=== PATIENT | male | born 1970 | race Caucasian/White ===

== ENCOUNTER 2024-02-13 17:50 | Inpatient (IN) | payer OTHER, SELFPAY ==
--- NOTE | ~2024-02-13 | XR_ITS ---
EXAMINATION: XR HIP, LEFT CLINICAL INFORMATION: Fall with pain COMPARISON: None available. TECHNIQUE: Single view pelvis with 2 additional views of the left hip. FINDINGS: There is a nondisplaced intertrochanteric fracture of the left femur.. Alignment is anatomic. Hip joint space is maintained. Soft tissues are unremarkable. Degenerative changes are seen in the lower spine. No pelvic fractures are seen. Some minimal hip joint arthritic changes are seen. XR/XR hip LT min 2V IMPRESSION: Nondisplaced intertrochanteric fracture left femur.
--- OUTSIDE RECORDS SUMMARY | 2024-02-13 17:54 | XMS_ITS | Continuity of Care Document ---
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 Attending Physician: Di Romero NP Admitting Physician: Di Romero NP Referring Physician: Nidia Carlisle DO Allergies, Adverse Reactions, Alerts Substance Reaction Severity Status codeine Active Immunizations Given and Recorded Vaccine Date Status Refusal Reason tetanus/diphtheria/pertussis, acel(Tdap) 05/13/19 Given Medications amitriptyline 75 mg oral tablet 1 tablet = 75 mg, By Mouth, Daily at bedtime, # 90 tablet, 0 Refills, Maintenance, 05/14/19 10:48:35 EDT, Tablet Start Date: 05/14/19 Status: Ordered apixaban Starter Pack 5 mg oral tablet = 5 mg, By Mouth, 2 times a day, # 60 tablet, 1 Refills, Maintenance, 10/19/23 12:54:00 EDT, Tablet, [facility], Partial fill upon patient request if the prescription is for a schedule II opioid drug., 183, cm, 10/15/23 12:11:00 EDT, Hei... Start Date: 10/19/23 Status: Ordered aspirin 81 mg oral delayed release tablet 81 mg, By Mouth, Daily, # 30 tablet, Refills 1, Tot. Refills 1, Maintenance, 10/19/23 12:54:00 EDT,Route to Pharmacy Electronically, [facility], Partial fill upon patient request if the prescription is for a schedule II opioid drug., 18... Start Date: 10/19/23 Status: Ordered clonazePAM 1 mg oral tablet 1 tablet = 1 mg, By Mouth, 2 times a day, PRN Anxiety, 0 Refills, Maintenance, 05/14/19 10:47:58 EDT, Tablet Start Date: 05/14/19 Status: Ordered Lasix 40 mg oral tablet 40 mg, By Mouth, Daily, # 30 tablet, Refills 0, Tot. Refills 0, Maintenance, 12/01/23 13:30:00 EDT,Route to Pharmacy Electronically, [facility], Partial fill upon patient request if the prescription is for a schedule II opioid drug., 18... Start Date: 12/01/23 Status: Ordered lidocaine 5% topical film 1 patch, Topically, Daily, remove patches after 12 hours, # 30 patch, 0 Refills, Acute 01/20/24 11:26:00 EDT, 12/20/23 11:25:00 EDT, Film, [facility][id number], Partial fill upon patient request if theprescription is for a schedule II opioid drug., 1 p... Start Date: 12/20/23 Stop Date: 01/20/24 Status: Ordered methadone 10 mg/5 mL oral solution = 140 mg, By Mouth, Daily, 0 Refills, Maintenance, 08/10/23 10:58:00 EST, Solution, Partial fill upon patient request if the prescription is for a schedule II opioid drug. Start Date: 08/10/23 Status: Ordered Metoprolol Tartrate 50 mg oral tablet 180 each, 0 Refill(s), TAKE 1 TABLET BY MOUTH TWICE A DAY, 0 Refills, 12/02/23 13:45:00 EDT, Partial fill upon patient request if the prescription is for a schedule II opioid drug. Start Date: 12/02/23 Status: Ordered tamsulosin 0.4 mg oral capsule 0.4 mg, By Mouth, Daily at bedtime, # 30 capsule, Refills 0, Tot. Refills 0, Maintenance, 10/19/23 12:54:00 EDT, Route to Pharmacy Electronically, [facility], Partial fill upon patient request if the prescription is for a schedule II opi... Start Date: 10/19/23 Status: Ordered Problem List Condition Confirmation Course Effective Dates Status Health [facility] Informant Anxiety Confirmed Active Chronic back pain s/p resection of herniated disc Confirmed Active HTN Confirmed Active Social History Social History Type Response Smoking Status Use: 4 or less cigar ettes(less than 1/4 pack)/day in last 30 days;5-9 cigarettes (between 1/4 to 1/2 pack)/day in last 30 days; Type: Cigarettes entered on: 10/30/23 Sex Patient Care team information Care Team Personnel Name: Wen Kennedy RN Position: S RN Member Role: Primary Care Nurse Name: Deisy Baker RN Position: S RN Member Role: Primary Care Nurse Name: Sofia Richey RN Position: S RN Member Role: Primary Care Nurse Name: Cecy Rojas RN Position: [facility] RN Member Role: Primary Care Nurse Name: Gin Savage RN Position: S RN Member Role: Primary Care Nurse Name: Abhishek Martinez RN Position: [facility] RN Member Role: Primary Care Nurse Name: Balta Driscoll RN Position: [facility] RN Member Role: Primary Care Nurse Name: Yazmin Richards LPN Position: S RN Member Role: Primary Care Nurse Name: Nidia Carlisle DO Position: [facility] Physician (General Medicine) Member Role: PCP Address: Address: [address] [place] [id number] Name: Alba Carrillo (INSTR) Position: S RN Member Role: Primary Care Nurse Name: Cyndy Caballero RN Position: [facility] RN Member Role: Primary Care Nurse Name: Stephanie Krishnamurthy RN Position: [facility] RN Member Role: Primary Care Nurse Name: Valente Dyer RN Position: S RN Member Role: Primary Care Nurse Name: Odessa Spence RN Position: [facility] RN Member Role: Primary Care Nurse Care Team Related Persons Name: GRANT ROY Address: home [address] [place] [id number] Name: RHONDA MORENO Address: home [address] [place] [id number]
--- OUTSIDE RECORDS SUMMARY | 2024-02-13 17:54 | XMS_ITS | Continuity of Care Document ---
Author Organization 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 Role Phone Maylin Nidia GRANT Primary Care Physician [place] [facility] [place] 10[place]08[place]23 - 10/19/[address] [address]- Encounter Diagnosis Pain in abdominal muscle of flank(Final) - 10/08/23 Discharge Disposition: A-D/C Home Attending Physician: Alexis Leiva MD Admitting Physician: Alexis Leiva MD Referring Physician: Not on Staff, Referring MD Allergies, Adverse Reactions, Alerts Substance Reaction Severity Status Tylenol with Codeine Active Immunizations Given and Recorded Vaccine Date Status Refusal Reason tetanus/diphtheria/pertussis, acel(Tdap) 05/13/19 Given Medications acetaminophen 325 mg oral tablet 975 mg, By Mouth, Every 6 hours, # 60 tablet, Refills 0, Tot. Refills 0, Acute 11/02/23 0:00:00 EDT, 10/19/23 12:54:00 EDT, Route to Pharmacy Electronically, [facility], Partial fill upon patient request if the prescription is for a sche... Start Date: 10/19/23 Stop Date: 11/02/23 Status: Ordered acetaminophen 325 mg oral tablet 975 mg, Tablet, By Mouth, 10/19/23 7:00:00 EDT Start Date: 10/19/23 Stop Date: 10/19/23 Status: Completed amitriptyline 75 mg oral tablet 1 tablet = 75 mg, By Mouth, Daily at bedtime, # 90 tablet, 0 Refills, Maintenance, 05/14/19 10:48:35 EDT, Tablet Start Date: 05/14/19 Status: Ordered apixaban Starter Pack 5 mg oral tablet = 5 mg, By Mouth, 2 times a day, # 60 tablet, 1 Refills, Maintenance, 10/19/23 12:54:00 EDT, Tablet, [facility], Partial fill upon patient request if the prescription is for a schedule II opioid drug., 183, cm, 10/15/23 12:11:00 EDT, Hei... Start Date: 10/19/23 Status: Ordered aspirin 81 mg oral delayed release tablet 81 mg, By Mouth, Daily, # 30 tablet, Refills 1, Tot. Refills 1, Maintenance, 10/19/23 12:54:00 EDT,Route to Pharmacy Electronically, [facility], Partial fill upon patient request if the prescription is for a schedule II opioid drug., 18... Start Date: 10/19/23 Status: Ordered clonazePAM 1 mg oral tablet 1 tablet = 1 mg, By Mouth, 2 times a day, PRN Anxiety, 0 Refills, Maintenance, 05/14/19 10:47:58 EDT, Tablet Start Date: 05/14/19 Status: Ordered Dilaudid 4 mg oral tablet = 4 mg, By Mouth, Every 3 hours, PRN Pain , Severe, # 12 tablet, 0 Refills, Acute 10/26/23 0:00:00 EDT, 10/19/23 12:54:00 EDT, Tablet, [facility], Partial fill upon patient request if the prescription is for a schedule II opioid drug., 1... Start Date: 10/19/23 Stop Date: 10/26/23 Status: Ordered Dilaudid 4 mg oral tablet 4 mg, Tablet, By Mouth, Every 3 hours, PRN for Pain , Severe, Routine, 10/15/23 16:53:00 EDT Start Date: 10/15/23 Stop Date: 10/20/23 Status: Discontinued gabapentin 300 mg oral capsule 300 mg, By Mouth, 3 times a day, # 60 capsule, Refills 0, Tot. Refills 0, Maintenance, 10/19/23 12:54:00 EDT, Route to Pharmacy Electronically, [facility], Partial fill upon patient request if the prescription is for a schedule II opioid... Start Date: 10/19/23 Status: Ordered lisinopril 40 mg oral tablet 1 tablet = 40 mg, By Mouth, Daily, # 30 tablet, 0 Refills, Maintenance, 05/14/19 10:47:32 EDT, Tablet Start Date: 05/14/19 Status: Ordered lisinopril 40 mg oral tablet 0 Refills, Maintenance, 10/08/23 14:22:00 EST, Partial fill upon patient request if the prescription is for a schedule II opioid drug. Start Date: 10/08/23 Status: Ordered methadone 10 mg/5 mL oral solution 62.5 mL = 125 mg, By Mouth, Daily, 0 Refills, Maintenance, 08/10/23 10:58:00 EST, Solution, Partialfill upon patient request if the prescription is for a schedule II opioid drug. Start Date: 08/10/23 Status: Ordered metoprolol 50 mg oral tablet 50 mg, Tablet, By Mouth, Hold for: HR < 60, SBP < 90, 10/19/23 7:00:00 EDT Start Date: 10/19/23 Stop Date: 10/19/23 Status: Completed Metoprolol Tartrate 50 mg oral tablet 1 tablet = 50 mg, By Mouth, 2 times a day, # 60 tablet, 0 Refills, Maintenance, 05/14/19 10:47:19 EDT, Tablet Start Date: 05/14/19 Status: Ordered tamsulosin 0.4 mg oral capsule 0.4 mg, By Mouth, Daily at bedtime, # 30 capsule, Refills 0, Tot. Refills 0, Maintenance, 10/19/23 12:54:00 EDT, Route to Pharmacy Electronically, [facility], Partial fill upon patient request if the prescription is for a schedule II opi... Start Date: 10/19/23 Status: Ordered Valium 5 mg oral tablet 5 mg, By Mouth, 2 times a day, PRN, # 20 tablet, Refills 0, Tot. Refills 0, Acute 11/02/23 0:00:00 EDT, Spasm, 10/19/23 12:54:00 EDT, Route to Pharmacy Electronically, [facility], Partial fill upon patient request if the prescription is... Start Date: 10/19/23 Stop Date: 11/02/23 Status: Ordered Problem List Condition Confirmation Course Effective Dates Status Health St atus Informant Anxiety Confirmed Active Chronic back pain s/p resection of herniated disc Confirmed Active HTN Confirmed Active Results Radiology Reports * Exam Date Time Procedure Performing Provider Status 10/16/23 10:09 AM IR End of Case Report Au th (Verified) IR End of Case Report * Exam Date Time Procedure Performing Provider Status 10/16/23 10:09 AM US Guide Abdomen Par acentesis w/Imaging Celena Busby; Auth (Verified) Notes: (US Guide Abdomen Paracentesis w/Imaging) Reason For Exam: abdominal fluid US Guide Abdomen Paracentesis w/Imaging Patient: YOHAN CELESTE Study Date: 10/16/2023 Performing: Julisa Hawley PA-C Referring: : 1970 Age: 53 Gender: MALE PROCEDURE: US Guided Paracentesis INDICATION: RUQ fluid collection s/p abdominal surgery. Bilious fluid? Samples requested for testing. 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 Informed consent was obtained. A suitable access site in the right upper abdominal wall was identified, marked, prepped and draped in standard sterile fashion. 1% lidocaine was administered for local anesthesia. A 5 Azerbaijani catheter was advanced into the peritoneal cavity. A post paracentesis scan was obtained. The catheter was removed and hemostasis obtained using manual compression. COMPLICATIONS: The patient tolerated the procedure well and left the department in stable condition. There were no immediate complications. FINDINGS: There is a small amount of ascites/fluid. An ultrasound guided paracentesis was successfully performed as described above. The post paracentesis scan demonstrates no significant residual abdominal fluid. PLAN: Routine post procedure monitoring. IMPRESSION: Successful ultrasound guided paracentesis with evacuation of 500 ml of sanguineous ascites. Signed By Julisa Hawley PA-C On 10/16/2023 12:59:15 Signed By Julisa Hawley PA-C On 10/16/2023 12:59:15 Julisa Hawley PA-C Equipment : [employer] [place] 19 X 10 Dictated By: Julisa Ko Dictated Date/Time: 10/16/23 10:09 a Reviewed By: Julisa Ko Signed By: Julisa Ko Signed Date/Time: 10/16/23 10:09 am Transcribed By: MAGUE Transcribed Date/Time: 10/16/23 10:09 am * Exam Date Time Procedure Performing Provider Status 10/14/23 12:[address] Abd/Pelvis W/ IV + Oral Contrast Elsi Avila; Auth (Verified) Notes: (CT Abd/Pelvis W/ IV + Oral Contrast) Reason For Exam: Postop RESULT: CT Abd/Pelvis W/ IV + Oral Contrast CT Abd/Pelvis W/ IV + Oral Contrast REASON: Postop; Clinical Question(s): Abscess TECHNIQUE: Spiral CT through the abdomen and pelvis with IV contrast formatted in 3 planes. 100 cc of Omnipaque 300 was administered intravenously. This study was performed with oral contrast. Weight-based protocol using automatic tube modulation was used to optimize exposure parameters. CTDIvol Body: 17.02 mGy, DLP Body: 1110 mGy*cm. COMPARISON: 10/08/2023 FINDINGS: Stock Manager View Findings, Lines and Tubes: Partially visualized catheter ending at the superior cavoatrial junction. Harding catheter in the bladder. Visualized Chest: Moderate left pleural effusion. Bibasilar atelectasis. Normal heart size. No pericardial effusion. Diaphragm: Normal. Liver: Persistent large area of hypoattenuation in the inferior right hepatic lobe. Gallbladder: Contains high density material likely vicariously excreted contrast. Bile ducts: No biliary ductal dilation. Spleen: Persistent large wedge-shaped area of hypoattenuation in the upper pole of the spleen compatible with infarct. Pancreas: Normal. Adrenal glands: Normal. Kidneys and ureters: Punctate nonobstructing right upper pole calculus. No hydronephrosis or suspicious mass. Bladder: Normal. Reproductive organs: Unremarkable. Stomach, small bowel, and large bowel: Improved wall thickening of the sigmoid colon and rectum butpersistent wall thickening involving the transverse and descending colon. No dilated small bowel loops to suggest small bowel obstruction. Appendix: Not seen, but no evidence of appendicitis. Peritoneum and retroperitoneum: Small amount of postoperative pneumoperitoneum. Free fluid in the pelvis and paracolic gutters extending around the liver and spleen. Mesenteric fashion, likely postoperative. Mesenteric fluid collection in the upper mid abdomen measuring 8.7 x 3.8 x 6.2 cm (axial image 84) without rim enhancement. Heterogeneous density fluid collection in the left upper quadrant measuring 6.1 x 8.2 x 6.6 cm (image 72) without rim enhancement. Lymph nodes: No enlarged lymph nodes. Blood vessels: Unchanged small focus of adherent thrombus along the proximal abdominal aorta. The SMA is now patent status post embolectomy. Persistent thrombus in the right renal vein (axial image 75). Severe narrowing of the splenic vein as it passes posterior to the above-described left upper quadrant collection. 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 Abdominal and pelvic wall: Diffuse anasarca. Midline skin bethany. Bones: No acute abnormality. Degenerative changes of the spine, worst at L5-S1. IMPRESSION: 1. Status post exploratory laparotomy and SMA embolectomy. Fluid collections in the left upper quadrant and upper abdomen could represent hematomas or seromas. Abscesses are possible but thought lesslikely given the lack of rim enhancement. 2. Redemonstration of splenic infarct as well as large area of hypoattenuation in the right hepaticlobe which is also concerning for ischemia. 3. Persistent wall thickening of the transverse and descending colon concerning for mesenteric ischemia. Improved wall thickening of the sigmoid colon and rectum. 4. Moderate left pleural effusion. Moderate ascites. 5. 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 Persistent thrombus in the right renal vein. 6. Marked narrowing of the splenic vein as it passes posterior to the left upper quadrant fluid collection. 7. Persistent small amount of adherent thrombus along the right lateral wall of the occipital abdominal aorta. 8. Small amount of postoperative pneumoperitoneum. WSN: [id number] Ordering Physician: Imer Maradiaga Dictated By: Claudy Buckner MD Dictated Date/Time: 10/14/23 12:54 p Reviewed By: Claudy Buckner MD Signed By: Claudy Buckner MD Signed Date/Time: 10/14/23 12:54 pm Transcribed By: RYNE Transcribed Date/Time: 10/14/23 12:38 pm * Exam Date Time Procedure Performing Provider Status 10/09/23 10:03 PM US Doppler Ext Lower Venous Bilat Andie Lee; Auth (Verified) Notes: (US Doppler Ext Lower Venous Bilat) Reason For Exam: concern for LE DVT;Other: RESULT: US Doppler Ext Lower Venous Bilat US Doppler Ext Lower Venous Bilat Reason: Other:; concern for LE DVT; Clinical Question(s): Thrombosis COMPARISON: None IMAGING TECHNIQUE: Ultrasound of the veins from the groin through the calf was performed using grayscale, color, and spectral Doppler ultrasound assessing for complete compressibility and normal flowcharacteristics. FINDINGS: RIGHT LOWER EXTREMITY: Common femoral vein: Patent. No thrombosis. Femoral vein: Patent. No thrombosis. Popliteal vein: Patent. No thrombosis. Gastrocnemius veins: The visualized portions are patent without evidence of thrombosis. Peroneal veins: The visualized portions are patent without evidence of thrombosis. Posterior tibial veins: The visualized portions are patent without evidence of thrombosis. LEFT LOWER EXTREMITY: Common femoral vein: Patent. No thrombosis. Femoral vein: Patent. No thrombosis. Popliteal vein: Patent. No thrombosis. Gastrocnemius veins: The visualized portions are patent without evidence of thrombosis. Peroneal veins: The visualized portions are patent without evidence of thrombosis. Posterior tibial veins: The visualized portions are patent without evidence of thrombosis. OTHER FINDINGS: None. IMPRESSION: No evidence of deep venous thrombosis. WSN: [id number] Ordering Physician: Nick Singleton Dictated By: Mukund Pulido MD Dictated Date/Time: 10/09/23 10:12 p Reviewed By: Mukund Pulido MD Signed By: Mukund Pulido MD Signed Date/Time: 10/09/23 10:12 pm Transcribed By: RYNE Transcribed Date/Time: 10/09/23 10:11 pm * Exam Date Time Procedure Performing Provider Status 10/09/23 5:[address] Angio Chest Elizabeth Guzmán; Auth (Ve rified) Notes: (CT Angio Chest) Reason For Exam: Suspected thoracic clot;Other: RESULT: CT Angio Chest EXAMINATION: CT Angio Chest INDICATION: Reason: Other:; Suspected thoracic clot; Clinical Question(s): Other:; Order Comment: TECHNIQUE: Spiral CTA of the chest was performed after rapid IV contrast administration without cardiac gating triggered by an DIONNE on the aorta. Images are formatted in multiple planes using 2-D multiplanar and 3-D maximum intensity projection. 100 cc of Omnipaque 300 was administered intravenously. Weight-based protocol using automatic tube modulation was used to optimize exposure parameters. CTDIvol Body: 37.07 mGy, DLP Body: 574 mGy*cm. COMPARISONS: None. Correlation is made with CT abdomen/pelvis dated 10/08/2023. ANGIOGRAPHIC FINDINGS: No aortic dissection or aneurysm. Normal three vessel arch without branch vessel stenosis. There are mild atherosclerotic calcifications in the aortic wall. In addition, there is a crescentic thrombus adherent to the left aortic wall extending from the level of the left superior pulmonary vein to the level of the left atrium with craniocaudal extent measuring approximately 3.5 cm (best seen on image 49 of series 50 on coronal images). The thrombus becomes somewhat polypoid at the level of the left atrium and extends into the lumen inferiorly with additional craniocaudal extent measuring 4.6 cm (image 48 of series 50 on coronal images). Pulmonary arteries are normal in caliber. No evidence of central pulmonary embolism on this study performed without dedicated technique. NON-ANGIOGRAPHIC FINDINGS: Stock Manager View Findings, Lines and Tubes: Enteric tube terminates in stomach lumen. There are midline abdominal skin bethany. Trachea and Airways: Patent without evidence of tracheal or endobronchial lesion. Lungs and Pleura: Dependent atelectasis in lower lobes. Mild centrilobular emphysema with upper lobe predominance moderate left pleural effusion. No right effusion. No pneumothorax. Mediastinum and geovanny: No mass or hematoma. No mediastinal or hilar lymphadenopathy. No esophageal abnormality. There is a 2 cm heterogeneous nodule in right thyroid lobe. Heart: Heart is normal in size. Small pericardial effusion measuring 1.1 cm adjacent to the left ventricle. Chest Wall Soft Tissues: Normal. Diaphragm and upper abdomen: Heterogeneous attenuation of the liver and spleen, in keeping with known infarcts. There is small volume ascites and at least moderate volume pneumoperitoneum in the visualized abdomen. Bones: No acute abnormality. IMPRESSION: 1. Thrombus in the descending aorta with the crescentic adherent component measuring 3.5 cm craniocaudally and polypoid/free intraluminal component measuring 4.6 cm. 2. Moderate left pleural effusion, increased since 10/08/2023 and there is new small pericardial effusion. 3. Small volume ascites and moderate volume pneumoperitoneum in the visualized abdomen, in keeping with recent exploratory laparotomy. 4. Heterogeneous attenuation of the liver and spleen, in keeping with known infarcts. 5. 2 cm right thyroid lobe nodule. Follow-up with nonemergent dedicated ultrasound is recommended per ACR guidelines. An actionable message ([place]) has been communicated via the [employer] system on 10/09/2023 5:41 PM, Message ID [id number]. WSN: [id number] Ordering Physician: Imer Maradiaga Dictated By: Kurtis Collins MD Dictated Date/Time: 10/09/23 5:41 pm Reviewed By: Kurtis Collins MD Signed By: Kurtis Collins MD Signed Date/Time: 10/09/23 5:41 pm Transcribed By: RYNE Transcribed Date/Time: 10/09/23 5:25 pm * Exam Date Time Procedure Performing Provider Status 10/08/23 7:44 PM Chest Portable Marion Ledbetter; Kera (Verif ied) Notes: (Chest Portable) Reason For Exam: s/p NGT placement;Tube Placement RESULT: Chest Portable Chest Portable Reason: Tube Placement; s p NGT placement; Clinical Question(s): Tube Placement COMPARISON: 08/07/2023 FINDINGS: LINES AND TUBES: Enteric tube sidehole appears likely in the distal esophagus/gastroesophageal junction. Recommend advancement 3 to 4 cm. LUNGS AND PLEURA: Low lung volumes with mild basilar atelectasis. Lungs are otherwise clear with no consolidation. No pleural effusion. No pneumothorax. HEART, MEDIASTINUM AND GEOVANNY: Heart is normal in size. Normal mediastinal and hilar contour. BONES AND SOFT TISSUES: No acute abnormality. IMPRESSION: Recommend mild advancement of the enteric tube. WSN: [id number] Ordering Physician: Jony House Dictated By: Mukund Pulido MD Dictated Date/Time: 10/08/23 9:37 pm Reviewed By: Mukund Pulido MD Signed By: Mukund Pulido MD Signed Date/Time: 10/08/23 9:37 pm Transcribed By: RYNE Transcribed Date/Time: 10/08/23 9:36 pm * Exam Date Time Procedure Performing Provider Status 10/08/23 6:[address] Abd/Pelvis W/ IV Contrast Only Elsy Sun; Kera (Verified) Notes: (CT Abd/Pelvis W/ IV Contrast Only) Reason For Exam: LLQ abdominal pain;Other: RESULT: CT Abd/Pelvis W/ IV Contrast Only CT Abd/Pelvis W/ IV Contrast Only Hx of Present Illness: reports 12 hours of lower abd pain, and watery diarrhea w small amt blood, no fevers but feels chilled,; Reason: LLQ abdominal pain; Clinical Question(s): Abscess TECHNIQUE: Spiral CT through the abdomen and pelvis with IV contrast formatted in 3 planes. 100 cc of Omnipaque 300 was administered intravenously. This study was performed without oral contrast. Weight-based protocol using automatic tube modulation was used to optimize exposure parameters. CTDIvol Body: 14.40 mGy, DLP Body: 865 mGy*cm. COMPARISON: CTA abdomen pelvis 08/07/2023 FINDINGS: Stock Manager View Findings, Lines and Tubes: None. Visualized Chest: Small left pleural effusion. The heart is normal in size. Trace pericardial effusion. Diaphragm: Normal. Liver: Interval development of a large ill-defined area of hypoattenuation predominantly involving the anterior inferior right middle lobe which demonstrates a wedge-shaped configuration on the sagittal imaging, in setting near complete occlusion of the anterior branch of the right portal vein findings in keeping with an infarct. The posterior branch of the right portal vein and left portal vein distributions appear patent. Gallbladder: No CT evidence of gallbladder pathology. Bile ducts: No biliary ductal dilation. Spleen: Large infarct of the anterior posterior spleen although the splenic artery and veins appearpatent. Pancreas: Severely atrophic. Adrenal glands: Normal. Kidneys and ureters: No evidence of stones or hydronephrosis. No apparent infarct. Nonocclusive thrombus noted in the mid to right renal artery (image 55 series 201). Bladder: Normal. Reproductive organs: Unremarkable. Stomach, small bowel, and large bowel: There is dependent hyperdense contents within the gastric fundus otherwise the stomach appears normal. Redemonstrated is significant circumferential thickening involving the transverse, descending and rectosigmoid colon setting of extensive thrombosis involving the superior mesenteric artery jejunal and ileal branches of findings in keeping with ischemic colitis. Normal appearance of the ascending colon. Small bowel follow normal course and caliber. Several of the small bowel loops in the left abdomen demonstrate mildly thickened diego likely due to the above thrombus. No evidence of bowel obstruction. Appendix: Not seen, but no evidence of appendicitis. Peritoneum and retroperitoneum: No significant ascites. No pneumoperitoneum. No omental or mesenteric lesions. Lymph nodes: No enlarged lymph nodes. Blood vessels: Moderate atherosclerotic vascular calcification. No aortic aneurysm. Ill-defined and likely adherent thrombus noted in the abdominal aorta at the level of the GE junction (image 26 series 201). Near-complete occlusion of the jejunal and ileal branches off the SMA (image 61 series 201). Near complete occlusion of the IMV (image 64 series 2 0).. Complete occlusive thrombus of the anterior branch of the right portal vein. Nonocclusive thrombus in the mid right renal artery and vein. Abdominal and pelvic wall: No acute abnormality. Bones: No acute abnormality. IMPRESSION: 1. 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 2. Large splenic infarct. 3. Near complete occlusion of the jejunal and ileal branches off the SMA with redemonstrated circumferential thickening involving the transverse, descending and rectosigmoid colon suggesting ischemiccolitis. Left abdominal small bowel loops are thickened likely supplied by the above distribution and suggesting mesenteric ischemia. Additional note of near complete occlusion of the IMV. 4. Nonocclusive thrombus in both the mid right renal artery and vein without evidence of renal infarct. 5. Likely adherent thrombus noted in the mid abdominal aorta at the level of GE junction. Results were relayed via [employer] by Dr. Ayala to Junior Sarah GRANT on 10/08/2023 6:52 AM Wet read provided via [facility] by Dr. Ayala on 10/08/2023 6:54 AM. I have personally reviewed the images and I agree with this report. WSN: [id number] Ordering Physician: Junior Smith Dictated By: Abhishek Ayala DO Dictated Date/Time: 10/08/23 7:49 am Reviewed By: Juan Covarrubias MD Signed By: Juan Covarrubias MD Signed Date/Time: 10/08/23 7:54 am Transcribed By: RYNE Transcribed Date/Time: 10/08/23 7:20 am Vital Signs Most recent to oldest [Reference Range]: 1 2 3 Height 183 cm (10/15/23 12:11 PM) 183 cm (10/08/23 9:37 AM) 183 cm (10/08/23 7:52 AM) Weight 100.6 kg (10/18/23 6:00 AM) 96.8 kg (10/17/23 4:57 AM) 95.2 kg (10/16/23 5:11 AM) Oxygen Saturation [94-100 %] 87 % *L* (10/19/23 10:00 AM) 96 % (10/18/23 10:00 PM) 97 % (10/18/23 6:00 PM) Pulse Rate [55-90 bpm] 84 bpm (10/19/23 10:00 AM) 102 bpm *H* (10/19/23 7:27 AM) 94 bpm *H* (10/18/23 10:00 PM) Body Mass Index [18.5-24.99 kg/m2] 22.99 kg/m2 (10/08/23 9:37 AM) 22.99 kg/m2 (10/08/23 7:52 AM) 22.99 kg/m2 (10/08/23 4:44 AM) Blood Pressure [90-138/55-84 mm Hg] 88/60mm Hg *L* (10/19/23 10:00 AM) 100/57mm Hg (10/19/23 7:27 AM) 104/60mm Hg (10/18/23 10:00 PM) Respiratory Rate [16-30 br/min] 18 br/min (10/19/23 12:30 PM) 18 br/min (10/19/23 12:29 PM) 18 br/min (10/19/23 11:29 AM) Temperature [96.8-100.4 DegF] 98.7 DegF (10/19/23 10:00 AM) 99.6 DegF (10/18/23 10:00 PM) 98.2 DegF (10/18/23 6:00 PM) Liters per Minute 1 L/min (10/12/23 8:00 PM) 1 L/min (10/12/23 7:00 PM) 6 L/min (10/08/23 3:15 PM) Mode of Delivery (Oxygen) Room air (10/19/23 10:00 AM) Room air (10/18/23 10:00 PM) Room air (10/18/23 6:00 PM) Blood pressure sites Arm, right (10/19/23 10:00 AM) Arm, left (10/18/23 10:00 PM) Arm, left (10/18/23 6:00 PM) Temperature Route Oral (10/19/23 10:00 AM) Oral (10/18/23 10:00 PM) Oral (10/18/23 6:00 PM) Dry Weight 77 kg (10/08/23 7:52 AM) 77 kg (10/08/23 4:44 AM) 77 kg (10/08/23 4:23 AM) Weight Obtained Via Bed scale (10/18/23 6:00 AM) Bed scale (10/17/23 4:57 AM) Bed scale (10/16/23 5:11 AM) Dry Weight Obtained Via Patient/family s tated (10/08/23 2:52 AM) Social History Social History Type Response Smoking Status 10 or more cigarette s (1/2 pack or more)/day in last 30 days; Started at age: 12; entered on: 05/14/19 Sex Note * Cassidy Rizvi LPN: PERFORM Event Display: Discharge/Transfer Note Hospital Authored Date: [id number] Nursing Discharge Note Entered On: 10/19/2023 14:29 EDT Performed On: 10/19/2023 14:28 EDT by Cassidy Rizvi LPN Nursing Discharge Note 2 Discharge Time : 10/19/2023 14:29 EDT Discharge Level of Care at Discharge : Home/Custodial/Foster Care Patient Left Unit Via : Wheelchair Patient Accompanied Off Unit with : Significant other DC Instructions Provided & Signed by Pt : Yes Patient Understands D/C Instructions : Yes Patient Instructions Discharge Signed : Yes Did Pt have Specialty Bed or Wound Vac : Yes Cassidy Rizvi LPN - 10/19/2023 14:28 EDT * Ann-Marie Vásquez MD: PERFORM Event Display: Discharge/Transfer Note Hospital Authored Date: [id number] Patient: ??CELESTEYOHAN JARA ? Age:??53 Years?Sex:??Male?:??1970?? Admit Date Admission Date: 10/08/2023 Discharge Date Discharge Date: 10/19/2023 Discharge Diagnoses General medical, 10/08/2023 Hospital Course Yohan is a 53yoM with PMH of polysubstance abuse??and portal vein thrombosis not on anticoagulation who was admitted at [facility] on 10/08/23 for acute on chronic mesenteric ischemia. ??He underwent exploratory laparotomy??with open SMA embolectomy and patch repair on 10/08/2023??with Dr. Leiva & Artur. The surgery was uncomplicated, and the patient tolerated the procedure well with no acute post-operative complications. ??He was started on multimodal pain control. ??He underwent ahypercoagulable workup by the heme service without significant findings except for iron deficiency,and he was started on Eliquis.?? Due to persistent leukocytosis and lack of bowel function, he had a CT scan??on 10/13??that showed??upper abdominal fluid collections, s/p??paracentesis on 10/15 revealing 500 cc of bloody ascites.?? Postoperative course additionally complicated by intermittent bloodybowel movements??requiring blood transfusion,??these eventually resolved without the need for colonoscopic evaluation. ??His diet was advanced to regular, which he tolerated without difficulty.??On day of discharge, he was tolerating regular diet, passing gas, voiding spontaneously, and ambulating without difficulty. ??His pain was controlled with PO pain medications. ??He will be discharged to home per PT recommendations. The discharge instructions were reviewed with the patient, and he??was given ample time to ask questions, all of which were answered. He will be discharged with prescriptions for Tylenol, Eliquis, aspirin, Flomax, Valium, gabapentin,??Dilaudid. ??He will be given instructions to follow-up with Dr. Leiva in 2 weeks, and he will see vascular on 11/05. Objective/Physical Exam on Day of Discharge Vitals & Measurements T:??98.7?F?? HR:??84??(Peripheral)?? RR:??18?? BP:??88/60?? BP:??109/62(Line)?? SpO2:??87%?? HT:??183??cm?? WT:??100.6??kg?? BMI:??22.99?? General: no acute distress, awake, alert HEENT: NCAT, EOM grossly intact, trachea midline CV: RRR Pulm: nonlabored breathing on room air Abd: soft, mild jaylyn-incisional tenderness, nondistended, no rebound or guarding, midline laparotomy with bethany c//di Ext: moving all extremities spontaneously, no lower extremity edema Skin: no rash on limited exam, warm and well-perfused Neuro: answers questions appropriately Psych: appropriate Future Appointments Saturday 8:30 AM EDT ?? With: Jackie LESTER, Ada Soriano Where: [facility] [address] [place] [address]- Status: Pending Patient Discharge Condition Stable Discharge Disposition Home Procedures Performed This Visit Preoperative Diagnosis Acute Mesenteric Ischemia Postoperative Diagnosis Same as preoperative diagnosis Operation Exploratory Laparotomy Open SMA Thrombectomy with patch angioplasty ?? Preoperative Diagnosis Same Postoperative Diagnosis Same Operation Exploratory laparotomy with open??thrombectomy of superior mesenteric artery??and bovine patch angioplasty. ?? US Guide Abdomen Paracentesis w/Imaging Patient: YOHAN CELESTE?? Study Date: 10/16/2023 ? Performing: Julisa Hawley ??RICARDO-Curtis? Referring: ?? : 1970 ? Age: 53 ?Gender: ?? MALE? PROCEDURE: ?? US Guided Paracentesis ?? INDICATION: ?? RUQ fluid collection s/p abdominal surgery. Bilious fluid? Samples requested for testing.? AIRPLANE PILOT HELPER(S):?? Julisa Hawley ??PA-Curtis? ANESTHESIA:?? Lidocaine was administered for local anesthesia? TECHNIQUE:?? A limited ultrasound examination of the abdomen was performed. ?? Informed consent was obtained. A suitable access site in the right upper abdominal wall was ??identified, marked, prepped and draped in standard sterile fashion. 1% lidocaine was administered for local anesthesia. A 5 Azerbaijani catheter was ??advanced into the peritoneal cavity.? A post paracentesis scan was obtained. The catheter was removed and hemostasis obtained using manual compression. ?? COMPLICATIONS: The patient tolerated the procedure well and left the department in stable condition. ??There were no immediate complications. ?? FINDINGS:?? There is a small amount of ascites/fluid. An ultrasound guided paracentesis was successfully performed as described above. ?? The post paracentesis scan demonstrates no significant residual abdominal fluid. ?? PLAN: Routine post procedure monitoring.? IMPRESSION: Successful ultrasound guided paracentesis with evacuation of 500 ??ml of sanguineous ?ascites. ?? Inpatient Medications Medications (22) Active SCHEDULED: (14) Acetaminophen 325 mg Tablet (acetaminophen 325 mg oral tablet) ??975 mg, By Mouth, Every 6 hours Amitriptyline 25 mg Tablet (amitriptyline 25 mg oral tablet) ??75 mg, By Mouth, Daily at bedtime Apixaban 5 mg Tablet (Apixaban Tablet) ??5 mg, By Mouth, 2 times a day Aspirin 81 mg EC Tablet (aspirin 81 mg oral delayed release tablet) ??81 mg, By Mouth, Daily Gabapentin 300 mg Capsule (gabapentin 300 mg oral capsule) ??300 mg, By Mouth, 3 times a day Lidocaine 5% Topical Patch (Lidocaine 5% Patch) ??3 each, Topically, Daily Methadone 30mg/15mL UD Solution (Methadone Liquid) ??125 mg 62.5 mL, By Mouth, Daily Metoprolol 50 mg Tablet (metoprolol 50 mg oral tablet) ??50 mg, By Mouth, 2 times a day before breakfast and dinne NaCl 0.9% Flush 3ml (NaCL 0.9% Flush) ??5 mL, IV Push, Daily Nicotine 7 mg / 24 hour Patch (Nicotine Topical) ??7 mg, Topically, Daily Remove Patch (Remove Lidocaine Patch) ??3 each, Topically, Daily at bedtime Remove Patch (Remove ??Patch) ??1 each, Topically, Daily Tamsulosin 0.4 mg Capsule (tamsulosin 0.4 mg oral capsule) ??0.4 mg, By Mouth, Daily at bedtime Thiamine 100 mg Tablet (thiamine 100 mg oral tablet) ??100 mg, By Mouth, Daily CONTINUOUS: (0) PRN: (8) Calcium Carbonate 500 mg (Calcium 200 mg) Chewable Tablet (Tums 500 mg oral tablet, chewable) ??500mg 1 tablet, Chew, Every 4 hours Chloraseptic Throat Kaycee (Chloraseptic Kaycee) ??1 sprays, By Mouth, Every 4 hours Clonazepam 1 mg Tablet (clonazePAM 1 mg oral tablet) ??1 mg, By Mouth, 2 times a day Diazepam 5 mg Tablet (Valium 5 mg oral tablet) ??5 mg, By Mouth, 2 times a day HYDROmorphone 4 mg Tablet (Dilaudid 4 mg oral tablet) ??4 mg, By Mouth, Every 3 hours NaCl 0.9% Flush 3ml (NaCL 0.9% Flush) ??5 mL, IV Push, Every hour nalOXONE ??400mcg/mL Inj (nalOXONE Inj) ??0.2 mg 0.5 mL, IV Push, Every 5 minutes Ondansetron 2mg/mL Inj (2mL Vial) (Zofran Inj) ??4 mg, IV Push, Every 6 hours Discharge Medications Acetaminophen (acetaminophen 325 mg oral tablet)?975?Milligram?By Mouth?Every 6 hours amiTRIPTYLINE (amitriptyline 75 mg oral tablet)?1?tab(s)?75?Milligram?By Mouth?Daily at bedtime apixaban (apixaban Starter Pack 5 mg oral tablet)?5?Milligram?By Mouth?2 times a day Aspirin (aspirin 81 mg oral delayed release tablet)?81?Milligram?By Mouth?Daily Clonazepam (clonazePAM 1 mg oral tablet)?1?tab(s)?1?Milligram?By Mouth?2 times a day?as needed?Anxiety Diazepam (Valium 5 mg oral tablet)?5?Milligram?By Mouth?2 times a day?as needed?Spasm Gabapentin (gabapentin 300 mg oral capsule)?300?Milligram?By Mouth?3 times a day Hydromorphone (Dilaudid 4 mg oral tablet)?4?Milligram?By Mouth?Every 3 hours?as needed?Pain , Severe Lisinopril (lisinopril 40 mg oral tablet)?1?tab(s)?40?Milligram?By Mouth?Daily Methadone (methadone 10 mg/5 mL oral solution)?62.5?Milliliter?125?Milligram?By Mouth?Daily Metoprolol (Metoprolol Tartrate 50 mg oral tablet)?1?tab(s)?50?Milligram?By Mouth?2 times a day Tamsulosin (tamsulosin 0.4 mg oral capsule)?0.4?Milligram?By Mouth?Daily at bedtime Labs Last 24 Hours BLOOD COUNT & DIFF ? Event Name?? Event Result?? Date/Time?? WBC 13.6 k/mm3??High 10/19/23 03:41:00 RBC 2.9 m/mm3??Low 10/19/23 03:41:00 Hgb 8.3 Gm/dL??Low 10/19/23 03:41:00 Hct 25.9 %??Low 10/19/23 03:41:00 MCV 89.3 femtoliters 10/19/23 03:41:00 MCH 28.6 pg 10/19/23 03:41:00 MCHC 32 g/dL??Low 10/19/23 03:41:00 Platelet Count 557 k/mm3??High 10/19/23 03:41:00 MPV 9.8 femtoliters 10/19/23 03:41:00 Nucleated RBC (Automated) 0 #/100 WBC'S 10/19/23 03:41:00 ? COAG ? Event Name?? Event Result?? Date/Time?? APTT 30.9 seconds 10/19/23 03:41:00 ? CHEM GENERAL ? Event Name?? Event Result?? Date/Time?? Sodium 136 mmol/L 10/19/23 03:41:00 Chloride 103 mmol/L 10/19/23 03:41:00 Bicarbonate Level 25 mmol/L 10/19/23 03:41:00 Anion Gap 8 10/19/23 03:41:00 Glucose Level 74 mg/dL 10/19/23 03:41:00 BUN 6 mg/dL 10/19/23 03:41:00 Creatinine-Blood 0.7 mg/dL 10/19/23 03:41:00 Calcium, Ionized pH Corrected 1.15 mmol/L 10/19/23 03:41:00 Phosphorus 3.5 mg/dL 10/19/23 03:41:00 Magnesium 1.6 mg/dL 10/19/23 03:41:00 ? Follow-Up Appointments Added Follow Up ?Time Frame ?Comments Cali HELM, Alexis Su?2 Weeks?Please call to make a follow up appointment for 2 weeks after discharge. Patient Instructions Additional Provider Instructions: ?? Follow-Up: - Please call Dr. Leiva's office (surgery) to make a follow-up appointment for 2 weeks after hospitaldischarge.?? - Please call your Primary Care Provider within 1 week for post-hospital follow- up and review of your medications. ?? Diet: - Continue regular diet as tolerated? Activity: - No heavy lifting >10 lbs, nothing heavier than a gallon of milk - No sports or gym class for 2 weeks - Increase activity as tolerated - Encourage coughing and deep breathing, use incentive spirometer - No tub baths or submerging (swimming, etc.) until incision(s) has/have healed - OK to shower, do not scrub the incision, pat dry - No driving until off narcotics ?? Wound care: - The incision may be left open to air or covered with gauze as needed for drainage or for comfort - The bethany will be removed at your follow-up appointment? Special Instructions:?? If you develop fever, chills, increased pain, nausea, vomiting, bleeding, or increased redness or pus around the wound please call the surgery office. Please take medications as prescribed and do not drive while on narcotic medications.? When to call your healthcare provider:?? - Pain, redness, swelling, or bleeding that gets worse - Smelly fluid from the incision or change in color of the drainage from the incision - Fever of 100.4F (38C) or higher, or as advised - Shaking or chills - Vomiting or nausea that does not go away - Numbness, coldness, or tingling around the incision - Change of skin color around the incision - Opening of the wound, stitches that pull apart, or bethany that fall out - Any other concerns?? * Cassidy Rizvi LPN: PERFORM Event Display: Patient Education/Instruction Authored Date: [id number] Inpatient Adult Discharge Instructions. [address] [address] Name: YOHAN CELESTE : 1970?? Visit: 10/08/2023 08:23?? Current Date: 10/19/2023 13:30 ?? Account: [id number]?? Inpatient Adult Discharge Instructions We would like to thank you for allowing us to assist you with your healthcare needs. The following includes patient education materials and information regarding your injury/illness. Our entire staffstrives to provide an excellent experience for our patients and their families. PLEASE ENSURE YOU FOLLOW-UP PER THE INSTRUCTIONS BELOW! ?? YOUR OPINION IS IMPORTANT TO US! Please complete the survey you may receive by mail or email. Your feedback will be used to make improvements to the healthcare experiences of our patients and their families. Surveys are administered by [employer] ?? If further treatment with your primary care physician or another doctor is recommended, it is important for you to keep the appointment. Call your primary care physician or return to the Emergency Department immediately if your condition worsens, fails to improve, or new symptoms develop. If you need to find a doctor, you can call [facility] for a referral at [phone] or toll free at [phone]) or log in to [email or web address].. ?? [facility], in keeping with [facility] guidance, no longer requires face masks for staff, patientsor visitors in most situations. Similiar to time spent indoors at other locations, there is the chance that you were exposed to repiratory viruses during your time with us (such as flu or COVID-19). If you develop symptoms concerning for a viral respiratory infection, please seek testing (and treatment if indicated) from your medical provider or home test kit. ?? You can view and manage your care through the patient portal or by using a health care juliano of your choosing. [employer] is a website that allows you to securely view your medical information including your hospital discharge summary, office visit summaries, medications and follow-up visits. You can also request appointments, renew medications, and request access to your medical information using a health care juliano of your choosing, or just ask a question. You can enroll at [email or web address] or register during your next office visit. You have been discharged from [facility], Patient Care Unit: SW5??. If you have any questions regarding these instructions, including results of studies pending, afteryou leave, please call us and we will be happy to assist you 25/02. [facility] Your Care Team Attending Physician Alexis Leiva MD?? Consulting Providers Alexis Leiva MD?? Discharging Providers Ann-Marie Vásquez MD Reason for Your Visit abd pain and diarrhea x a few months. was admitted for 5 days and it went away and now it came backthere is a bit of blood in his stool. tachy. given nacl en route - aprox 500ml?? Your Diagnosis General medical Tests Performed Below is a partial list of the tests performed during your hospitalization. You may have had other tests and procedures not included in this list. Please discuss all test results with your provider. [id number] ABG POC CARTRIDGE Alk Phos ALT Anticardiolipin Ab IgG/IgM Antithrombin III Functional AST B12 Vitamin Level BASE EXCESS POC CARTRIDGE Basic Metabolic Panel Beta 2 Glycoprotein 1 Ab Bilirubin Total + Direct BUN Calcium Ionized CALCIUM IONIZED POC CART CBC CBC w/ Differential Comprehensive Metabolic Panel COVID-19 (2019 Novel Coronavirus) PCR Creatinine Culture Sterile Body Fluid w/ Gram Smear?-- Results Pending -- Electrolytes Factor V Leiden Mutation w/Interpret Ferritin Folic Acid Level Glucose Level GLUCOSE POC GLUCOSE POC CARTRIDGE Haptoglobin HEMATOCRIT POC CARTRIDGE HEMOGLOBIN POC CARTRIDGE Homocysteine Level INR Ionized Calcium Iron + Iron Binding Capacity JAK2 [id number] Mutation w/Interpretation Lactate Level Lactic Acid Level LFT's Lipase Lytes Magnesium Level Phosphorus Level POC Hemochron ACT-LR POTASSIUM POC CARTRIDGE Prothrombin [id number] Mutation PTT Reticulocyte Ct SODIUM POC CARTRIDGE Spinal Fluid Culture Results TRIGLYCERIDE Type and Screen CT Abd/Pelvis W/ IV + Oral Contrast CT Abd/Pelvis W/ IV Contrast Only CT Angio Chest CXR Portable Doppler Ext Lower Venous Bilat (US) US Guide Abdomen Paracentesis w/Imaging You will be contacted within 72 hours with your results. Anaerobic Culture?? Basic Metabolic Panel?? JAK2 Exon 12-15 Mutation Detection?? RBCs for Surgery?? Sterile Body Fluid Culture W/ Gram Smear (Culture Sterile Body Fluid w/ Gram Smear)?? Transfuse RBCs?? Primary Care Provider Nidia Carlisle DO? Advance Directive Health Care Proxy on File Yes - Health Care Proxy Discharge Vitals Temperature: 98.7 DegF Height: 183 cm Pulse Rate: 84 bpm Weight: 100.6 kg Respiratory Rate: 18 br/min Body Mass Index: 22.99 kg/m2 Systolic Blood Pressure:??88 mm Hg??Low Body surface area: 1.98 Diastolic Blood Pressure: 60 mm Hg ?? Oxygen Saturation:??87 %??Low ?? Studies Pending All studies ordered during this hospital stay have been completed unless listed below. Please discuss all pending results with your provider listed above in these instructions. ?? Anaerobic Culture?? Basic Metabolic Panel?? JAK2 Exon 12-15 Mutation Detection?? RBCs for Surgery?? Sterile Body Fluid Culture W/ Gram Smear (Culture Sterile Body Fluid w/ Gram Smear)?? Transfuse RBCs?? What to do next Instructions From Your Doctor Additional Provider Instructions: ?? Follow-Up: - Please call Dr. Leiva's office (surgery) to make a follow-up appointment for 2 weeks after hospitaldischarge.?? - Please call your Primary Care Provider within 1 week for post-hospital follow- up and review of your medications. ?? Diet: - Continue regular diet as tolerated? Activity: - No heavy lifting >10 lbs, nothing heavier than a gallon of milk - No sports or gym class for 2 weeks - Increase activity as tolerated - Encourage coughing and deep breathing, use incentive spirometer - No tub baths or submerging (swimming, etc.) until incision(s) has/have healed - OK to shower, do not scrub the incision, pat dry - No driving until off narcotics ?? Wound care: - The incision may be left open to air or covered with gauze as needed for drainage or for comfort - The bethany will be removed at your follow-up appointment? Special Instructions:?? If you develop fever, chills, increased pain, nausea, vomiting, bleeding, or increased redness or pus around the wound please call the surgery office. Please take medications as prescribed and do not drive while on narcotic medications.? When to call your healthcare provider:?? - Pain, redness, swelling, or bleeding that gets worse - Smelly fluid from the incision or change in color of the drainage from the incision - Fever of 100.4F (38C) or higher, or as advised - Shaking or chills - Vomiting or nausea that does not go away - Numbness, coldness, or tingling around the incision - Change of skin color around the incision - Opening of the wound, stitches that pull apart, or bethany that fall out - Any other concerns? Orders?? methadone letter, ??10/19/23 13:02:00 EDT?? Prescriptions??, ??10/19/23 13:02:00 EDT?? Scheduled Follow-Up Appointments Saturday 8:30 AM EDT ?? With: Jackie LESTER, Ada Soriano Where: [facility] [address] [place] [address]- Status: Pending You Need to Schedule the Following Appointments Follow Up with??Cali HELM, Alexis Su When:??In 2 weeks Why: Please call to make a follow up appointment for 2 weeks after discharge. Where: [address] [place] [address] Drive [address] [facility] [place] [address]- Discharge Medications YOHAN CELESTE :1970 Visit Date:10/08/2023 Medications: Please continue your medications until treatment is completed or stopped by your provider. Medications not listed below should be discontinued. Discuss any questions related to medications with your provider. What How Much When Instructions Next Dose New Acetaminophen (acetaminophen 325 mg oral tablet) 975 Milligram Oral Every 6 hours Pickup at [facility] 3 tonight @ 7pm New apixaban (apixaban Starter Pack 5 mg oral tablet) 5 Milligram Oral Twice a day Refills: 1 Pickup at [place] [address] tonight @ 7pm New Aspirin (aspirin 81 mg oral delayed release tablet) 81 Milligram Oral Daily Refills: 1 Pickup at [place] [address] 10/19-tomorrow @ 8am New Diazepam (Valium 5 mg oral tablet) 5 Milligram Oral Twice a day as needed for Spasm Pickup at [place] [address] tonight @ 8pm New Gabapentin (gabapentin 300 mg oral capsule) 300 Milligram Oral 3 times a day Pickup at [place] [address] today @ 3pm then @ 9pm New Hydromorphone (Dilaudid 4 mg oral tablet) 4 Milligram Oral Every 3 hours as needed for Pain , Severe Pickup at [facility] 3 as directed New Tamsulosin (tamsulosin 0.4 mg oral capsule) 0.4 Milligram Oral Daily at Bedtime Pickup at [facility] 3 tonight @ 8pm Changed Clonazepam (clonazePAM 1 mg oral tablet) 1 tab(s) Oral Twice a day as needed for Anxiety as directed Changed Metoprolol (Metoprolol Tartrate 50 mg oral tablet) 1 tab(s) Oral Twice a day tonight @ 7pm Changed amiTRIPTYLINE (amitriptyline 75 mg oral tablet) 1 tab(s) Oral Daily at Bedtime tonight @ 8pm Unchanged Lisinopril (lisinopril 40 mg oral tablet) 1 tab(s) Oral Daily as directed Unchanged Lisinopril (lisinopril 40 mg oral tablet) Unchanged Methadone (methadone 10 mg/ 5 mL oral solution) 62.5 Milliliter Oral Daily 10/19-tomorrow @ 8am Pharmacy Information [facility] 3: [address], [place] [id number] [phone] ?? What How Much When Comments Stop Taking PEG Electrolyte Solution (Golytely - oral powder for reconstitution) See instructions Drink 240mL every 15 minutes until gone ?? Prescription Given During Visit Acetaminophen (acetaminophen 325 mg oral tablet) - 975 mg, By Mouth, Every 6 hours, # 60 tablet, 0 Refills, [place] [address] [phone]?? Aspirin (aspirin 81 mg oral delayed release tablet) - 81 mg, By Mouth, Daily, # 30 tablet, 1 Refills, [place] [address] [phone]?? Diazepam (Valium 5 mg oral tablet) - 5 mg, By Mouth, 2 times a day, # 20 tablet, 0 Refills, [place] [address] [phone]?? Gabapentin (gabapentin 300 mg oral capsule) - 300 mg, By Mouth, 3 times a day, # 60 capsule, 0 Refills, [place] [address] [phone]?? Hydromorphone (Dilaudid 4 mg oral tablet) - 4 mg, By Mouth, Every 3 hours, # 12 tablet, 0 Refills, [place] [address] [phone]?? Tamsulosin (tamsulosin 0.4 mg oral capsule) - 0.4 mg, By Mouth, Daily at bedtime, # 30 capsule, 0 Refills, [place] [address] [phone]?? apixaban (apixaban Starter Pack 5 mg oral tablet) - 5 mg, By Mouth, 2 times a day, # 60 tablet, 1 Refills, [place] [address] [phone]?? Laboratory Results Below is a partial list of the most recent Laboratory test results done prior to this discharge. You may have had other tests and procedures not included in this list. Please discuss all test resultswith your provider. Est Creatinine Clearance - 132.92 mL/min (10/18/2023) RBC Available - PT (10/16/2023) RBC Unit ID - [id number] (10/16/2023) (10/08/2023) ? ?Surgical Pathology - Patient Name: YOHAN CELESTE
Lab
Patient : 1970 (Age: 53)
Collection Date: 10/08/2023
Accession Date: 10/08/2023
Sign Out Date: 10/11/2023

<br/&g t;Tissue Source:
1:SMA CLOT

Final Diagnosis:
Thrombus, superior mesenteric artery, thrombectomy:
- Unorganized thrombus. <br/ >

Primary Pathologist:Dexter Powell M.D.
electronically signed out by: Dexter Powell M.D. / JAKUB

Clinical History:<br/&gt ;Ischemic SMA

Gross Description:
Specimen labeled SMA clot. Received in formalin and consists of a 2.7 x 2.3 x 0.8 cm aggregate of brown, slightly friable and slightly hemorrhagic presumptive soft tissue. Thespecimen is submitted in toto.
1-multiple pieces. (LG)*

Phone #: [phone], On-Call Pathologist: [id number] ABG POC CARTRIDGE (10/08/2023) ???pH (POC) POC Cartridge - 7.39???pCO2 (POC) POC Cartridge - 35.8 mm Hg???pO2 (POC) POC Cartridge - 222 mm Hg???Estimated Bicarbonate (POC) POC Cart - 21.8 mmol/L???% O2 Sat Arterial (POC) POC Cartridge - 100 %???Specimen Type - Blood Gas - ARTERIAL Alk Phos (10/11/2023) ???Alkaline Phosphatase - 134 units/L ALT (10/11/2023) ???ALT (SGPT) - 18 units/L Anticardiolipin Ab IgG/IgM (10/09/2023) ? ?Cardiolipin Ab IgM - <9? ?Cardiolipin Ab IgG - <9 Antithrombin III Functional (10/09/2023) ???Antithrombin III Functional - 59 % AST (10/11/2023) ???AST (SGOT) - 24 units/L B12 Vitamin Level (10/09/2023) ???Vitamin B12 Level - 837 pg/mL BASE EXCESS POC CARTRIDGE (10/08/2023) ???Base Excess (POC) POC Cartridge - NEGATIVE 3 Basic Metabolic Panel (10/19/2023) ???Sodium - 136 mmol/L???Potassium - 4.8 mmol/L???Chloride - 103 mmol/L???Bicarbonate Level - 25 mmol/L???Anion Gap - 8???Glucose Level - 74 mg/dL???BUN - 6 mg/dL???Creatinine-Blood - 0.7 mg/dL???Estimated GFR Creatinine - 109 ML/MIN/1.73 M2???Calcium - 7.3 mg/dL Beta 2 Glycoprotein 1 Ab (10/09/2023) ? ?B2GP1, IgG - <9? ?B2GP1, IgM - <9 Bilirubin Total + Direct (10/11/2023) ? ?Bilirubin, Total - 0.3 mg/dL? ?Bilirubin, Direct - <0.2 mg/dL? ?Bilirubin, Indirect - Direct bilirubin is less than the measureable limit. Therefore, indirect BUN (10/16/2023) ???BUN - 15 mg/dL Calcium Ionized (10/11/2023) ???Calcium, Ionized pH Corrected - 1.14 mmol/L CALCIUM IONIZED POC CART (10/08/2023) ???Ionized Calcium (POC) POC Cartridge - 1.11 mmol/L CBC (10/08/2023) ???WBC - 31.5 k/mm3???RBC - 3.46 m/mm3???Hgb - 9.9 Gm/dL???Hct - 29.8 %???MCV - 86.1 femtoliters???MCH - 28.6 pg???MCHC - 33.2 g/dL???Platelet Count - 361 k/mm3???RDW-SD - 45.8 femtoliters???MPV - 9.3 femtoliters???Nucleated RBC (Automated) - 0.1 #/100 WBC'S???Abs. NRBC - 0.0 k/mm3 CBC w/ Differential (10/19/2023) ???WBC - 13.6 k/mm3???RBC - 2.90 m/mm3???Hgb - 8.3 Gm/dL???Hct - 25.9 %???MCV - 89.3 femtoliters???MCH - 28.6 pg???MCHC - 32.0 g/dL???Platelet Count - 557 k/mm3???RDW-SD - 51.9 femtoliters???MPV - 9.8 femtoliters???Nucleated RBC (Automated) - 0.0 #/100 WBC'S???Abs. NRBC - 0.0 k/mm3???Abs. Neut - 8.6 k/mm3???Abs. Lymph - 2.7 k/mm3???Abs. [place] - 1.7 k/mm3???Abs. Eo - 0.2 k/mm3???Abs. Baso - 0.1 k/mm3???Neut % - 63.4 %???Lymph % - 19.6 %???[place] % - 12.5 %???Eos % - 1.5 %???Baso % - 0.4 %???Imm Gran - 2.6 %???Abs. Imm Gran - 0.4 k/mm3 Comprehensive Metabolic Panel (10/08/2023) ???Sodium - 135 mmol/L???Potassium - 4.1 mmol/L???Chloride - 99 mmol/L???Bicarbonate Level - 21 mmol/L???Anion Gap - 15???Glucose Level - 142 mg/dL???BUN - 9 mg/dL???Creatinine-Blood - 0.9 mg/dL???Estimated GFR Creatinine - 101 ML/MIN/1.73 M2???Calcium - 8.6 mg/dL???Protein, Total - 6.1 Gm/dL???[place] min - 2.8 Gm/dL???AG Ratio - 0.8???Alkaline Phosphatase - 202 units/L???AST (SGOT) - 38 units/L???ALT (SGPT) - 22 units/L???Bilirubin, Total - 0.4 mg/dL COVID-19 (2019 Novel Coronavirus) PCR (10/08/2023) ???COVID-19 PCR Specimen Source - NASAL???COVID-19 PCR Result - NEGATIVE Creatinine (10/16/2023) ???Creatinine-Blood - 0.7 mg/dL???Estimated GFR Creatinine - 110 ML/MIN/1.73 M2 Electrolytes (10/08/2023) ???Sodium - 139 mmol/L???Potassium - 4.4 mmol/L???Chloride - 105 mmol/L???Bicarbonate Level - 19 mmol/L???Anion Gap - 15 Factor V Leiden Mutation w/Interpret (10/09/2023) ???Factor V Leiden Mutation - NEGATIVE???Factor V Interpreting Pathologist - INTERPRETED BY RALPH JENSEN M.D. Ferritin (10/09/2023) ???Ferritin Level - 609 ng/mL Folic Acid Level (10/09/2023) ? ?Folic Acid Level - <2.0 ng/mL Glucose Level (10/11/2023) ???Glucose Level - 83 mg/dL GLUCOSE POC (10/19/2023) ???Glucose, POC - 77 mg/dL GLUCOSE POC CARTRIDGE (10/08/2023) ???Glucose (POC) POC Cartridge - 169 Haptoglobin (10/09/2023) ???Haptoglobin - 253 mg/dL HEMATOCRIT POC CARTRIDGE (10/08/2023) ???Hematocrit (POC) POC Cartridge - 32 % HEMOGLOBIN POC CARTRIDGE (10/08/2023) ???Hemoglobin (POC) POC Cartridge - 10.9 Gm/dL Homocysteine Level (10/09/2023) ???Homocysteine, Plasma/Serum - 94.6 ??mole/L INR (10/08/2023) ???INR - 1.3???Protime (PT) - 13.3 seconds Ionized Calcium (10/19/2023) ???Calcium, Ionized pH Corrected - 1.15 mmol/L Iron + Iron Binding Capacity (10/09/2023) ???Iron Level - 13 mcg/dL???Iron Binding Capacity, Unsaturated - 84 mcg/dL???Iron Binding Capacity,Estimated Total - 97 mcg/dL???% Iron Saturation - 13 % JAK2 V617F Mutation w/Interpretation (10/11/2023) ???JAK2 V617F Mutational Analysis - NEGATIVE???Yomi II Interpreting Pathologist - INTERPRETED BY RALPH JENSEN M.D. Lactate Level (10/16/2023) ???Lactate - 1.2 mmol/L Lactic Acid Level (10/08/2023) ???Lactate - 2.6 mmol/L LFT's (10/15/2023) ???Protein, Total - 4.3 Gm/dL???Albumin - 2.1 Gm/dL???Alkaline Phosphatase - 222 units/L???AST (SGOT) - 20 units/L? ?ALT (SGPT) - 11 units/L? ?Bilirubin, Total - 0.2 mg/dL? ?Bilirubin, Direct - <0.2 mg/dL???Bilirubin, Indirect - Direct bilirubin is less than the measureable limit. Therefore, indirect Lipase (10/15/2023) ???Lipase - 25 units/L Lytes (10/16/2023) ???Sodium - 132 mmol/L???Potassium - 4.3 mmol/L???Chloride - 101 mmol/L???Bicarbonate Level - 24 mmol/L???Anion Gap - 7 Magnesium Level (10/19/2023) ???Magnesium - 1.6 mg/dL Phosphorus Level (10/19/2023) ???Phosphorus - 3.5 mg/dL POC Hemochron ACT-LR (10/08/2023) ???POC ACT-LR - 147.0 seconds POTASSIUM POC CARTRIDGE (10/08/2023) ???Potassium (POC) POC Cartridge - 4.7 mmol/L Prothrombin [id number] Mutation (10/09/2023) ???Factor II Mutation - NEGATIVE???Factor II Interpreting Pathologist - INTERPRETED BY RALPH JENSEN M.D. PTT (10/19/2023) ???APTT - 30.[address] (10/09/2023) ???Retic Count - 2.7 %???Retic Count Corrected - 1.8 %???Retic Production Index - 1.2 % SODIUM POC CARTRIDGE (10/08/2023) ???Sodium (POC) POC Cartridge - 135 mmol/L Spinal Fluid Culture Results (10/16/2023) ???Body Fluid Culture Isolate 1 - Comment TRIGLYCERIDE (10/11/2023) ???Triglycerides - 97 mg/dL Type and Screen (10/15/2023) ???Blood Type - A Positive???Antibody Screen - Negative Allergies (NKA means No Known Allergies) Tylenol with Codeine Problems Active Problems??(4) Anxiety?? Chronic back pain s/p resection of herniated disc?? HTN?? Long-term current use of methadone for opiate dependence?? Education Materials Below is the list of Educational Leaflet Providered with your Discharge Instructions. Valuables and Belongings I fully understand and agree that [facility] accepts no responsibility for all my personal property including clothing, toilet articles, radios, jewelry, dentures, hearing aids, rings, money, or any other property that is in my possession or is brought to me after admission. I understand certain valuables may be placed in a hospital safe for a short period of time. I understand that the hospital is not liable for loss or damage due to accident, fire, or other natural occurrence while said property is in the safe. I accept full responsibility for any personal property that I keep with me, and will not hold the hospital responsible in case of loss or disappearance. I acknowledge that i have been encouraged to send valuables and belongings home. ?? Review of Valuable and Belonging List: With patient Possessions released to: Patient came from ER, belongings placed in locker with patient sticker Date for Pt to Sign Valuables/Belongings: 10/08/23 17:09:00 ?? Other Discharge Information ? Pulmonary Rehab Status?? Pulmonary Rehab Discharge Status?? Respiratory Rate: 18 br/min ? Common Emergency Awareness Tips IS IT A STROKE? Act FAST and Check for these signs: FACE Does the face look uneven? ARM Does one arm drift down? SPEECH Does their speech sound strange? TIME Call at any sign of stroke ?? Heart Attack Signs Chest discomfort: Most heart attacks involve discomfort in the center of the chest and lasts more than a few minutes, or goes away and comes back. It can feel like uncomfortable pressure, squeezing, fullness or pain. Discomfort in upper body: Symptoms can include pain or discomfort in one or both arms, back, neck, jaw or stomach. Shortness of breath: With or without discomfort. Other signs: Breaking out in a cold sweat, nausea, or lightheaded. Remember, MINUTES DO MATTER. If you experience any of these heart attack warning signs, call to get immediate medical attention! ?? Smoking can increase your chances of developing chronic health problems and can cause harmful effects to other family members in your house. If you smoke, you are strongly encouraged to quit. Please call [facility] [employer] [facility] at [phone] or [phone] ([phone]) or log in to [email or web address] for referrals to smoking cessation programs. ?? 464 Suicide & Crisis Lifeline is available 25/02 if you or someone you know needs to find a reason to keep living. By calling 914 you'll be connected to a skilled, trained counselor at a crisis center in your area. INPATIENT DISCHARGE INSTRUCTIONS SIGNATURE PAGE CELESTEYOHAN Location:[facility] Registration Date and Time:10/08/2023 08:23 EST Primary Care Physician: Nidia Carlisle DO, Attending Physician: Alexis Leiva MD, I YOHAN CELESTE, have received the above patient education materials/instructions and have verbalized understanding. If ambulance or transport services are being used I further acknowledge beinggiven a choice of service. ?? If you need to contact me, please call me at this number: . Patient/Aeronautical Products Sales Engineer Name: Patient/Aeronautical Products Sales Engineer Signature: Relationship to Patient: Witness Name/Signature: Date: * Fredi Zhang RN: PERFORM Event Display: Procedures Invasive Line Authored Date: [id number] Vascular Access Insertion Entered On: 10/11/2023 10:08 EST Performed On: 10/11/2023 10:04 EST by Fredi Zhang RN Vascular Access Insertion Date of Vascular Access Insertion : 10/11/2023 EST Procedure Location Vascular Access : SW5 Person recording insertion : Teacher Physically Impaired Teacher Physically Impaired of Vascular Access : Fredi Zhang RN Occupation of Vascular Access Teacher Physically Impaired : Registered nurse Was paint mixer hand a member of PICC/IV Team : Yes Fredi Zhang RN - 10/11/2023 10:04 EST Procedural Comments Risk Factors and Labs Reviewed : Yes Anticoagulation Therapy : Yes Antiplatelet Therapy : No Fredi Zhang RN - 10/11/2023 10:04 EST Was vascular access order placed : Yes Vascular Access Type : Central line Time Out Performed : Yes Time Out Data : Patient identified, Site verified, Procedure verified, Consent signed, RN attendance Reason for Vascular Access Insertion : Medication requires use of vascular access Suspected Vascular Access Infection : No, the access was not exchanged over a guide wire Vascular Access Procedure Check : Consent obtained Hand Hygiene prior to insertion : Yes Maximal sterile barriers used : Mask, Sterile gown, Large sterile full body drape, Sterile gloves, Ultrasound sterile cover, Cap Sterile Field Maintained : Yes Skin Preparation : Chlorhexidine (CHG) Skin Prep dry at first skin puncture : Yes Antimicrobial coated catheter used : No Successful central line placement : Yes Vascular Access Catheter Type : PICC line Vascular Access Insertion Site : Other: Right upper arm brachial vein Vascular Access Insertion Side : Right Vascular Access Catheter Size : 5Fr Vascular Access Catheter Length : 40cm Vessel Identified By : Ultrasound Vascular Access Insertion Circumstance : Non-emergent Vascular Access Catheter Securement : Statlock Vascular Access Dressing : Occlusive Follow-up CXR : Not applicable CXR Comment : PICC tip in SVC confirmed via Hipscan 3CG technology Fredi Zhang RN - 10/11/2023 10:04 EST DCP GENERIC CODE Suture needles : 0 [place] : 3 Scalpels : 1 Clamps : 0 Guide Wires : 1 Fredi Zhang RN - 10/11/2023 10:04 EST Complications during Insertion : None Tolerated CLIP procedure well : Yes Insertion Attempts : 1 Vascular Access Device QA : CT PICC 5Fr Triple lumen Right arm @40cm Vascular Access Device Lot Number : [id number] Vascular Access Device Code : [id number] Vascular Access Device Expiration Date : 12/02/2024 EDT Vascular Access Insertion Comments : Mid bicep circumference 10cm above AC: 31cm PICC okay to use Fredi Zhang RN - 10/11/2023 10:04 EST Admission evaluation note * Bradley HELM, Fredi Velazquez: PERFORM, MODIFY Event Display: Admission Note Authored Date: [id number] Patient: ??ROULA YOHAN ? Age:??53 Years?Sex:??Male?:??1970?? Chief Complaint ?Consulting Provider: Junior Smith, DO ?Consulted Surgeon: Alexis Leiva MD, MPH ?Reason for Consultation:??mesenteric ischemia History of Present Illness Yohan is a 53-year-old male with past medical history of polysubstance abuse (snorting cocaine andheroin, denies injecting drugs) on methadone, portal vein thrombosis not on anticoagulation who presented to the ED with acute onset a severe abdominal pain of roughly 12 to 15 hours duration beginning the evening of 10/06.?? It was associated with nausea but no emesis.?? He denies any hematochezia, melena, hematemesis.?? He has never had pain like this before including a hospitalization back in August 2023 with evidence of colitis and??portal vein thrombosis, but had evidence of hematochezia that time was not started anticoagulation.?? Labs in the ED were significant for a lactic acidosis with a lactate of 2.4, a leukocytosis of 22,900 with a left shift 81.4%, and a low albumin of 2.8.?? A CT scan of the abdomen pelvis was obtained which revealed complete occlusion of the anterior branch of the right portal vein with resultant infarct to the anterior and inferior right hepatic lobes, a splenic infarct, significant SMA occlusion at the jejunal/ileal branches not quite at the SMA takeoff, near complete occlusion of the IMV, thrombi and both the right renal artery and vein, and thrombus in the mid abdominal aorta at the level of the GE junction.?? For concern for acute mesenteric ischemia, an acute care surgery consultation was requested. ?? On evaluation, Yohan endorses significant abdominal pain that has only minimally improved with medication administration.?? Denies hematochezia, melena, hematemesis. Review of Systems Negative except as noted above in HPI. Physical Exam Vitals & Measurements T:??97.9?F?? HR:??115??(Peripheral)?? RR:??15?? BP:??154/94?? SpO2:??98%?? HT:??183??cm?? WT:??77??kg?? BMI:??22.99?? General:??Appears to be in moderate pain/distress Mental Status:??Oriented to person, place and time. Normal affect. Head:??Normocephalic. Eyes:??Extraocular muscles intact. Ear, Nose and Throat:??Oropharynx clear, mucous membranes moist. Ears and nose without masses, lesions or deformities. Neck:??Supple, Full range of motion. Respiratory:??Nonlabored breathing in room air Cardiovascular:??Tachycardic, regular rhythm Gastrointestinal:??Abdomen soft, nondistended, significantly tender to palpation throughout the abdomen, especially on the right side of the abdomen with voluntary and involuntary guarding. Neurologic:??No focal neurological deficits. Moves all extremities spontaneously. Sensation intact bilaterally. Skin:??No rashes or lesions. No petechiae or purpura. No edema. Musculoskeletal:??No cyanosis or clubbing. No gross deformities. Normal range of motion.?? Assessment/Plan Yohan is a 53-year-old male with past medical history of polysubstance abuse (snorting cocaine andheroin, denies injecting drugs) on methadone, portal vein thrombosis not on anticoagulation who presented to the ED with signs and symptoms of acute on chronic??mesenteric ischemia. ??This is supported by a history of 12 to 15 hours of acute onset severe abdominal pain beginning the evening of 10/06,history of??portal vein thrombosis??with??colitis in August 2023,??labs with lactic acidosis, leukocytosis,??and a CT scan of the abdomen and pelvis??revealing??complete occlusion of the anterior branch of the right portal vein with resultant infarct of the anterior and inferior right hepatic lobes, splenic infarct, significant SMA occlusion at the jejunal/ileal branches??(though not quite at the SMA takeoff specifically), near complete occlusion of the IMV, thrombi??of both the right renal artery and vein,??and thrombus in the mid abdominal aorta at the level of the GE junction, and a physical exam??consistent with??peritonitis.?? For these findings, we will admit to the acute care surgery service with plans for operative exploration, with vascular consultation for intraoperative assistance. ?? Diagnosis: Acute mesenteric ischemia Diagnosis: Chronic mesenteric ischemia Diagnosis: Severe sepsis (tachycardia, leukocytosis, lactic acidosis,??source??identified) Diagnosis:??Hepatic infarct??secondary to??right portal vein thrombosis Diagnosis:??Splenic infarct Diagnosis:??Right renal artery and venous thrombosis Diagnosis: Aortic thrombus ?? Plan: Admit to ACS N.p.o. Heparin drip We will proceed to the operating room for exploratory laparotomy,??possible bowel resection, possible open abdomen Vascular consultation was requested,??they will be available in the operating room for potential SMA cutdown, thrombectomy??or penumbra Final plans pending OR exploration ?Discussed with ??Ryb ?Page ACS/EGS #[id number] with questions or concerns?? Problem List/Past Medical History Ongoing Anxiety Chronic back pain s/p resection of herniated disc HTN Long-term current use of methadone for opiate dependence Procedure/Surgical History Discectomy L5-S1: 1990 Home Medications amiTRIPTYLINE: 75 mg = 1 tablet, By Mouth, Daily at bedtime Clonazepam: 1 mg = 1 tablet, By Mouth, 2 times a day, PRN (Anxiety) Lisinopril: 40 mg = 1 tablet, By Mouth, Daily Methadone: 125 mg = 62.5 mL, By Mouth, Daily Metoprolol: 50 mg = 1 tablet, By Mouth, 2 times a day PEG Electrolyte Solution: See Instructions, Drink 240mL every 15 minutes until gone Allergies Tylenol with Codeine Social History Alcohol Use: Past. Employment/School Status: Disabled. Other: disability for back pain. Home/Environment Living situation: Home/Independent. Lives with: Significant other. Substance Abuse Use: Current. Type: Marijuana. Frequency: 1-2 times per month. Tobacco Use: 10 or more cigarettes (1/2 pack or more)/day in last 30 days. Started at age: 12 Years. Family History Mother (): Diabetes mellitus type II; Muscular dystrophy Father: Hypertension Radiology ? Result type:?CT Abd/Pelvis W/ IV Contrast Only Result date:?October 08, 2023 6:16 EST Result status:?Auth (Verified) Result title:?CT Abd/Pelvis W/ IV Contrast Only Performed by:?Abhishek Ayala DO on October 08, 2023 7:49 EST Verified by:?Juan Covarrubias MD on October 08, 2023 7:54 EST Encounter info:?[id number], [facility], Emergency, 10/08/2023 -? * Final Report * ?? Reason For Exam LLQ abdominal pain;Other: ?? RESULT: CT Abd/Pelvis W/ IV Contrast Only CT Abd/Pelvis W/ IV Contrast Only? Hx of Present Illness: reports 12 hours of lower abd pain, and watery diarrhea w ??small amt blood,no fevers but feels chilled,; Reason: LLQ abdominal pain; Clinical Question(s): Abscess ?? TECHNIQUE: Spiral CT through the abdomen and pelvis with IV contrast formatted in 3 planes. 100 cc of Omnipaque 300 was administered intravenously. This study was performed without oral contrast. Weight-based protocol using automatic tube modulation was used to optimize exposure parameters.? CTDIvol Body: 14.40 mGy, ??DLP Body: 865 mGy*cm. ? COMPARISON: CTA abdomen pelvis 08/07/2023 ?? FINDINGS:? Stock Manager View Findings, Lines and Tubes: None. ?? Visualized Chest: Small left pleural effusion. The heart is normal in size. Trace pericardial effusion. ?? Diaphragm: Normal. ?? Liver: Interval development of a large ill-defined area of hypoattenuation predominantly involving the anterior inferior right middle lobe which demonstrates a wedge-shaped configuration on the sagittal imaging, in setting near complete occlusion of the anterior branch of the right portal vein findings in keeping with an infarct. The posterior branch of the right portal vein and left portal vein distributions appear patent. ?? Gallbladder: No CT evidence of gallbladder pathology. ?? Bile ducts: No biliary ductal dilation. ?? Spleen: Large infarct of the anterior posterior spleen although the splenic artery and veins appearpatent. ?? Pancreas: Severely atrophic. ?? Adrenal glands: Normal. ?? Kidneys and ureters: No evidence of stones or hydronephrosis. No apparent infarct. Nonocclusive thrombus noted in the mid to right renal artery (image 55 series 201). ?? Bladder: Normal. ?? Reproductive organs: Unremarkable. ?? Stomach, small bowel, and large bowel: There is dependent hyperdense contents within the gastric fundus otherwise the stomach appears normal. ?Redemonstrated is significant circumferential thickening involving the transverse, descending andrectosigmoid colon setting of extensive thrombosis involving the superior mesenteric artery jejunaland ileal branches of findings in keeping with ischemic colitis. Normal appearance of the ascendingcolon.? Small bowel follow normal course and caliber. Several of the small bowel loops in the left abdomen demonstrate mildly thickened diego likely due to the above thrombus. No evidence of bowel obstruction. ?? Appendix: Not seen, but no evidence of appendicitis. ?? Peritoneum and retroperitoneum: No significant ascites. No pneumoperitoneum. No omental or mesenteric lesions. ?? Lymph nodes: No enlarged lymph nodes. ?? Blood vessels:?? Moderate atherosclerotic vascular calcification. No aortic aneurysm. Ill-defined and likely adherent thrombus noted in the abdominal aorta at the level of the GE junction (image 26 series 201). Near-complete occlusion of the jejunal and ileal branches off the SMA (image 61 series 201).?? Near complete occlusion of the IMV (image 64 series 2 0)..?? Complete occlusive thrombus of the anterior branch of the right portal vein.?? Nonocclusive thrombus in the mid right renal artery and vein. ?? Abdominal and pelvic wall: No acute abnormality. ?? Bones: No acute abnormality. ?? IMPRESSION:? 1. Complete occlusion of the anterior branch of the right portal vein with resultant infarct of theanterior and inferior right hepatic lobe.? 2. Large splenic infarct. ?? 3. Near complete occlusion of the jejunal and ileal branches off the SMA with redemonstrated circumferential thickening involving the transverse, descending and rectosigmoid colon suggesting ischemiccolitis. Left abdominal small bowel loops are thickened likely supplied by the above distribution and suggesting mesenteric ischemia. Additional note of near complete occlusion of the IMV. ?? 4. Nonocclusive thrombus in both the mid right renal artery and vein without evidence of renal infarct. ?? 5. Likely adherent thrombus noted in the mid abdominal aorta at the level of GE junction. Lab Results Labs Last 24 Hours BLOOD COUNT & DIFF ? Event Name?? Event Result?? Date/Time?? WBC 33.5 k/mm3??High 10/08/23 08:06:00 RBC 4.53 m/mm3??Low 10/08/23 08:06:00 Hgb 12.7 Gm/dL??Low 10/08/23 08:06:00 Hct 39.1 %??Low 10/08/23 08:06:00 MCV 86.3 femtoliters 10/08/23 08:06:00 MCH 28 pg 10/08/23 08:06:00 MCHC 32.5 g/dL??Low 10/08/23 08:06:00 Platelet Count 397 k/mm3 10/08/23 08:06:00 MPV 9.1 femtoliters??Low 10/08/23 08:06:00 Nucleated RBC (Automated) 0 #/100 WBC'S 10/08/23 08:06:00 ? CHEM GENERAL ? Event Name?? Event Result?? Date/Time?? Sodium 135 mmol/L 10/08/23 03:10:00 Chloride 99 mmol/L 10/08/23 03:10:00 Bicarbonate Level 21 mmol/L??Low 10/08/23 03:10:00 Anion Gap 15 10/08/23 03:10:00 Glucose Level 142 mg/dL??High 10/08/23 03:10:00 BUN 9 mg/dL 10/08/23 03:10:00 Creatinine-Blood 0.9 mg/dL 10/08/23 03:10:00 Alkaline Phosphatase 202 units/L??High 10/08/23 03:10:00 AST (SGOT) 38 units/L 10/08/23 03:10:00 ALT (SGPT) 22 units/L 10/08/23 03:10:00 Bilirubin, Total 0.4 mg/dL 10/08/23 03:10:00 ? * Alexis Leiva MD Event Display: Admission Note Authored Date: I have personally seen and evaluated the patient, lab work and imaging on the day of below/above resident note. ??I agree with the documented resident note and plan for care, as above. ?? Alexis Leiva, ??, MPH, FACS Trauma, General Surgery and Surgical Critical Care EKG study * Event Display: EKG Authored Date: * Event Display: ECG 12-Lead Authored Date: Please click on pdf link to open report * Event Display: ECG 12-Lead Authored Date: Ventricular Rate: 102 BPM Atrial Rate: 102 BPM P-R Interval: 150 ms QRS Duration: 84 ms Q-T Interval: 368 ms QTC Calculation(Bazett): 479 ms P [place]: 62 degrees R [place]: 13 degrees T [place]: 46 degrees Sinus tachycardia Nonspecific T wave abnormality QT interval prolongation Abnormal ECG When compared with ECG of 14-OCT-2023 11:13, No significant change was found Confirmed by OLIVER KIM MD ([id number]) on 10/16/2023 8:38:46 AM [place]: OLIVER KIM MD * Event Display: EKG Authored Date: * Event Display: ECG 12-Lead Authored Date: Please click on pdf link to open report * Event Display: ECG 12-Lead Authored Date: Ventricular Rate: 90 BPM Atrial Rate: 90 BPM P-R Interval: 150 ms QRS Duration: 86 ms Q-T Interval: 402 ms QTC Calculation(Bazett): 491 ms P Denver: 55 degrees R Denver: 6 degrees T Denver: 30 degrees Normal sinus rhythm Prolonged QT Abnormal ECG When compared with ECG of 11-OCT-2023 13:53, QT interval has lengthened Confirmed by OLIVER KIM MD ([id number]) on 10/16/2023 8:38:07 AM [place]: OLIVER KIM MD * Event Display: EKG Authored Date: * Event Display: EKG Authored Date: * Event Display: ECG 12-Lead Authored Date: Please click on pdf link to open report * Event Display: ECG 12-Lead Authored Date: Ventricular Rate: 95 BPM Atrial Rate: 95 BPM P-R Interval: 146 ms QRS Duration: 88 ms Q-T Interval: 318 ms QTC Calculation(Bazett): 399 ms P Denver: 64 degrees R Denver: 2 degrees T [place]: 140 degrees Normal sinus rhythm Nonspecific ST and T wave abnormality Poor R wave progression Abnormal ECG When compared with ECG of 10-OCT-2023 15:57, No significant change was found Confirmed by OLIVER KIM MD ([id number]) on 10/16/2023 8:37:03 AM [place]: OLIVER KIM MD Heart * Event Display: Echocardiogram - Complete Authored Date: [id number] Transthoracic Echocardiography Report (TTE) Patient Demographics Patient Name CELESTE, Date of Study 10/09/2023 YOHAN [employer] Gender Male Facility Race Ethnicity Date of 1970 Height: 72.05 inches Age 53 year(s) Weight: 169.76 pounds Accession Number [id number] BSA: 1.99 m2 Room Number SW50 BMI: 22.99 kg/m2 Referring Physician Hiren HELM Interpreting Marie Willams Physician Economics Analyst Rhonda Ribera RCS Indications Endocarditis. Clinical History Polysubstance abuse Hypertension. Opiate dependence Tobacco use. Study Data Type of Study TTE procedure:Echo Complete-Doppler, Colorflow, M-Mode. Procedure Information:TDS-echo windows very low Study Date10/09/2023 Start Time: 11:27 AM Study [place] [facility] [place] Status: Bedside Patient Status: Routine Technical Quality: Technically difficult due to poor acoustical window. Blood Pressure:133/84 mmHg EKG: Sinus tachycardia HR: 122 bpm 2D Measurements LV Diastolic Dimension: 4.3 cm LV Systolic Dimension: 2.5 cm LV Septum Diastolic: 1 cm LV PW Diastolic: 0.9 cm AO Root Dimension: 3 cm LA Dimension: 2.3 cm LVOT Stroke Volume: 57.75 ml LVOT: 2.2 cm Stroke Volume Index29.02 ml/m2 Ascending Aorta:2.9 cm Cardiac Index:3.54 l/min/m2 Doppler Measurements AV Peak Velocity: 120 cm/s AV Peak Gradient: 5.76 mmHg LVOT Peak Velocity: 110 cm/s LVOT VTI15.2 cm PV Peak Velocity: 94.1 cm/s PV Peak Gradient: 3.54 mmHg E' Septal Velocity: 12 cm/s Cardiac Anatomy Left Ventricle/Interventricular Septum The left ventricular size is normal. Left ventricular wall thickness is normal. Apical images are off axis limiting assessment. Function appears vigorous. The left ventricular ejection fraction is 65-75 %. Wall motion cannot be adequately assessed. Unable to assess diastolic function . Left Atrium/Interatrial Septum The left atrium is poorly visualized. The left atrium is grossly normal in size. Aortic Valve Trileaflet aortic valve. There is no aortic stenosis. There is no aortic regurgitation. Mitral Valve The mitral valve appears grossly normal. There is mild mitral regurgitation. Aorta The ascending aorta and aortic root are normal in size. Right Ventricle The right ventricular size and function appears grossly normal. Right Atrium The right atrium is poorly visualized. The right atrium is grossly normal in size. Pulmonic Valve The pulmonic valve appears grossly normal. There is trace pulmonic regurgitation. Tricuspid Valve The tricuspid valve is poorly visualized. Pumonary Artery An accurate pulmonary artery pressure could not be obtained. Venous Structures Not visualized. Pericardium/Extracardiac There is no significant pericardial effusion. Summary The left ventricular size is normal. Left ventricular wall thickness is normal. Apical images are off axis limiting assessment. Function appears vigorous. The left ventricular ejection fraction is 65-75 %. Wall motion cannot be adequately assessed. Unable to assess diastolic function . Trileaflet aortic valve. There is no aortic stenosis. There is no aortic regurgitation. The right ventricular size and function appears grossly normal. There is no significant pericardial effusion. Patient is tachycardic throughout study. Sensitivity of this study is inherently limited due to transthoracic technique and suboptimal valvular visualization. If clinical suspicion remains for endocarditis, consider JONATAN. Comparison No prior study available for comparison. Signature * Event Display: Echocardiogram - Complete Authored Date: [facility] Progress note * Cassidy Rizvi LPN: PERFORM, SIGN, VERIFY, MODIFY, SIGN Event Display: Progress Note Hospital Authored Date: [id number] Patient: YOHAN CELESTE Age: 53 years Sex: Male : 1970 Associated Diagnoses: None Author: Cassidy Rizvi LPN Findings Problem Related to Alteration in Gastrointestinal : Alteration in Gastrointestinal Func/new 10/19/2023 9:00 EDT Alteration in GI status Related to Abdominal Surgery Goals & Outcomes, Gastrointestinal Establish a regular pattern of elimination for pt, Nutritional intake is adequate for metabolic needs, Pt will achieve normal/improved fluid balance, Pt will maintain normal elimination patterns, Pt will resume/maintain adequate hemodynamic status Interventions, Gastrointestinal Assess/monitor abdomen for distention, tenderness, Assess/monitor abdominal girth & bowel function, Assess/monitor bowel pattern, bowel sounds, flatus, Assess/monitor number of bowel movements, Assess/monitor color, quantity, quality, consistency of stoo, Assess/monitor pt for nausea, vomiting, Assess/monitor effects of re-hydration, Assess/monitor intake &output, Assess if pt tolerating diet, Teach/encourage deep breath & cough exercises, Teach/encourage use of incentive spirometer Goals/Interventions, Gastrointestinal Yes Gastrointestinal, Problem Start 10/08/2023 17:35 Reviewed plan with, Gastrointestinal Patient Patient Progression, Gastrointestinal Pt progressing according to plan . Narrative/Incidental Pt.on acute care.A&Ox4.VSS.Lung sounds clear/diminished @ the bases.O2 saturation maintained above 95% via RA.No SOB or resp distress.IS use encouraged with 500 tidal vol.achieved.+CMS/ pedal pulses via doppler.Pt has generalized trace edema on BUE +2 edema on BLE.Abd.soft,minimally distended,tender @ midline incision-approximated with bethany-CDI & CARLY.Pt's pain 7/10-well controlled with PRN dilaudid P.O,liq methadone,gabapentin & tylenol.Valium & klonopin given PRN for anxiety& back spasm- with good effect.Pt.tolerating regular diet.No nausea or vomiting.OOB-ambulated to the bathroom-on standby assist.BMx2-watery brown stool.Pt.voiding good amt of CYU.Pt's girlfriend @ the bedside. Call camacho within reach.Bed locked in lowest position & bed alarm on.SCD boots on.Pls see biophysical & documentation for further information. 1425-Pt is discharged to home. Discharge Information Rehabilitation Discharge : Rehab Discharge Index 10/18/2023 9:24 EDT Full chart review completed Yes * Sandeep Rudolph RN: PERFORM, SIGN, VERIFY Event Display: Progress Note Hospital Authored Date: [id number] Patient: YOHAN CELESTE Age: 53 years Sex: Male : 1970 Associated Diagnoses: None Author: Sandeep Rudolph RN Findings Evaluation Abd pain under control with current med regimen. Denies n/v. Precious diet. Loose stools cont. Pt voiding in br. OOB ad klarissa. Db/c and IS encouraged. 2000 on IS. See biophys for full assess.. Discharge Information Rehabilitation Discharge : Rehab Discharge Index 10/18/2023 9:24 EDT Full chart review completed Yes * Cassidy Rizvi LPN: MODIFY, SIGN, SIGN, MODIFY, SIGN, MODIFY, SIGN, PERFORM, SIGN, VERIFY, MODIFY Event Display: Progress Note Hospital Authored Date: [id number] Patient: YOHAN CELESTE Age: 53 years Sex: Male : 1970 Associated Diagnoses: None Author: Cassidy Rizvi LPN Findings Problem Related to Alteration in Gastrointestinal : Alteration in Gastrointestinal Func/new 10/18/2023 9:00 EDT Alteration in GI status Related to Abdominal Surgery Goals & Outcomes, Gastrointestinal Establish a regular pattern of elimination for pt, Nutritional intake is adequate for metabolic needs, Pt will achieve normal/improved fluid balance, Pt will maintain normal elimination patterns, Pt will resume/maintain adequate hemodynamic status Interventions, Gastrointestinal Assess/monitor abdomen for distention, tenderness, Assess/monitor abdominal girth & bowel function, Assess/monitor bowel pattern, bowel sounds, flatus, Assess/monitor number of bowel movements, Assess/monitor color, quantity, quality, consistency of stoo, Assess/monitor pt for nausea, vomiting, Assess/monitor effects of re-hydration, Assess/monitor intake &output, Assess if pt tolerating diet, DVT prophylaxis as ordered, Teach/encourage deep breath &cough exercises, Teach/encourage use of incentive spirometer Goals/Interventions, Gastrointestinal Yes Gastrointestinal, Problem Start 10/08/2023 17:35 Reviewed plan with, Gastrointestinal Patient Patient Progression, Gastrointestinal Pt progressing according to plan . Narrative/Incidental Pt.downgraded to acute care.A&Ox4.VSS.HR's in the 80's-low 100's.Lung sounds clear/diminished @the bases.O2 saturation maintained above 95% via RA.No SOB or resp distress.IS use encouraged with 500 tidal vol.achieved.+CMS/ pedal pulses via doppler.Pt has generalized trace edema on BUE +2 edemaon BLE.Abd.soft,minimally distended,tender @ midline incision-approximated with bethany-CDI & [employer] DEVELOPER.Pt's pain 02/11-gets relief with PRN dilaudid P.O,liq methadone,gabapentin & tylenol.Valium & klonopin given PRN for anxiety & back spasm- with good effect.ABX's IVPB dc/d as per order.Pt.tolerating regular diet.No nausea or vomiting.OOB-ambulated to the bathroom-on standby assist.BMx4- watery + stool is blood tinged.MD aware & was @ the bedside.As per MD to keep a close watch fornow.1130-Harding dc/d s ordered.1600-Pt.voided x1 count.PVR =167. Call camacho within reach.Bed locked in lowest position & bed alarm on.SCD boots on.Pls see biophysical & documentation for further information. . Consult note * James HELM, [facility]: PERFORM Event Display: Consultation Note Authored Date: [id number] Patient: ??YOHAN CELESTE ? Age:??53 Years?Sex:??Male?:??1970?? Referrring Provider Not on Staff, Referring MD Hank Dooley MD Chief Complaint abd pain and diarrhea x a few months. was admitted for 5 days and it went away and now it came backthere is a bit of blood in his stool. tachy. given nacl en route - aprox 500ml Reason for Consultation hematochezia History of Present Illness ?? Patient is a 53-year-old man with history of polysubstance use disorder??with??cocaine and heroin, on methadone,??portal vein thrombus not on AC,??presented 10/07??with severe??abdominal pain??started 10/06,??CT abdomen pelvis??revealing??complete occlusion of anterior branch of the right portalvein and??resultant infarct to the anterior and inferior right??hepatic lobes.?? Also evidence of asplenic infarct,??significant SMA occlusion at the jejunal/ileal branches??to near complete occlusion of the IMV,?thrombi of both the right renal artery and vein, ,thrombus in the mid abdominal aorta at the level of the GE junction.?Managed for acute mesenteric ischemia.?Underwent??ex lap?? open SMA embolectomy with patch repair??on 10/07.?Lovenox for anticoagulation.?He has had improvements in his abdominal discomfort, no nausea or vomiting.?? No bowel movements for a few days, then started having hematochezia and drop in H&H. GI consulted for further evaluation. Remarkable for WBC 19.3, Hb 7.0 from 7.7 from 6.8 s/p transfusion, CR 0.7, BUN 14, No prior endoscopy on system. Patient reports no family history of bowel cancer or inflammatory bowel disease.?? He has never hada colonoscopy before. Reports prior to admission he has had??months of??intermittent bleeding-his shows us pictures of the stool.?There is no blood in the stool from prior to admission. In the context of his recent??mesenteric ischemia,??hematochezia??is??secondary to ischemic colitis??and shedding??of mucosa. Physical Exam Vitals & Measurements T:??97.9?F?? TMIN:??97.7?F?? TMAX:??99.5?F?? HR:??111??(Monitored)?? RR:??19?? BP:??114/59?? SpO2:??96%?? WT:??95.2??kg?? General:??Well appearing, looks comfortable at rest HEENT:??NELLY, Moist mucus membranes, oropharynx benign, no palpable?? Respiratory:??normal work of breathing, equal air entry bilaterally, breath sounds vesicular. No wheezes, rhonchi or crepitations Cardiovascular:??Normal rate, regular rhythm, no murmurs rubs of gallops on auscultation GI/Abdomen:??Normal active bowel sounds, soft,??bethany in situ midline from recent laparotomy. Extremities:??Moving extremities,. No peripheral edema, lower limbs are warm and well perfused, ??DP and PT pulses palpable bilaterally. Skin:??No jaundice, no ecchymoses Neurologic:??Alert & Oriented, no obvious focal neurological deficit Psychiatric:??Mood and affect appropriate Assessment/Plan Patient is a 53-year-old man with history of polysubstance use disorder and portal vein thrombus who presented with??mesenteric ischemia with significant occlusions of the SMA, IMV and thrombus in mid abdominal aorta, s/p??open??SMA embolectomy with patch repair 10/07 to??after not having bowel movements for several days started having hematochezia yesterday. ??Significant abdominal discomfort now,mainly at site of incision. ??Medical contacts the hematochezia secondary to ischemic colitis and shedding of the mucosa in reperfusion. ? - It is expected that this will be self-limiting, and as such does not require endoscopic evaluation at this time. - Optimize hemodynamic status, continue with anticoagulation - Supportive transfusion as required - GI will sign off. ??If he still bleeding after 4-5 days please reach out we will review for colonoscopy ?? This note was typed using CueThink dictation software. Occasionally, typing errors may occur. Please contact me on??[place] if anything requires further clarification. Patient discussed with attending physician, ?? Earle Ramirez MD Gastroenterology Fellow ??PGY 4?? Problem List/Past Medical History Ongoing Anxiety Chronic back pain s/p resection of herniated disc HTN Long-term current use of methadone for opiate dependence Procedure/Surgical History ???Discectomy L5-S1 (1990) Medications Inpatient acetaminophen 325 mg oral tablet, 325 mg, By Mouth, Every 4 hours, PRN amitriptyline 25 mg oral tablet, 75 mg, By Mouth, Daily at bedtime aspirin 81 mg oral delayed release tablet, 81 mg, By Mouth, Daily Ceftriaxone Inj, 1 Gm, IVPB, Every 24 hours Chloraseptic Kaycee, 1 sprays, By Mouth, Every 4 hours, PRN Clinimix E 12/17 1,920 mL + Multivitamin Adult Cont IV 10 mL + Multitrace with Selenium (TPN) 1 mL Clinimix E 12/17 2,000 mL + Multivitamin Adult Cont IV 10 mL + Tralement 1 mL clonazePAM 1 mg oral tablet, 1 mg, By Mouth, 2 times a day, PRN Dilaudid 2 mg oral tablet, 2 mg, By Mouth, Every 3 hours, PRN Flagyl IVPB, 500 mg= 100 mL, IVPB, Every 8 hours gabapentin 300 mg oral capsule, 300 mg, By Mouth, 3 times a day Heparin 25,000 units in 250 mL Premix 25,000 units [26 units/kg/hr] + D5%W Premixed IV 250 mL Heparin Inj, 4500 units= 0.9 mL, 60 units/kg, IV Push, Every 6 hours, PRN Heparin Inj, 2500 units= 0.5 mL, 30 units/kg, IV Push, Every 6 hours, PRN Lidocaine 5% Patch, 3 each, Topically, Daily Lipid Emulsion 20% 250mL 50 Gm, 50 Gm= 250 mL, IV Infusion Methadone Liquid, 125 mg= 62.5 mL, By Mouth, Daily metoprolol 50 mg oral tablet, 50 mg, By Mouth, 2 times a day before breakfast and dinne NaCL 0.9% Flush, 5 mL, IV Push, Daily NaCL 0.9% Flush, 5 mL, IV Push, Every hour, PRN nalOXONE Inj, 0.1 mg= 0.25 mL, IV Push Slowly, Every 5 minutes, PRN nalOXONE Inj, 0.2 mg= 0.5 mL, IV Push, Every 5 minutes, PRN nalOXONE Inj, 0.2 mg= 0.5 mL, IV Push, Every 5 minutes, PRN nalOXONE Inj, 0.2 mg= 0.5 mL, IV Push, Every 5 minutes, PRN Nicotine Topical, 7 mg, Topically, Daily Remove Patch, 1 each, Topically, Daily Remove Lidocaine Patch, 3 each, Topically, Daily at bedtime Remove Lidocaine Patch, 1 each, Topically, Daily at bedtime tamsulosin 0.4 mg oral capsule, 0.4 mg, By Mouth, Daily at bedtime Thiamine Inj, 100 mg= 1 mL, IV Push Slowly, Daily Tums 500 mg oral tablet, chewable, 500 mg= 1 tablet, Chew, Every 4 hours, PRN Valium 5 mg oral tablet, 5 mg, By Mouth, 2 times a day, PRN Zofran Inj, 4 mg, IV Push, Every 6 hours, PRN Home amitriptyline 75 mg oral tablet, 75 mg= 1 tablet, By Mouth, Daily at bedtime amitriptyline 75 mg oral tablet clonazePAM 1 mg oral tablet, 1 mg= 1 tablet, By Mouth, 2 times a day, PRN clonazePAM 1 mg oral tablet Golytely - oral powder for reconstitution, See Instructions lisinopril 40 mg oral tablet, 40 mg= 1 tablet, By Mouth, Daily lisinopril 40 mg oral tablet methadone 10 mg/5 mL oral solution, 125 mg= 62.5 mL, By Mouth, Daily Metoprolol Tartrate 50 mg oral tablet, 50 mg= 1 tablet, By Mouth, 2 times a day Metoprolol Tartrate 50 mg oral tablet Allergies Tylenol with Codeine Social History Alcohol Use: Past. Employment/School Status: Disabled. Other: disability for back pain. Home/Environment Living situation: Home/Independent. Lives with: Significant other. Substance Abuse Use: Current. Type: Marijuana. Frequency: 1-2 times per month. Tobacco Use: 10 or more cigarettes (1/2 pack or more)/day in last 30 days. Started at age: 12 Years. Family History Diabetes mellitus type II: Mother. Hypertension: Father. Muscular dystrophy: Mother. * Florentino Valdez MD: PERFORM Event Display: Consultation Note Authored Date: Attending Attestation:??I have seen and evaluated this patient. ??I have discussed the case and itsmanagement with the fellow and agree with the findings and plan as documented in the fellow???s note.?? Now that his SMV thrombus has been addressed,??we are hopeful that bleeding will not recur. ??Endoscopy is not planned at this time.?? We will sign off now, thanks. * Masha Escobar: VERIFY, PERFORM, SIGN Event Display: Consultation Note Authored Date: [id number] Patient: YOHAN CELESTE Age: 53 years Sex: Male : 1970 Associated Diagnoses: None Author: Masha Escobar Patient is interested in therapy and recovery coaching for recovery resources. Patient has been referred to [facility] [place] for the requested resources. No additional resources were needed at this time. Addiction Consultation Team [address] [place] [id number] Patient: Yohan Celeste (: 1970) Date: 10/11/2023 You have been referred to the following programs: [facility] [place] Therapy [address] [place] [address] [phone] Walk in therapy intake is Mon-Fri from 8:00am-8:00pm. For an intake, please bring discharge paperwork with you to the walk in. A referral has been made to [facility] [facility] on your behalf. A staff member will notify you after discharge to schedule a day/time for an intake. * Hemant HELM, Esther Rice: PERFORM, MODIFY, MODIFY, MODIFY, MODIFY, MODIFY, MODIFY Event Display: Consultation Note Authored Date: [id number] Patient: ??YOHAN CELESTE ? Age:??53 Years?Sex:??Male?:??1970?? Chief Complaint/Reason for Consultation Consult Question: opioid use disorder History of Present Illness This is a 53-year-old male with past medical history significant for anxiety, chronic back pain, colitis, hypertension, opioid use disorder on methadone, cocaine use disorder, and prior history of portal vein thrombosis (discharged August 2023) who presented to the emergency department on 10/07 withacute onset of abdominal pain associated with nausea. ?? Brief Hospital course: In the emergency department, initially afebrile, tachycardic (heart rate 112), hypertensive (blood pressure 154/99), satting 100% on room air.?? Initial labs were notable for leukocytosis (white blood cell count 22.9) with associated left shift.?? CMP notable for anion gap metabolic acidosis, AST 38, ALT 22, lactate 2.4. A CT scan of the abdomen pelvis was obtained which revealed complete occlusion of the anterior branch of the right portal vein with resultant infarct to the anterior and inferior right hepatic lobes, a splenic infarct, significant SMA occlusion at the jejunal/ileal branches not quite at the SMA takeoff, near complete occlusion of the IMV, thrombi and both the right renal artery and vein, and thrombus in the mid abdominal aorta at the level of the GE junction. Surgery and vascular were consulted for acute mesenteric ischemia. Patient s/p ex lap, open SMA embolectomy w/ patch repair on 10/07. CTA chest on 10/08 showing thrombus in the descending aorta with the crescentic adherent component measuring 3.5 cm craniocaudally and polypoid/free intraluminal component measuring 4.6 cm and LE Doppler US showed no evidence of DVTs. Patient remains NPO, on heparin gtt, and Flagyl/cefazolin for suspected intraabdominal infection. ?? Prior to presentation, patient taking 125 mg of methadone. He is on Methadone 20 mg q8hrs (total 60mg) IV right now as he is NPO. Most recent EKG on 10/08 Qtc 400.??For pain, he is on a PLANNING AIDE pump. Addiction medicine was consulted for further assistance with methadone while patient is in the hospital. ?? On initial evaluation on [facility], patient??sitting comfortably in bed. ??Denies any??withdrawal symptoms at this time. ??Continues to have significant abdominal pain that is now better controlled on the PLANNING AIDE pump.?? Patient reports that he has not passed any gas or??had a bowel movement. ?? Substance Use History: ?? Opioid use: Patient reports that he initially was started ion methadone in [id number]. He re- established with a methadone clinic in 2016 in [place] where he has been since. Prior to presentation was taking 125 mg methadone daily. He states prior to presenting was using about 1 bundle (10 bags) of heroin daily.He snorts it, denies injecting. He states that he has been on the 125 mg dose for several months and there was no plan at the clinic to increase his dose. ?? Cocaine use: Patient reports that he periodically uses , sniffs it. Reports that he uses if he has enough moneyleft over. ?? Tb use: smokes about 1/2 of cigarettes per day. ?? BZD use: Prescribed clonazepam 1 mg BID. He takes 1 mg in the am and 1 mg in the pm on a regular basis. Reviewed last fill 10/07/23 for 14 tablets. ?? Marijuana use: did not ask, will discuss with patient on 10/10 ?? Etoh use: denies Review of Systems Reviewed. ??See above for pertinent positives and negatives. Objective Measurements?? Height: 183 cm (10/08/23) Weight: 86.1 kg (10/10/23) Dry Weight: 77 kg (10/08/23) Body Mass Index: 22.99 kg/m2 (10/08/23) ? Vital Signs?? Temperature: 98.6 DegF (10/10/23 10:00:00) Temperature Route: Oral (10/10/23 10:00:00) Pulse Rate:??114 bpm??High (10/10/23 06:36:00) Heart Rate Monitored:??109 bpm??High (10/10/23 12:00:00) Respiratory Rate:??15 br/min??Low (10/10/23 13:26:00) Systolic Blood Pressure: 109 mm Hg (10/10/23 12:00:00) Diastolic Blood Pressure: 83 mm Hg (10/10/23 12:00:00) Blood pressure sites: Arm, right (10/10/23 12:00:00) Pulse Pressure: 26 mm Hg (10/10/23 12:00:00) Oxygen Saturation:??93 %??Low (10/10/23 12:00:00) Mode of Delivery (Oxygen): Room air (10/10/23 12:00:00) Early Warning Score:??10??Critical (10/10/23 13:26:44) SOFA Calculated: -1 (10/10/23 10:13:55) ? Physical Exam General:??No acute distress, resting in bed comfortably Respiratory:??Clear to auscultation bilaterally, no increased work of breathing, no wheezes/crackles Cardiovascular:??Normal rate, regular rhythm, no murmurs Abdomen:??mild distention, tender to palpation throughout abdomen, greatest in the LUQ Neurologic:??Alert & Oriented Assessment/Plan This is a 53-year-old male with past medical history significant for anxiety, chronic back pain, colitis, hypertension, opioid use disorder on methadone, cocaine use disorder, tb use disorder??and prior history of portal vein thrombosis (discharged August 2023) who presented to the emergency department on 10/07 with acute onset of abdominal pain associated with nausea, found to have acute on chronic??mesenteric ischemic now s/p ex lap, open SMA embolectomy w/ patch repair on 10/07. Patient NPO at this time, currently getting equivalent methadone dose via IV (60 mg) to outpatient PO dose (125 mg). At this time he is not experiencing any withdrawal symptoms on current IV dose, although patient is also has PLANNING AIDE pump for pain control. ?? Recommendations: - Please continue current IV dosing of methadone 20 mg q8 hours (about 1/2 home PO dose 125 mg). Once patient is able tolerate PO would switch patient back to Methadone 125 mg daily. Depending on pain control and ability to wean patient off of PO opioids could consider split dosing of Methadone. Addiction medicine team will continue to follow, as patient may benefit from increased dose as still using about 1 bundle of heroin per day prior to presentation to the hospital. - Please continue to check Qtc periodically throughout admission - Patient is interested in talking to upper caser about addictions recovery specialist and/or counselor outpatient - Please provide patient with nicotine patch while he is in the hospital - patient on standing BZD dose at home. Consider adding IV Ativan 1 mg PRN dose while patient is inpatient ?? The addiction medicine team will continue to follow along while the patient is in the hospital ?? Patient seen and discussed with attending physician Dr. Lujan ?? Esther Marcos MD #[id number] Med-Peds, PGY-4 ?? Histories Allergies Allergies ?(Active and Proposed Allergies Only) Tylenol with Codeine? (Severity: Unknown severity, Onset: Unknown) ? Past Medical History/Problem List Active Problems??(4) Anxiety Chronic back pain s/p resection of herniated disc HTN Long-term current use of methadone for opiate dependence ? Past Surgical History Discectomy L5-S1: 1990 ? Social History Currently lives??in an apartment Does not work ? Family History Mother (): Diabetes mellitus type II; Muscular dystrophy Father: Hypertension ? Medications Home Medications amiTRIPTYLINE (amitriptyline 75 mg oral tablet)?1?tab(s)?75?Milligram?By Mouth?Daily at bedtime Clonazepam (clonazePAM 1 mg oral tablet)?1?tab(s)?1?Milligram?By Mouth?2 times a day?as needed?Anxiety Lisinopril (lisinopril 40 mg oral tablet)?1?tab(s)?40?Milligram?By Mouth?Daily Methadone (methadone 10 mg/5 mL oral solution)?62.5?Milliliter?125?Milligram?By Mouth?Daily Metoprolol (Metoprolol Tartrate 50 mg oral tablet)?1?tab(s)?50?Milligram?By Mouth?2 times a day PEG Electrolyte Solution (Golytely - oral powder for reconstitution)?See Instructions?Drink 240mL every 15 minutes until gone ? Inpatient Medications Medications (20) Active SCHEDULED: (9) CeFAZolin 2 Gm Inj (Ancef Inj) ??2 Gm, IV Push, Every 8 hours Lidocaine 5% Topical Patch (Lidocaine 5% Patch) ??1 each, Topically, Daily Methadone 10 mg/mL Inj (Methadone IVPB) ??20 mg 2 mL, IVPB, Every 8 hours Metoprolol 50 mg Tablet (metoprolol 50 mg oral tablet) ??50 mg, By Mouth, 2 times a day before breakfast and dinne Metronidazole 500 mg / NaCL 0.9% 100 mL (Flagyl IVPB) ??500 mg 100 mL, IVPB, Every 8 hours Potassium Chloride 10 mEq / 100 mL (Potassium Chloride 10 mEq/100 mL IVPB) ??10 mEq 100 mL, IVPB, Every hour Remove Patch (Remove Lidocaine Patch) ??1 each, Topically, Daily at bedtime Sodium Phosphate 15mmol/250mL D5W (Sodium Phosphate IVPB) ??15 mmol 250 mL, IVPB, Once Tamsulosin 0.4 mg Capsule (tamsulosin 0.4 mg oral capsule) ??0.4 mg, By Mouth, Daily at bedtime CONTINUOUS: (3) Heparin 25,000 units / 250 mL D5W premix 25,000 units [22 units/kg/hr] + D5%W Premixed IV 250 mL (Heparin 25,000 units in 250 mL Premix 25,000 units [22 units/kg/hr] + D5%W Premixed IV 250 mL) ??250 mL, IV Infusion, 16.94 mL/hr HYDROmorphone 10 mg/100 mL NaCl 0.9% 10 mg (PLANNING AIDE HYDROmorphone 10 mg/100 mL NaCL 10 mg) ??10 mg 100 mL, IV Infusion Lactated Ringers (1000 mL) Cont IV 1,000 mL (LR 1,000 mL) ??1,000 mL, IV Infusion, 125 mL/hr PRN: (8) Chloraseptic Throat Kaycee (Chloraseptic Kaycee) ??1 sprays, By Mouth, Every 4 hours Heparin 5000 units/mL Inj (1 mL) (Heparin Inj) ??4,500 units 0.9 mL, IV Push, Every 6 hours Heparin 5000 units/mL Inj (1 mL) (Heparin Inj) ??2,500 units 0.5 mL, IV Push, Every 6 hours nalOXONE ??400mcg/mL Inj (nalOXONE Inj) ??0.2 mg 0.5 mL, IV Push, Every 5 minutes nalOXONE ??400mcg/mL Inj (nalOXONE Inj) ??0.1 mg 0.25 mL, IV Push Slowly, Every 5 minutes nalOXONE ??400mcg/mL Inj (nalOXONE Inj) ??0.2 mg 0.5 mL, IV Push, Every 5 minutes nalOXONE ??400mcg/mL Inj (nalOXONE Inj) ??0.2 mg 0.5 mL, IV Push, Every 5 minutes Ondansetron 2mg/mL Inj (2mL Vial) (Zofran Inj) ??4 mg, IV Push, Every 6 hours ? Results Recent Labs BLOOD COUNT & DIFF WBC 25.7 k/mm3 (High)?? 10/10/2023 00:24 RBC 3.49 m/mm3 (Low)?? 10/10/2023 00:24 Hgb 9.9 Gm/dL (Low)?? 10/10/2023 00:24 Hct 30.5 % (Low)?? 10/10/2023 00:24 MCV 87.4 femtoliters ()?? 10/10/2023 00:24 MCH 28.4 pg ()?? 10/10/2023 00:24 MCHC 32.5 g/dL (Low)?? 10/10/2023 00:24 Platelet Count 411 k/mm3 ()?? 10/10/2023 00:24 RDW-SD 47.1 femtoliters (High)?? 10/10/2023 00:24 MPV 9.7 femtoliters ()?? 10/10/2023 00:24 Nucleated RBC (Automated) 0.0 #/100 WBC'S ()?? 10/10/2023 00:24 Abs. NRBC 0.0 k/mm3 ()?? 10/10/2023 00:24 Abs. Neut 19.9 k/mm3 (High)?? 10/10/2023 00:24 Abs. Lymph 3.3 k/mm3 (High)?? 10/10/2023 00:24 Abs. [place] 2.1 k/mm3 (High)?? 10/10/2023 00:24 Abs. Eo 0.1 k/mm3 ()?? 10/10/2023 00:24 Abs. Baso 0.0 k/mm3 ()?? 10/10/2023 00:24 Neut % 77.4 % (High)?? 10/10/2023 00:24 Lymph % 12.9 % (Low)?? 10/10/2023 00:24 [place] % 8.3 % ()?? 10/10/2023 00:24 Eos % 0.3 % ()?? 10/10/2023 00:24 Baso % 0.2 % ()?? 10/10/2023 00:24 Metamyelocyte % 2.6 % (High)?? 10/09/2023 02:41 Band % 12.8 % (High)?? 10/09/2023 02:41 Atypical Lymph % 0.9 % ()?? 10/09/2023 02:41 RBC Morphology MODERATE ()?? 10/09/2023 02:41 Platelet Estimate ADEQUATE ()?? 10/09/2023 02:41 Retic Count 2.7 % (High)?? 10/09/2023 16:11 Retic Count Corrected 1.8 % ()?? 10/09/2023 16:11 Retic Production Index 1.2 % ()?? 10/09/2023 16:11 Imm Gran 0.9 % ()?? 10/10/2023 00:24 Abs. Imm Gran 0.2 k/mm3 ()?? 10/10/2023 00:24 ?? CARDIAC Homocysteine, Plasma/Serum 94.6 ??mole/L (High)?? 10/09/2023 02:41 ?? CHEM GENERAL Sodium 137 mmol/L ()?? 10/10/2023 00:24 Potassium 3.5 mmol/L (Low)?? 10/10/2023 00:24 Chloride 101 mmol/L ()?? 10/10/2023 00:24 Bicarbonate Level 27 mmol/L ()?? 10/10/2023 00:24 Anion Gap 9 ()?? 10/10/2023 00:24 Glucose Level 90 mg/dL ()?? 10/10/2023 00:24 BUN 15 mg/dL ()?? 10/10/2023 00:24 Creatinine-Blood 0.7 mg/dL ()?? 10/10/2023 00:24 Estimated GFR Creatinine 111 ML/MIN/1.73 M2 ()?? 10/10/2023 00:24 Calcium, Ionized pH Corrected 1.12 mmol/L (Low)?? 10/10/2023 00:24 Phosphorus 2.4 mg/dL (Low)?? 10/10/2023 00:24 Magnesium 1.8 mg/dL ()?? 10/10/2023 00:24 Alkaline Phosphatase 117 units/L ()?? 10/10/2023 00:24 AST (SGOT) 34 units/L ()?? 10/10/2023 00:24 ALT (SGPT) 22 units/L ()?? 10/10/2023 00:24 Bilirubin, Total 0.2 mg/dL ()?? 10/10/2023 00:24 Bilirubin, Direct <0.2 mg/dL ()?? 10/10/2023 00:24 Bilirubin, Indirect Direct bilirubin is less than the measureable limit. Therefore, indirect mg/dL ()?? 10/10/2023 00:24 Vitamin B12 Level 837 pg/mL ()?? 10/09/2023 16:11 Folic Acid Level <2.0 ng/mL (Low)?? 10/09/2023 16:11 Iron Level 13 mcg/dL (Low)?? 10/09/2023 16:11 Iron Binding Capacity, Unsaturated 84 mcg/dL (Low)?? 10/09/2023 16:11 Iron Binding Capacity, Estimated Total 97 mcg/dL (Low)?? 10/09/2023 16:11 % Iron Saturation 13 % (Low)?? 10/09/2023 16:11 Ferritin Level 609 ng/mL (High)?? 10/09/2023 16:11 ?? COAG APTT 66.3 seconds (High)?? 10/10/2023 09:48 ?? IMMUNOLOGY GENERAL Haptoglobin 253 mg/dL (High)?? 10/09/2023 16:11 ?? URINE OTHER Est Creatinine Clearance 132.92 mL/min ()?? 10/10/2023 01:45 ? * Tai HELM, Tiago Logan: PERFORM Event Display: Consultation Note Authored Date: Attending Attestation:??I have seen and evaluated this patient. ??I have discussed the case and itsmanagement with the resident and agree with the findings and plan as documented in the resident???snote. This patient was seen today with Dr. Marcos at??1500 today. ?? We are asked to see this patient by Dr. Alexis Peraza's service??for advice regarding polysubstance use disorder. ?? Patient's chart was reviewed in detail and he was seen and interviewed with Dr. Marcos??as noted above. ?? We also interviewed him in the presence of his significant other with whom he gave us permission tospeak. ?? Briefly this is a 53-year-old gentleman with known??and ongoing opioid use disorder, cocaine use disorder,??who presented to the hospital with abdominal pain.?? He needed fairly urgent surgery??was found to have a number of??embolic and thrombotic vascular complications. ??These are all well delineated in all of the surgical notes. ?? He is recovering from this now.?? He still n.p.o. with an NG tube in place on a PLANNING AIDE pump for pain management??and is recuperating. ?? The patient does have known??opioid use disorder and has been on 125 mg of methadone at home.?? Appropriate conversion to IV methadone was made on admission??and has been getting 20 mg IV every 8 hours. ??This is the appropriate conversion.?? The standard is to take the total daily dose at home that is given an oral fashion,??divided by 2, and then split dose that every 8 hours when it is given intravenously.?? The current dose is therefore appropriate. ?? Despite that though the patient was still using a bundle of bags of heroin or fentanyl daily at home. ??That is 10 bags at least.?? He notes that he has been going to the same methadone clinic for a while but this dose has not been changed in quite some time.?? He does feel that he probably would benefit from a higher dose ultimately. ?? In the meantime though he is getting a lot of postoperative pain management and opioids via the PCApump. ?? Cocaine is also still an issue for him as well. ??That is been discussed as noted above. ?? He uses only a little bit of marijuana which is probably not an addiction. ?? He has prescribed benzodiazepines but apparently no other aberrant behaviors around benzodiazepinesthus not so much to use disorder??but just more chronic use. ?? He also smokes cigarettes and knows he needs to stop that. ?? On exam: Patient was awake alert oriented cooperative in good spirits did not appear to be overtly intoxicated or in any overt withdrawal.?? He also said he did not feel he was in withdrawal. ??Pain management he felt was fairly good at the moment. ?? Vital signs today show temperature of 98 heart rate 109 respiratory 13 blood pressure 132/92 O2 sats good. ?? See above for the details. ?? Laboratory studies reviewed: White count improved but still quite high at 25,700. ??H&H a little lower at 9 and 30 platelet count good ?? Electrolytes??good??with a potassium 3.5 renal numbers good calcium??good phosphorus 2.4 mag of 1.8??LFTs were normal. ?? EKG??on 10/08??showed a QTc of 400.?? 2 EKGs on 10/07 showed??QTc is well over 600.?? In August of this year he also had QTc of over 600. ? Assessment and plan: This 53-year-old gentleman admitted for abdominal pain required urgent surgery as delineated above??has ongoing??opioid, cocaine use disorders.?? The addiction consultation service was asked to see him for advice regarding the above. ?? I agree with the assessments and recommendations as noted by Dr. Marcos above. ?? I agree with recommending that we continue to trend the QTc.?? When the time comes to??change him back to oral medications,??we should be able to just resume his usual oral??125 mg of methadone initially.?? Further titrations of that might be appropriate once he is off of the other opioids and is recuperated further from the surgery. ?? 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 ?? Patient also has cocaine use disorder although it does not seem like it is heavy use.?? Nonethelesseven a little use can be certainly very risky.?? Will be discussing with him about the hazards of the drug itself and also??the risk of releasing with other drugs etc. ?? The marijuana use does not sound significant. ?? The benzodiazepines do not sound like they are at??use disorder status??but??benzodiazepines are also somewhat problematic in the patient with his??substance use disorder history.?? For now if they can be avoided without consequence that would be great.?? However he may need some low-dose benzodiaze pines to prevent any sort of a prolonged withdrawal. ?? He will need to work on smoking cessation nicotine replacement for now. ??Follow-up with his primary care doctor about the rest. ?? Thankfully he does not have an??alcohol use disorder. ?? Thank you very much for this consultation. ??If you have any further questions please not hesitate to ask.?? The addiction consultation service will continue to follow this patient with you.?? Dr. Marcos is going to be reaching out to the primary team with our??summary of our thoughts and recommendations. ?? Please see above for the rest of the details of our assessments and plans. ? Patient Care team information Care Team Personnel Name: Wen Kennedy RN Position: [facility] RN Member Role: Primary Care Nurse Name: Sofia Richey RN Position: [facility] RN Member Role: Primary Care Nurse Name: Cecy Rojas RN Position: [facility] RN Member Role: Primary Care Nurse Name: Gin Savage RN Position: [facility] RN Member Role: Primary Care Nurse Name: Abhishek Martinez RN Position: [facility] RN Member Role: Primary Care Nurse Name: Balta Driscoll RN Position: [facility] RN Member Role: Primary Care Nurse Name: Nidia Carlisle DO Position: [facility] Physician (General Medicine) Member Role: PCP Address: Address: [address] [place] [id number] Name: Alba Carrillo (INSTR) Position: [facility] RN Member Role: Primary Care Nurse Name: Cyndy Caballero RN Position: [facility] RN Member Role: Primary Care Nurse Name: Stephanie Krishnamurthy RN Position: [facility] RN Member Role: Primary Care Nurse Name: Valente Dyer RN Position: [facility] RN Member Role: Primary Care Nurse Name: Odessa Spence RN Position: [facility] RN Member Role: Primary Care Nurse Care Team Related Persons Name: GRANT ROY Address: home [address] [place] [id number] Name: MARKLAZARA RHONDA Address: home [address] [place] [id number]
--- OUTSIDE RECORDS SUMMARY | 2024-02-13 17:54 | XMS_ITS | Continuity of Care Document ---
Author Organization [facility] Address [address] [place] [id number]- Care Team Providers Care Salesperson [employer] Name Role Phone MaylinNidia corona DO Primary Care Physician Encounter [facility] [place](s): 10/30/23 - 11/06/23 [facility] [address] [place] [id number] Encounter Diagnosis Tobacco use(Discharge Diagnosis) - 10/30/23 Status post exploratory laparotomy(Discharge Diagnosis) - 10/30/23 Attending Physician: Herlinda Zimmer NP Admitting Physician: Herlinda Zimmer NP Allergies, Adverse Reactions, Alerts Substance Reaction Severity [...] 1 Refills, Maintenance, 10/19/23 12:54:00 EDT, Tablet, [facility], Partial fill upon patient request if the prescription is for a schedule II opioid drug., 183, cm, 10/15/23 12:11:00 EDT, Hei... Start Date: 10/19/23 Status: Ordered aspirin 81 mg oral delayed release tablet 81 mg, By Mouth, Daily, # 30 tablet, Refills 1, Tot. Refills 1, Maintenance, 10/19/23 12:54:00 EDT,Route to Pharmacy Electronically, [facility], Partial fill upon patient request if the prescription is for a schedule II opioid drug., 18... Start Date: 10/19/23 Status: Ordered clonazePAM 1 mg oral tablet 1 tablet = 1 mg, By Mouth, 2 times a day, PRN Anxiety, 0 Refills, Maintenance, 05/14/19 10:47:58 EDT, Tablet Start Date: 05/14/19 Status: Ordered doxycycline monohydrate 100 mg oral capsule 1 capsule = 100 mg, By Mouth, 2 times a day, for 10 days, may take with food to minimize abdominal discomfort, # 20 capsule, 0 Refills, Acute 11/09/23 16:00:00 EDT, 10/30/23 16:00:00 EDT, [facility]/pharmacy #[id number], Partial fill upon patient request if the pr... Start Date: 10/30/23 Stop Date: 11/09/23 Status: Ordered gabapentin 300 mg oral capsule 300 mg, By Mouth, 3 times a day, # 60 capsule, Refills 0, Tot. Refills 0, Maintenance, 10/19/23 12:54:00 EDT, Route to Pharmacy Electronically, [facility], Partial fill upon patient request [...] Ordered Metoprolol Tartrate 50 mg oral tablet 1 tablet = 50 mg, By Mouth, 2 times a day, # 60 tablet, 0 Refills, Maintenance, 05/14/19 10:47:19 EDT, Tablet Start Date: 05/14/19 Status: Ordered tamsulosin 0.4 mg oral capsule 0.4 mg, By Mouth, Daily at bedtime, # 30 capsule, Refills 0, Tot. Refills 0, Maintenance, 10/19/23 12:54:00 EDT, Route to Pharmacy Electronically, [facility], Partial fill upon patient request if the prescription is for a schedule II opi... Start Date: 10/19/23 Status: Ordered Problem List Condition Confirmation Course Effective Dates Status Health St atus Informant Anxiety Confirmed Active Chronic back pain s/p resection of herniated disc Confirmed Active HTN Confirmed Active Diagnosis Diagnosis Type Effective Dates Health Status Clinical Service Informant Tobacco use Discharge Diagnosis 10/30/23 Status post exploratory laparotomy Discharge Diagnosis 10/30/23 Vital Signs Most recent to oldest [Reference Range]: 1 Height 183 cm (10/30/23 3:32 PM) Weight 94.8 kg (10/30/23 3:32 PM) Oxygen Saturation [94-100 %] 97 % (10/30/23 3:32 PM) Pulse Rate [55-90 bpm] 95 bpm *H* (10/30/23 3:32 PM) Body Mass Index [18.5-24.99 kg/m2] 28.31 kg/m2 *H* (10/30/23 3:32 PM) Blood Pressure [90-138/55-84 mm Hg] 104/ 72mm Hg (10/30/23 3:32 PM) Blood pressure sites Arm, left (10/30/23 3:32 PM) Weight Obtained Via Patient/family state d (10/30/23 3:32 PM) Social History Social History Type Response Smoking Status Use: 4 or less cigar ettes(less than 1/4 pack)/day in last 30 days;5-9 cigarettes (between 1/4 to 1/2 pack)/day in last 30 days; Type: Cigarettes entered on: 10/30/23 Sex Note * Shelia Louis: PERFORM, SIGN, VERIFY Event Display: Patient Education/Instruction Authored Date: [id number] [facility] [address] Clinical Summary Name DEVON CELESTE Age 53 Years 1970 PCP Nidia Carlisle DO PCP Visit Date 10/30/2023 15:00:00 Additional Instructions: Scheduled Appointments?? Future Appointments ?*[facility],??[place],??[address] ?Phone:??--?Fax:??-- ?Appt. Date:??11/06/2023?8:30 AM ?Scheduled Provider:??Jackie LESTER , Ada Soriano Follow-Up Instructions ?? With: Address: When: Ada Mejia NP Comments: keep appointment with Regina Diagnosis Medications: Please continue your medications until treatment is completed or stopped by your provider. Discuss any questions related to medications with your provider. Medications to Continue with No Changes These medications were not printed or sent to your pharmacy Acetaminophen (acetaminophen 325 mg oral tablet) 975 Milligram Oral every 6 hours. Refills: 0. Next Dose: amiTRIPTYLINE (amitriptyline 75 mg oral tablet) 1 tab(s) Oral Daily at Bedtime. Next Dose: apixaban (apixaban Starter Pack 5 mg oral tablet) 5 Milligram Oral twice a day. Refills: 1. Next Dose: Aspirin (aspirin 81 mg oral delayed release tablet) 81 Milligram Oral Daily. Refills: 1. Next Dose: Clonazepam (clonazePAM 1 mg oral tablet) 1 tab(s) Oral twice a day as needed Anxiety. Next Dose: Diazepam (Valium 5 mg oral tablet) 5 Milligram Oral twice a day as needed Spasm. Refills: 0. Next Dose: Gabapentin (gabapentin 300 mg oral capsule) 300 Milligram Oral 3 times a day. Refills: 0. Next Dose: Lisinopril (lisinopril 40 mg oral tablet) Next Dose: Lisinopril (lisinopril 40 mg oral tablet) 1 tab(s) Oral Daily. Next Dose: Methadone (methadone 10 mg/5 mL oral solution) 62.5 Milliliter Oral Daily. Next Dose: Metoprolol (Metoprolol Tartrate 50 mg oral tablet) 1 tab(s) Oral twice a day. Next Dose: Tamsulosin (tamsulosin 0.4 mg oral capsule) 0.4 Milligram Oral Daily at Bedtime. Refills: 0. Next Dose: Allergy Info:?? Tylenol with Codeine Medications Given This Visit Future Orders ?No future orders Future Orders ?No future orders Vital Signs Height 183 cm Weight 94.8 kg BMI 28.31 kg/m2 Blood Pressure 104 mm Hg/72 mm Hg Temperature Pulse Rate 95 bpm Respiratory Rate 02 Sat Mode of Delivery 97 %/ You can now view a summary of your hospital visit from the comfort of your home through a free online portal called [employer]. [employer] is a website that allows you to securely view your medical information including discharge summary, medications and follow-up visits. ??You can alsosend a secure electronic message to your doctor???s office to request appointments, renew medications or just ask a question. You can enroll at [email or web address] or register during your next office visit. Disclaimer:?? The information provided is of a general nature and is intended to be used in conjunction with the recommendations and advice of your health care practitioner. ??Every effort has been made to ensure that the information provided is accurate and complete at the time it is provided to you however, as your needs change, or, as new ??information becomes available, different or additional instructions may be required. If you have questions, please consult with your primary care provider or pharmacist, as appropriate. ??This information is not intended to serve as substitution for assessment and evaluation by a qualified health care provider. If you do not have a primary care provider, you may find a [facility] provider by calling [facility] at [phone]. [facility], in keeping with [facility] guidance, no longer requires face masks for staff, patientsor visitors in most situations. Similar to time spent indoors at other locations, there is the chance that you were exposed to respiratory viruses during your time with us (such as flu or COVID-19).? If you develop symptoms concerning for a viral respiratory infection, please seek testing (and treatment if indicated) from your medical provider or home test kit. For information about the plan of care including goals and instructions for your diagnosis, please see the patient education orders section of this document. Patient Education Materials?? The content of this educational material or handout may have been modified, supplemented, or adapted from its original content and format to support your individualized medical care. Patient Care team information Care Team Personnel Name: Wen Kennedy RN Position: S RN Member Role: Primary Care Nurse Name: Sofia Richey RN Position: S RN Member Role: Primary Care Nurse Name: Cecy Rojas RN Position: S RN Member Role: Primary Care Nurse Name: Gin Savage RN Position: S RN Member Role: Primary Care Nurse Name: Abhishek Martinez RN Position: [facility] RN Member Role: Primary Care Nurse Name: Balta Driscoll RN Position: [facility] RN Member Role: Primary Care Nurse Name: Nidia Carlisle DO Position: [facility] Physician (General Medicine) Member Role: PCP Address: Address: [address] [place] [id number] Name: Gerardo (DANIS) Alba Position: [facility] RN Member Role: Primary Care Nurse Name: Cyndy Caballero RN Position: [facility] RN Member Role: Primary Care Nurse Name: Stephanie Krishnamurthy RN Position: [facility] RN Member Role: Primary Care Nurse Name: Valente Dyer RN Position: [facility] RN Member Role: Primary Care Nurse Name: Odessa Spence RN Position: [facility] RN Member Role: Primary Care Nurse Care Team Related Persons Name: GRANT ROY Address: [address] [address] Name: RHONDA MORENO Address: home [address] [place] [address]
--- OUTSIDE RECORDS SUMMARY | 2024-02-13 17:54 | XMS_ITS | Continuity of Care Document ---
Author Organization [facility] Address [address] [place] [address] [address] [place] [address]- Care Team Providers Care Manager Recruitment Name Role Phone Maylin Nidia GRANT Primary Care Physician En[place] [facility] [place](s): 11/08/23 - 11/15/[address] [place], [place] [address] Attending Physician: Alexis Leiva MD Allergies, Adverse Reactions, Alerts Substance Reaction [...] 1 Refills, Maintenance, 10/19/23 12:54:00 EDT, Tablet, [facility], Partial fill upon patient request if the prescription is for a schedule II opioid drug., 183, cm, 10/15/23 12:11:00 EDT, Hei... Start Date: 10/19/23 Status: Ordered aspirin 81 mg oral delayed release tablet 81 mg, By Mouth, Daily, # 30 tablet, Refills 1, Tot. Refills 1, Maintenance, 10/19/23 12:54:00 EDT,Route to Pharmacy Electronically, [facility], Partial fill upon patient request if the prescription is for a schedule II opioid drug., 18... Start Date: 10/19/23 Status: Ordered clonazePAM 1 mg oral tablet 1 tablet = 1 mg, By Mouth, 2 times a day, PRN Anxiety, 0 Refills, Maintenance, 05/14/19 10:47:58 EDT, Tablet Start Date: 05/14/19 Status: Ordered gabapentin 300 mg oral capsule 300 mg, By Mouth, 3 times a day, # 60 capsule, Refills 0, Tot. Refills 0, Maintenance, 10/19/23 12:54:00 EDT, Route to Pharmacy Electronically, [facility], Partial fill upon patient request if [...] 10/19/23 12:54:00 EDT, Route to Pharmacy Electronically, [facility], Partial fill upon patient request if the prescription is for a schedule II opi... Start Date: 10/19/23 Status: Ordered Problem List Condition Confirmation Course Effective Dates Status Health St atus Informant Anxiety Confirmed Active Chronic back pain s/p resection of herniated disc Confirmed Active HTN Confirmed Active Vital Signs Most recent to oldest [Reference Range]: 1 Height 183 cm (11/08/23 11:20 AM) Pulse Rate [55-90 bpm] 112 bpm *H* (11/08/23 11:20 AM) Blood Pressure [90-138/55-84 mm Hg] 107/ 62mm Hg (11/08/23 11:20 AM) Temperature [96.8-100.4 DegF] 96.9 DegF (11/08/23 11:20 AM) Blood pressure sites Arm, left (11/08/23 11:20 AM) Temperature Route Temporal (11/08/23 11:20 AM) Social History Social History Type Response Smoking Status Use: 4 or less cigar ettes(less than 1/4 pack)/day in last 30 days;5-9 cigarettes (between 1/4 to 1/2 pack)/day in last 30 days; Type: Cigarettes entered on: 10/30/23 Sex Patient Care team information Care Team Personnel Name: Wen Kennedy RN Position: [facility] RN Member Role: Primary Care Nurse Name: Sofia Richey RN Position: [facility] RN Member Role: Primary Care Nurse Name: Cecy Rojas RN Position: [facility] RN Member Role: Primary Care Nurse Name: Gin Savage RN Position: [facility] RN Member Role: Primary Care Nurse Name: Abhishek Martinez RN Position: [facility] RN Member Role: Primary Care Nurse Name: Balta Driscoll RN Position: S RN Member Role: Primary Care Nurse Name: Nidia Carlisle DO Position: [facility] Physician (General Medicine) Member Role: PCP Address: Address: [address] [place] [address] [place], [place] [address] Name: Alba Carrillo (INSTR) Position: S RN Member Role: Primary Care Nurse Name: Cyndy Caballero RN Position: [facility] RN Member Role: Primary Care Nurse Name: Stephanie Krishnamurthy RN Position: S RN Member Role: Primary Care Nurse Name: Valente Dyer RN Position: S RN Member Role: Primary Care Nurse Name: Odessa Spence RN Position: S RN Member Role: Primary Care Nurse Care Team Related Persons Name: GRANT ROY Address: home [address] [address] Name: MARKRHONDA HAILE Address: [address] [place] [address]
--- OUTSIDE RECORDS SUMMARY | 2024-02-13 17:54 | XMS_ITS | Continuity of Care Document ---
Author Organization [facility] Address [address] [place] [id number]- Care Team Providers [employer] Name Role Phone Maylin HUNidia Primary Care Physician [place] [facility] [place]): [place]23 - 12/01/[address] [address]- Encounter Diagnosis Pleural effusion(Final) - 11/22/23 Sepsis(Final) - 11/22/23 Discharge Disposition: A-D/C Home Attending Physician: Fabiana HELM, Myriam Admitting Physician: Jovana Chinchilla MD Referring Physician: Not on Staff, Referring [...] 1 Refills, Maintenance, 10/19/23 12:54:00 EDT, Tablet, [facility], Partial fill upon patient request if the prescription is for a schedule II opioid drug., 183, cm, 10/15/23 12:11:00 EDT, Hei... Start Date: 10/19/23 Status: Ordered aspirin 81 mg oral delayed release tablet 81 mg, By Mouth, Daily, # 30 tablet, Refills 1, Tot. Refills 1, Maintenance, 10/19/23 12:54:00 EDT,Route to Pharmacy Electronically, [facility], Partial fill upon patient request [...] Maintenance, 12/01/23 13:30:00 EDT,Route to Pharmacy Electronically, [facility], Partial fill upon patient request if the prescription is for a schedule II opioid drug., 18... Start Date: 12/01/23 Status: Ordered methadone 10 mg/5 mL oral solution = 140 mg, By Mouth, Daily, 0 Refills, Maintenance, 08/10/23 10:58:00 EST, Solution, Partial fill upon patient request if the prescription is for a schedule II opioid drug. Start Date: 08/10/23 Status: Ordered oxyCODONE 5 mg oral tablet 5 mg, Tablet, By Mouth, Every 6 hours, PRN for Pain , Severe, Routine, 11/29/23 11:22:00 EDT Start Date: 11/29/23 Stop Date: 12/01/23 Status: Discontinued tamsulosin 0.4 mg oral capsule 0.4 mg, By Mouth, Daily at bedtime, # 30 capsule, Refills 0, Tot. Refills 0, Maintenance, 10/19/23 12:54:00 EDT, Route to Pharmacy Electronically, [facility], Partial fill upon patient request if the prescription is for a schedule II opi... Start Date: 10/19/23 Status: Ordered Tylenol 325 mg oral tablet 650 mg, Tablet, By Mouth, Every 6 hours, PRN for Pain , Moderate, Routine, 11/25/23 17:52:00 EDT Start Date: 11/25/23 Stop Date: 12/01/23 Status: Discontinued Problem List Condition Confirmation Course Effective Dates Status Health St atus Informant Anxiety Confirmed Active Chronic back pain s/p resection of herniated disc Confirmed Active HTN Confirmed Active Results Radiology Reports * Exam Date Time Procedure Performing Provider Status 11/30/23 5:25 PM Chest Portable Art Hankins (Verified) Notes: (Chest Portable) Reason For Exam: Follow-Up Pleural Effusion RESULT: Chest Portable Examination: Portable chest performed on 11/30/2023. History: Follow up pleural effusion Findings: A frontal view of the chest is compared to a prior study dated 11/29/2023. The cardiac silhouette is within normal limits for size. The left pleural effusion has increased since the prior study and is now moderate in degree. Underlying atelectasis is seen. There is no pulmonary edema. The osseous structures are unremarkable. IMPRESSION: Increasing left pleural effusion. WSN: [id number] Ordering Physician: Zhen Ceballos Dictated By: Deisy Rand MD Dictated Date/Time: 11/30/23 5:35 pm Reviewed By: Deisy Rand MD Signed By: Deisy Rand MD Signed Date/Time: 11/30/23 5:35 pm Transcribed By: RYNE Transcribed Date/Time: 11/30/23 5:33 pm * Exam Date Time Procedure Performing Provider Status 11/29/23 11:32 AM Chest Portable Hermila Escudero (Verified) Notes: (Chest Portable) Reason For Exam: Follow-Up Pleural Effusion RESULT: Chest Portable Chest Portable performed semiupright at 11:24 AM Reason: Follow-Up Pleural Effusion; Clinical Question(s): Pleural Effusion COMPARISON: Multiple priors, most recent 11/28/2023. FINDINGS: LINES AND TUBES: Interval removal of the left pleural drainage catheter. LUNGS AND PLEURA: Persistent streaky atelectasis in the lingula. Minimal linear scarring versus atelectasis in the right lung. No pleural effusion. Small left apical pneumothorax relatively unchanged measuring up to 1.4 cm. HEART, MEDIASTINUM AND GEOVANNY: Heart is normal in size. Normal mediastinal and hilar contour. BONES AND SOFT TISSUES: No acute abnormality. IMPRESSION: 1. Unchanged small left apical pneumothorax. 2. No evidence of pleural effusion. 3. Interval removal of the left pleural drainage catheter. I have personally reviewed the images and I agree with this report. WSN: [id number] Ordering Physician: Zhen Ceballos Dictated By: Saeed Carol Velazquez Dictated Date/Time: 11/29/23 1:27 pm Reviewed By: Odessa Urbina MD Signed By: Odessa Urbina MD Signed Date/Time: 11/29/23 1:32 pm Transcribed By: RYNE Transcribed Date/Time: 11/29/23 1:17 pm * Exam Date Time Procedure Performing Provider Status 11/28/23 9:06 AM Chest Portable Bob Silvestre (Verified) Notes: (Chest Portable) Reason For Exam: Follow-Up Pleural Effusion RESULT: Chest Portable Chest Portable Reason: Follow-Up Pleural Effusion; Clinical Question(s): Pleural Effusion COMPARISON: Multiple priors, most recently November 27, 2023. FINDINGS: LINES AND TUBES: Pigtail pleural catheter projecting over the left lung base. LUNGS AND PLEURA: Similar mild elevation of the left hemidiaphragm with associated left lower lobe and lingular atelectasis. Small left apical pneumothorax is slightly increased, measuring up to 1.2 cm at the apex, previously 0.3 cm. Left-sided pleural effusion is small, if present at all. No significant right-sidedeffusion or pneumothorax. HEART, MEDIASTINUM AND GEOVANNY: Heart is normal in size. Normal mediastinal and hilar contour. BONES AND SOFT TISSUES: No acute abnormality. IMPRESSION: 1. Slightly increased left apical pneumothorax, still small. 2. Left lung base pigtail catheter with associated left lower lobe and lingular atelectasis and probable trace left effusion. WSN: [id number] Ordering Physician: Zhen Ceballos Dictated By: Zhen Kennedy MD Dictated Date/Time: 11/28/23 9:20 am Reviewed By: Zhen Kennedy MD Signed By: Zhen Kennedy MD Signed Date/Time: 11/28/23 9:20 am Transcribed By: RYNE Transcribed Date/Time: 11/28/23 9:17 am * Exam Date Time Procedure Performing Provider Status 11/27/23 8:12 AM Chest Portable Hermila Escudero (Verified) Notes: (Chest Portable) Reason For Exam: pneumothorax follow up;Tube Placement RESULT: Chest Portable Chest Portable Reason: Tube Placement; pneumothorax follow up; Clinical Question(s): Follow-Up Abnormal Exam COMPARISON: CXR 11/26/2023 FINDINGS: LINES AND TUBES: Left basilar pleural drainage catheter in place. LUNGS AND PLEURA: Improved left apical pneumothorax, now with apical pleural separation of 3 mm. Persistent left basilar atelectasis and trace left pleural effusion. Streaky opacity in the right midlung, most likely atelectasis. HEART, MEDIASTINUM AND GEOVANNY: Heart is normal in size. Normal mediastinal and hilar contour. BONES AND SOFT TISSUES: No acute abnormality. IMPRESSION: Improved left pneumothorax. Persistent left basilar atelectasis and trace left pleural effusion. I have personally reviewed the images and I agree with this report. WSN: [id number] Ordering Physician: Anahy Qureshi Dictated By: Fredis Astudillo MD Dictated Date/Time: 11/27/23 10:54 a Reviewed By: Dillon Perez MD, V Signed By: Dillon Perez MD, V Signed Date/Time: 11/27/23 10:59 am Transcribed By: RYNE Transcribed Date/Time: 11/27/23 10:33 am * Exam Date Time Procedure Performing Provider Status 11/26/23 1:52 PM Chest 2 Views Frontal and Lat Timothy Daniels; Kera (Verified) Notes: (Chest 2 Views Frontal and Lat) Reason For Exam: Shortness of Breath RESULT: Chest 2 Views Frontal and Lat Chest 2 Views Frontal and Lat Reason: follow-up after CT guided left pleural drainage COMPARISON: 11/22/2023 FINDINGS: LINES AND TUBES: Left basilar pleural catheter. LUNGS AND PLEURA: Markedly improved left basilar aeration and effusion. Linear subsegmental atelectasis lower 3rd left chest. 13 mm left apical pneumothorax. HEART, MEDIASTINUM AND GEOVANNY: Heart is normal in size. Normal mediastinal and hilar contour. BONES AND SOFT TISSUES: No acute abnormality. IMPRESSION: Markedly improved left pleural effusion and small left apical pneumothorax after placement of pleural catheter. The impression above was relayed to Anahy Qureshi by Dr. Tiago Chavez via Science withacknowledgement received on 11/26/2023 at 2:21 PM. WSN: [id number] Ordering Physician: Anahy Qureshi Dictated By: Tiago Chavez MD Dictated Date/Time: 11/26/23 2:21 pm Reviewed By: Tiago Chavez MD Signed By: Tiago Chavez MD Signed Date/Time: 11/26/23 2:21 pm Transcribed By: RYNE Transcribed Date/Time: 11/26/23 2:20 pm * Exam Date Time Procedure Performing Provider Status 11/25/23 2:30 PM IR End of Case Report Aut h (Verified) IR End of Case Report * Exam Date Time Procedure Performing Provider Status 11/25/23 2:[address] Rad Guide Per Drain W/ Place Elsy Galaviz; Auth (Verified) Notes: (CT Rad Guide Per Drain W/ Place) Reason For Exam: pleural effusion CT Rad Guide Per Drain W/ Place Patient: DEVON CELESTE Study Date: 11/25/2023 Performing: Bijal Douglass MD Referring: : 1970 Age: 53 Gender: MALE PROCEDURE: CT-guided left chest drainage catheter placement INDICATION: 53 yo patient with h/o substance use, presently on Methadone, recent SMA embolectomy for mesenteric ischemia, now presently with syncope, found to have large left pleural fluid and dyspnea on exertion. CRYSTAL GROWING TECHNICIAN(S): Bijal Douglass MD ANESTHESIA: 1% Lidocaine SQ was administered for local anesthesia. RADIATION DOSE: Total Exam DLP: 976.91 mGy-cm TECHNIQUE: Informed consent for the procedure was obtained from the patient after discussion of the risks, benefits and alternatives to the procedure. A pre-procedure timeout was performed, confirming patient identity, planned procedure, laterality and additional relevant details. The patient was positioned supine with the left side slightly up on the procedure table. A limited noncontrast CT of the left thorax was performed, with automatic tube modulation use to optimize imaging and exposure parameters. A suitable access site was marked in the left flank, prepped, and draped in sterile fashion. Maximum sterile barrier technique was used throughout the procedure. 1% lidocaine was administered for local analgesia. After administering local analgesia, a 19-gauge introducer needle was advanced into the target collection under intermittent CT fluoroscopic guidance. Once needle position within the collection was confirmed with imaging, an 0.035 inch guidewire was placed. Guidewire position within the collection was confirmed with repeat imaging. The needle was removed over the wire, the tract was dilated and a 12 Martiniquais non-locking drainage catheter was advanced. The wire and obturator were removed and catheter position within the collection was confirmed with repeat imaging. Specimen of thin serous fluid was obtained from the catheter for requested studies. The catheter was secured to the skin with a 2-0 Prolene suture and connected to Pleurevac drainage. A dressing was applied. Repeat imaging demonstrated that the catheter was in appropriate position within the target collection. The patient tolerated the procedure well and there were no immediate complications of the procedure. Estimated blood loss: Minimal. Patient transported back to inpatient floor/unit. IMPRESSION: CT-guided placement of a 12 Fr non-locking left chest drainage catheter. Specimen of serous fluid submitted for requested studies. PLAN: Initial catheter care as ordered. Return to floor and resume care as per primary team. Future catheter management as per the Pulmonology team, IR is available for catheter management if desired. Signed By Bijal Douglass MD On 11/25/2023 16:38:58 Signed By Bijal Douglass MD On 11/25/2023 16:38:58 Bijal Douglass MD Equipment : [employer] CATHETER 12FR NONLOCK RESOLVE MAQUET ATRIUM PLEURA VAC CHEST TUBE Dictated By: Bijal Douglass MD Dictated Date/Time: 11/25/23 2:30 pm Reviewed By: Bijal Douglass MD Signed By: Bijal Douglass MD Signed Date/Time: 11/25/23 2:30 pm Transcribed By: EMY Transcribed Date/Time: 11/25/23 2:30 pm * Exam Date Time Procedure Performing Provider Status 11/23/23 12:[address] Abd/Pelvis W/ IV Contrast Only Anne Marie Winston (Verified) Notes: (CT Abd/Pelvis W/ IV Contrast Only) Reason For Exam: recent ex-lap, n/v/d, infection/inflammatory changes in colon noted on CT chest, need further eval;Other: RESULT: CT Abd/Pelvis W/ IV Contrast Only PROCEDURE: CT Abd/Pelvis W/ IV Contrast Only CLINICAL INDICATION: 53 years old Male with history significant for opioid use disorder on methadone, hypertension anxiety, portal vein thrombosis not on anticoagulation, recently admitted from 10/07 through 10/19/2023 for acute on chronic mesenteric ischemia, underwent exploratory laparotomy with open SMA embolectomy and patch repair on 10/08/[address] Hansen. Discharged on Eliquis. Seenby vascular surgery on 10/29, at which time he was treated for incision site cellulitis with 10-day course of doxycycline. Saw general surgery in follow-up on 11/08/2023 in follow-up, at which time he had complained about poor p.o. intake, nausea, vomiting, liquid diarrhea and weight loss about 20 pounds since surgery. Was advised to see PCP at the time. Admitted on November 22, 2023 following a syncopal episode after noted in the ED to be tachycardic and low blood pressure improved with IV fluids. Saturating well on room air. Labs showing leukocytosis with WBC count 15.1, hyponatremia with sodium 130, mildly elevated glucose at 123, elevated alk phos at 215, elevated lactate at 5.2, improved to 3.3 with IV fluids, negative troponin, TSH normal, UA normal. Chest x-ray showing worsening left pleural effusion. CT scan of the chest showing Moderately large left pleural effusion with associated atelectasis. Area of collapsed or scarred lung within the lingula. Moderate infectious or inflammatory involving the visualized portion of the ascending, transverse colon and descending colon. Pseudocyst formation in the body of the pancreas. Redemonstration of areas of infarct in the liver and spleen. TECHNIQUE: During the uneventful IV administration of 100 cc of Omnipaque contrast, helical 3 mm axial images are obtained of the abdomen and pelvis. Coronal and sagittal reformations performed. Enteric contrast not given. Weight- based protocol using automatic tube modulation utilized to optimize exposure parameters. CTDIvol Body: 17.10 mGy, DLP Body: 968 mGy*cm. COMPARISONS: CTA abdomen and pelvis September 03, 2023, enhanced CT abdomen and pelvis 10/08/2023 and 10/14/2023, report of enhanced chest CT November 22, 2023. FINDINGS: Vamp Liner View Findings, Lines and Tubes: None seen. Visualized Chest: Unchanged moderate to large layering LEFT pleural effusion. Compressive atelectasis partially visualized LEFT lower lobe and lingula. No evidence of RIGHT pleural effusion. Minor dependent atelectasis RIGHT lower lobe.. Normal heart size. No pericardial effusion. Diaphragm: Tiny defect in the LEFT hemidiaphragm medially containing only fat. Liver: General region as lobulated areas of decreased attenuation but higher than water in segmentsIVb, Taiwo, and VIII. And to lesser degree segments II and III Presumed to represent ischemia or infarction from prior RIGHT portal vein thrombosis superimposed on heterogeneous hepatic steatosis. Very attenuated anterior branch of the RIGHT portal vein consistent with chronic thrombosis and smallposterior branch of the RIGHT portal vein without thrombus are unchanged. No evidence of thrombus in the LEFT portal vein and the main portal vein. Gallbladder: Mildly distended. No wall thickening or adjacent fat stranding. No calcified calculi. Bile ducts: No biliary ductal dilation. Spleen: Persistent large wedge-shaped area of hypoattenuation in the upper pole of the spleen consistent with subacute infarct. Pancreas: Mild atrophy the pancreas again seen. Abutting the inferior margin of the neck and body of the pancreas is a well-circumscribed fluid collection which has become more homogeneous and now has a thin enhancing wall measuring approximately 6.8 x 5.4 x 4.9 cm. There is no internal gas. Several surgical clips related to recent intervention in the superior mesenteric artery are noted along its inferior margin. There is no dilatation of the main pancreatic duct. This could be a postoperativeinfected collection, a seroma without infection or a pseudocyst if there was postoperative pancreatitis. Percutaneous aspiration is possible and would be diagnostic and therapeutic. Several small bowel loops are noted adjacent to the collection Adrenal glands: Normal. Kidneys and ureters: 0.3 cm unchanged nonobstructing right upper pole calculus. No hydronephrosis or suspicious mass. Bladder: Well-distended by enhanced urine related to yesterday's enhanced chest CT contrast excretion. Reproductive organs: Prostate gland appears very small. Seminal vesicles symmetric bilaterally. Stomach, small bowel, and large bowel: Moderate to severe thickening of the wall of the descending and rectosigmoid colon already present but increased since October 14, 2023. While this could be related to ischemia the inferior mesenteric artery and superior mesenteric artery appears patent, although the examination was not tailored as a CT angiogram. The differential diagnosis includes infection/inflammation. No evidence of wall thickening in the small bowel or stomach. Ingested food noted within the stomach. No abnormal bowel dilatation. Appendix not definitely identified. Peritoneum and retroperitoneum: Increased volume of peritoneal fluid adjacent to the liver and spleen, in the paracolic gutters and in the pelvis anteriorly and posteriorly, now moderate compared to October 14, 2023. The only loculated fluid collection is the one described inferior to the pancreas. The rest of the fluid is free flowing. There is moderate fat stranding adjacent to the rectum which ex hibits moderate to severe wall thickening. There is mild to moderate fat stranding throughout the rest of the peritoneal fat. While this suggests generalized edema or inflammation there is no peritoneal lining enhancement to suggest peritonitis. Lymph nodes: No enlarged lymph nodes. Blood vessels: Moderate calcified and noncalcified plaque. The SMA is remains patent status post embolectomy and courses along the posteromedial margin of the above described collection.. Resolution of previously noted thrombus in the right renal vein. Severe narrowing of the splenic vein again noted as it passes posterior to the above-described left upper quadrant collection without occlusion. 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 Portal vein and superior mesenteric vein remain patent. Abdominal and pelvic wall: Mild to moderate subcutaneous edema in the body wall, decreased since October 14, 2023.. Midline anterior scar in the abdomen and pelvis without evidence of associated fluid collection.. Bones: No acute abnormality. Minor degenerative changes in the thoracic and lumbar spine, and Schmorl's node in superior endplate of L1 unchanged. Moderate to severe degenerative endplate changes andloss of these height at L5-S1 with mild likely degenerative retrolisthesis of L5 respect to S1 and with anterolisthesis of L4 with respect to L5, grade 1 all unchanged. IMPRESSION: 1. No significant change from normal homogeneous appearance and development of an enhancing wall inthe known collection posterior to the body and neck of the pancreas, without internal gas. Infection is still possible. Differential considerations include seroma, infected postoperative collection and peripancreatic pseudocyst, infected or not. Consider IR consult for aspiration. 2. Redemonstration of splenic infarct as well as large area of hypoattenuation in the right hepaticlobe which is also concerning for ischemia/infarction. 3. Worsening wall thickening of the transverse and descending colon which represent evidence of ischemia although the SMA and KRISTI appear patent versus inflammatory/infectious colitis. Postoperative changes noted including surgical clips adjacent to the SMA. 4. Moderate layering left pleural effusion. Increased now moderate ascites and mesenteric edema. 5. 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 Resolution of thrombus previously seen in the right renal vein. 6. Marked narrowing of the splenic vein as it passes posterior to the left upper quadrant fluid collection unchanged without occlusion. 7. Other chronic incidental findings as detailed. Thank you for allowing me to participate in the care of this patient. An actionable message ([place]) has been communicated via the [employer] system on 11/23/2023 2:34 PM, Message ID [id number]. WSN: [id number] Ordering Physician: Venice Hu Dictated By: Shorty Coon MD Dictated Date/Time: 11/23/23 2:34 pm Reviewed By: Shorty Coon MD Signed By: Shorty Coon MD Signed Date/Time: 11/23/23 2:34 pm Transcribed By: RYNE Transcribed Date/Time: 11/23/23 1:50 pm * Exam Date Time Procedure Performing Provider Status 11/22/23 9:[address] Chest W/ Contrast Ann-Marie Yung; Auth (Verified) Notes: (CT Chest W/ Contrast) Reason For Exam: L pleural effusion;Other: RESULT: CT Chest W/ Contrast CT Chest W/ Contrast INDICATION: Hx of Present Illness: syncopal episode @methadone clinic; Reason: Other:; L pleural effusion; Clinical Question(s): Interstitial Alveolar Infiltration; Order Comment: TECHNIQUE: Helical CT scan of the chest with IV contrast, formatted in 3 planes. 100 cc of Omnipaque 300 was administered intravenously. Weight-based protocol was performed using automatic exposure control. CTDIvol Body: 6.50 mGy, DLP Body: 318 mGy*cm. COMPARISON: None. FINDINGS: Vamp Liner view findings, lines and tubes: None. Trachea and airways: Patent without evidence of tracheal or endobronchial lesion. Lungs and pleura: Moderate to large left pleural effusion. Left lower lobe atelectasis. Area of atelectasis or consolidation within the lingula. Minimal right lower lobe atelectasis. Mediastinum and geovanny: No mass or hematoma. No mediastinal or hilar lymphadenopathy. There is fluid within the proximal esophagus with mucosal enhancement concerning for reflux esophagitis. There is a1.6 cm low-attenuation lesion within the right thyroid lobe. Heart: Heart is normal in size. No pericardial effusion. Aorta: No aortic aneurysm. Pulmonary arteries: Normal caliber. No evidence of pulmonary embolism on this study performed without angiographic technique. Chest wall soft tissues: No acute abnormality. Diaphragm: Intact. Upper abdomen: There are low-attenuation areas in the liver consistent with prior suspected infarct. There are low attenuation areas within the spleen consistent with prior infarct. There is circumferential wall thickening within the visualized portion of the ascending, transverse, and descending colon. There is a 7.3 x 5 cm loculated collection in the region of the body of pancreas concerning for pseudocyst formation. There is small amount of ascites. Bones: No acute abnormality. IMPRESSION: Moderately large left pleural effusion with associated atelectasis. Area of collapsed or scarred lung within the lingula. Recommend follow-up CT intravenous to exclude underlying lesion. Moderate infectious or inflammatory involving the visualized portion of the ascending, transverse colon and descending colon. Pseudocyst formation in the body of the pancreas. Redemonstration of areas of infarct. The liver and spleen. An actionable message ([place]) has been communicated via the [employer] system on 11/22/2023 10:00 AM, Message ID [id number]. WSN: [id number] Ordering Physician: Ambar Garcia Dictated By: Sofia Fernandez MD Dictated Date/Time: 11/22/23 10:00 a Reviewed By: Sofia Fernandez MD Signed By: Sofia Fernandez MD Signed Date/Time: 11/22/23 10:00 am Transcribed By: RYNE Transcribed Date/Time: 11/22/23 9:51 am * Exam Date Time Procedure Performing Provider Status 11/22/23 8:35 AM Chest Portable Kimmie Brizuela; Krea (Verified) Notes: (Chest Portable) Reason For Exam: Shortness of Breath RESULT: Chest Portable Examination: Portable chest performed on 11/22/2023. History: Syncopal episode. Shortness of breath. Findings: A frontal view of the chest is compared to a prior study dated 11/18/2023. The cardiac silhouette is within normal limits for size. There is increasing size of the left pleural effusion which is moderate in degree. Underlying collapse or consolidation is seen. The right lung is clear. The osseous structures are unremarkable. IMPRESSION: Worsening left pleural effusion. WSN: [id number] Ordering Physician: Ambar Garcia Dictated By: Deisy Rand MD Dictated Date/Time: 11/22/23 8:54 am Reviewed By: Deisy Rand MD Signed By: Deisy Rand MD Signed Date/Time: 11/22/23 8:54 am Transcribed By: RYNE Transcribed Date/Time: 11/22/23 8:53 am Vital Signs Most recent to oldest [Reference Range]: 1 2 3 Height 187 cm (12/01/23 10:35 AM) 187 cm (12/01/23 6:27 AM) 187 cm (11/30/23 11:35 PM) Weight 84 kg (11/22/23 2:33 PM) Oxygen Saturation [94-100 %] 100 % (12/01/23 10:35 AM) 97 % (12/01/23 6:27 AM) 95 % (11/30/23 11:35 PM) Pulse Rate [55-90 bpm] 97 bpm *H* (12/01/23 10:35 AM) 98 bpm *H* (12/01/23 6:27 AM) 94 bpm *H* (11/30/23 11:35 PM) Body Mass Index [18.5-24.99 kg/m2] 24.02 kg/m2 (11/22/23 2:33 PM) Blood Pressure [90-138/55-84 mm Hg] 117/71mm Hg (12/01/23 10:35 AM) 108/65mm Hg (12/01/23 6:27 AM) 109/69mm Hg (11/30/23 11:35 PM) Respiratory Rate [16-30 br/min] 15 br/min *L* (12/01/23 12:58 PM) 18 br/min (12/01/23 10:35 AM) 15 br/min *L* (12/01/23 10:28 AM) Temperature [96.8-100.4 DegF] 97.8 DegF (12/01/23 10:35 AM) 98.2 DegF (12/01/23 6:27 AM) 97.8 DegF (11/30/23 11:35 PM) Mode of Delivery (Oxygen) Room air (12/01/23 10:35 AM) Room air (12/01/23 6:27 AM) Room air (11/30/23 11:35 PM) Blood pressure sites Arm, left (12/01/23 10:35 AM) Arm, left (12/01/23 6:27 AM) Arm, left (11/30/23 11:35 PM) Temperature Route Oral (12/01/23 10:35 AM) Axillary (12/01/23 6:27 AM) Oral (11/30/23 11:35 PM) Dry Weight 84 kg (11/22/23 2:33 PM) 77 kg (11/22/23 8:12 AM) Dry Weight Obtained Via Patient/family stated (11/22/23 8:12 AM) Social History Social History Type Response Smoking Status Use: 4 or less cigar ettes(less than 1/4 pack)/day in last 30 days;5-9 cigarettes (between 1/4 to 1/2 pack)/day in last 30 days; Type: Cigarettes entered on: 10/30/23 Sex Laboratory * Lucas Brooks MD: REVIEW Event Display: Cytology Reports General Authored Date: [id number] Patient Name: DEVON CELESTE Patient : 1970 (Age: 53) Lab Collection Date: 11/25/2023 Accession Date: 11/27/2023 Sign Out Date: 11/27/2023 Tissue Source: 1: PLEURAL FLUID, LEFT: Final Diagnosis: PLEURAL FLUID, LEFT: NEGATIVE FOR MALIGNANT CELLS. Reactive mesothelial cells, histocytes, and lymphocytes are present. Material insufficient for cell block preparation. The specimen processing and screening performed at [facility], [address] [place] [address] (CLIA#[id number]). Its performance characteristics determined by [facility]. Clinical History: Date of Last Menstrual Period: not available Menstrual History: not available Contraceptive History: not available Ancillary Testing: not available Clinical History (other): Syncope/Near syncope, Pleural effusion, Sepsis, HTN, Long-term current use of methadone for opiate dependence, Anxiety, Syncope, Pleural effusion on left, Acute colitis, High anion gap metabolic acidosis, Sepsis, Hyponatremia, Pancreatic pseudocyst, Tobacco use, Sepsis, Portal vein thrombosis, Mesenteric ischemia Gross Description: Received 10cc of light yellow, hazy fluid in syringe 1 ThinPrep cellular enhancement technique Cell block is quantity not sufficient. Primary Pathologist: Maisha Castaneda M.D. Phone #: [phone], On-Call Pathologist: [id number] History and physical note * Андрей Thomas MD: PERFORM Event Display: History and Physical Hospital Authored Date: Patient: ??DEVON CELESTE ? Age:??53 Years?Sex:??Male?:??1970?? History of Present Illness Patient is a 53-year-old gentleman with past medical history significant for polysubstance abuse,??previous portal vein thrombosis not on anticoagulation??and??acute on chronic??mesenteric ischemia status post exploratory laparotomy with open SMA embolectomy on 3???5 with combination of general surgery and??vascular surgery. ??His postoperative course was complicated by??upper abdominal??fluid collections??for which she underwent a paracentesis that removed 500 cc of bloody ascites??and he was eventually discharged on ??on aspirin??and Eliquis. ?? Patient was seen in the vascular surgery clinic on 3???27 where he was overall doing well??and had some mild erythema at the midline distally for which she was given a short course of antibiotics. ??He presented to [facility] on 4???19 after having a syncopal episode??at his methadone clinic.?? Prior to his syncopal episode he said that he was feeling well he did not have any??abdominal pain fevers chills??vomiting??or diarrhea but had endorsed some nausea??over the past 2 to 3 days. ??When the patient arrived to the emergency department he was??stable and afebrile but initially had a leukocytosis of 15 and lactate of 5.5. ??For this reason??patient underwent a CT scan of the abdomenpelvis??which showed??the following ?? 1: 5 x 4 more well-organized??peripancreatic fluid collection without??surrounding gas 2: Chronic??hepatic and splenic??infarcts 3: Patent SMA and KRISTI vasculature 4: Inflammation of the transverse and descending colon with??wall thickening??and mild mesenteric edema 5: Ascites ? The initial radiology interpretation of the patient's??colonic inflammation??was??ischemia although they did note on the read that the??large vessels in the abdomen all appeared patent. ??Just prior to this event patient had passed bowel movements within the last 12 hours??and was actively passing gas and never had melena??or bright red blood per rectum. ??Patient also??endorses??no abdominal pain??throughout??his??prehospital and hospital course. Physical Exam Vitals & Measurements T:??98.0?F?? HR:??87??(Peripheral)?? RR:??18?? BP:??85/55?? SpO2:??96%?? HT:??187??cm?? WT:??84??kg?? BMI:??24.02?? General: No acute distress Head: Atraumatic, normocephalic ENT: Clear CV: Regular rate and rhythm Pulmonary: Even and unlabored breathing, no wheezing Abdomen:??Abdomen was soft nondistended??with no tenderness to palpation??in any quadrant of the abdomen??definitively no??guarding rebound tenderness or concern for peritonitis Extremities: Demonstrates intact active range of motion Neuro: Appropriate, oriented, cooperative Assessment/Plan Patient is a 53-year-old gentleman with past medical history significant for polysubstance abuse,??previous portal vein thrombosis not on anticoagulation??and??acute on chronic??mesenteric ischemia status post exploratory laparotomy with open SMA embolectomy on 3???5 with combination of general surgery and??vascular surgery. ??His postoperative course was complicated by??upper abdominal??fluid collections??requiring paracentesis. ??Patient is now readmitted to the hospital after syncopal event at his methadone clinic??during which she??did not describe any abdominal pain.?? CT scan on admission??was concerning for??multiple findings but??most notably??descending and transverse colon??open revision of??which per radiology was concerning for??ischemic colitis.?? On my??exam the patient??is abdomen is completely benign??and in reviewing the CT scan??from prior??this colonic inflammation??while??slightly worse is not new and you can see it definitively in his previous scan. ??You could also appreciate the pancreatic fluid collection on the previous scan although it appears more well organized today.?? There is also some??continued ascites within the abdomen. ??Patient's leukocytosis and lactate have resolved after resuscitation. ?? At this time??patient's exam is not consistent with??mesenteric ischemia. ?? plan: Clear liquid diet??and advance as tolerated Watch for??melena or blood per rectum Surgery will follow for serial examinations?? Etiology of colitis unclear but is??possibly infectious in origin Zosyn at this time??to prevent??bacterial translocation If patient starts to develop fevers or chills consider??IR aspirate??of??[place] hepatic??ascites?? Pulmonary team planning for diagnostic thoracentesis Remainder of care per primary team ?? This plan was discussed with Dr. Baxter [place] [id number] ? Problem List/Past Medical History Ongoing Anxiety Chronic back pain s/p resection of herniated disc HTN Long-term current use of methadone for opiate dependence Procedure/Surgical History Discectomy L5-S1: 1990 Home Medications amiTRIPTYLINE: 75 mg = 1 tablet, By Mouth, Daily at bedtime apixaban: 5 mg, By Mouth, 2 times a day Aspirin: 81 mg, By Mouth, Daily Clonazepam: 1 mg = 1 tablet, By Mouth, 2 times a day, PRN (Anxiety) Gabapentin: 300 mg, By Mouth, 3 times a day Lisinopril: 40 mg = 1 tablet, By Mouth, Daily Methadone: 140 mg, By Mouth, Daily Metoprolol: 50 mg = 1 tablet, By Mouth, 2 times a day Tamsulosin: 0.4 mg, By Mouth, Daily at bedtime Allergies Tylenol with Codeine Social History Alcohol Use: Past. Employment/School Status: Disabled. Other: disability for back pain. Home/Environment Living situation: Home/Independent. Lives with: Significant other. Substance Abuse Use: Current. Type: Marijuana. Frequency: 1-2 times per month. Tobacco Use: 4 or less cigarettes(less than 1/4 pack)/day in last 30 days, 5-9 cigarettes (between 1/4 to 1/2 pack)/day in last 30 days. Type: Cigarettes. Family History Mother (): Diabetes mellitus type II; Muscular dystrophy Father: Hypertension Lab Results Labs Last 24 Hours BLOOD COUNT & DIFF ? Event Name?? Event Result?? Date/Time?? WBC 8.9 k/mm3 11/23/23 15:53:00 RBC 3.62 m/mm3??Low 11/23/23 15:53:00 Hgb 9.3 Gm/dL??Low 11/23/23 15:53:00 Hct 30.7 %??Low 11/23/23 15:53:00 MCV 84.8 femtoliters 11/23/23 15:53:00 MCH 25.7 pg??Low 11/23/23 15:53:00 MCHC 30.3 g/dL??Low 11/23/23 15:53:00 Platelet Count 436 k/mm3 11/23/23 15:53:00 MPV 9.8 femtoliters 11/23/23 15:53:00 Nucleated RBC (Automated) 0 #/100 WBC'S 11/23/23 15:53:00 ? COAG ? Event Name?? Event Result?? Date/Time?? INR 1.2??High 11/23/23 08:42:00 Protime (PT) 12.7 seconds??High 11/23/23 08:42:00 APTT 67.2 seconds??High 11/23/23 20:44:00 ? CHEM GENERAL ? Event Name?? Event Result?? Date/Time?? Sodium 134 mmol/L 11/23/23 15:53:00 Chloride 103 mmol/L 11/23/23 15:53:00 Bicarbonate Level 26 mmol/L 11/23/23 15:53:00 Anion Gap 5 11/23/23 15:53:00 Glucose Level 85 mg/dL 11/23/23 15:53:00 BUN 7 mg/dL 11/23/23 15:53:00 Creatinine-Blood 0.8 mg/dL 11/23/23 15:53:00 ? * Venessa Baxter MD: PERFORM Event Display: History and Physical Hospital Authored Date: Attending Attestation I have personally seen and examined this patient and reviewed all pertinent labs and imaging on thedate documented below. This case was discussed in detail with the resident and I agree with the findings and plan as documented in this note. * Cait HELM, Rukhsana: PERFORM, MODIFY, MODIFY Event Display: History and Physical Hospital Authored Date: [id number] Patient: ??DEVON CELESTE ? Age:??53 Years?Sex:??Male?:??1970?? Chief Complaint/Reason for Consultation Sent from methadone clinic for syncope History of Present Illness Date of exam: 11/22/2023 ?? 53-year-old male with a past medical history significant for opioid use disorder on methadone, hypertension anxiety, portal vein thrombosis not on anticoagulation, recently admitted from 10/07 through 10/19/2023 for acute on chronic mesenteric ischemia, underwent exploratory laparotomy with open SMA em bolectomy and patch repair on 10/08/[address] Leiva & Artur.?? Discharged on Eliquis.?? Seen byvascular surgery on 10/29, at which time he was treated for incision site cellulitis with 10-day course of doxycycline.?? Saw general surgery in follow-up on 11/08/2023 in follow-up, at which time he had complained about poor p.o. intake, nausea, vomiting, liquid diarrhea and weight loss about 20 pounds since surgery.?? Was advised to see PCP at the time. ?? He presents to ED today following a syncopal episode.?? He was at his methadone clinic this morningwhen he began to feel lightheaded and had a syncopal episode witnessed by methadone clinic staff.??Noted to be tachycardic, hypotensive with systolic pressures in the 70s.?? No seizure-like activity.?? Has had several similar syncopal episodes in the past.?? Denies having any chest pain, shortness of breath, palpitations, abdominal pain, headache or blurry vision.?? No fevers or chills.?? Sent to ED for further workup. ?? Upon arrival, noted to be tachycardic with heart rate in the 140s, blood pressure low at 88/48, improved with IV fluids.?? Saturating well on room air.?? Labs showing leukocytosis with WBC count 15.1, hyponatremia with sodium 130, mildly elevated glucose at 123, elevated alk phos at 215, elevated lactate at 5.2, improved to 3.3 with IV fluids, negative troponin, TSH normal, UA normal.?? Chest x-ray showing worsening left pleural effusion.?? CT scan of the chest showing Moderately large left pleural effusion with associated atelectasis. Area of collapsed or scarred lung within the lingula. Moderate infectious or inflammatory involving the visualized portion of the ascending, transverse colon and descending colon. Pseudocyst formation in the body of the pancreas. Redemonstration of areas ofinfarct. The liver and spleen.?? Received Zosyn and vancomycin for sepsis and 1 L IV fluid bolus.??Blood cultures drawn.?? Admitted for further management. ?? During my exam, feels okay, weak and fatigued.?? Rest of ROS negative. Review of Systems Constitutional: No fevers, chills, has generalized weakness HEENT: No headache, rhinorrhea, difficulty swallowing, blurry vision Cardiovascular: Syncope Respiratory: No shortness of breath, no cough, no wheezing GI: Nausea, vomiting, diarrhea, no abdominal pain Neuro: No weakness, numbness, tingling in extremities Psych: No acute behavioral changes Muscular skeletal: No joint or muscle pain Endocrine: Recent weight loss : No dysuria or hematuria Objective Vital Signs?? Temperature: 98 DegF (11/22/23 15:15:00) Temperature Route: Oral (11/22/23 15:15:00) Pulse Rate:??109 bpm??High (11/22/23 15:15:00) Respiratory Rate: 18 br/min (11/22/23 15:15:00) Systolic Blood Pressure: 118 mm Hg (11/22/23 15:15:00) Diastolic Blood Pressure: 80 mm Hg (11/22/23 15:15:00) Blood pressure sites: Arm, right (11/22/23 15:15:00) Mean Arterial Pressure: 93 mm Hg (11/22/23 15:15:00) Pulse Pressure: 38 mm Hg (11/22/23 15:15:00) Oxygen Saturation: 99 % (11/22/23 15:15:00) Mode of Delivery (Oxygen): Room air (11/22/23 15:15:00) Early Warning Score: 1 (11/22/23 17:01:11) ? Physical Exam General: NAD, fatigued and ill-appearing HEENT: Atraumatic, normocephalic, EOMI, PERRLA Neck: Supple Cardiac: S1, S2 heard, no murmurs Pulmonary: Diminished bibasilar air entry, otherwise clear Abdomen: Soft, nontender, nondistended, bowel sounds heard Extremities: No cyanosis, clubbing or edema Skin: No rash Neuro: No focal deficits, awake and alert Psych: Mood and affect appropriate for encounter Assessment/Plan Assessment:??53-year-old male with a past medical history significant for opioid use disorder on methadone, hypertension anxiety, portal vein thrombosis, recent admission for??mesenteric ischemia status post??SMA embolectomy,??now admitted with syncope ?? Syncope (R55):?? Syncope likely related to??hypotension. ?? Patient's p.o. intake has largely reduced??since surgery??and he has lost??over 20 pounds weight inthe last month. ??Has??significant GI losses in the form of vomiting and diarrhea.?? EKG does not show any acute ischemic changes Initial troponin is negative Continue cardiac monitoring IV hydration, blood pressure has been fluid responsive ?? Sepsis (A41.9):?? Healthcare associated pneumonia Acute colitis Meets sepsis criteria with??hypotension, leukocytosis, lactic acidosis Reviewed CT scan of the chest, showing??moderate to large left pleural effusion??along with left lower lobe atelectasis and??possible consolidation in the left lingula. ??Also showing??wall thickening in the??colon??which could be infectious/inflammatory in nature.?? Sepsis likely related to these Received Zosyn??and vancomycin in the ED.?I will continue with his antibiotics Follow-up with culture results Closely monitor clinical status, at high risk for rapid duration ?? High anion gap metabolic acidosis (E87.29):?? Lactic acid level 5.2, improved to 3.3 with IV hydration.?? Likely related to sepsis. ?? Acute colitis (K52.9):?? Portal vein thrombosis Mesenteric ischemia s/p SMA embolectomy Visualized areas of??large bowel showing??findings suggestive of infectious/inflammatory??colitis. ??Patient??having significant diarrhea, nausea and vomiting. ??No blood in stools. Getting Zosyn which should??provide adequate coverage for acute??infectious colitis. ?? Have ordered CT scan of the abdomen??for further evaluation, follow-up with results Patient currently does not have any abdominal pain, abdomen benign to exam Consider surgery consult??pending??CT results Cont eliquis ?? Pleural effusion on left (J90):?? Review of CT chest from previous admission,??he did have moderate left-sided pleural effusion??at the time as well He does??admit to??exertional dyspnea I have ordered??diagnostic/therapeutic thoracentesis for a.m. with labs, follow- up with results. ??Currently saturating well on room air at rest ?? Pancreatic pseudocyst (K86.3):?? Reviewed on??CT chest.?? Continue to monitor and follow-up ?? Hyponatremia (E87.1):?? Mild hyponatremia, likely hypovolemic hyponatremia from poor p.o. intake and GI losses.?? Getting IV hydration. ??Recheck levels in a.m. ?? Long-term current use of methadone for opiate dependence (F11.20):?? Dose verified with pharmacy. ??Continue on 40 mg daily ?? HTN (I10):?? Continue lisinopril and metoprolol with holding parameters ?? Anxiety (F41.9):?? Continue clonazepam? Tobacco use disorder Chronic active smoker Smoking cessation counseling done for 5 minutes, nicotine patch ordered ? VTE Prophylaxis:??On eliquis ?VTE Prophylaxis Assessment:??VTE Prophylaxis Ordered ?? Code Status:??full code ? Histories Allergies Allergies ?(Active and Proposed Allergies Only) Tylenol with Codeine? (Severity: Unknown severity, Onset: Unknown) ? Past Medical History/Problem List Active Problems(4) Anxiety Chronic back pain s/p resection of herniated disc HTN Long-term current use of methadone for opiate dependence ? Past Surgical History Discectomy L5-S1: 1990 ? Social History Alcohol Details:??Use: Past. Employment/School Details:??Status: Disabled. ??Other: disability for back pain. Home/Environment Details:??Living situation: Home/Independent. ??Lives with: Significant other. Substance Abuse Details:??Use: Current. ??Type: Marijuana. ??Frequency: 1-2 times per month. Tobacco Details:??Use: 4 or less cigarettes(less than 1/4 pack)/day in last 30 days, 5-9 cigarettes (between 1/4 to 1/2 pack)/day in last 30 days. ??Type: Cigarettes. Details:??Use: 10 or more cigarettes (1/2 pack or more)/day in last 30 days. ??Started at age: 12 Years. ? Family History Mother??(): Diabetes mellitus type II; Muscular dystrophy Father: Hypertension ? Medications Home Medications amiTRIPTYLINE (amitriptyline 75 mg oral tablet)?1?tab(s)?75?Milligram?By Mouth?Daily at bedtime apixaban (apixaban Starter Pack 5 mg oral tablet)?5?Milligram?By Mouth?2 times a day Aspirin (aspirin 81 mg oral delayed release tablet)?81?Milligram?By Mouth?Daily Clonazepam (clonazePAM 1 mg oral tablet)?1?tab(s)?1?Milligram?By Mouth?2 times a day?as needed?Anxiety Gabapentin (gabapentin 300 mg oral capsule)?300?Milligram?By Mouth?3 times a day Lisinopril (lisinopril 40 mg oral tablet)?1?tab(s)?40?Milligram?By Mouth?Daily Methadone (methadone 10 mg/5 mL oral solution)?140?Milligram?By Mouth?Daily Metoprolol (Metoprolol Tartrate 50 mg oral tablet)?1?tab(s)?50?Milligram?By Mouth?2 times a day Tamsulosin (tamsulosin 0.4 mg oral capsule)?0.4?Milligram?By Mouth?Daily at bedtime ? Results Recent Labs BLOOD COUNT & DIFF WBC 15.1 k/mm3 (High)?? 11/22/2023 08:06 RBC 4.61 m/mm3 (Low)?? 11/22/2023 08:06 Hgb 11.8 Gm/dL (Low)?? 11/22/2023 08:06 Hct 38.5 % (Low)?? 11/22/2023 08:06 MCV 83.5 femtoliters ()?? 11/22/2023 08:06 MCH 25.6 pg (Low)?? 11/22/2023 08:06 MCHC 30.6 g/dL (Low)?? 11/22/2023 08:06 Platelet Count 709 k/mm3 (High)?? 11/22/2023 08:06 RDW-SD 47.0 femtoliters (High)?? 11/22/2023 08:06 MPV 10.2 femtoliters ()?? 11/22/2023 08:06 Nucleated RBC (Automated) 0.0 #/100 WBC'S ()?? 11/22/2023 08:06 Abs. NRBC 0.0 k/mm3 ()?? 11/22/2023 08:06 Abs. Neut 8.6 k/mm3 (High)?? 11/22/2023 08:06 Abs. Lymph 5.1 k/mm3 (High)?? 11/22/2023 08:06 Abs. Mclennan 1.0 k/mm3 ()?? 11/22/2023 08:06 Abs. Eo 0.0 k/mm3 ()?? 11/22/2023 08:06 Abs. Baso 0.4 k/mm3 (High)?? 11/22/2023 08:06 Neut % 57.2 % ()?? 11/22/2023 08:06 Lymph % 33.9 % ()?? 11/22/2023 08:06 Mclennan % 6.5 % ()?? 11/22/2023 08:06 Eos % 0.0 % ()?? 11/22/2023 08:06 Baso % 2.4 % (High)?? 11/22/2023 08:06 RBC Morphology MODERATE ()?? 11/22/2023 08:06 ?? CARDIAC Nt-Probnp 155 pg/mL (High)?? 11/22/2023 08:06 High Sensitivity Troponin (HSTnT) 19 ng/L ()?? 11/22/2023 08:06 ?? CHEM GENERAL Sodium 130 mmol/L (Low)?? 11/22/2023 08:06 Potassium 4.2 mmol/L ()?? 11/22/2023 08:06 Chloride 94 mmol/L (Low)?? 11/22/2023 08:06 Bicarbonate Level 23 mmol/L ()?? 11/22/2023 08:06 Anion Gap 13 ()?? 11/22/2023 08:06 Glucose Level 123 mg/dL (High)?? 11/22/2023 08:06 Glucose, POC 96 mg/dL ()?? 11/22/2023 16:55 BUN 11 mg/dL ()?? 11/22/2023 08:06 Creatinine-Blood 1.0 mg/dL ()?? 11/22/2023 08:06 Estimated GFR Creatinine 96 ML/MIN/1.73 M2 ()?? 11/22/2023 08:06 Calcium 7.9 mg/dL (Low)?? 11/22/2023 08:06 Magnesium 1.7 mg/dL ()?? 11/22/2023 08:06 Protein, Total 5.2 Gm/dL (Low)?? 11/22/2023 08:06 Albumin 2.0 Gm/dL (Low)?? 11/22/2023 08:06 AG Ratio 0.6 ()?? 11/22/2023 08:06 Alkaline Phosphatase 215 units/L (High)?? 11/22/2023 08:06 Lipase 8 units/L (Low)?? 11/22/2023 08:06 AST (SGOT) 40 units/L ()?? 11/22/2023 08:06 ALT (SGPT) 21 units/L ()?? 11/22/2023 08:06 Bilirubin, Total 0.2 mg/dL ()?? 11/22/2023 08:06 Lactate 3.3 mmol/L (High)?? 11/22/2023 11:33 ?? COAG INR 1.2 (High)?? 11/22/2023 08:06 Protime (PT) 12.3 seconds (High)?? 11/22/2023 08:06 ?? ENDOCRINE/TUMOR MARKER TSH 1.47 uIU/mL ()?? 11/22/2023 08:06 ?? UA/URINALYSIS Appear/Color, Urine LIGHT YELLOW ()?? 11/22/2023 11:10 Specific [place], Urine 1.015 ()?? 11/22/2023 11:10 pH, Urine 6.5 ()?? 11/22/2023 11:10 Albumin, Urine NEGATIVE ()?? 11/22/2023 11:10 Glucose, Urine NEGATIVE ()?? 11/22/2023 11:10 Ketones, Urine NEGATIVE ()?? 11/22/2023 11:10 Bilirubin, Urine NEGATIVE ()?? 11/22/2023 11:10 Hemoglobin, Urine NEGATIVE ()?? 11/22/2023 11:10 Nitrite, Urine NEGATIVE ()?? 11/22/2023 11:10 Leukocyte, Urine NEGATIVE ()?? 11/22/2023 11:10 Urobilinogen NORMAL mg/dL ()?? 11/22/2023 11:10 WBC's, Urine <1 /HPF ()?? 11/22/2023 11:10 RBC's, Urine NONE SEEN /HPF ()?? 11/22/2023 11:10 ?? URINE OTHER Est Creatinine Clearance 98.27 mL/min ()?? 11/22/2023 14:39 ?? VIROLOGY COVID-19 by RT-PCR NEGATIVE ()?? 11/22/2023 11:35 ? EKG study * Event Display: ECG 12-Lead Authored Date: Please click on pdf link to open report * Event Display: ECG 12-Lead Authored Date: Ventricular Rate: 122 BPM Atrial Rate: 122 BPM P-R Interval: 156 ms QRS Duration: 82 ms Q-T Interval: 278 ms QTC Calculation(Bazett): 396 ms P [place]: 51 degrees R [place]: 18 degrees T [place]: 193 degrees Sinus tachycardia Nonspecific ST and T wave abnormality Abnormal ECG When compared with ECG of 15-OCT-2023 07:39, Nonspecific T wave abnormality, worse in Inferior leads Confirmed by Rafael Ortiz ([id number]) on 11/22/2023 8:44:01 AM [place]: Rafael Ortiz [facility] * Event Display: Cardiac Rhythm Strips Authored Date: Hospital Progress note * Tucker HELM, Zhen Cid: PERFORM Event Display: Progress Note Hospital Authored Date: Patient: ??DEVON CELESTE ? Age:??53 Years?Sex:??Male?:??1970?? Subjective feels well overall no abdo pain improving appetite no shortness of breath Review of Systems ?Constitutional: no fevers/chills ?Eyes: no pain, no vision changes ?ENT: no ear pain, no change in hearing ?Cardiovasc: no chest pain, no palpitations, no PND, no orthopnoea ?Resp: no cough, no sputum, no haemoptysis, no dyspnoea ?? Objective Measurements?? Height: 187 cm (11/30/23) Weight: 84 kg (11/22/23) Dry Weight: 84 kg (11/22/23) Body Mass Index: 24.02 kg/m2 (11/22/23) ? Vital Signs?? Temperature: 97.9 DegF (11/30/23 10:34:00) Temperature Route: Oral (11/30/23 10:34:00) Pulse Rate:??100 bpm??High (11/30/23 10:34:00) Respiratory Rate: 16 br/min (11/30/23 11:33:00) Systolic Blood Pressure: 105 mm Hg (11/30/23 10:34:00) Diastolic Blood Pressure: 63 mm Hg (11/30/23 10:34:00) Blood pressure sites: Arm, right (11/30/23 10:34:00) Mean Arterial Pressure: 77 mm Hg (11/30/23 10:34:00) Pulse Pressure: 42 mm Hg (11/30/23 10:34:00) Oxygen Saturation: 98 % (11/30/23 10:34:00) Mode of Delivery (Oxygen): Room air (11/30/23 10:34:00) Early Warning Score: 2 (11/30/23 14:05:50) ? Intake/Output? 11/21 10:14 11/29 07:00 11/28 07:00 11/27 07:00 11/26 07:00 ?? 11/29 16:43 11/29 16:43 11/29 06:59 11/28 06:59 11/27 06:59 Intake ?05937.6 ?386 ? 1365 ?350 ? 2022 Output ?18159 ?0 ? 1900 ? 3580 ? 5000 Net Total ?-9261.4 ?386 ? -535 ?-3230 ?-2978 ? Urine Count ?8 ?0 ?0 ?2 ?1 ? Physical Exam Gen: comfortable, well: HEENT: normocephalic, atraumatic, moist mucous membranes Chest: few basal crackles CVS: no M/G/R, no JVD Abdo: soft, non-tender Ext: improving??oedema, no cyanosis or clubbing Neuro: no deficit Psych: WNL Assessment/Plan Assessment:??53-year-old male with a past medical history significant for opioid use disorder on methadone, hypertension anxiety, portal vein thrombosis, recent admission for Acute on chronic mesenteric ischemia status post ex lap with open SMA embolectomy on 10/08/2023. Postop course complicated by upper abdominal fluid collections, underwent paracentesis and eventually discharged on 10/18 on aspirin and Eliquis, now admitted with syncope ? orthostatic hypotension syncope (R55): . Acute ischemic colitis (K52.9): . Sepsis (A41.9): . Syncope likely related to hypotension. Patient's p.o. intake has largely reduced since surgery and he has lost over 20 pounds weight in the last month. His postop course was complicated by abdominal fluid collections requiring paracentesis. CT scan done on this admission concerning for multiple findings but most notably showing concern for ischemic colitis. Abdomen exam has been benign, followed by vascular surgery, and did not recommend any further intervention at this time. Recommended to advance diet as tolerated. Had significant GI losses in the form of vomiting and diarrhea. EKG nonischemic Initial troponin is negative Lactic acidosis resolved. Improved leukocytosis as well. Diarrhea seems to have resolved at this time, no bowel movement since 11/23/2023, DC C. difficile and GI profile as no further diarrhea. Discussed with surgery no further interventions are planned at this time. Abdomen exam is benign, no nausea or vomiting and patient tolerating clears without any difficulty.Recommended to advance diet as tolerated. stop IV zosyn (received 5 days of treatment for ischaemic colitis) CT showing evidence of pancreatic cyst, appears similar compared to prior imaging, slightly more wall enhancement noted. ?? Pleural effusion on left (J90): . Review of CT chest from previous admission, he did have moderate left-sided pleural effusion at thetime as well He does admit to exertional dyspnea.? Secondary to hypoalbuminemia/third spacing. Currently with good O2 sats on room air. Seen by pulmonary, appreciate input-patient had thoracentesis done, had a chest tube placed for thelarge left pleural effusion, since chest tube has been placed, had more than 3 L out. Pulmonology removed chest tube on 11/28 Fluid analysis suggestive of low albumin, transudative effusion. Pulmonology recommending IV albumin and diuresis - will order 25g albumin TID with furosemide 20mg IV BID daily weights and I&Os assess to convert to PO diuretic on 11/30 ?? Portal vein thrombosis (I81): recent has been on IV heparin drip. Now transitioned to Eliquis ? Mesenteric ischemia (K55.9): recent s/p SMA embolectomy Visualized areas of large bowel showing findings suggestive of infectious/inflammatory colitis. Patient having significant diarrhea, nausea and vomiting. No blood in stools. completed abx as above Appreciated vasc recs. DC IV heparin drip and switch to Eliquis. Abdomen exam is benign, diet being advanced. Watch for any bloody bowel movements ?? Hyponatremia (E87.1): Resolved. ?? Pancreatic pseudocyst (K86.3): . Reviewed on CT chest. Continue to monitor and follow-up ?? Long-term current use of methadone for opiate dependence (F11.20): Dose verified with pharmacy. Continue 140 mg daily stop IV morphine short term PO oxycodone but counseled that this would be stopped in next day or so ?? HTN (I10): Holding lisinopril and metoprolol for low blood pressure for now ?? Anxiety (F41.9): Continue clonazepam ?? Hypoalbuminemia ??Secondary to poor p.o./nutritional intake, inflammation, possible liver disease ??IV albumin as above ??Corrected calcium for the albumin within normal limits ?? Tobacco use disorder Chronic active smoker Smoking cessation counseling ?? VTE Prophylaxis: apixaban ? Code Status: full code. ?? OMN: IV diuresis ? * Tucker HELM, Zhen Cid: PERFORM Event Display: Progress Note Hospital Authored Date: [id number] Patient: ??DEVON CELESTE ? Age:??53 Years?Sex:??Male?:??1970?? Subjective pulmonology??removed chest tube today good urine output with diuresis reports pain to L chest improved Review of Systems ?Constitutional: no fevers/chills ?Eyes: no pain, no vision changes ?ENT: no ear pain, no change in hearing ?Cardiovasc: no chest pain, no palpitations, no PND, no orthopnoea ?Resp: no cough, no sputum ?GI: no abdo pain, no vomiting, no diarrhoea ? Objective Measurements?? Height: 187 cm (11/29/23) Weight: 84 kg (11/22/23) Dry Weight: 84 kg (11/22/23) Body Mass Index: 24.02 kg/m2 (11/22/23) ? Vital Signs?? Temperature: 98 DegF (11/29/23 15:58:00) Temperature Route: Oral (11/29/23 15:58:00) Pulse Rate:??97 bpm??High (11/29/23 15:58:00) Respiratory Rate: 18 br/min (11/29/23 15:58:00) Systolic Blood Pressure: 103 mm Hg (11/29/23 15:58:00) Diastolic Blood Pressure: 63 mm Hg (11/29/23 15:58:00) Blood pressure sites: Arm, left (11/29/23 15:58:00) Mean Arterial Pressure: 76 mm Hg (11/29/23 15:58:00) Pulse Pressure: 40 mm Hg (11/29/23 15:58:00) Oxygen Saturation: 100 % (11/29/23 15:58:00) Mode of Delivery (Oxygen): Room air (11/29/23 15:58:00) Early Warning Score: 0 (11/29/23 15:59:07) ? Intake/Output? 11/21 10:14 11/28 07:00 11/27 07:00 11/26 07:00 11/25 07:00 ?? 11/28 16:32 11/28 16:32 11/28 06:59 11/27 06:59 11/26 06:59 Intake ? 9091.6 ?674 ?350 ? 2021 ? 1354 Output ?77775 ?0 ? 3580 ? 5000 ? 3275 Net Total ?-8438.4 ?674 ?-3230 ?-2978 ?-1921 ? Urine Count ? 12 ?0 ?2 ?0 ?1 ? Physical Exam Gen: comfortable, well: HEENT: normocephalic, atraumatic, moist mucous membranes Chest: few basal crackles CVS: no M/G/R, no JVD Abdo: soft, non-tender Ext: bilateral pitting??oedema, no cyanosis or clubbing Neuro: A+Ox3 Psych: WNL _ 72 Hour Antibiotic History Stopped Antibiotics Stop Date/Time Last Administered First Administered Piperacillin-Tazobactam??3.375 Gm, 25 mL/hr, IVPB, Every 8 hours 11/27/2023 14:18 11/27/2023 06:06 11/22/2023 22:37 ? Assessment/Plan Assessment:??53-year-old male with a past medical history significant for opioid use disorder on methadone, hypertension anxiety, portal vein thrombosis, recent admission for Acute on chronic mesenteric ischemia status post ex lap with open SMA embolectomy on 10/08/2023. Postop course complicated by upper abdominal fluid collections, underwent paracentesis and eventually discharged on 10/18 on aspirin and Eliquis, now admitted with syncope ? orthostatic hypotension syncope (R55): . Acute ischemic colitis (K52.9): . Sepsis (A41.9): . Syncope likely related to hypotension. Patient's p.o. intake has largely reduced since surgery and he has lost over 20 pounds weight in the last month. His postop course was complicated by abdominal fluid collections requiring paracentesis. CT scan done on this admission concerning for multiple findings but most notably showing concern for ischemic colitis. Abdomen exam has been benign, followed by vascular surgery, and did not recommend any further intervention at this time. Recommended to advance diet as tolerated. Had significant GI losses in the form of vomiting and diarrhea. EKG nonischemic Initial troponin is negative Lactic acidosis resolved. Improved leukocytosis as well. Diarrhea seems to have resolved at this time, no bowel movement since 11/23/2023, DC C. difficile and GI profile as no further diarrhea. Discussed with surgery no further interventions are planned at this time. Abdomen exam is benign, no nausea or vomiting and patient tolerating clears without any difficulty.Recommended to advance diet as tolerated. stop IV zosyn (received 5 days of treatment for ischaemic colitis) CT showing evidence of pancreatic cyst, appears similar compared to prior imaging, slightly more wall enhancement noted. ?? Pleural effusion on left (J90): . Review of CT chest from previous admission, he did have moderate left-sided pleural effusion at thetime as well He does admit to exertional dyspnea.? Secondary to hypoalbuminemia/third spacing. Currently with good O2 sats on room air. Seen by pulmonary, appreciate input-patient had thoracentesis done, had a chest tube placed for thelarge left pleural effusion, since chest tube has been placed, had more than 3 L out. Hold suction at this time. place on waterseal Daily chest x-ray Fluid analysis suggestive of low albumin, transudative effusion. Pulmonology recommending IV albumin and diuresis - will order 25g albumin TID with furosemide 20mg IV BID daily weights and I&Os ?? Portal vein thrombosis (I81): recent has been on IV heparin drip. Now transitioned to Eliquis ? Mesenteric ischemia (K55.9): recent s/p SMA embolectomy Visualized areas of large bowel showing findings suggestive of infectious/inflammatory colitis. Patient having significant diarrhea, nausea and vomiting. No blood in stools. completed abx as above Appreciated vasc recs. DC IV heparin drip and switch to Eliquis. Abdomen exam is benign, diet being advanced. Watch for any bloody bowel movements ?? Hyponatremia (E87.1): Resolved. ?? Pancreatic pseudocyst (K86.3): . Reviewed on CT chest. Continue to monitor and follow-up ?? Long-term current use of methadone for opiate dependence (F11.20): Dose verified with pharmacy. Continue 140 mg daily stop IV morphine short term PO oxycodone but counseled that this would be stopped in next day or so ?? HTN (I10): Holding lisinopril and metoprolol for low blood pressure for now ?? Anxiety (F41.9): Continue clonazepam ?? Hypoalbuminemia ??Secondary to poor p.o./nutritional intake, inflammation, possible liver disease ??IV albumin as above ??Corrected calcium for the albumin within normal limits ?? Tobacco use disorder Chronic active smoker Smoking cessation counseling ?? VTE Prophylaxis: Eliquis on hold. Heparin drip ? Code Status: full code. ?? OMN: chest tube, IV diuresis ? * Lucas Brooks MD: PERFORM, MODIFY Event Display: Progress Note Hospital Authored Date: [id number] Patient: ??DEVON CELESTE ? Age:??53 Years?Sex:??Male?:??1970?? Subjective pt still continues with high chest CT output. He has no respiratory distress. Review of Systems negative except for HPI Past Medical History Active Problems(4) Anxiety Chronic back pain s/p resection of herniated disc HTN Long-term current use of methadone for opiate dependence ? Past Surgical History Discectomy L5-S1: 1990 ? Objective Vital Signs?? Temperature: 97.3 DegF (11/29/23 06:51:00) Temperature Route: Oral (11/29/23 06:51:00) Pulse Rate: 63 bpm (11/29/23 06:51:00) Respiratory Rate: 18 br/min (11/29/23 08:31:00) Systolic Blood Pressure: 116 mm Hg (11/29/23 06:51:00) Diastolic Blood Pressure: 69 mm Hg (11/29/23 06:51:00) Blood pressure sites: Arm, left (11/29/23 06:51:00) Mean Arterial Pressure: 85 mm Hg (11/29/23 06:51:00) Pulse Pressure: 47 mm Hg (11/29/23 06:51:00) Oxygen Saturation: 100 % (11/29/23 06:51:00) Mode of Delivery (Oxygen): Room air (11/29/23 06:51:00) Early Warning Score: 2 (11/29/23 08:34:21) ? Ventilator Settings?? No qualifying data available. ?? Intake/Output? 11/21 10:14 11/28 07:00 11/27 07:00 11/26 07:00 11/25 07:00 ?? 11/28 09:31 11/28 09:31 11/28 06:59 11/27 06:59 11/26 06:59 Intake ? 8517.6 ?100 ?350 ? 2022 ? 1354 Output ?07993 ?0 ? 3580 ? 5000 ? 3275 Net Total ?-9012.4 ?100 ?-3230 ?-2978 ?-1921 ? Urine Count ? 12 ?0 ?2 ?0 ?1 ? Physical Exam Constitutional: NAD HEENT: Normal oropharynx Respiratory: Diminished on the left Cardiac: RRR, no m/r/g Vascular: ??2+ DP pulses Gastrointestinal: abdomen is soft,??nondistended Muscle skeletal: no clubbing Lymph: no lymphadenopathy, no edema Psych: Normal affect _ Inpatient Medications Medications (20) Active SCHEDULED: (9) Albumin Human 25% IVPB (50 mL) (Albumin 25% 50 mL Bolus) ??100 mL, IVPB, 3 times a day Amitriptyline 25 mg Tablet (amitriptyline 25 mg oral tablet) ??75 mg, By Mouth, Daily at bedtime Apixaban 5 mg Tablet (apixaban) ??5 mg, By Mouth, 2 times a day Furosemide Inj (Furosemide ??Inj) ??20 mg 2 mL, IV Push Slowly, 2 times a day Methadone 10 mg Tablet (Methadone Tablet) ??140 mg, By Mouth, Daily NaCl 0.9% Flush 3ml (NaCL 0.9% Flush) ??3 mL, IV Push, Every 8 hours Nicotine 21 mg / 24 hour Patch (Nicotine Topical) ??21 mg, Topically, Daily Remove Patch (Remove ??Patch) ??1 each, Topically, Daily Tamsulosin 0.4 mg Capsule (tamsulosin 0.4 mg oral capsule) ??0.4 mg, By Mouth, Daily at bedtime CONTINUOUS: (0) PRN: (11) Acetaminophen 325 mg Tablet (Tylenol 325 mg oral tablet) ??650 mg, By Mouth, Every 6 hours Clonazepam 1 mg Tablet (clonazePAM 1 mg oral tablet) ??1 mg, By Mouth, 2 times a day Dextromethorphan-Guaifenesin 20 mg-200 mg/10 mL Liqu UD (Robitussin DM Liquid) ??10 mL, By Mouth, Every 4 hours Docusate Sodium 100 mg Capsule (Docusate Sodium Capsule) ??100 mg 1 capsule, By Mouth, 2 times a day Melatonin 3 mg Tablet (Melatonin Tablet) ??3 mg, By Mouth, Daily at bedtime MorPHINE 2 mg Inj Syringe (MorPHINE Inj) ??2 mg, IV Push Slowly, Every 4 hours NaCl 0.9% Flush 3ml (NaCL 0.9% Flush) ??3 mL, IV Push, Every 8 hours nalOXONE ??400mcg/mL Inj (nalOXONE Inj) ??0.2 mg 0.5 mL, IV Push, Every 5 minutes Polyethylene Glycol 17 Gm Powder (MiraLax Powder) ??17 Gm 1 pack/packet, By Mouth, Daily Senna Tablet ??8.6 mg 1 tablet, By Mouth, 2 times a day Simethicone 80 mg Chewable Tablet (Simethicone Tablet) ??80 mg, Chew, 3 times a day ? Results Abnormal Labs ?? BLOOD COUNT & DIFF Abs. NRBC?0.0 k/mm3 ()?11/29/2023 06:06 Hct?29.6 % (Low)?11/29/2023 06:06 Hgb?9.3 Gm/dL (Low)?11/29/2023 06:06 MCH?25.7 pg (Low)?11/29/2023 06:06 MCHC?31.4 g/dL (Low)?11/29/2023 06:06 Nucleated RBC (Automated)?0.0 #/100 WBC'S ()?11/29/2023 06:06 RBC?3.62 m/mm3 (Low)?11/29/2023 06:06 RDW-SD?46.0 femtoliters ()?11/29/2023 06:06 ?? CHEM GENERAL Albumin?2.8 Gm/dL (Low)?11/29/2023 06:06 BUN?4 mg/dL (Low)?11/29/2023 06:06 Estimated GFR Creatinine?109 ML/MIN/1.73 M2 ()?11/29/2023 06:06 ?? Note: Critical results are displayed in red. ? Assessment/Plan ?Large left pleural effusion ?? Assessment: Patient has large left pleural effusion which is now s/p chest tube placement with over3 L drained in the first 24 hour. Pleural fluid analysis is consistent with a transudative lymphocytic effusion Chest tube still continues to have a high output likely due to his hypoalbuminemia and ?liver disease. Chest tube output is decreasing with diuresis. ?? Recommendations: -??will remove chest tube today - recommend albumin infusion and diuresis -Pulmonary will sign off. Please call with questions.?? * Keenan HELM, Surendra: PERFORM Event Display: Progress Note Hospital Authored Date: Patient seen and examined, data reviewed, case and management discussed on rounds on the date of service.?? I confirmed the findings and agree with the documentation of the assessment and plan of care we developed together as detailed above with the following highlights/additions/modifications ?? Diagnosis 1. ??Large, left-sided, transudative effusion. ?? Patient with??recent abdominal interventions.? Previous imaging reviewed, patient had small effusion noted on the left side??early October 2023, this has slowly??increased in??size over the next fewscans.?He also had??ascitic collection which was tapped in October 2023 with cultures being negative. ?? Transudative etiology is reassuring,??high output??is likely in the setting of??chest tube being placed on suction.?? Small pneumothorax??but??No tidaling or air leak noted??which is suggestive of??trapped lung.? 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 Continue with albumin administration and lasix - this has led to a decrease in the output. DC chest tube. We will sign off ? I personally spent a total of 40??minutes, including both [id number] and [id number]-face time onthe date of the encounter, addressing the above diagnoses.?? Activities performed in this time include chart review, obtaining / reviewing history, performing amedically necessary evaluation, documentation? Surendra Hussein MD Interventional Pulmonology Division of Pulmonary and Critical Care [facility] Pager: [phone] Note dictated with dragon dictation, please excuse any inadvertent errors. ?? Consult note * Cary HELM, Zhen P: PERFORM, MODIFY Event Display: Consultation Note Authored Date: [id number] Patient: ??DEVON CELESTE ? Age:??53 Years?Sex:??Male?:??1970?? Consult Reason: Pleural Effusion ?? HPI: 53 yo M, h/o opioid use disorder, HTN, portal vein thrombosis on Eliquis,??recent admission in October 2019 for??for??acute on chronic mesenteric ischemia status post??ex lap??with SMA embolectomy,??postop cellulitis, who is now admitted for a syncopal episode.?? He was found to have large left pleural effusion with associated atelectasis.?? Pulmonary has been consulted regarding the pleural effusion. ?? On his admission in October use??also found to have a small left pleural effusion with no intervention at that time. ??At the end of October when he had a??repeat CT abdomen pleural effusion??was much larger.?? Does not appear to have loculations or any complications. ?? ROS: See HPI, otherwise negative. ?? amiTRIPTYLINE (amitriptyline 75 mg oral tablet)?1?tab(s)?75?Milligram?By Mouth?Daily at bedtime apixaban (apixaban Starter Pack 5 mg oral tablet)?5?Milligram?By Mouth?2 times a day Aspirin (aspirin 81 mg oral delayed release tablet)?81?Milligram?By Mouth?Daily Clonazepam (clonazePAM 1 mg oral tablet)?1?tab(s)?1?Milligram?By Mouth?2 times a day?as needed?Anxiety Gabapentin (gabapentin 300 mg oral capsule)?300?Milligram?By Mouth?3 times a day Lisinopril (lisinopril 40 mg oral tablet)?1?tab(s)?40?Milligram?By Mouth?Daily Methadone (methadone 10 mg/5 mL oral solution)?140?Milligram?By Mouth?Daily Metoprolol (Metoprolol Tartrate 50 mg oral tablet)?1?tab(s)?50?Milligram?By Mouth?2 times a day Tamsulosin (tamsulosin 0.4 mg oral capsule)?0.4?Milligram?By Mouth?Daily at bedtime ?? Allergies ?(Active and Proposed Allergies Only) Tylenol with Codeine? (Severity: Unknown severity, Onset: Unknown) ? PMHx: See HPI Surgical Hx: See HPI Social Hx: see above ?? EXAM: Temperature?97.4 ?(17:42) Systolic Blood Pressure?110 ?(17:42) Diastolic Blood Pressure?76 ?(17:42) Pulse?77 ?(17:42) SpO2?92 ?(17:42) Respiratory Rate?18 ?(17:42) Constitutional: NAD HEENT: Normal oropharynx Respiratory: Diminished on the left Cardiac: RRR, no m/r/g Vascular: ??2+ DP pulses Gastrointestinal: abdomen is soft,??nondistended Muscle skeletal: no clubbing Lymph: no lymphadenopathy, no edema Psych: Normal affect ? LABS AND IMAGING: CT chest with??large left pleural effusion simple in appearance.?? No clear parenchymal infiltratesbut there is associated atelectasis. Initial lactate of 5.2.?? Now down trended to 1.7.?? Chemistry with initial hyponatremia now resolved.?? Initial leukocytosis to 15 now resolved as well. ?? ASSESSMENT AND PLAN: ?? Diagnoses: Large left pleural effusion ?? Assessment: Patient has large left pleural effusion.?? Likely sympathetic effusion??given ongoing abdominal processes. ??Last dose of apixaban was 10 AM on 11/22. ??Additionally he has been taking aspirin. ??Would hold both of these anticipation of??therapeutic and diagnostic thoracentesis during the week. ?? Recommendations: - hold DOAC and ASA, okay for heparin drip to bridge -Therapeutic and diagnostic thoracentesis during the week. ? Zhen Townsend MD Literacy Coach ?? Discussed with Dr. Quiroz * Richie HELM, O'Jose J: PERFORM Event Display: Consultation Note Authored Date: [id number] Patient seen and discussed with Dr. Townsend and agree with his findings and recommendations. ?? Note * Nhung Becerra RN: PERFORM Event Display: Discharge/Transfer Note Hospital Authored Date: [id number] Nursing Discharge Note Entered On: 12/01/2023 13:59 EDT Performed On: 12/01/2023 13:58 EDT by Nhung Becerra RN Nursing Discharge Note 2 Discharge Time : 12/01/2023 13:59 EDT Discharge Level of Care at Discharge : Home/[facility] Patient Left Unit Via : Ambulatory Patient Accompanied Off Unit with : Responsible adult DC Instructions Provided & Signed by Pt : Yes Patient Understands D/C Instructions : Yes Patient Instructions Discharge Signed : Yes Did Pt have Specialty Bed or Wound Vac : Yes Nhung Becerra RN - 12/01/2023 13:58 EDT * Fabiana HELM, Myriam: PERFORM, MODIFY, MODIFY, MODIFY Event Display: Discharge/Transfer Note Hospital Authored Date: [id number] Patient: ??DEVON CELESTE ? Age:??53 Years?Sex:??Male?:??1970?? Patient Information Discharge Location: Primary Care Physician: Nidia Carlisle DO Admit Date/Time: 11/22/23 10:14 Discharge Disposition Discharge Disposition: Home: No Services Discharge Diagnosis HTN (I10) Long-term current use of methadone for opiate dependence (F11.20) Anxiety (F41.9) Pleural effusion (J90) Sepsis (A41.9) Syncope (R55) Pleural effusion on left (J90) Acute colitis (K52.9) High anion gap metabolic acidosis (E87.29) Sepsis (A41.9) Hyponatremia (E87.1) Pancreatic pseudocyst (K86.3) Tobacco use (Z72.0) Sepsis (A41.9) Portal vein thrombosis (I81) Mesenteric ischemia (K55.9) _ Discharge Medications amiTRIPTYLINE (amitriptyline 75 mg oral tablet)?1?tab(s)?75?Milligram?By Mouth?Daily at bedtime apixaban (apixaban Starter Pack 5 mg oral tablet)?5?Milligram?By Mouth?2 times a day Aspirin (aspirin 81 mg oral delayed release tablet)?81?Milligram?By Mouth?Daily Clonazepam (clonazePAM 1 mg oral tablet)?1?tab(s)?1?Milligram?By Mouth?2 times a day?as needed?Anxiety Furosemide (Lasix 40 mg oral tablet)?40?Milligram?By Mouth?Daily Methadone (methadone 10 mg/5 mL oral solution)?140?Milligram?By Mouth?Daily Tamsulosin (tamsulosin 0.4 mg oral capsule)?0.4?Milligram?By Mouth?Daily at bedtime ? Quality Measures Tobacco Use Treatment:? Medications Started Lasix Medications Discontinued ?? Lisinopril, metoprolol, gabapentin???please follow-up with your primary care physician to discuss continuation of these medications. Doses Changed None PCP Follow-Up/Heads-Up - Repeat blood work - Follow-up on discharge. - Please review list of medications. Future Appointments Saturday 11:15 AM EDT ?? With: Nick LESTER, Di Henley Where: [facility] [address] [place] [address]- Status: Pending Saturday 9:45 AM EDT ?? With: Flakito HELM, Sohan Aparicio Where: [facility] [address] [place] [address]- Status: Pending Hospital Course 53 old gentleman admitted with syncope. He has a pertinent PMH of opioid abuse???on methadone, HTN,anxiety, portal vein thrombosis and recent admission for acute on chronic mesenteric ischemia s/p ex lap with open SMA embolectomy on 10/08/2023 with postop course complicated by upper abdominal fluid collections, underwent paracentesis and eventually discharged on 10/18 on aspirin and Eliquis, now admitted with syncope. ?? CT abdomen on 11/22: ? 1. No significant change from normal homogeneous appearance and development of an enhancing wall inthe known collection posterior to the body and neck of the pancreas, without internal gas. Infection is still possible. Differential considerations include seroma, infected postoperative collection and peripancreatic pseudocyst, infected or not. Consider IR consult for aspiration. 2. Redemonstration of splenic infarct as well as large area of hypoattenuation in the right hepaticlobe which is also concerning for ischemia/infarction. 3. Worsening wall thickening of the transverse and descending colon which represent evidence of ischemia although the SMA and KRISTI appear patent versus inflammatory/infectious colitis. Postoperative changes noted including surgical clips adjacent to the SMA. 4. Moderate layering left pleural effusion. Increased now moderate ascites and mesenteric edema. 5. 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 Resolution of thrombus previously seen in the right renal vein. 6. Marked narrowing of the splenic vein as it passes posterior to the left upper quadrant fluid collection unchanged without occlusion. 7. Other chronic incidental findings as detailed. ? Pulmonology consulted and patient underwent therapeutic Thoracentesis for which his Eliquis was transitioned to heparin. Fluid analysis suggestive of low albumin, transudative effusion. Chest tube eventually removed on 11/28. 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 ?? Surgery was also consulted and patient was initiated on IV Zosyn??for possible infectious etiology however discontinued on day 5. Diet was advanced as tolerated patient was recommended to continue outpatient follow-up with vascular surgery. ?? Syncope thought to be in setting of hypotension most likely 2/2 significantly reduced p.o. intake postoperatively patient has lost about 20 pounds in the last 1 month with significant GI losses including vomiting/diarrhea. Infectious workup was negative and antibiotics were discontinued. Diet was advanced as tolerated. Unclear why patient was not taking aspirin. I reached out to vascular surgery and clarified that the patient should continue ASA and Eliquis both. ?? Patient tolerating regular diet, ambulating, does not have any respiratory distress??and mentating and feeling at baseline hence decision was made to discharge with??multiple follow-ups which were discussed with the patient in detail. ??Medication changes??provided written and verbal instructions. He expressed understanding agreed with the plan. ? Objective . Physical Exam Gen: comfortable, well: HEENT: normocephalic, atraumatic, moist mucous membranes Chest: few basal crackles CVS: no M/G/R, no JVD Abdo: soft, non-tender Ext: improving??oedema, no cyanosis or clubbing Neuro: no deficit Psych: WNL Pending Results Add On Lab Order ordered on 11/26/2023 Add On Lab Order ordered on 11/26/2023 Follow-Up Appointments Added Follow Up ?Time Frame ?Comments Nidia Carlisle DO Patient Instructions ??? Please follow-up with primary care physician for reviewing the list of medications, repeating aset of blood work within 1 week's time. ??? Follow-up with vascular surgery, gastroenterology and pulmonology??for continued management of ongoing medical/surgical comorbidities. ??? Present to the emergency department if experiencing the following symptoms including but not limited to worsening shortness of breath, bloody bowel movement, vomiting, worsening abdominal pain, new fevers.?? You are on blood thinners, presented emergency department if you experience your instrument to your head. ? Medications held during hospital stay: Lisinopril, metoprolol, gabapentin???please follow-up with your primary care physician to discuss continuation of these medications. ?? New medications: Lasix??40 mg daily: Please discuss with your PCP for continued??use of Lasix. Post Discharge Care Discharge ?12/01/23 13:31:00 EDT Home Health Face to Face ^HomeHealth[facility] Results Discharge Labs BACTERIOLOGY Blood Culture Results Final report ()?? 11/22/2023 08:06 Blood Culture Specimen Source BLOOD ()?? 11/22/2023 08:06 Blood Culture Isolate 1 Comment ()?? 11/22/2023 08:06 Gram Stain Specimen Source Pleural fluid, left ()?? 11/25/2023 15:12 Gram Stain Isolate 1 Comment ()?? 11/25/2023 15:12 Gram Stain Isolate 2 No organisms seen ()?? 11/25/2023 15:12 Gram Stain Result Final report ()?? 11/25/2023 15:12 Anaerobic Cult, Extended Incub Preliminary report ()?? 11/25/2023 15:12 Blood Cult 2 Results Final report ()?? 11/22/2023 08:06 Blood Culture 2 Specimen Source BLOOD ()?? 11/22/2023 08:06 Blood Culture 2 Isolate 1 Comment ()?? 11/22/2023 08:06 Anaerobic Culture Isolate 1 Comment ()?? 11/25/2023 15:12 ?? BLOOD COUNT & DIFF WBC 7.9 k/mm3 ()?? 11/29/2023 06:06 RBC 3.62 m/mm3 (Low)?? 11/29/2023 06:06 Hgb 9.3 Gm/dL (Low)?? 11/29/2023 06:06 Hct 29.6 % (Low)?? 11/29/2023 06:06 MCV 81.8 femtoliters ()?? 11/29/2023 06:06 MCH 25.7 pg (Low)?? 11/29/2023 06:06 MCHC 31.4 g/dL (Low)?? 11/29/2023 06:06 Platelet Count 418 k/mm3 ()?? 11/29/2023 06:06 RDW-SD 46.0 femtoliters ()?? 11/29/2023 06:06 MPV 10.0 femtoliters ()?? 11/29/2023 06:06 Nucleated RBC (Automated) 0.0 #/100 WBC'S ()?? 11/29/2023 06:06 Abs. NRBC 0.0 k/mm3 ()?? 11/29/2023 06:06 Abs. Neut 8.6 k/mm3 (High)?? 11/22/2023 08:06 Abs. Lymph 5.1 k/mm3 (High)?? 11/22/2023 08:06 Abs. Mclennan 1.0 k/mm3 ()?? 11/22/2023 08:06 Abs. Eo 0.0 k/mm3 ()?? 11/22/2023 08:06 Abs. Baso 0.4 k/mm3 (High)?? 11/22/2023 08:06 Neut % 57.2 % ()?? 11/22/2023 08:06 Lymph % 33.9 % ()?? 11/22/2023 08:06 Mclennan % 6.5 % ()?? 11/22/2023 08:06 Eos % 0.0 % ()?? 11/22/2023 08:06 Baso % 2.4 % (High)?? 11/22/2023 08:06 RBC Morphology MODERATE ()?? 11/22/2023 08:06 ? CARDIAC Nt-Probnp 155 pg/mL (High)?? 11/22/2023 08:06 High Sensitivity Troponin (HSTnT) 19 ng/L ()?? 11/22/2023 08:06 ?? CHEM GENERAL Sodium 137 mmol/L ()?? 12/01/2023 00:23 Potassium 3.7 mmol/L ()?? 12/01/2023 00:23 Chloride 100 mmol/L ()?? 12/01/2023 00:23 Bicarbonate Level 29 mmol/L ()?? 12/01/2023 00:23 Anion Gap 8 ()?? 12/01/2023 00:23 Glucose Level 81 mg/dL ()?? 11/27/2023 06:43 Glucose, POC 96 mg/dL ()?? 11/22/2023 16:55 BUN 5 mg/dL (Low)?? 12/01/2023 00:23 Creatinine-Blood 0.6 mg/dL (Low)?? 12/01/2023 00:23 Estimated GFR Creatinine 113 ML/MIN/1.73 M2 ()?? 12/01/2023 00:23 Calcium 7.3 mg/dL (Low)?? 11/27/2023 06:43 Magnesium 1.7 mg/dL ()?? 12/01/2023 00:23 Protein, Total 5.2 Gm/dL (Low)?? 11/22/2023 08:06 Albumin 2.8 Gm/dL (Low)?? 11/29/2023 06:06 AG Ratio 0.6 ()?? 11/22/2023 08:06 Alkaline Phosphatase 215 units/L (High)?? 11/22/2023 08:06 Lipase 8 units/L (Low)?? 11/22/2023 08:06 AST (SGOT) 40 units/L ()?? 11/22/2023 08:06 ALT (SGPT) 21 units/L ()?? 11/22/2023 08:06 Bilirubin, Total 0.2 mg/dL ()?? 11/22/2023 08:06 Lactate 1.7 mmol/L ()?? 11/23/2023 15:53 ? COAG INR 1.2 (High)?? 11/23/2023 08:42 Protime (PT) 12.7 seconds (High)?? 11/23/2023 08:42 APTT 163.4 seconds (Critical)?? 11/26/2023 09:37 ? ENDOCRINE/TUMOR MARKER TSH 1.47 uIU/mL ()?? 11/22/2023 08:06 ? FLUID STUDIES Color, Fluid YELLOW ()?? 11/25/2023 15:12 Appearance, Fluid HAZY ()?? 11/25/2023 15:12 WBC, Fluid 633 per Cubic Millimeter ()?? 11/25/2023 15:12 RBC, Fluid 4000 per Cubic Millimeter ()?? 11/25/2023 15:12 Seg, Fluid 9 % ()?? 11/25/2023 15:12 Lymph, Fluid 86 % ()?? 11/25/2023 15:12 Mclennan, Fluid 5 % ()?? 11/25/2023 15:12 Fluid pH 7.55 ()?? 11/25/2023 15:12 T. Protein, Fluid 1.1 Gm/dL ()?? 11/25/2023 15:12 Glucose, Fluid 125 mg/dL ()?? 11/25/2023 15:12 LDH, Fluid 83 units/L ()?? 11/25/2023 15:12 Albumin, Fluid 0.5 Gm/dL ()?? 11/25/2023 15:12 Body Fluid Culture Results Final report ()?? 11/25/2023 15:12 Body Fluid Specimen Source Pleural fluid, left ()?? 11/25/2023 15:12 Body Fluid Culture Isolate 1 Comment ()?? 11/25/2023 15:12 ? HEME OTHER Hold Lavender Top SPECIMEN DISCARDED AFTER 24 HOURS. ()?? 12/01/2023 00:23 ? TOXICOLOGY/TDM Barbiturate Screen, Urine NONE DETECTED ()?? 11/23/2023 09:30 Cannabinoid Screen, Urine NONE DETECTED ()?? 11/23/2023 09:30 Cocaine Metabolite Screen, Urine NONE DETECTED ()?? 11/23/2023 09:30 Benzodiazepine Screen, Urine POSITIVE (Abnormal)?? 11/23/2023 09:30 Amphetamine Screen, Urine NONE DETECTED ()?? 11/23/2023 09:30 Opiate Screen, Urine NONE DETECTED ()?? 11/23/2023 09:30 ?? UA/URINALYSIS Appear/Color, Urine LIGHT YELLOW ()?? 11/22/2023 11:10 Specific Sumpter, Urine 1.015 ()?? 11/22/2023 11:10 pH, Urine 6.5 ()?? 11/22/2023 11:10 Albumin, Urine NEGATIVE ()?? 11/22/2023 11:10 Glucose, Urine NEGATIVE ()?? 11/22/2023 11:10 Ketones, Urine NEGATIVE ()?? 11/22/2023 11:10 Bilirubin, Urine NEGATIVE ()?? 11/22/2023 11:10 Hemoglobin, Urine NEGATIVE ()?? 11/22/2023 11:10 Nitrite, Urine NEGATIVE ()?? 11/22/2023 11:10 Leukocyte, Urine NEGATIVE ()?? 11/22/2023 11:10 Urobilinogen NORMAL mg/dL ()?? 11/22/2023 11:10 WBC's, Urine <1 /HPF ()?? 11/22/2023 11:10 RBC's, Urine NONE SEEN /HPF ()?? 11/22/2023 11:10 Hold Urine Culture Testing available 48 hours from time of collection. ()?? 11/22/2023 11:10 ?? URINE OTHER Est Creatinine Clearance 163.79 mL/min ()?? 11/30/2023 08:12 ? VIROLOGY COVID-19 by RT-PCR NEGATIVE ()?? 11/22/2023 11:35 ? 36??minutes spent on discharge * Nhung Becerra RN: PERFORM Event Display: Patient Education/Instruction Authored Date: [id number] Inpatient Adult Discharge Instructions. [address] [address] Name: DEVON CELESTE : 1970?? Visit: 11/22/2023 10:14?? Current Date: 12/01/2023 13:38 ?? Account: [id number]?? Inpatient Adult Discharge Instructions We would like [...] and their families. Surveys are administered by [employer] ?? If further treatment with your primary care physician or another doctor is recommended, it is important for you to keep the appointment. Call your primary care physician or return to the Emergency Department immediately if your condition worsens, fails to improve, or new symptoms develop. If you need to find a doctor, you can call [facility] [employer] Link for a referral at [phone] or toll free at [phone]) or log in to [email or web address].. ?? [facility], in keeping with [facility] guidance, no longer requires face masks [...] a health care juliano of your choosing. [employer] is a website that allows you to securely view your medical information including your hospital discharge summary, office visit summaries, medications and follow-up visits. You can also request appointments, renew medications, and request access to your medical information using a health care juliano of your choosing, or just ask a question. You can enroll at [email or web address] or register during your next office visit. You have been discharged from [facility], Patient Care Unit: S2??. If you have any questions regarding these instructions, including results of studies pending, afteryou leave, please call us and we will be happy to assist you 25/02. [facility] Your Care Team Attending Physician Myriam Jung MD?? Consulting Providers Myriam Jung MD?? Discharging Providers Myriam Jung MD Reason for Your Visit pleural effusion, +sepsis?? Your Diagnosis HTN Long-term current use of methadone for opiate dependence Anxiety Acute colitis High anion gap metabolic acidosis Hyponatremia Mesenteric ischemia Pancreatic pseudocyst Pleural effusion on left Portal vein thrombosis Sepsis Sepsis Syncope Syncope/Near syncope Tobacco use Tests Performed Below is a partial list of the tests performed during your hospitalization. You may have had other tests and procedures not included in this list. Please discuss all test results with your provider. [id number] Albumin Fluid Albumin Level Amphetamine Urine Screen Anaerobic Result Barbiturate Urine Screen Basic Metabolic Panel Benzodiazepine Urine Screen Blood Culture Blood Culture #2 Blood Culture 2 Results Blood Culture Result Blood Urea Nitrogen Body Fluid Culture Reflex BUN Cannabinoid Urine Screen CBC CBC w/ Differential Cell Count and Differential Fluid Cocaine Urine Screen Comprehensive Metabolic Panel COVID-19 (Novel Coronavirus), Rapid PCR Creatinine Electrolytes Glucose Fluid GLUCOSE POC Gram Smear Only Gram Stain Result High??Sensitivity??Troponin T HOLD LAVENDER TUBE INR Lactate Level Lactic Acid Level LDH Fluid Lipase Magnesium Level Opiate Screen Urine pH Fluid ProBNP Protein Fluid PT (INR) PTT Sterile Body Fluid Culture W/ Gram Smear TSH with T4 Reflex (Adults Only) Urinalysis w/hold for Urine Culture CT Abd/Pelvis W/ IV Contrast Only CT Chest W/ IV Contrast CT Rad Guide Per Drain W/ Place CXR Portable CXR W/ Frontal and Lat Portable Chest XR Chest Portable Add On Lab Order?? Primary Care Provider Nidia Carlisle DO? Advance Directive Health Care Proxy on File Yes - Health Care Proxy Discharge Vitals Temperature: 97.8 DegF Height: 187 cm Pulse Rate:??97 bpm??High Weight: 84 kg Respiratory Rate:??15 br/min??Low Body Mass Index: 24.02 kg/m2 Systolic Blood Pressure: 117 mm Hg Body surface area: 2.09 Diastolic Blood Pressure: 71 mm Hg ?? Oxygen Saturation: 100 % ?? Studies Pending All studies ordered during this hospital stay have been completed unless listed below. Please discuss all pending results with your provider listed above in these instructions. ?? Add On Lab Order?? What to do next Instructions From Your Doctor ??? Please follow-up with primary care physician for reviewing the list of medications, repeating aset of blood work within 1 week's time. ??? Follow-up with vascular surgery, gastroenterology and pulmonology??for continued management of ongoing medical/surgical comorbidities. ??? Present to the emergency department if experiencing the following symptoms including but not limited to worsening shortness of breath, bloody bowel movement, vomiting, worsening abdominal pain, new fevers.?? You are on blood thinners, presented emergency department if you experience your instrument to your head. ? Medications held during hospital stay: Lisinopril, metoprolol, gabapentin???please follow-up with your primary care physician to discuss continuation of these medications. ?? New medications: Lasix??40 mg daily: Please discuss with your PCP for continued??use of Lasix. ?? Orders? 12/01/23 13:31:00 EDT?? Scheduled Follow-Up Appointments Saturday 11:15 AM EDT ?? With: Nick LESTER, Di Henley Where: [facility] [address] [facility] [address] [place] [address]- Status: Pending Saturday 9:45 AM EDT ?? With: Flakito HELM, Sohan Aparicio Where: [facility] [address] [place] [address]- Status: Pending You Need to Schedule the Following Appointments Follow Up with??Nidia Carlisle DO Where: ?? Discharge Medications DEVON CELESTE :1970 Visit Date:11/22/2023 Medications: Please continue your medications until treatment is completed or stopped by your provider. Medications not listed below should be discontinued. Discuss any questions related to medications with your provider. What How Much When Instructions Next Dose New Furosemide (Lasix 40 mg oral tablet) 40 Milligram Oral Daily Pickup at [facility] 3 12/01 AM Unchanged amiTRIPTYLINE (amitriptyline 75 mg oral tablet) 1 tab(s) Oral Daily at Bedtime 11/30 at bed Unchanged apixaban (apixaban Starter Pack 5 mg oral tablet) 5 Milligram Oral Twice a day 11/30 PM Unchanged Aspirin (aspirin 81 mg oral delayed release tablet) 81 Milligram Oral Daily 12/01 AM Unchanged Methadone (methadone 10 mg/ 5 mL oral solution) 140 Milligram Oral Daily 12/01 Unchanged Tamsulosin (tamsulosin 0.4 mg oral capsule) 0.4 Milligram Oral Daily at Bedtime 11/30 at bedtime Pharmacy Information [facility]: [address] [place], [place] [id number] [phone] ?? What How Much When Comments Stop Taking Gabapentin (gabapentin 300 mg oral capsule) 300 Milligram Oral 3 times a day Stop Taking Lisinopril (lisinopril 40 mg oral tablet) 1 tab(s) Oral Daily Stop Taking Metoprolol (Metoprolol Tartrate 50 mg oral tablet) 1 tab(s) Oral Twice a day Prescription Given During Visit Furosemide (Lasix 40 mg oral tablet) - 40 mg, By Mouth, Daily, # 30 tablet, 0 Refills, [facility], [address] [place] [phone]?? Laboratory Results Below is a partial list of the most recent Laboratory test results done prior to this discharge. You may have had other tests and procedures not included in this list. Please discuss all test resultswith your provider. Est Creatinine Clearance - 163.79 mL/min (11/30/2023) [id number] (11/25/2023) ? ?Cytology Reports General - Patient Name: DEVON CELESTE
Patient : 1970 (Age: 53)
Lab
Collection Date: 11/25/2023
Accession Date: 11/27/2023
Sign Out Date: 11/27/2023

Tissue Source:
1: PLEURAL FLUID, LEFT:

Final Diagnosis:

PLEURAL FLUID, LEFT:
NEGATIVE FOR MALIGNANT CELLS.
Reactive mesothelial cells, histocytes, and lymphocytes are present.
Material insufficient for cell block preparation.

The specimen processing and screening performed at [facility], [address] [place] [address] (CLIA#[id number]). Its performance characteristics determined by [employer].

Clinical History:
Date of Last Menstrual Period: not available
Menstrual History: not available
Contraceptive History: not available
Ancillary Testing: not available
Clinical History (other): Syncope/Near syncope, Pleural effusion, Sepsis, HTN, Long-term current use of methadone for opiate dependence, Anxiety, Syncope, Pleu ral effusion on left, Acute colitis, High anion gap metabolic acidosis, Sepsis, Hyponatremia, Pancreatic pseudocyst, Tobacco use, Sepsis, Portal vein thrombosis, Mesenteric ischemia

Gross Description:
Received 10cc of light yellow, hazy fluid in syringe
1 ThinPrep cellular enhancement technique
Cell block is quantity not sufficient.&lt ;br/>

Primary Pathologist:
Maisha Castaneda M.D.
Phone #: [phone], On-Call Pathologist: [id number] Albumin Fluid (11/25/2023) ???Albumin, Fluid - 0.5 Gm/dL Albumin Level (11/29/2023) ???Albumin - 2.8 Gm/dL Amphetamine Urine Screen (11/23/2023) ???Amphetamine Screen, Urine - NONE DETECTED Anaerobic Result (11/25/2023) ???Anaerobic Culture Isolate 1 - Comment Barbiturate Urine Screen (11/23/2023) ???Barbiturate Screen, Urine - NONE DETECTED Basic Metabolic Panel (11/27/2023) ???Sodium - 133 mmol/L???Potassium - 3.9 mmol/L???Chloride - 103 mmol/L???Bicarbonate Level - 22 mmol/L???Anion Gap - 8???Glucose Level - 81 mg/dL???BUN - 5 mg/dL???Creatinine-Blood - 0.7 mg/dL???Estimated GFR Creatinine - 110 ML/MIN/1.73 M2???Calcium - 7.3 mg/dL Benzodiazepine Urine Screen (11/23/2023) ???Benzodiazepine Screen, Urine - POSITIVE Blood Culture (11/22/2023) ???Blood Culture Results - Final report???Blood Culture Specimen Source - BLOOD Blood Culture #2 (11/22/2023) ???Blood Cult 2 Results - Final report???Blood Culture 2 Specimen Source - BLOOD Blood Culture 2 Results (11/22/2023) ???Blood Culture 2 Isolate 1 - Comment Blood Culture Result (11/22/2023) ???Blood Culture Isolate 1 - Comment Blood Urea Nitrogen (12/01/2023) ???BUN - 5 mg/dL Body Fluid Culture Reflex (11/25/2023) ???Body Fluid Culture Isolate 1 - Comment BUN (11/23/2023) ???BUN - 7 mg/dL Cannabinoid Urine Screen (11/23/2023) ???Cannabinoid Screen, Urine - NONE DETECTED CBC (11/29/2023) ???WBC - 7.9 k/mm3???RBC - 3.62 m/mm3???Hgb - 9.3 Gm/dL???Hct - 29.6 %???MCV - 81.8 femtoliters???MCH - 25.7 pg???MCHC - 31.4 g/dL???Platelet Count - 418 k/mm3???RDW-SD - 46.0 femtoliters???MPV - 10.0 femtoliters???Nucleated RBC (Automated) - 0.0 #/100 WBC'S???Abs. NRBC - 0.0 k/mm3 CBC w/ Differential (11/22/2023) ???WBC - 15.1 k/mm3???RBC - 4.61 m/mm3???Hgb - 11.8 Gm/dL???Hct - 38.5 %???MCV - 83.5 femtoliters???MCH - 25.6 pg???MCHC - 30.6 g/dL???Platelet Count - 709 k/mm3???RDW-SD - 47.0 femtoliters???MPV - 10.2 femtoliters???Nucleated RBC (Automated) - 0.0 #/100 WBC'S???Abs. NRBC - 0.0 k/mm3???Abs. Neut - 8.6 k/mm3???Abs. Lymph - 5.1 k/mm3???Abs. Mclennan - 1.0 k/mm3???Abs. Eo - 0.0 k/mm3???Abs. Baso - 0.4 k/mm3???Neut % - 57.2 %???Lymph % - 33.9 %???Mclennan % - 6.5 %???Eos % - 0.0 %???Baso % - 2.4 %???RBC Morphology - MODERATE Cell Count and Differential Fluid (11/25/2023) ???Color, Fluid - YELLOW???Appearance, Fluid - HAZY???WBC, Fluid - 633 per Cubic Millimeter???RBC, Fluid - 4000 per Cubic Millimeter???Seg, Fluid - 9 %???Lymph, Fluid - 86 %???Mclennan, Fluid - 5 % Cocaine Urine Screen (11/23/2023) ???Cocaine Metabolite Screen, Urine - NONE DETECTED Comprehensive Metabolic Panel (11/22/2023) ???Sodium - 130 mmol/L???Potassium - 4.2 mmol/L???Chloride - 94 mmol/L???Bicarbonate Level - 23 mmol/L???Anion Gap - 13???Glucose Level - 123 mg/dL???BUN - 11 mg/dL???Creatinine-Blood - 1.0 mg/dL???Estimated GFR Creatinine - 96 ML/MIN/1.73 M2???Calcium - 7.9 mg/dL???Protein, Total - 5.2 Gm/dL???Albumin - 2.0 Gm/dL???AG Ratio - 0.6???Alkaline Phosphatase - 215 units/L???AST (SGOT) - 40 units/L???ALT (SGPT) - 21 units/L???Bilirubin, Total - 0.2 mg/dL COVID-19 (Novel Coronavirus), Rapid PCR (11/22/2023) ???COVID-19 by RT-PCR - NEGATIVE Creatinine (12/01/2023) ???Creatinine-Blood - 0.6 mg/dL???Estimated GFR Creatinine - 113 ML/MIN/1.73 M2 Electrolytes (12/01/2023) ???Sodium - 137 mmol/L???Potassium - 3.7 mmol/L???Chloride - 100 mmol/L???Bicarbonate Level - 29 mmol/L???Anion Gap - 8 Glucose Fluid (11/25/2023) ???Glucose, Fluid - 125 mg/dL GLUCOSE POC (11/22/2023) ???Glucose, POC - 96 mg/dL Gram Smear Only (11/25/2023) ???Gram Stain Specimen Source - Pleural fluid, left???Gram Stain Result - Final report Gram Stain Result (11/25/2023) ???Gram Stain Isolate 1 - Comment???Gram Stain Isolate 2 - No organisms seen High??Sensitivity??Troponin T (11/22/2023) ???High Sensitivity Troponin (HSTnT) - 19 ng/L HOLD LAVENDER TUBE (12/01/2023) ???Hold Lavender Top - SPECIMEN DISCARDED AFTER 24 HOURS. INR (11/22/2023) ???INR - 1.2???Protime (PT) - 12.3 seconds Lactate Level (11/22/2023) ???Lactate - 3.3 mmol/L Lactic Acid Level (11/23/2023) ???Lactate - 1.7 mmol/L LDH Fluid (11/25/2023) ???LDH, Fluid - 83 units/L Lipase (11/22/2023) ???Lipase - 8 units/L Magnesium Level (12/01/2023) ???Magnesium - 1.7 mg/dL Opiate Screen Urine (11/23/2023) ???Opiate Screen, Urine - NONE DETECTED pH Fluid (11/25/2023) ???Fluid pH - 7.55 ProBNP (11/22/2023) ???Nt-Probnp - 155 pg/mL Protein Fluid (11/25/2023) ???T. Protein, Fluid - 1.1 Gm/dL PT (INR) (11/23/2023) ???INR - 1.2???Protime (PT) - 12.7 seconds PTT (11/26/2023) ???APTT - 163.4 seconds Sterile Body Fluid Culture W/ Gram Smear (11/25/2023) ???Anaerobic Cult, Extended Incub - Preliminary report???Body Fluid Culture Results - Final report???Body Fluid Specimen Source - Pleural fluid, left TSH with T4 Reflex (Adults Only) (11/22/2023) ???TSH - 1.47 uIU/mL Urinalysis w/hold for Urine Culture (11/22/2023) ???Appear/Color, Urine - LIGHT YELLOW???Specific Sumpter, Urine - 1.015???pH, Urine - 6.5???Albumin, Urine - NEGATIVE???Glucose, Urine - NEGATIVE???Ketones, Urine - NEGATIVE???Bilirubin, Urine - NEGATIVE???Hemoglobin, Urine - NEGATIVE???Nitrite, Urine - NEGATIVE???Leukocyte, Urine - NEGATIVE???Urobi linogen - NORMAL? ?WBC's, Urine - <1 /HPF? ?RBC's, Urine - NONE SEEN? ?Hold Urine Culture - Testing available 48 hours from time of collection. Allergies (NKA means No Known Allergies) Tylenol with Codeine Problems Active Problems??(4) Anxiety?? Chronic back pain s/p resection of herniated disc?? HTN?? Long-term current use of methadone for opiate dependence?? Education Materials Below is the list of Educational Leaflet Providered with your Discharge Instructions. Valuables and Belongings I fully understand and agree that [facility] accepts no responsibility for all my personal [...] to send valuables and belongings home. ?? No Valuables/Belongings: No valuables/belongings present Date for Pt to Sign Valuables/Belongings: 11/22/23 14:01:00 ?? Other Discharge Information ? Pulmonary Rehab Status?? Pulmonary Rehab Discharge Status?? Respiratory Rate:??15 br/min??Low ? Common Emergency Awareness Tips IS IT [...] are strongly encouraged to quit. Please call [facility] [employer] Link at [phone] or [phone] Valves ([phone]) or log in to [email or web address] for referrals to smoking cessation programs. ?? 912 Suicide & Crisis Lifeline is available 25/02 if you or someone you know needs to find a reason to keep living. By calling 131 you'll be connected to a skilled, trained counselor at a crisis center in your area. INPATIENT DISCHARGE INSTRUCTIONS SIGNATURE PAGE DEVON CELESTE Location:[facility] Registration Date and Time:11/22/2023 10:14 EDT Primary Care Physician: Nidia Carlisle DO, Attending Physician: Fabiana HELM [facility], I DEVON CELESTE, have received the above patient education materials/instructions and have verbalized understanding. If ambulance or transport services are being used I further acknowledge beinggiven a choice of service. ?? If you need to contact me, please call me at this number: . Patient/Licensed Vocational Nurse Name: Patient/Licensed Vocational Nurse Signature: Relationship to Patient: Witness Name/Signature: Date: Patient Care team information Care Team Personnel Name: Wen Kennedy RN Position: [facility] RN Member Role: Primary Care Nurse Name: Deisy Baker RN Position: S RN Member Role: Primary Care Nurse Name: Sofia Richey RN Position: S RN Member Role: Primary Care Nurse Name: Cecy Rojas RN Position: [facility] RN Member Role: Primary Care Nurse Name: Gin Savage RN Position: S RN Member Role: Primary Care Nurse Name: Abhishek Martinez RN Position: [facility] RN Member Role: Primary Care Nurse Name: Balta Driscoll RN Position: [facility] RN Member Role: Primary Care Nurse Name: Yazmin Richards LPN Position: [facility] RN Member Role: Primary Care Nurse Name: Taryn Paiz RN Position: [facility] RN Member Role: Primary Care Nurse Name: Nidia Carlisle DO Position: [facility] Physician (General Medicine) Member Role: PCP Address: Address: [address] [place] [id number] Name: Alba Carrillo (INSTR) Position: [facility] RN Member Role: Primary Care Nurse Name: Cyndy Caballero RN Position: [facility] RN Member Role: Primary Care Nurse Name: Stephanie Krishnamurthy RN Position: [facility] RN Member Role: Primary Care Nurse Name: Valente Dyer RN Position: [facility] RN Member Role: Primary Care Nurse Name: Odessa Spence RN Position: [facility] RN Member Role: Primary Care Nurse Care Team Related Persons Name: GRANT ROY Address: home [address] [place] [address] Name: RHONDA MORENO Address: [address] [address]
--- OUTSIDE RECORDS SUMMARY | 2024-02-13 17:54 | XMS_ITS | Continuity of Care Document ---
Author Organization [facility] Address [address] [place] [address]- Care Team Providers Care Machine Assistant Name Role Phone Maylin Nidia GRANT Alessandra Primary Care Physician Encounter [facility] [place] Date(s): 11/11/23 - 12/11/23 [facility] [address] [place] [id number] Referring Physician: Renu Gunn NP Allergies, Adverse Reactions, Alerts Substance Reaction [...] 1 Refills, Maintenance, 10/19/23 12:54:00 EDT, Tablet, [facility], Partial fill upon patient request if the prescription is for a schedule II opioid drug., 183, cm, 10/15/23 12:11:00 EDT, Hei... Start Date: 10/19/23 Status: Ordered aspirin 81 mg oral delayed release tablet 81 mg, By Mouth, Daily, # 30 tablet, Refills 1, Tot. Refills 1, Maintenance, 10/19/23 12:54:00 EDT,Route to Pharmacy Electronically, [facility], Partial fill upon patient [...] Maintenance, 12/01/23 13:30:00 EDT,Route to Pharmacy Electronically, [facility], Partial fill upon patient request if [...] 10/19/23 12:54:00 EDT, Route to Pharmacy Electronically, [facility], Partial fill upon patient request if [...] Team Personnel Name: Wen Kennedy RN Position: [facility] RN Member Role: Primary Care Nurse Name: Deisy Baker RN Position: [facility] RN Member Role: Primary Care Nurse Name: Sofia Richey RN Position: [facility] RN Member Role: Primary Care Nurse Name: Cecy Rojas RN Position: [facility] RN Member Role: Primary Care Nurse Name: Gin Savage RN Position: [facility] RN Member Role: Primary Care Nurse Name: Abhishek Martinez RN Position: [facility] RN Member Role: Primary Care Nurse Name: Balta Driscoll RN Position: [facility] RN Member Role: Primary Care Nurse Name: Yazmin Richards LPN Position: [facility] RN Member Role: Primary Care Nurse Name: Taryn Paiz RN Position: [facility] RN Member Role: Primary Care Nurse Name: Nidia Carlisle DO Position: [facility] Physician (General Medicine) Member Role: PCP Address: Address: [address] [place] [id number] Name: Alba Carrillo (INSTR) Position: [facility] RN Member Role: Primary Care Nurse Name: Cyndy Caballero RN Position: [facility] RN Member Role: Primary Care Nurse Name: Stephanie Krishnamurthy RN Position: [facility] RN Member Role: Primary Care Nurse Name: Valente Dyer RN Position: [facility] RN Member Role: Primary Care Nurse Name: Odessa Spence RN Position: [facility] RN Member Role: Primary Care Nurse Care Team Related Persons Name: GRANT ROY Address: home [address] [address] Name: RHONDA MORENO Address: home [address] [place] [address]
--- OUTSIDE RECORDS SUMMARY | 2024-02-13 17:54 | XMS_ITS | Continuity of Care Document ---
Author Organization [facility] Address [address] [place] [address] [address] [place] [address]- Care Team Providers Care Fry Cook Name Role Phone Nidia Carlisle DO Primary Care Physician [place]counter [facility] [place] Date(s): 10/25/23 - 11/24/[address] [place], [place] [address] Allergies, Adverse Reactions, Alerts Substance Reaction Severity [...] 1 Refills, Maintenance, 10/19/23 12:54:00 EDT, Tablet, [facility], Partial fill upon patient request if the prescription is for a schedule II opioid drug., 183, cm, 10/15/23 12:11:00 EDT, Hei... Start Date: 10/19/23 Status: Ordered aspirin 81 mg oral delayed release tablet 81 mg, By Mouth, Daily, # 30 tablet, Refills 1, Tot. Refills 1, Maintenance, 10/19/23 12:54:00 EDT,Route to Pharmacy Electronically, [facility], Partial fill upon patient [...] 10/19/23 12:54:00 EDT, Route to Pharmacy Electronically, [facility], Partial fill upon patient request if the prescription is for a schedule II opioid... Start Date: 10/19/23 Status: Ordered lisinopril 40 mg oral tablet 1 tablet = 40 mg, By Mouth, Daily, # 30 tablet, 0 Refills, Maintenance, 05/14/19 10:47:32 EDT, Tablet Start Date: 05/14/19 Status: Ordered methadone 10 mg/5 mL oral [...] 10/19/23 12:54:00 EDT, Route to Pharmacy Electronically, [facility], Partial fill upon patient request [...] Team Personnel Name: Wen Kennedy RN Position: [facility] RN Member Role: Primary Care Nurse Name: Deisy Baker RN Position: [facility] RN Member Role: Primary Care Nurse Name: Sofia Richey RN Position: [facility] RN Member Role: Primary Care Nurse Name: Cecy Rojas RN Position: [facility] RN Member Role: Primary Care Nurse Name: Gin Savage RN Position: [facility] RN Member Role: Primary Care Nurse Name: Abhishek Martinez RN Position: [facility] RN Member Role: Primary Care Nurse Name: Balta Driscoll RN Position: [facility] RN Member Role: Primary Care Nurse Name: Yazmin Richards LPN Position: [facility] RN Member Role: Primary Care Nurse Name: Nidia Carlisle DO Position: [facility] Physician (General Medicine) Member Role: PCP Address: Address: [address] [place] [id number] Name: Alba Carrillo (INSTR) Position: [facility] RN Member Role: Primary Care Nurse Name: Cyndy Caballero RN Position: [facility] RN Member Role: Primary Care Nurse Name: Stephanie Krishnamurthy RN Position: [facility] RN Member Role: Primary Care Nurse Name: Valente Dyer RN Position: [facility] RN Member Role: Primary Care Nurse Name: Odessa Spence RN Position: [facility] RN Member Role: Primary Care Nurse Care Team Related Persons Name: GRANT ROY Address: [address] [address] Name: RHONDA MORENO Address: home [address] [place] [address]
--- OUTSIDE RECORDS SUMMARY | 2024-02-13 17:54 | XMS_ITS | Continuity of Care Document ---
Author Organization [facility] Address [address] [place] [address]- Care Team Providers Care Transportation Associate Name Role Phone Nidia Carlisle DO Primary Care Physician [place] [facility] [place] - 08/10/22 [facility] [address] [place] [address]- Attending Physician: Rosenda Ríos Admitting Physician: Rosenda Ríos Referring Physician: Rosenda Ríos Allergies, Adverse Reactions, Alerts Substance Reaction Severity Status Tylenol with Codeine Active Immunizations Given and Recorded Vaccine Date Status Refusal Reason tetanus/diphtheria/pertussis, acel(Tdap) 05/13/19 Given Medications amitriptyline 75 mg oral tablet 1 tablet = 75 mg, By Mouth, Daily at bedtime, # 90 tablet, 0 Refills, Maintenance, 05/14/19 10:48:35 EDT, Tablet Start Date: 05/14/19 Status: Ordered clonazePAM 1 mg oral tablet 1 tablet = 1 mg, By Mouth, 2 times a day, PRN Anxiety, 0 Refills, Maintenance, 05/14/19 10:47:58 EDT, Tablet Start Date: 05/14/19 Status: Ordered Golytely - oral powder for reconstitution See Instructions, Drink 240mL every 15 minutes until gone, # 4,000 mL, 0 Refills, Maintenance, 07/11/22 9:21:00 EST, [facility]/pharmacy #[id number], Partial fill upon patient request if the prescription is for aschedule II opioid drug., Drink 240mL every 15 elia... Start Date: 07/11/22 Status: Ordered lisinopril 40 mg oral tablet 1 tablet = 40 mg, By Mouth, Daily, # 30 tablet, 0 Refills, Maintenance, 05/14/19 10:47:32 EDT, Tablet Start Date: 05/14/19 Status: Ordered Methadone Liquid = 43 mg, By Mouth, Daily, 0 Refills, Maintenance, 06/12/19 14:48:34 EST, Solution, Partial fill upon patient request Start Date: 06/12/19 Status: Ordered Metoprolol Tartrate 50 mg oral tablet 1 tablet = 50 mg, By Mouth, 2 times a day, # 60 tablet, 0 Refills, Maintenance, 05/14/19 10:47:19 EDT, Tablet Start Date: 05/14/19 Status: Ordered Problem List Condition Confirmation Course Effective Dates Status Health St [facility] Informant Anxiety Confirmed Active Chronic back pain s/p resection of herniated disc Confirmed Active HTN Confirmed Active Social History Social History Type Response Smoking Status 10 or more cigarette s (1/2 pack or more)/day in last 30 days; Started at age: 12; entered on: 05/14/19 Sex Patient Care team information Care Team Personnel Name: Nidia Carlisle DO Position: [facility] Physician (General Medicine) Member Role: PCP Address: Address: [address] [place] [address] [place] [address]- Name: Cyndy Caballero RN Position: [facility] RN Member Role: Primary Care Nurse Care Team Related Persons Name: GRANT ROY Address: home [address] [address] Name: RHONDA MORENO Address: [address] [place] [address]
--- OUTSIDE RECORDS SUMMARY | 2024-02-13 17:54 | XMS_ITS | Continuity of Care Document ---
Author Organization [facility] Address [address] [place] [address]- Care Team Providers Care Automatic Coil Machine Operator Name Role Phone Maylin Nidia GRANT Primary Care Physician Encounter [facility] [place] [id number] Date(s): 10/21/23 - 11/20/[facility] [address] [place] [address] Attending Physician: Rosenda Ríos Admitting Physician: Rosenda Ríos Referring Physician: Rosenda Ríos Referring Physician: Velia LESTER, Renu Allergies, Adverse Reactions, Alerts Substance Reaction Severity [...] 1 Refills, Maintenance, 10/19/23 12:54:00 EDT, Tablet, [facility], Partial fill upon patient request if the prescription is for a schedule II opioid drug., 183, cm, 10/15/23 12:11:00 EDT, Hei... Start Date: 10/19/23 Status: Ordered aspirin 81 mg oral delayed release tablet 81 mg, By Mouth, Daily, # 30 tablet, Refills 1, Tot. Refills 1, Maintenance, 10/19/23 12:54:00 EDT,Route to Pharmacy Electronically, [facility], Partial fill upon patient [...] 10/19/23 12:54:00 EDT, Route to Pharmacy Electronically, [facility], Partial fill upon patient [...] 10/19/23 12:54:00 EDT, Route to Pharmacy Electronically, [facility], Partial fill upon patient [...] Team Personnel Name: Wen Kennedy RN Position: [facility] RN Member Role: Primary Care Nurse Name: Sofia Richey RN Position: [facility] RN Member Role: Primary Care Nurse Name: Cecy Rojas RN Position: [facility] RN Member Role: Primary Care Nurse Name: Gin Savage RN Position: [facility] RN Member Role: Primary Care Nurse Name: Abhishek Martinez RN Position: [facility] RN Member Role: Primary Care Nurse Name: Balta Driscoll RN Position: [facility] RN Member Role: Primary Care Nurse Name: Nidia Carlisle DO Position: [facility] Physician (General Medicine) Member Role: PCP Address: Address: [address] [place] [id number] Name: Alba Carrillo (INSTR) Position: [facility] RN Member Role: Primary Care Nurse Name: Cyndy Caballero RN Position: [facility] RN Member Role: Primary Care Nurse Name: Stephanie Krishnamurthy RN Position: [facility] RN Member Role: Primary Care Nurse Name: Valente Dyer RN Position: [facility] RN Member Role: Primary Care Nurse Name: Odessa Spence RN Position: [facility] RN Member Role: Primary Care Nurse Care Team Related Persons Name: GRANT ROY Address: home [address] [place] [address] Name: MARKLAZARARHONDA Address: home [address] [place] [address]
--- OUTSIDE RECORDS SUMMARY | 2024-02-13 17:54 | XMS_ITS | Continuity of Care Document ---
Author Organization [facility] Address [address] [place] [address]- Care Team Providers Care Evaluation Assistant Name Role Phone Maylin Nidia GRANT Primary Care Physician En[place] [facility] [place] Date(s): 07/11/22 - 12/01/[address] [address] Attending Physician: Trenton Mckeon MD Admitting Physician: Trenton Mckeon MD Allergies, Adverse Reactions, Alerts Substance Reaction [...] mL, 0 Refills, Maintenance, 07/11/22 9:21:00 EST, [facility]/pharmacy #[id number], Partial fill upon patient request [...] Team Personnel Name: Nidia Carlisle DO Position: [facility] Physician (General Medicine) Member Role: PCP Address: Address: [address] [place] [address] [place] [address]- Name: Cyndy Cablalero RN Position: [facility] RN Member Role: Primary Care Nurse Care Team Related Persons Name: GRANT ROY Address: home [address] [address] Name: RHONDA MORENO Address: home [address] [place] [id number]
--- OUTSIDE RECORDS SUMMARY | 2024-02-13 17:54 | XMS_ITS | Continuity of Care Document ---
Author Organization [facility] Address [address] [place] [address]- Care Team Providers Care Property Condition Assessor Name Role Phone Nidia Carlisle DO Primary Care Physician ( [phone] Encounter [facility] [place] Date(s): 12/15/23 - 12/15/[address] [address]- Encounter Diagnosis Scalp laceration(Final) - 12/15/23 Seizure-like activity(Final) - 12/15/23 Fall(Final) - 12/15/23 Discharge Disposition: A-D/C Home Attending Physician: Lucero Carey MD Admitting Physician: Lucero Carey MD Referring Physician: Not on Staff, Referring [...] 1 Refills, Maintenance, 10/19/23 12:54:00 EDT, Tablet, [facility], Partial fill upon patient request if the prescription is for a schedule II opioid drug., 183, cm, 10/15/23 12:11:00 EDT, Hei... Start Date: 10/19/23 Status: Ordered aspirin 81 mg oral delayed release tablet 81 mg, By Mouth, Daily, # 30 tablet, Refills 1, Tot. Refills 1, Maintenance, 10/19/23 12:54:00 EDT,Route to Pharmacy Electronically, [facility], Partial fill upon patient [...] Maintenance, 12/01/23 13:30:00 EDT,Route to Pharmacy Electronically, [facility], Partial fill upon patient [...] 10/19/23 12:54:00 EDT, Route to Pharmacy Electronically, [facility], Partial fill upon patient request if the prescription is for a schedule II opi... Start Date: 10/19/23 Status: Ordered Problem List Condition Confirmation Course Effective Dates Status Health St [facility] Informant Anxiety Confirmed Active Chronic back pain s/p resection of herniated disc Confirmed Active HTN Confirmed Active Vital Signs Most recent to oldest [Reference Range]: 1 Oxygen Saturation [94-100 %] 98 % (12/15/23 5:27 PM) Pulse Rate [55-90 bpm] 91 bpm *H* (12/15/23 5:27 PM) Blood Pressure [90-138/55-84 mm Hg] 110/ 89mm Hg (12/15/23 5:27 PM) Respiratory Rate [16-30 br/min] 18 br/mi n (12/15/23 5:27 PM) Temperature [96.8-100.4 DegF] 98.7 DegF (12/15/23 5:27 PM) Mode of Delivery (Oxygen) Room air (12/15/23 5:27 PM) Blood pressure sites Arm, right (12/15/23 5:27 PM) Temperature Route Oral (12/15/23 5:27 PM) Social History Social History Type Response Smoking Status Use: 4 or less cigar ettes(less than 1/4 pack)/day in last 30 days;5-9 cigarettes (between 1/4 to 1/2 pack)/day in last 30 days; Type: Cigarettes entered on: 10/30/23 Sex Patient Care team information Care Team Personnel Name: Wen Kennedy RN Position: [facility] RN Member Role: Primary Care Nurse Name: Deisy Baker RN Position: [facility] RN Member Role: Primary Care Nurse Name: Sofia Richey RN Position: [facility] RN Member Role: Primary Care Nurse Name: Cecy Rojas RN Position: [facility] RN Member Role: Primary Care Nurse Name: Gin Savage RN Position: [facility] RN Member Role: Primary Care Nurse Name: Abhishek Martinez RN Position: [facility] RN Member Role: Primary Care Nurse Name: Balta Driscoll RN Position: [facility] RN Member Role: Primary Care Nurse Name: Yazmin Richards LPN Position: [facility] RN Member Role: Primary Care Nurse Name: Taryn Paiz RN Position: [facility] RN Member Role: Primary Care Nurse Name: Nidia Carlisle DO Position: [facility] Physician (General Medicine) Member Role: PCP Address: Address: [address] [place] [address] [place], [place] [email or web address] Name: Alba Carrillo (INSTR) Position: S RN Member Role: Primary Care Nurse Name: Cyndy Caballero RN Position: [facility] RN Member Role: Primary Care Nurse Name: Stephanie Krishnamurthy RN Position: [facility] RN Member Role: Primary Care Nurse Name: Valente Dyer RN Position: S RN Member Role: Primary Care Nurse Name: Odessa Spence RN Position: [facility] RN Member Role: Primary Care Nurse Care Team Related Persons Name: GRANT ROY Address: home [address] [address] Name: RHONDA MORENO Address: [address] [address]
--- OUTSIDE RECORDS SUMMARY | 2024-02-13 17:54 | XMS_ITS | Continuity of Care Document ---
Author Organization [facility] Address [address] [place] [address] [address] [place] [address]- Care Team Providers Care Cutter Helper Name Role Phone Maylin Nidia GRANT Primary Care Physician Encounter [facility] Date(s): 11/05/23 - 12/05/[address] [place], [place] [address] Allergies, Adverse Reactions, Alerts Substance Reaction Severity [...] 1 Refills, Maintenance, 10/19/23 12:54:00 EDT, Tablet, [facility], Partial fill upon patient request if the prescription is for a schedule II opioid drug., 183, cm, 10/15/23 12:11:00 EDT, Hei... Start Date: 10/19/23 Status: Ordered aspirin 81 mg oral delayed release tablet 81 mg, By Mouth, Daily, # 30 tablet, Refills 1, Tot. Refills 1, Maintenance, 10/19/23 12:54:00 EDT,Route to Pharmacy Electronically, [facility], Partial fill upon patient request [...] Maintenance, 12/01/23 13:30:00 EDT,Route to Pharmacy Electronically, [facility], Partial fill upon patient request [...] 10/19/23 12:54:00 EDT, Route to Pharmacy Electronically, [facility], Partial fill upon patient request [...] Care Nurse Name: Deisy Baker RN Position: [facility] RN Member Role: Primary Care Nurse Name: Sofai Richey RN Position: [facility] RN Member Role: Primary Care Nurse Name: Cecy Rojas RN Position: [facility] RN Member Role: Primary Care Nurse Name: Gin Savage RN Position: [facility] RN Member Role: Primary Care Nurse Name: Abhishek Martinez RN Position: [facility] RN Member Role: Primary Care Nurse Name: Balta Driscoll RN Position: [facility] RN Member Role: Primary Care Nurse Name: Yazmin Richards LPN Position: [facility] RN Member Role: Primary Care Nurse Name: Taryn Paiz RN Position: [facility] RN Member Role: Primary Care Nurse Name: Nidia Carlisle DO Position: [facility] Physician (General Medicine) Member Role: PCP Address: Address: [address] [place] [id number] Name: Alba Carrillo (INSTR) Position: [facility] RN Member Role: Primary Care Nurse Name: Cyndy Caballero RN Position: [facility] RN Member Role: Primary Care Nurse Name: Stephanie Krishnamurthy RN Position: [facility] RN Member Role: Primary Care Nurse Name: Valente Dyer RN Position: [facility] RN Member Role: Primary Care Nurse Name: Odessa Spence RN Position: [facility] RN Member Role: Primary Care Nurse Care Team Related Persons Name: GRANT ROY Address: home [address] [address] Name: MARKRHONDA HAILE Address: home [address] [place] [id number]
--- OUTSIDE RECORDS SUMMARY | 2024-02-13 17:54 | XMS_ITS | Continuity of Care Document ---
Author Organization [facility] Address [address] [place] [address]- Care Team Providers Care Packaging Associate Name Role Phone Nidia Carlisle DO Primary Care Physician Encounter [facility] Date(s): 10/29/23 - 11/28/23 [facility] [address], [place] [address] Allergies, Adverse Reactions, Alerts Substance Reaction Severity [...] 1 Refills, Maintenance, 10/19/23 12:54:00 EDT, Tablet, [facility], Partial fill upon patient request if the prescription is for a schedule II opioid drug., 183, cm, 10/15/23 12:11:00 EDT, Hei... Start Date: 10/19/23 Status: Ordered aspirin 81 mg oral delayed release tablet 81 mg, By Mouth, Daily, # 30 tablet, Refills 1, Tot. Refills 1, Maintenance, 10/19/23 12:54:00 EDT,Route to Pharmacy Electronically, [facility], Partial fill upon patient request [...] 10/19/23 12:54:00 EDT, Route to Pharmacy Electronically, [facility], Partial fill upon patient request [...] 10/19/23 12:54:00 EDT, Route to Pharmacy Electronically, [facility], Partial fill upon patient request [...] Team Personnel Name: Wen Kennedy RN Position: [facility] RN Member Role: Primary Care Nurse Name: Deisy Baker RN Position: [facility] RN Member Role: Primary Care Nurse Name: Sofia Richey RN Position: [facility] RN Member Role: Primary Care Nurse Name: Cecy Rojas RN Position: [facility] RN Member Role: Primary Care Nurse Name: Gin Savage RN Position: [facility] RN Member Role: Primary Care Nurse Name: Abhishek Martinez RN Position: [facility] RN Member Role: Primary Care Nurse Name: Balta Driscoll RN Position: [facility] RN Member Role: Primary Care Nurse Name: Yazmin Richards LPN Position: [facility] RN Member Role: Primary Care Nurse Name: Taryn Paiz RN Position: [facility] RN Member Role: Primary Care Nurse Name: Nidia Carlisle DO Position: [facility] Physician (General Medicine) Member Role: PCP Address: Address: [address] [place] [id number] Name: Alba Carrillo (INSTR) Position: [facility] RN Member Role: Primary Care Nurse Name: Cyndy Caballero RN Position: [facility] RN Member Role: Primary Care Nurse Name: Stephanie Krishnamurthy RN Position: [facility] RN Member Role: Primary Care Nurse Name: Valente Dyer RN Position: [facility] RN Member Role: Primary Care Nurse Name: Odessa Spence RN Position: [facility] RN Member Role: Primary Care Nurse Care Team Related Persons Name: GRANT ROY Address: home [address] [address] Name: RHONDA MORENO Address: [address] [place] [address]
--- OUTSIDE RECORDS SUMMARY | 2024-02-13 17:54 | XMS_ITS | Continuity of Care Document ---
Author Organization [facility] Address [address] [place] [id number] Care Team Providers Care Parker Name Role Phone Maylin Niida GRANT Primary Care Physician [place] [facility] [place] 08/07/23 - 08/10/[address] [id number]- Encounter Diagnosis ARUNA (acute kidney injury)(Final) - 08/07/23 Hypotension(Final) - 08/07/23 Colitis(Final) - 08/07/23 Portal vein thrombosis(Final) - 08/07/23 Discharge Disposition: A-D/C Home Attending Physician: Caprice Bronson MD Admitting Physician: Hair Caballero MD Referring Physician: Not on Staff, Referring [...] mL, 0 Refills, Maintenance, 07/11/22 9:21:00 EST, [facility]/pharmacy #[id number], Partial fill upon patient request [...] opioid drug. Start Date: 08/10/23 Status: Ordered Methadone Liquid 125 mg, Solution, By Mouth, 08/10/23 9:00:00 EST Start Date: 08/10/23 Stop Date: 08/10/23 Status: Completed metoprolol 50 mg oral tablet 50 mg, Tablet, By Mouth, 08/10/23 9:00:00 EST Start Date: 08/10/23 Stop Date: 08/10/23 Status: Completed Metoprolol Tartrate 50 mg oral tablet 1 tablet = 50 mg, By Mouth, 2 times a day, # 60 tablet, 0 Refills, Maintenance, 05/14/19 10:47:19 EDT, Tablet Start Date: 05/14/19 Status: Ordered Problem List Condition Confirmation Course Effective Dates Status Health St atus Informant Anxiety Confirmed Active Chronic back pain s/p resection of herniated disc Confirmed Active HTN Confirmed Active Results Orders for Microbiology Reports Name Date Blood Culture 08/07/23 Blood Culture #2 08/07/23 Microbiology Reports TEST:Blood Culture, Second Order STATUS:Unauthenticated BODY SITE: SOURCE:Blood COLLECTED DATE/TIME:08/07/23 10:12 AM Blood Culture, Second Order SPECIMEN DESCRIPTION : BLOOD L HAND SPECIAL REQUESTS : NONE CULTURE : NO GROWTH 3 DAYS REPORT STATUS : PRELIMINARY REPORT TEST:Blood Culture STATUS:Unauthenticated BODY SITE: SOURCE:Blood COLLECTED DATE/TIME:08/07/23 10:02 AM Blood Culture SPECIMEN DESCRIPTION : BLOOD LAC SPECIAL REQUESTS : NONE CULTURE : NO GROWTH 3 DAYS REPORT STATUS : PRELIMINARY REPORT Radiology Reports * Exam Date Time Procedure Performing Provider Status 08/07/23 3:[address] Angio Abdomen and Pelvis Claire Witt ly; Auth (Verified) Notes: (CT Angio Abdomen and Pelvis) Reason For Exam: GI bleed;Other: RESULT: CT Angio Abdomen and Pelvis CT Angio Abdomen and Pelvis INDICATION: Hx of Present Illness: pt with generalized weakness , hypotension, pt states that he has had blood stools over the last few days; Reason: Other:; GI bleed; Clinical Question(s): Other:; Intestinal Bleeding , Other: COMPARISON: None. TECHNIQUE: Unenhanced axial images were obtained from diaphragm through the pelvis before, during (arterial) and after (portal venous) the intravenous administration of iodinated contrast. 100 cc of Omnipaque 300 was administered intravenously. Sagittal and coronal maximum intensity projection (MIP) images were reconstructed and rendered in both arterial and venous phases. Weight-based protocol using automatic tube modulation was used to optimize exposure parameters. RADIATION DOSE PARAMETERS: VASCULAR FINDINGS: No evidence of active GI bleeding. Abdominal aorta: No aneurysm or dissection.. Celiac axis: Severe narrowing at the origin secondary to noncalcified atherosclerotic disease with distal reconstitution. Superior mesenteric artery: Patent. Right renal artery: Patent. Left renal artery: Patent. Inferior mesenteric artery: Patent. Right common iliac artery: Patent. Right internal iliac artery: Patent. Right external iliac artery: Patent. Right common femoral artery: Patent. Visualized right superficial and deep femoral arteries: Patent. Left common iliac artery: Moderate narrowing secondary to mixed atherosclerotic plaque. Left internal iliac artery: Patent. Left external iliac artery: Patent. Left common femoral artery: Patent. Visualized left superficial and deep femoral arteries: Patent. IVC and hepatic veins: Patent. Portal vein: Filling defect at the left portal vein (series 702, image 151). No main portal vein isthrombosis. Splenic vein: Patent. Superior mesenteric vein: Patent. Inferior mesenteric vein: Patent. Iliac and femoral veins: Patent. NONVASCULAR FINDINGS: Visualized Chest: Mild bibasilar atelectasis. Diaphragm: A tiny fat-containing left posterior diaphragmatic hernia. Liver: Heterogeneous appearance of the liver with relative hypodensity in the right lobe, representing hepatic steatosis with left lobe and subcapsular fatty sparing. Gallbladder: No CT evidence of gallbladder pathology. Bile ducts: No biliary ductal dilation. Spleen: Normal. Pancreas: Normal. Adrenal glands: Normal. Kidneys and ureters: A 3 mm nonobstructing renal calculus in the right upper pole. No evidence of suspicious lesion hydronephrosis. Symmetrical urographic phase in both the kidneys. Bladder: Excreted contrast, filling the dependent portion of urinary bladder. No wall thickening orinflammatory changes. Reproductive organs: Unremarkable. Stomach, small bowel, and large bowel: Liquid stool within the colon with extensive long segment wall thickening and mucosal hyperenhancement from the mid transverse colon to the rectum. Appendix: Not visualized Peritoneum and retroperitoneum: A subcentimeter fat density with surrounding calcification adjacentto the sigmoid colon, likely representing a sequel of epiploic appendagitis. No ascites or pneumoperitoneum. No omental or mesenteric lesions. Lymph nodes: No enlarged lymph nodes. Abdominal and pelvic wall: A fat-containing left inguinal hernia. Bones: Moderate degenerative changes at L5-S1 and L2 superior endplate. IMPRESSION: 1. No evidence of acute GI bleed. Extensive infectious/inflammatory colitis involving mid to distaltransverse colon, descending colon, sigmoid colon and rectum. 2. Left portal vein nonocclusive thrombosis. 3. Hepatic steatosis with the related left lobe and subcapsular sparing. 4. 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 I have personally reviewed the images and I agree with this report. WSN: [id number] Ordering Physician: Garrett Diaz Dictated By: Anatoliy Sierra MD Dictated Date/Time: 08/07/23 4:41 pm Reviewed By: Bill Clark MD Signed By: Bill Clark MD Signed Date/Time: 08/07/23 4:46 pm Transcribed By: RYNE Transcribed Date/Time: 08/07/23 4:35 pm * Exam Date Time Procedure Performing Provider Status 08/07/23 3:[address] Head/Brain W/O Contrast Ari Witt; Kera (Verified) Notes: (CT Head/Brain W/O Contrast) Reason For Exam: Headache(s) RESULT: CT Head/Brain W/O Contrast Examination: Noncontrast head CT performed on 08/07/2023. History: Generalized weakness. Headache. Technique and findings: Contiguous 5 mm axial images were obtained from the skull base to the vertex without intravenous contrast. A dose modulated weight-based protocol was used. Comparison is made to a prior study dated 06/12/2019. The visualized sinuses are free from disease. The ventricular system and subarachnoid spaces are within normal limits. There is no intracranial hemorrhage, mass effect, or midline shift. No intra- or extra-axial fluid collections are identified. The osseous structures are unremarkable. Impression: There is no acute intracranial abnormality. WSN: [id number] Ordering Physician: Garrett Diaz Dictated By: Deisy Rand MD Dictated Date/Time: 08/07/23 3:48 pm Reviewed By: Deisy Rand MD Signed By: Deisy Rand MD Signed Date/Time: 08/07/23 3:48 pm Transcribed By: RYNE Transcribed Date/Time: 08/07/23 3:47 pm * Exam Date Time Procedure Performing Provider Status 08/07/23 11:57 AM Chest Portable Hermila Escudero (Verified) Notes: (Chest Portable) Reason For Exam: Shortness of Breath RESULT: Chest Portable Examination: Portable chest performed on 10/26 History: Weakness. Shortness of breath. Findings: A frontal view of the chest is compared to a prior study dated 06/12/2019. The cardiac and mediastinal silhouettes are within normal limits. The lungs are clear. The osseous and soft tissue structures are unremarkable. IMPRESSION: There is no acute cardiopulmonary disease. WSN: [id number] Ordering Physician: Garrett Diaz Dictated By: Deisy Rand MD Dictated Date/Time: 08/07/23 11:59 a Reviewed By: Deisy Rand MD Signed By: Deisy Rand MD Signed Date/Time: 08/07/23 11:59 am Transcribed By: RYNE Transcribed Date/Time: 08/07/23 11:58 am Vital Signs Most recent to oldest [Reference Range]: 1 2 3 Height 183 cm (08/10/23 11:01 AM) 183 cm (08/10/23 4:20 AM) 183 cm (08/09/23 6:27 PM) Weight 90.4 kg (08/08/23 3:32 PM) 82 kg (08/08/23 7:34 AM) 82 kg (08/07/23 8:42 PM) Oxygen Saturation [94-100 %] 95 % (08/10/23 11:01 AM) 95 % (08/10/23 4:20 AM) 99 % (08/09/23 9:00 PM) Pulse Rate [55-90 bpm] 77 bpm (08/10/23 11:01 AM) 80 bpm (08/10/23 10:19 AM) 78 bpm (08/10/23 4:20 AM) Body Mass Index [18.5-24.99 kg/m2] 26.99 kg/m2 *H* (08/08/23 3:32 PM) 24.49 kg/m2 (08/08/23 7:34 AM) 24.49 kg/m2 (08/07/23 8:42 PM) Blood Pressure [90-138/55-84 mm Hg] 125/71mm Hg (08/10/23 11:01 AM) 115/76mm Hg (08/10/23 10:19 AM) 108/72mm Hg (08/10/23 4:20 AM) Respiratory Rate [16-30 br/min] 18 br/min (08/10/23 11:19 AM) 20 br/min (08/10/23 11:01 AM) 18 br/min (08/10/23 10:19 AM) Temperature [96.8-100.4 DegF] 98.1 DegF (08/10/23 11:01 AM) 97.8 DegF (08/10/23 4:20 AM) 98.5 DegF (08/09/23 9:00 PM) Mode of Delivery (Oxygen) Room air (08/10/23 11:01 AM) Room air (08/10/23 4:20 AM) Room air (08/09/23 9:00 PM) Blood pressure sites Arm, left (08/10/23 11:01 AM) Arm, right (08/10/23 4:20 AM) Arm, right (08/09/23 9:00 PM) Temperature Route Oral (08/10/23 11:01 AM) Oral (08/10/23 4:20 AM) Oral (08/09/23 9:00 PM) Dry Weight 90.4 kg (08/08/23 3:32 PM) 82 kg (08/08/23 7:34 AM) 82 kg (08/07/23 8:42 PM) Weight Obtained Via Bed scale (08/08/23 3:32 PM) Dry Weight Obtained Via Bed scale (08/08/23 3:32 PM) Social History Social History Type Response Smoking Status 10 or more cigarette s (1/2 pack or more)/day in last 30 days; Started at age: 12; entered on: 05/14/19 Sex Admission evaluation note * Chirag Ames DO: PERFORM, MODIFY, MODIFY, MODIFY, MODIFY, MODIFY, MODIFY, MODIFY, MODIFY Event Display: Admission Note Authored Date: [id number] Patient: ??YOHAN CELESTE ? Age:??53 Years?Sex:??Male?:??1970?? Chief Complaint pt is coming from home with c/o generalized weakness, hypotension , pt woke up this am with blood in stool. was going to go to urgent care , to weak to walk, pt aso with x/o headache /dizziness/nausea/diarrhea History of Present Illness Yohan Celeste is a 53-year-old male with a past medical history opiate use disorder on methadone, anxiety, hypertension, chronic back pain s/p resection of a herniated disc who presented to [facility] in the setting of a near syncope.? History is obtained both from the patient and the patient's chart.?? Patient states that he was leaving his house and walking on the stairs so he could go to his methadone clinic to obtain the dose for the day.?? He notes that he started to feel very lightheaded and almost passed out.?? There was no fall.?? Since the episode the patient is felt too weak to walk.?? Patient has been having nausea diarrhea for the past 2 days with some blood in the stool which was preceded by an abundance of constipation which he attributed to his methadone.?? EMS was activated.?? His initial blood pressure was noted to be 64/48.?? Patient received some fluids and noted improvement in blood pressure to 126/94 per EMS.?? Upon presenting to [facility] patient was found to be tachycardic and hypotensive with a blood pressure of 87/48.?? Patient was saturating appropriately on room air.?? Initial blood work showed a white count of 14.5 with an H/H of 15.5/46.9 and a platelet count of 265.?? Patient's chemistry panel was notable for hyponatremia of 132 with a BUN of 25 and a creatinine of 3.5.?? This likely represents an acute kidney injury given that the patient/BUN and creatinine was withinnormal limits.?? Patient also had an elevated lactate of 4.4 and an AST of 74 and an ALT of 73.?? Patient's lactate improved with fluid resuscitation.?? Given the patient's presentation CT abdomen and pelvis along with a CT head was obtained.?? CT head was grossly unremarkable.?? CT abdomen and pelvis showed extensive colitis involving the mid to distal transverse colon and descending colon, sigmoid colon and rectum.?? Also mention severe narrowing of the celiac artery with distal reconstitution and hepatic steatosis with septic capsular sparing.?? Given the patient's presentation patient wasadmitted for further evaluation. ?? Patient was seen at the bedside.?? He notes that he continues to have abdominal pain.?? He fearsthat he may have had a seizure because that is what his girlfriend told him it looked like.?? He notes that he had diarrhea for one day prior to presentation.?? He notes over 15 episodes of diarrhea.?? No one else at home had the same symptoms.?? He notes that his diarrhea turned into bright red blood.?? After multiple attempts at substance use questions - patient admits that he had done 3 lines of cocaine. He notes that his hematochezia has resolved along with his diarrhea.?? He continues to have abdominal pain.?? He has no other issues at this time. Review of Systems A complete review of systems has been performed??and determined to be negative unless otherwise noted above in the patient's??HPI. Physical Exam Vitals & Measurements T:??98?F?? HR:??97??(Peripheral)?? RR:??18?? BP:??122/82?? SpO2:??99%?? WT:??82??kg?? Constitutional: Alert, in no distress. Mental Status: A and O x4 Head: Normocephalic. Eyes: Extraocular muscles intact. Ear, Nose and Throat: Moist mucous membranes. Respiratory: Clear to auscultation. Cardiovascular: S1 S2 regular. Gastrointestinal: Abdomen soft,??Left sided tenderness, non- distended.??Hypoactive bowel sounds. Neurologic: No focal neurological deficits. Skin: No rashes or lesions. Musculoskeletal: No gross deformities. Psychiatric: Normal mood and affect Assessment/Plan 53-year-old male with a past medical history opiate use disorder on methadone, anxiety, hypertension, chronic back pain s/p resection of a herniated disc who presented to [facility] in the setting of a near syncope in the setting of hematochezia/cocaine use/colitis. ?? Pre-Syncope Opiate Use/Cocaine Use Right sided Colitis Non-occlusive left portal vein thrombosis Volume depletion/dehydration Patient presents with acute diarrhea with hematochezia.?? Patient denies any prior episodes. No family history of IBD.?? Diarrhea has since improved, but patient continues to have abdominal pain on the left side. Differential: At the top of the differential is ischemic colitis in the setting of cocaine use.?? We should consider infectious etiologies, and we should r/o infectious etiologies with GI PCR and C.diff. Unlikely to be inflammatory in nature.?? Patient's symptoms are already improving - hematochezia has improved along with diarrhea. Diarrhea likely lead to dehydration/volume depletion and syncope. Plan: - Obtain C. diff and GI PCR if patient continues to have diarrhea - if it is no longer present can d/c testing - Recommend abstinence from cocaine - Obtain orthostatic vitals - No need for antibiotics - No need for endoscopic evaluation - therefore no GI consult - No need for anticoagulation given that it is non-occlusive ?? Acute Kidney Injury vs. Chronic Kidney Disease Patient has elevated BUN/Cr. Normal back in 2019 without a recent baseline. Likely pre-renal in the setting of volume depletion. Plan: - avoid NSAIDs, monitor I/Os. - Gentle IV hydration - Urine studies - Check UA, U Na, U Cr, Urine eos - Nephrology consult if no improvement. - Renally dose all meds - Obtain CPK ?? Elevated AST/ALT Hepatic Steatosis This is likely in the setting of MetALD (Metabolic dysfunction associated steatotic liver disease and increasted ETOH use) Patient notes no further ETOH use now. Plan: - Advocate for outpatient follow-up - 10% weight loss over the next year. ?? Chronic Medical Conditions: Hypertension:??Hold lisinopril 40 mg PO QD??and metoprolol 50 mg PO QD given presentation.?? Plan to restart tomorrow. Anxiety - Continue clonazepam/amitriptyline ?? Quality Metrics: DVT Prophylaxis: Heparin 5000 TID Code Status: Full Code Diet: Regular diet ?? (The above document was created using [employer] voice recognition software. As such, pediatric social worker errors may occur. Please contact the provider for additional questions and if clarification is needed.) ?? Chirag Ames, DO PGY-5 Hospital Medicine [facility] Pager: [phone] [email or web address] ?? Attestation: Patient??was seen and discussed with the attending,??Dr. Kahlil Benoit. Problem List/Past Medical History Ongoing Anxiety Chronic back pain s/p resection of herniated disc HTN Long-term current use of methadone for opiate dependence Procedure/Surgical History ???Discectomy L5-S1 (1990) Medications Inpatient Docusate Sodium Capsule, 100 mg= 1 capsule, By Mouth, 2 times a day, PRN Lactated Ringers 1,000 mL, 1000 mL, IV Infusion Melatonin Tablet, 3 mg, By Mouth, Daily at bedtime, PRN Methadone Liquid, 125 mg= 62.5 mL, By Mouth, Daily MiraLax Powder, 17 Gm= 1 pack/packet, By Mouth, Daily, PRN NaCL 0.9% Flush, 3 mL, IV Push, Every 8 hours NaCL 0.9% Flush, 3 mL, IV Push, Every 8 hours, PRN nalOXONE Inj, 0.2 mg= 0.5 mL, IV Push, Every 5 minutes, PRN Robitussin DM Liquid, 10 mL, By Mouth, Every 4 hours, PRN Senna Tablet, 8.6 mg= 1 tablet, By Mouth, 2 times a day, PRN Simethicone Tablet, 80 mg, Chew, 3 times a day, PRN Home amitriptyline 75 mg oral tablet, 75 mg= 1 tablet, By Mouth, Daily at bedtime clonazePAM 1 mg oral tablet, 1 mg= 1 tablet, By Mouth, 2 times a day, PRN Golytely - oral powder for reconstitution, See Instructions lisinopril 40 mg oral tablet, 40 mg= 1 tablet, By Mouth, Daily Methadone Liquid, 43 mg, By Mouth, Daily Metoprolol Tartrate 50 mg oral tablet, 50 mg= 1 tablet, By Mouth, 2 times a day Allergies Tylenol with Codeine Social History Alcohol [...] II: Mother. Hypertension: Father. Muscular dystrophy: Mother. Lab Results Test Name Test Result Date/Time WBC 14.5 k/mm3 08/07/2023 10:02 EST RBC 5.06 m/mm3 08/07/2023 10:02 EST Hgb 15.5 Gm/dL 08/07/2023 10:02 EST Hct 46.9 % 08/07/2023 10:02 EST MCV 92.7 femtoliters 08/07/2023 10:02 EST MCH 30.6 pg 08/07/2023 10:02 EST MCHC 33.0 g/dL 08/07/2023 10:02 EST Platelet Count 265 k/mm3 08/07/2023 10:02 EST INR 1.1 08/07/2023 10:02 EST Protime (PT) 11.4 seconds 08/07/2023 10:02 EST APTT 26.2 seconds 08/07/2023 10:02 EST Sodium 132 mmol/L 08/07/2023 10:02 EST Potassium 4.6 mmol/L 08/07/2023 10:02 EST Chloride 95 mmol/L 08/07/2023 10:02 EST Bicarbonate Level 24 mmol/L 08/07/2023 10:02 EST Anion Gap 13 08/07/2023 10:02 EST Glucose Level 119 mg/dL 08/07/2023 10:02 EST BUN 25 mg/dL 08/07/2023 10:02 EST Creatinine-Blood 3.5 mg/dL 08/07/2023 10:02 EST Estimated GFR Creatinine 20 ML/MIN/1.73 M2 08/07/2023 10:02 EST Osmolality 281 mOs/kg 08/07/2023 10:02 EST Calcium 9.7 mg/dL 08/07/2023 10:02 EST Protein, Total 6.7 Gm/dL 08/07/2023 10:02 EST Albumin 3.9 Gm/dL 08/07/2023 10:02 EST Alkaline Phosphatase 161 units/L 08/07/2023 10:02 EST AST (SGOT) 74 units/L 08/07/2023 10:02 EST ALT (SGPT) 73 units/L 08/07/2023 10:02 EST Bilirubin, Total 0.6 mg/dL 08/07/2023 10:02 EST Bilirubin, Direct 0.2 mg/dL 08/07/2023 10:02 EST Bilirubin, Indirect 0.4 mg/dL 08/07/2023 10:02 EST Lactate 2.9 mmol/L 08/07/2023 12:32 EST Lactate 4.4 mmol/L 08/07/2023 10:02 EST Diagnostic Results ?? CT Head/Brain W/o Contrast: ?? IMPRESSION: There is no acute intracranial abnormality. ?? CT Angio Abd and Pelvis: ?? IMPRESSION: 1.?? No evidence of acute GI bleed. Extensive infectious/inflammatory colitis involving mid to distal transverse colon, descending colon, sigmoid colon and rectum. 2.?? Left portal vein nonocclusive thrombosis. 3.?? Hepatic steatosis with the related left lobe and subcapsular sparing. 4.?? 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 * Cy EHLM, Kahlil: PERFORM Event Display: Admission Note Authored Date: [id number] ? Attending Attestation: I have seen and evaluated this patient. I have discussed the case and its management with the fellow and agree with the findings and plan as documented in the fellow note.?? I?? will continue to provide care to this patient till 7 AM of the admitting date. 53-year-old male with a past medical history of anxiety, hypertension, chronic back pain, opioid use on methadone came with a complaint of near syncopal episode.?? He denied any chest pain, shortnessof breath.?? Complaint of nausea and diarrhea from last 2 days.?? History of poor oral intake.?? Hedenied any fever, chills.?? He admitted recent use of cocaine.?? Blood pressure was low that improved with IV fluid.?? He was tachycardic.?? CT of the abdomen brain ruled out any acute intracranial pathology.?? CT angiogram of abdomen and pelvis ruled out any acute GI bleed.?? There was extensive colitis involving mid to distal transverse colon, descending colon and?? sigmoid colon and rectum.?? T here was concern of left portal vein nonocclusive thrombosis.?? LFTs were slightly high.?? Lactate level was high not trending down.?? Also patient had acute kidney injury.?? Patient had a high WBC count.?? It was thought colitis is most likely due to ischemic colitis due to cocaine use.?? But he was continued to be tachycardic with some ongoing pain and persistent lactate level, high WBC count and for now we will continue the antibiotics .?? Denied any chest pain.?? Unlikely acute coronary syndrome.?? Troponin are flat.?? EKG showed sinus tachycardia with nonspecific ST and T wave changes.??If renal function will not get better then will consider nephrology consultation in the morning time.?? Will continue with gentle hydration.?? Will continue to hold lisinopril due to ARUNA.?? I discussed the portal vein thrombosis findings with him.?? I did also talk about anticoagulation options with him if needed.?? He wanted to follow-up with the primary care physician as outpatient for hypercoagulable workup and further recommendation for anticoagulation.?? Patient has no active GI bleeding. EKG study * Event Display: ECG 12-Lead Authored Date: Please click on pdf link to open report * Event Display: ECG 12-Lead Authored Date: Ventricular Rate: 121 BPM Atrial Rate: 121 BPM P-R Interval: 104 ms QRS Duration: 80 ms Q-T Interval: 428 ms QTC Calculation(Bazett): 607 ms R Holton: 52 degrees T Holton: 71 degrees Sinus tachycardia with short NV Nonspecific ST and T wave abnormality Abnormal ECG When compared with ECG of 12-JUN-2019 10:28, QRS duration has decreased Nonspecific T wave abnormality now evident in Anterolateral leads Confirmed by HAIR FUNK MD ([id number]) on 08/07/2023 11:44:59 AM [place]: HAIR FUNK MD Cardiology * Event Display: Cardiac Rhythm Strips Authored Date: Hospital Progress note * Caprice Bronson MD: PERFORM, SIGN, VERIFY Event Display: Progress Note Hospital Authored Date: [id number] Patient: YOHAN CELESTE Age: 53 years Sex: Male : 1970 Associated Diagnoses: None Author: Caprice Bronson MD To whom it may concern, Mr. Yohan Celeste got his last dose of methadone 125 mg p.o. daily at [facility] on 08/10/2023 around 10 AM. Regards- Caprice Bronson MD Hospital medicine [facility] * Valente Dyer RN: PERFORM, SIGN, VERIFY Event Display: Progress Note Hospital Authored Date: [id number] Patient: YOHAN CELESTE Age: 53 years Sex: Male : 1970 Associated Diagnoses: None Author: Valente Dyer RN Findings Nursing Data Vital Signs : VITAL SIGNS SECTION 08/09/2023 21:00 EST Temperature 98.5 DegF Temperature Route Oral Pulse Rate 79 bpm Respiratory Rate 18 br/min Systolic Blood Pressure 132 mm Hg Diastolic Blood Pressure 82 mm Hg Blood pressure sites Arm, right Oxygen Saturation 99 % Mode of Delivery (Oxygen) Room air . Evaluation PT AOx3, able to make needs known. Vital signs all WNL. Pt requested klonipin with evening meds, given with good effect. Pt resting comfortably in bed. No signs of any changes or acute distress. [place] and safety protocols in place. See CIS for further details. . * Caprice Bronson MD: PERFORM Event Display: Progress Note Hospital Authored Date: [id number] Patient: ??YOHAN CELESTE ? Age:??53 Years?Sex:??Male?:??1970?? Subjective Patient was seen and examined in AM Complaining of??abdominal pain??however denies any worsening.?? Had 3??loose bowel movement overnight,??patient denied any blood in it. ??Brown or??green color??still.?? Discussed with patient that??he will need??GI outpatient??follow-up for possible colonoscopy Denies any nausea or vomiting ??lactic acid normalized. Will continue IV fluids for now??due to diarrhea and dehydration Review of Systems As above Objective Vital Signs?? Temperature: 98.2 DegF (08/09/23 11:51:00) Temperature Route: Oral (08/09/23 11:51:00) Pulse Rate: 70 bpm (08/09/23 11:51:00) Respiratory Rate: 20 br/min (08/09/23 11:34:00) Systolic Blood Pressure: 114 mm Hg (08/09/23 11:51:00) Diastolic Blood Pressure: 65 mm Hg (08/09/23 11:51:00) Blood pressure sites: Arm, left (08/09/23 11:51:00) Mean Arterial Pressure: 81 mm Hg (08/09/23 11:51:00) Pulse Pressure: 49 mm Hg (08/09/23 11:51:00) Oxygen Saturation: 97 % (08/09/23 11:51:00) Mode of Delivery (Oxygen): Room air (08/09/23 11:51:00) Early Warning Score: 4 (08/09/23 11:54:13) ? Intake/Output? 08/07 17:36 08/09 07:00 08/08 07:00 08/07 07:00 08/06 07:00 ?? 08/09 14:16 08/09 14:16 08/09 06:59 08/08 06:59 08/07 06:59 Intake ? 2630 ?840 ? 1690 ?100 ?0 Output ?0 ?0 ?0 ?0 ?0 Net Total ? 2630 ?840 ? 1690 ?100 ?0 ? Urine Count ?3 ?1 ?2 ?0 ?0 ? Physical Exam Constitutional: Alert, in no distress. Mental Status: A and O x3 Respiratory: Clear to auscultation. Cardiovascular: S1 S2 regular. Gastrointestinal: Abdomen soft,??Left sided tenderness, non- distended.??Hypoactive bowel sounds. Neurologic: No focal neurological deficits. Results Recent Labs BLOOD COUNT & DIFF WBC 3.5 k/mm3 (Low)?? 08/09/2023 04:02 RBC 3.66 m/mm3 (Low)?? 08/09/2023 04:02 Hgb 11.1 Gm/dL (Low)?? 08/09/2023 04:02 Hct 34.2 % (Low)?? 08/09/2023 04:02 MCV 93.4 femtoliters ()?? 08/09/2023 04:02 MCH 30.3 pg ()?? 08/09/2023 04:02 MCHC 32.5 g/dL (Low)?? 08/09/2023 04:02 Platelet Count 159 k/mm3 ()?? 08/09/2023 04:02 RDW-SD 46.0 femtoliters ()?? 08/09/2023 04:02 MPV 10.1 femtoliters ()?? 08/09/2023 04:02 Nucleated RBC (Automated) 0.0 #/100 WBC'S ()?? 08/09/2023 04:02 Abs. NRBC 0.0 k/mm3 ()?? 08/09/2023 04:02 Abs. Neut 1.2 k/mm3 (Low)?? 08/09/2023 04:02 Abs. Lymph 1.5 k/mm3 ()?? 08/09/2023 04:02 Abs. Hendry 0.7 k/mm3 ()?? 08/09/2023 04:02 Abs. Eo 0.1 k/mm3 ()?? 08/09/2023 04:02 Abs. Baso 0.0 k/mm3 ()?? 08/09/2023 04:02 Neut % 33.7 % (Low)?? 08/09/2023 04:02 Lymph % 44.0 % (High)?? 08/09/2023 04:02 Hendry % 20.0 % (High)?? 08/09/2023 04:02 Eos % 1.4 % ()?? 08/09/2023 04:02 Baso % 0.6 % ()?? 08/09/2023 04:02 Imm Gran 0.3 % ()?? 08/09/2023 04:02 Abs. Imm Gran 0.0 k/mm3 ()?? 08/09/2023 04:02 ?? CHEM GENERAL Sodium 131 mmol/L (Low)?? 08/09/2023 04:02 Potassium 4.3 mmol/L ()?? 08/09/2023 04:02 Chloride 99 mmol/L ()?? 08/09/2023 04:02 Bicarbonate Level 27 mmol/L ()?? 08/09/2023 04:02 Anion Gap 5 ()?? 08/09/2023 04:02 Glucose Level 89 mg/dL ()?? 08/09/2023 04:02 BUN 9 mg/dL ()?? 08/09/2023 04:02 Creatinine-Blood 1.0 mg/dL ()?? 08/09/2023 04:02 Estimated GFR Creatinine 92 ML/MIN/1.73 M2 ()?? 08/09/2023 04:02 Calcium 8.0 mg/dL (Low)?? 08/09/2023 04:02 Magnesium 1.7 mg/dL ()?? 08/09/2023 04:02 Lactate 1.6 mmol/L ()?? 08/09/2023 04:02 ?? SEROLOGY INF DISEASE C.difficile Toxin Negative. C.Difficile bacterial antigen and toxin not detected. A (N)?? 08/08/2023 02:02 ?? STOOL STUDIES GI PCR, Campylobacter NEGATIVE ()?? 08/08/2023 02:02 GI PCR, Plesiomonas shigelloides NEGATIVE ()?? 08/08/2023 02:02 GI PCR, Salmonella NEGATIVE ()?? 08/08/2023 02:02 GI PCR, Vibrio NEGATIVE ()?? 08/08/2023 02:02 GI PCR, Vibrio cholerae NEGATIVE ()?? 08/08/2023 02:02 GI PCR, Yersinia enterocolitica NEGATIVE ()?? 08/08/2023 02:02 GI PCR, Enteroaggregative E coli NEGATIVE ()?? 08/08/2023 02:02 GI PCR, Enteropathogenic E coli NEGATIVE ()?? 08/08/2023 02:02 GI PCR, Enterotoxigenic E coli NEGATIVE ()?? 08/08/2023 02:02 GI PCR, Pglxt-iwxdp-eroremhzx E coli NEGATIVE ()?? 08/08/2023 02:02 GI PCR, Shigella/Enteroinvasive E coli NEGATIVE ()?? 08/08/2023 02:02 GI PCR, Cryptosporidium NEGATIVE ()?? 08/08/2023 02:02 GI PCR, Cyclospora cayetanensis NEGATIVE ()?? 08/08/2023 02:02 GI PCR, Entamoeba histolytica NEGATIVE ()?? 08/08/2023 02:02 GI PCR, Giardia lamblia NEGATIVE ()?? 08/08/2023 02:02 GI PCR, Adenovirus F 40/41 NEGATIVE ()?? 08/08/2023 02:02 GI PCR, Astrovirus NEGATIVE ()?? 08/08/2023 02:02 GI PCR, Norovirus GI/GII NEGATIVE ()?? 08/08/2023 02:02 GI PCR, Rotavirus A NEGATIVE ()?? 08/08/2023 02:02 GI PCR, Sapovirus NEGATIVE ()?? 08/08/2023 02:02 ?? URINE OTHER Eos, Urine <2 WBC/HPF, % EOS NOT CALCULATED % ()?? 08/09/2023 00:01 Est Creatinine Clearance 93.90 mL/min ()?? 08/09/2023 04:45 ? Assessment/Plan Diagnoses ARUNA (acute kidney injury) ??(N17.9) Colitis ??(K52.9) Hypotension ??(I95.9) Portal vein thrombosis ??(I81) ?53-year-old male with a past medical history opiate use disorder on methadone, anxiety, hypertension, chronic back pain s/p resection of a herniated disc who presented to [facility] inthe setting of a near syncope in the setting of hematochezia/cocaine use/colitis. ?? Pre-Syncope Opiate Use/Cocaine Use Right sided Colitis Non-occlusive left portal vein thrombosis Volume depletion/dehydration Patient presented with acute diarrhea with hematochezia few days following additional cocaine. No family history of IBD.?? Bloody diarrhea has improved with watery stool??with negative infectious panel.?Also patient's abdominal pain seems to be improving.. Patient's symptoms possibly secondary to ischemic colitis in the setting of cocaine use. ?? Plan: -Continue IV fluids for now - Recommend abstinence from cocaine -Will discontinue antibiotics -Will consult GI if there is further bleeding or worsening abdominal pain. - No need for anticoagulation given that it is non-occlusive will need??GI outpatient??follow-up for possible colonoscopy ?? Acute Kidney Injury vs. Chronic Kidney Disease Normal back in 2019 without a recent baseline. Likely pre-renal in the setting of volume depletion. Creatinine appears to be improving??with IV fluids Plan: - avoid NSAIDs, monitor I/Os. - Gentle IV hydration - Urine studies - Check UA, U Na, U Cr, Urine eos ?? Elevated AST/ALT Hepatic Steatosis This is likely in the setting of MetALD (Metabolic dysfunction associated steatotic liver disease and increasted ETOH use) Patient notes no further ETOH use now. Plan: - Advocate for outpatient follow-up - 10% weight loss over the next year. ? Hypertension:??Hold lisinopril 40 mg PO QD??but will restart??metoprolol 50 mg PO QD .?? Restart omeprazole Anxiety - Continue clonazepam/amitriptyline ?? DVT Prophylaxis: Heparin 5000 TID Code Status: Full Code Diet: Regular diet Note * Purvi Stafford RN: PERFORM Event Display: Discharge/Transfer Note Hospital Authored Date: [id number] Nursing Discharge Note Entered On: 08/10/2023 11:58 EST Performed On: 08/10/2023 11:57 EST by Purvi Stafford RN Nursing Discharge Note 2 Discharge Time : 08/10/2023 11:57 EST Discharge Level of Care at Discharge : Home/Senior Care/Foster Care Patient Left Unit Via : Wheelchair Patient Accompanied Off Unit with : Responsible adult DC Instructions Provided & Signed by Pt : Yes Patient Understands D/C Instructions : Yes Patient Instructions Discharge Signed : Yes Did Pt have Specialty Bed or Wound Vac : No Purvi Stafford RN - 08/10/2023 11:57 EST * Caprice Bronson MD: PERFORM, MODIFY Event Display: Discharge/Transfer Note Hospital Authored Date: [id number] Patient: ??YOHAN CELESTE ? Age:??53 Years?Sex:??Male?:??1970?? Patient Information Discharge Location: Primary Care Physician: Nidia Carlisle DO Admit Date/Time: 08/07/23 17:36 Discharge Disposition Discharge Disposition: Home: No Services Discharge Diagnosis ARUNA (acute kidney injury) (N17.9) Colitis (K52.9) Hypotension (I95.9) Portal vein thrombosis (I81) ?? _ Discharge Medications amiTRIPTYLINE (amitriptyline 75 mg [...] 240mL every 15 minutes until gone ? Allergies Allergies ?(Active and Proposed Allergies Only) Tylenol with Codeine? (Severity: Unknown severity, Onset: Unknown) ? PCP Follow-Up/Heads-Up Will need gastroenterology referral??for colitis??and left??portal vein thrombosis??nonocclusive Hospital Course ?53-year-old male with a past medical history opiate use disorder on methadone, anxiety, hypertension, chronic back pain s/p resection of a herniated disc who presented to [facility] inthe setting of a near syncope in the setting of hematochezia/cocaine use/colitis. ?? Pre-Syncope Opiate Use/Cocaine Use Right sided Colitis Non-occlusive left portal vein thrombosis Volume depletion/dehydration Patient presented with acute diarrhea with hematochezia few days following additional cocaine. No family history of IBD.?? Bloody diarrhea has improved with watery stool??with negative infectious panel.?Also patient's abdominal pain seems to be improving.. Patient's symptoms possibly secondary to ischemic colitis in the setting of cocaine use. ?? Plan: -S/p??IV fluids - Recommend abstinence from cocaine -Will discontinue antibiotics -Will consult GI if there is further bleeding or worsening abdominal pain. -clot is nonocclusive??and also patient was??having blood in the stool.?? So unable to start??anticoagulation in the hospital.?? To follow-up with primary care??for further??workup and restart anticoagulation will need??GI outpatient??follow-up for possible colonoscopy ?? Patient was seen and examined in AM.?? Denies any complaints of abdominal pain today.?? Denies any blood in the stool.?? Still becoming??mushy consistency.?? Feels like going home today.?? Denies anydizziness,??vertigo ?? Acute Kidney Injury vs. Chronic Kidney Disease resolved Normal back in 2019 without a recent baseline. Likely pre-renal in the setting of volume depletion. Creatinine appears to be improving??with IV fluids Plan: - avoid NSAIDs, monitor I/Os. - Gentle IV hydration - Urine studies - Check UA, U Na, U Cr, Urine eos ?? Elevated AST/ALT Hepatic Steatosis This is likely in the setting of MetALD (Metabolic dysfunction associated steatotic liver disease and increasted ETOH use) Patient notes no further ETOH use now. Plan: - Advocate for outpatient follow-up - 10% weight loss over the next year. ? Hypertension:??metoprolol 50 mg PO QD .?? Restart omeprazole.?? To resume lisinopril upon discharge Anxiety - Continue clonazepam/amitriptyline Objective Assessment and Plan Discharge Planning:? Measurements?? Height: 183 cm (08/10/23) Weight: 90.4 kg (08/08/23) Dry Weight: 90.4 kg (08/08/23) Body Mass Index:??26.99 kg/m2??High (08/08/23) ? Vital Signs?? Temperature: 97.8 DegF (08/10/23 04:20:00) Temperature Route: Oral (08/10/23 04:20:00) Pulse Rate: 80 bpm (08/10/23 10:19:00) Respiratory Rate: 18 br/min (08/10/23 10:19:00) Systolic Blood Pressure: 115 mm Hg (08/10/23 10:19:00) Diastolic Blood Pressure: 76 mm Hg (08/10/23 10:19:00) Blood pressure sites: Arm, right (08/10/23 04:20:00) Mean Arterial Pressure: 84 mm Hg (08/10/23 04:20:00) Pulse Pressure: 36 mm Hg (08/10/23 04:20:00) Oxygen Saturation: 95 % (08/10/23 04:20:00) Mode of Delivery (Oxygen): Room air (08/10/23 04:20:00) Early Warning Score: 4 (08/10/23 10:24:41) ? . Physical Exam Constitutional: Alert, in no distress. Mental Status: A and O x3 Respiratory: Clear to auscultation. Cardiovascular: S1 S2 regular. Gastrointestinal: Abdomen soft,??nontender, non-distended.?? Normal??bowel sounds. Neurologic: No focal neurological deficits. Pending Results Add On Lab Order ordered on 08/07/2023 Add On Lab Order ordered on 08/07/2023 Add On Lab Order ordered on 08/07/2023 Blood Culture ordered on 08/07/2023 Blood Culture #2 ordered on 08/07/2023 Follow-Up Appointments Added Follow Up ?Time Frame ?Comments Maylin GRANT, Nidia Aparicio Patient Instructions -will need??GI outpatient??follow-up for possible colonoscopy -clot is nonocclusive??and also patient was??having blood in the stool.?? So unable to start??anticoagulation in the hospital.?? To follow-up with primary care??for further??workup and restart anticoagulation -Follow-up with PCP in 1 week to check??CBC and LFTs -If you develop any worsening abdominal pain,??blood in the stool??please come back to ER -Suggest diet and exercise Post Discharge Care Discharge ?08/10/23 10:59:00 EST Home Health Face to Face ^HomeHealth[facility] Results Discharge Labs BLOOD BANK Blood Type A Positive ()?? 08/07/2023 09:51 Antibody Screen Negative ()?? 08/07/2023 09:51 ?? BLOOD COUNT & DIFF WBC 4.6 k/mm3 ()?? 08/10/2023 01:05 RBC 3.52 m/mm3 (Low)?? 08/10/2023 01:05 Hgb 10.9 Gm/dL (Low)?? 08/10/2023 01:05 Hct 32.5 % (Low)?? 08/10/2023 01:05 MCV 92.3 femtoliters ()?? 08/10/2023 01:05 MCH 31.0 pg ()?? 08/10/2023 01:05 MCHC 33.5 g/dL ()?? 08/10/2023 01:05 Platelet Count 178 k/mm3 ()?? 08/10/2023 01:05 RDW-SD 45.5 femtoliters ()?? 08/10/2023 01:05 MPV 10.5 femtoliters ()?? 08/10/2023 01:05 Nucleated RBC (Automated) 0.0 #/100 WBC'S ()?? 08/10/2023 01:05 Abs. NRBC 0.0 k/mm3 ()?? 08/10/2023 01:05 Abs. Neut 1.2 k/mm3 (Low)?? 08/09/2023 04:02 Abs. Lymph 1.5 k/mm3 ()?? 08/09/2023 04:02 Abs. Hendry 0.7 k/mm3 ()?? 08/09/2023 04:02 Abs. Eo 0.1 k/mm3 ()?? 08/09/2023 04:02 Abs. Baso 0.0 k/mm3 ()?? 08/09/2023 04:02 Neut % 33.7 % (Low)?? 08/09/2023 04:02 Lymph % 44.0 % (High)?? 08/09/2023 04:02 Hendry % 20.0 % (High)?? 08/09/2023 04:02 Eos % 1.4 % ()?? 08/09/2023 04:02 Baso % 0.6 % ()?? 08/09/2023 04:02 Hemoglobin (POC) POC Cartridge 16.7 Gm/dL ()?? 08/07/2023 10:01 Hematocrit (POC) POC Cartridge 49 % ()?? 08/07/2023 10:01 Imm Gran 0.3 % ()?? 08/09/2023 04:02 Abs. Imm Gran 0.0 k/mm3 ()?? 08/09/2023 04:02 ?? CARDIAC CK, Total 88 units/L ()?? 08/07/2023 15:57 Nt-Probnp 161 pg/mL (High)?? 08/07/2023 10:02 High Sensitivity Troponin (HSTnT) 30 ng/L (High)?? 08/07/2023 15:57 ? CHEM GENERAL Sodium 137 mmol/L ()?? 08/10/2023 01:05 Potassium 3.8 mmol/L ()?? 08/10/2023 01:05 Chloride 101 mmol/L ()?? 08/10/2023 01:05 Bicarbonate Level 28 mmol/L ()?? 08/10/2023 01:05 Anion Gap 8 ()?? 08/10/2023 01:05 Sodium (POC) POC Cartridge 132 mmol/L (Low)?? 08/07/2023 10:01 Potassium (POC) POC Cartridge 4.3 mmol/L ()?? 08/07/2023 10:01 Chloride (POC) POC Cartridge 95 mmol/L (Low)?? 08/07/2023 10:01 Glucose Level 89 mg/dL ()?? 08/09/2023 04:02 Glucose (POC) POC Cartridge 122 (High)?? 08/07/2023 10:01 Glucose, POC 116 mg/dL (High)?? 08/07/2023 10:08 BUN 6 mg/dL ()?? 08/10/2023 01:05 BUN (POC) POC Cartridge 27 mg/dL (High)?? 08/07/2023 10:01 Creatinine-Blood 0.9 mg/dL ()?? 08/10/2023 01:05 Creatinine (POC) POC Cartridge 3.8 mg/dL (High)?? 08/07/2023 10:01 Estimated GFR Creatinine 98 ML/MIN/1.73 M2 ()?? 08/10/2023 01:05 Osmolality 281 mOs/kg ()?? 08/07/2023 10:02 Calcium 8.0 mg/dL (Low)?? 08/09/2023 04:02 Ionized Calcium (POC) POC Cartridge 1.17 mmol/L ()?? 08/07/2023 10:01 Magnesium 1.7 mg/dL ()?? 08/09/2023 04:02 Protein, Total 6.7 Gm/dL ()?? 08/07/2023 10:02 Albumin 3.9 Gm/dL ()?? 08/07/2023 10:02 Alkaline Phosphatase 161 units/L (High)?? 08/07/2023 10:02 AST (SGOT) 74 units/L (High)?? 08/07/2023 10:02 ALT (SGPT) 73 units/L (High)?? 08/07/2023 10:02 Bilirubin, Total 0.6 mg/dL ()?? 08/07/2023 10:02 Bilirubin, Direct 0.2 mg/dL ()?? 08/07/2023 10:02 Bilirubin, Indirect 0.4 mg/dL ()?? 08/07/2023 10:02 Lactate 1.6 mmol/L ()?? 08/09/2023 04:02 ? COAG INR 1.1 ()?? 08/07/2023 10:02 Protime (PT) 11.4 seconds ()?? 08/07/2023 10:02 APTT 26.2 seconds ()?? 08/07/2023 10:02 ? ENDOCRINE/TUMOR MARKER TSH 0.63 uIU/mL ()?? 08/07/2023 10:02 ? SEROLOGY INF DISEASE C.difficile Toxin Negative. C.Difficile bacterial antigen and toxin not detected. A (N)?? 08/08/2023 02:02 ? STOOL STUDIES GI PCR, Campylobacter NEGATIVE ()?? 08/08/2023 02:02 GI PCR, Plesiomonas shigelloides NEGATIVE ()?? 08/08/2023 02:02 GI PCR, Salmonella NEGATIVE ()?? 08/08/2023 02:02 GI PCR, Vibrio NEGATIVE ()?? 08/08/2023 02:02 GI PCR, Vibrio cholerae NEGATIVE ()?? 08/08/2023 02:02 GI PCR, Yersinia enterocolitica NEGATIVE ()?? 08/08/2023 02:02 GI PCR, Enteroaggregative E coli NEGATIVE ()?? 08/08/2023 02:02 GI PCR, Enteropathogenic E coli NEGATIVE ()?? 08/08/2023 02:02 GI PCR, Enterotoxigenic E coli NEGATIVE ()?? 08/08/2023 02:02 GI PCR, Ehawd-kiydf-rwqommyoo E coli NEGATIVE ()?? 08/08/2023 02:02 GI PCR, Shigella/Enteroinvasive E coli NEGATIVE ()?? 08/08/2023 02:02 GI PCR, Cryptosporidium NEGATIVE ()?? 08/08/2023 02:02 GI PCR, Cyclospora cayetanensis NEGATIVE ()?? 08/08/2023 02:02 GI PCR, Entamoeba histolytica NEGATIVE ()?? 08/08/2023 02:02 GI PCR, Giardia lamblia NEGATIVE ()?? 08/08/2023 02:02 GI PCR, Adenovirus F 40/41 NEGATIVE ()?? 08/08/2023 02:02 GI PCR, Astrovirus NEGATIVE ()?? 08/08/2023 02:02 GI PCR, Norovirus GI/GII NEGATIVE ()?? 08/08/2023 02:02 GI PCR, Rotavirus A NEGATIVE ()?? 08/08/2023 02:02 GI PCR, Sapovirus NEGATIVE ()?? 08/08/2023 02:02 ?? UA/URINALYSIS Appear/Color, Urine LIGHT YELLOW ()?? 08/07/2023 16:00 Specific Roosevelt, Urine 1.009 ()?? 08/07/2023 16:00 pH, Urine 5.5 ()?? 08/07/2023 16:00 Albumin, Urine TRACE (Abnormal)?? 08/07/2023 16:00 Glucose, Urine NEGATIVE ()?? 08/07/2023 16:00 Ketones, Urine NEGATIVE ()?? 08/07/2023 16:00 Bilirubin, Urine NEGATIVE ()?? 08/07/2023 16:00 Hemoglobin, Urine TRACE (Abnormal)?? 08/07/2023 16:00 Nitrite, Urine NEGATIVE ()?? 08/07/2023 16:00 Leukocyte, Urine NEGATIVE ()?? 08/07/2023 16:00 Urobilinogen NORMAL mg/dL ()?? 08/07/2023 16:00 WBC's, Urine 9 /HPF (High)?? 08/07/2023 16:00 RBC's, Urine 2 /HPF ()?? 08/07/2023 16:00 Squamous Epith <1 /HPF ()?? 08/07/2023 16:00 Mucus SLIGHT /LPF ()?? 08/07/2023 16:00 Hold Urine Culture Testing available 48 hours from time of collection. ()?? 08/07/2023 16:00 ?? URINE OTHER Eos, Urine <2 WBC/HPF, % EOS NOT CALCULATED % ()?? 08/09/2023 00:01 Est Creatinine Clearance 104.33 mL/min ()?? 08/10/2023 02:52 ?? VIROLOGY Influenza A PCR NEGATIVE ()?? 08/07/2023 10:00 Influenza B PCR NEGATIVE ()?? 08/07/2023 10:00 RSV PCR NEGATIVE ()?? 08/07/2023 10:00 COVID-19 PCR Specimen Source NASAL ()?? 08/07/2023 10:00 COVID-19 PCR Result NEGATIVE ()?? 08/07/2023 10:00 ? _ minutes spent on discharge * Purvi Stafford RN: PERFORM Event Display: Patient Education/Instruction Authored Date: [id number] Inpatient Adult Discharge Instructions [address] [address] Name: YOHAN CELESTE : 1970 Visit: 08/07/2023 17:36:00 Current Date: 08/10/2023 11:06 Account: [id number] Inpatient Adult Discharge Instructions We would like [...] and their families. Surveys are administered by [employer] ?? If further treatment with your primary care physician or another doctor is recommended, it is important for you to keep the appointment. Call your primary care physician or return to the Emergency Department immediately if your condition worsens, fails to improve, or new symptoms develop. If you need to find a doctor, you can call [facility] for a referral at [phone] or toll free at [phone] ([phone]) or log in to [email or web address].. ?? [facility], in keeping with [facility] guidance, no longer requires face masks [...] a health care juliano of your choosing. [employer] is a website that allows you to securely view your medical information including your hospital discharge summary, office visit summaries, medications and follow-up visits. You can also request appointments, renew medications, and request access to your medical information using a health care juliano of your choosing, or just ask a question. You can enroll at [email or web address] or register during your next office visit. You have been discharged from [facility], Patient Care Unit: S2. If you have any questions regarding these instructions after you leave, please call us and we will be happy to assist you. [facility] Your Care Team Attending Physician Caprice Bronson MD Consulting Providers Caprice Bronson MD Discharging Providers Caprice Bronson MD Reason for Admission pt is coming from home with c/o generalized weakness, hypotension , pt woke up this am with blood in stool. was going to go to urgent care , to weak to walk, pt aso with x/o headache /dizziness/nausea/diarrhea Your Diagnosis ARUNA (acute kidney injury) Hypotension Colitis Portal vein thrombosis Tests Performed Below is a partial list of the tests performed during your hospitalization. You may have had other tests and procedures not included in this list. Please discuss all test results with your provider. Basic Metabolic Panel BUN BUN POC CARTRIDGE C. difficile Rapid Toxin Assay CALCIUM IONIZED POC CART CBC CBC w/ Differential CHLORIDE POC CARTRIDGE CK,TOTAL ONLY COVID-19, RSV, and Flu A/B, Rapid PCR Creatinine CREATININE POC CARTRIDGE GI Profile, Stool, PCR GLUCOSE POC GLUCOSE POC CARTRIDGE HEMATOCRIT POC CARTRIDGE HEMOGLOBIN POC CARTRIDGE Hepatic Function Panel High??Sensitivity??Troponin T INR Lactate Level Lactic Acid Level Lytes Magnesium Level OSMOLALITY, SERUM POTASSIUM POC CARTRIDGE ProBNP PTT SODIUM POC CARTRIDGE Troponin T, High Sensitivity TSH with T4 Reflex (Adults Only) Type and Screen Urinalysis w/hold for Urine Culture Urine Eosinophils CT Angio Abdomen and Pelvis CT Head/Brain W/O Contrast XR Chest Portable Primary Care Provider Nidia Carlisle DO Advance Directive Health Care Proxy on File No Patient refuses to discuss Discharge Vitals Temperature: 98.1 DegF Height: 183 cm Pulse Rate: 77 bpm Weight: 90.4 kg Respiratory Rate: 20 br/min Body Mass Index:??26.99 kg/m2??High Systolic Blood Pressure: 125 mm Hg Body surface area: 2.14 Diastolic Blood Pressure: 71 mm Hg ?? Oxygen Saturation: 95 % ?? Studies Pending All tests and labs ordered during this hospital stay have been completed unless listed below. Please discuss all pending results with your provider listed above in these instructions. ?? Add On Lab Order Blood Culture Blood Culture #2 Lactic Acid Level (Lactate Level) What to do next Instructions From Your Doctor Discharge Orders You Need to Schedule the Following Appointments Follow Up with??Nidia Carlisle DO Where: ?? Discharge Medications YOHAN CELESTE :1970 Visit Date:08/07/2023 Medications: Please continue your medications until treatment is completed or stopped by your provider. Medications not listed below should be discontinued. Discuss any questions related to medications with your provider. What How Much When Instructions Next Dose Changed Methadone (methadone 10 mg/ 5 mL oral solution) 62.5 Milliliter Oral Daily 08/11, 9 am Unchanged amiTRIPTYLINE (amitriptyline 75 mg oral tablet) 1 tab(s) Oral Daily at Bedtime 08/10. 9 pm Unchanged Clonazepam (clonazePAM 1 mg oral tablet) 1 tab(s) Oral Twice a day as needed for Anxiety As Needed Unchanged Lisinopril (lisinopril 40 mg oral tablet) 1 tab(s) Oral Daily 08/11, 9 am Unchanged Metoprolol (Metoprolol Tartrate 50 mg oral tablet) 1 tab(s) Oral Twice a day 08/10, 9 pm Unchanged PEG Electrolyte Solution (Golytely - oral powder for reconstitution) See instructions Drink 240mL every 15 minutes until gone ?? n/a Test Results Below is a partial list of the most recent Laboratory test results done prior to this discharge. You may have had other tests and procedures not included in this list. Please discuss all test resultswith your provider. Est Creatinine Clearance - 104.33 mL/min (08/10/2023) Basic Metabolic Panel (08/09/2023) ???Sodium - 131 mmol/L???Potassium - 4.3 mmol/L???Chloride - 99 mmol/L???Bicarbonate Level - 27 mmol/L???Anion Gap - 5???Glucose Level - 89 mg/dL???BUN - 9 mg/dL???Creatinine-Blood - 1.0 mg/dL???Estimated GFR Creatinine - 92 ML/MIN/1.73 M2???Calcium - 8.0 mg/dL BUN (08/10/2023) ???BUN - 6 mg/dL BUN POC CARTRIDGE (08/07/2023) ???BUN (POC) POC Cartridge - 27 mg/dL C. difficile Rapid Toxin Assay (08/08/2023) ???C.difficile Toxin - Negative. C.Difficile bacterial antigen and toxin not detected. A CALCIUM IONIZED POC CART (08/07/2023) ???Ionized Calcium (POC) POC Cartridge - 1.17 mmol/L CBC (08/10/2023) ???WBC - 4.6 k/mm3???RBC - 3.52 m/mm3???Hgb - 10.9 Gm/dL???Hct - 32.5 %???MCV - 92.3 femtoliters???MCH - 31.0 pg???MCHC - 33.5 g/dL???Platelet Count - 178 k/mm3???RDW-SD - 45.5 femtoliters???MPV - 10.5 femtoliters???Nucleated RBC (Automated) - 0.0 #/100 WBC'S???Abs. NRBC - 0.0 k/mm3 CBC w/ Differential (08/09/2023) ???WBC - 3.5 k/mm3???RBC - 3.66 m/mm3???Hgb - 11.1 Gm/dL???Hct - 34.2 %???MCV - 93.4 femtoliters???MCH - 30.3 pg???MCHC - 32.5 g/dL???Platelet Count - 159 k/mm3???RDW-SD - 46.0 femtoliters???MPV - 10.1 femtoliters???Nucleated RBC (Automated) - 0.0 #/100 WBC'S???Abs. NRBC - 0.0 k/mm3???Abs. Neut - 1.2 k/mm3???Abs. Lymph - 1.5 k/mm3???Abs. Hendry - 0.7 k/mm3???Abs. Eo - 0.1 k/mm3???Abs. Baso - 0.0 k/mm3???Neut % - 33.7 %???Lymph % - 44.0 %???Hendry % - 20.0 %???Eos % - 1.4 %???Baso % - 0.6 %???Imm Gran - 0.3 %???Abs. Imm Gran - 0.0 k/mm3 CHLORIDE POC CARTRIDGE (08/07/2023) ???Chloride (POC) POC Cartridge - 95 mmol/L CK,TOTAL ONLY (08/07/2023) ???CK, Total - 88 units/L COVID-19, RSV, and Flu A/B, Rapid PCR (08/07/2023) ???Influenza A PCR - NEGATIVE???Influenza B PCR - NEGATIVE???RSV PCR - NEGATIVE???COVID-19 PCR Specimen Source - NASAL???COVID-19 PCR Result - NEGATIVE Creatinine (08/10/2023) ???Creatinine-Blood - 0.9 mg/dL???Estimated GFR Creatinine - 98 ML/MIN/1.73 M2 CREATININE POC CARTRIDGE (08/07/2023) ???Creatinine (POC) POC Cartridge - 3.8 mg/dL GI Profile, Stool, PCR (08/08/2023) ???GI PCR, Campylobacter - NEGATIVE???GI PCR, Plesiomonas shigelloides - NEGATIVE???GI PCR, Salmonella - NEGATIVE???GI PCR, Vibrio - NEGATIVE???GI PCR, Vibrio cholerae - NEGATIVE???GI PCR, Yersinia enterocolitica - NEGATIVE???GI PCR, Enteroaggregative E coli - NEGATIVE???GI PCR, Enteropathogenic E coli - NEGATIVE???GI PCR, Enterotoxigenic E coli - NEGATIVE???GI PCR, Rtbef-aoimr-fsmmhjdkp E coli -NEGATIVE???GI PCR, Shigella/Enteroinvasive E coli - NEGATIVE???GI PCR, Cryptosporidium - NEGATIVE???GI PCR, Cyclospora cayetanensis - NEGATIVE???GI PCR, Entamoeba histolytica - NEGATIVE???GI PCR, Giardia lamblia - NEGATIVE???GI PCR, Adenovirus F 40/41 - NEGATIVE???GI PCR, Astrovirus - NEGATIVE???GIPCR, Norovirus GI/GII - NEGATIVE???GI PCR, Rotavirus A - NEGATIVE???GI PCR, Sapovirus - NEGATIVE GLUCOSE POC (08/07/2023) ???Glucose, POC - 116 mg/dL GLUCOSE POC CARTRIDGE (08/07/2023) ???Glucose (POC) POC Cartridge - 122 HEMATOCRIT POC CARTRIDGE (08/07/2023) ???Hematocrit (POC) POC Cartridge - 49 % HEMOGLOBIN POC CARTRIDGE (08/07/2023) ???Hemoglobin (POC) POC Cartridge - 16.7 Gm/dL Hepatic Function Panel (08/07/2023) ???Protein, Total - 6.7 Gm/dL???Albumin - 3.9 Gm/dL???Alkaline Phosphatase - 161 units/L???AST (SGOT) - 74 units/L???ALT (SGPT) - 73 units/L???Bilirubin, Total - 0.6 mg/dL???Bilirubin, Direct - 0.2 mg/dL???Bilirubin, Indirect - 0.4 mg/dL High??Sensitivity??Troponin T (08/07/2023) ???High Sensitivity Troponin (HSTnT) - 35 ng/L INR (08/07/2023) ???INR - 1.1???Protime (PT) - 11.4 seconds Lactate Level (08/08/2023) ???Lactate - 2.6 mmol/L Lactic Acid Level (08/09/2023) ???Lactate - 1.6 mmol/L Lytes (08/10/2023) ???Sodium - 137 mmol/L???Potassium - 3.8 mmol/L???Chloride - 101 mmol/L???Bicarbonate Level - 28 mmol/L???Anion Gap - 8 Magnesium Level (08/09/2023) ???Magnesium - 1.7 mg/dL OSMOLALITY, SERUM (08/07/2023) ???Osmolality - 281 mOs/kg POTASSIUM POC CARTRIDGE (08/07/2023) ???Potassium (POC) POC Cartridge - 4.3 mmol/L ProBNP (08/07/2023) ???Nt-Probnp - 161 pg/mL PTT (08/07/2023) ???APTT - 26.2 seconds SODIUM POC CARTRIDGE (08/07/2023) ???Sodium (POC) POC Cartridge - 132 mmol/L Troponin T, High Sensitivity (08/07/2023) ???High Sensitivity Troponin (HSTnT) - 30 ng/L TSH with T4 Reflex (Adults Only) (08/07/2023) ???TSH - 0.63 uIU/mL Type and Screen (08/07/2023) ???Blood Type - A Positive???Antibody Screen - Negative Urinalysis w/hold for Urine Culture (08/07/2023) ???Appear/Color, Urine - LIGHT YELLOW???Specific Roosevelt, Urine - 1.009???pH, Urine - 5.5???Albumin, Urine - TRACE???Glucose, Urine - NEGATIVE???Ketones, Urine - NEGATIVE???Bilirubin, Urine - NEGATIVE???Hemoglobin, Urine - TRACE???Nitrite, Urine - NEGATIVE???Leukocyte, Urine - NEGATIVE???Urobilinogen - NORMAL? ?WBC's, Urine - 9 /HPF? ?RBC's, Urine - 2 /HPF? ?Squamous Epith - <1 /HPF? ?Mucus - SLIGHT???Hold Urine Culture - Testing available 48 hours from time of collection. Urine Eosinophils (08/09/2023) ? ?Eos, Urine - <2 WBC/HPF, % EOS NOT CALCULATED Immunizations This Visit Not Given Vaccine Commentsinfluenza virus vaccine, inactivated Patient Refuses Allergies (NKA means No Known Allergies) Tylenol with Codeine Problems Active Problems??(4) Anxiety?? Chronic back pain s/p resection of herniated disc?? HTN?? Long-term current use of methadone for opiate dependence?? Education Materials Below is the list of Educational Leaflet Providered with your Discharge Instructions. Valuables and Belongings I fully understand and agree that [facility] accepts no responsibility for all my [...] home. ?? No Valuables/Belongings: No valuables/belongings present Review of Valuable and Belonging List: With patient, With witness Date for Pt to Sign Valuables/Belongings: 08/08/23 16:22:00 ?? Other Discharge Information ? Pulmonary Rehab Status?? Pulmonary Rehab Discharge Status?? Respiratory Rate: 20 br/min ? Common Emergency Awareness Tips IS [...] are strongly encouraged to quit. Please call [facility] Link at [phone] or [phone] ([phone]) or log in to [email or web address] for referrals to smoking cessation programs. ?? 988 Suicide & Crisis Lifeline is available 25/02 if you or someone you know needs to find a reason to keep living. By calling 988 you'll be connected to a skilled, trained counselor at a crisis center in your area. INPATIENT DISCHARGE INSTRUCTIONS SIGNATURE PAGE YOHAN CELESTE Location:[facility] Registration Date and Time:08/07/2023 17:36 EST Primary Care Physician: Nidia Carlisle DO, Attending Physician: Caprice Bronson MD, I YOHAN CELESTE, have received the above patient education materials/instructions and have verbalized understanding. If ambulance or transport services are being used I further acknowledge beinggiven a choice of service. ?? If you need to contact me, please call me at this number: . Patient/[employer] Name: Patient/[employer] Signature: Relationship to Patient: Witness Name/Signature: Date: Patient Care team information Care Team Personnel Name: Wen Kennedy RN Position: [facility] RN Member Role: Primary Care Nurse Name: Gin Savage RN Position: [facility] RN Member Role: Primary Care Nurse Name: Nidia Carlisle DO Position: [facility] Physician (General Medicine) Member Role: PCP Address: Address: [address] [place] [id number] Name: Cyndy Caballero RN Position: [facility] RN Member Role: Primary Care Nurse Name: Valente Dyer RN Position: [facility] RN Member Role: Primary Care Nurse Name: FaisalKalie Ewing Attending Position: [facility] ED Medicine MD Name: Hafsa Ramos RN Position: [facility] ED RN W/OE and Tasks Member Role: Patient Care Provider Name: Zuleima Rodriguez Position: [facility] ED [facility] Member Role: Professor Of Forestry Name: Samantha Diaz Position: [facility] ED RN W/OE and Tasks Member Role: Patient Care Provider Name: Ave Santos Position: [facility] ED [facility] Member Role: Patient Care Provider Care Team Related Persons Name: GRANT ROY Address: home [address] [address] Name: AVE MORENO Address: home [address] [place] [address]
--- OUTSIDE RECORDS SUMMARY | 2024-02-13 17:54 | XMS_ITS | Continuity of Care Document ---
Author Organization [facility] Address [address] [place] [id number]- Care Team Providers Care Supply Chain Assistant Name Role Phone Nidia Carlisle DO Primary Care Physician ( [phone] Encounter [facility] Date(s): 10/10/23 - 12/06/23 [facility] [address] [place] [id number] Attending Physician: Nidia Carlisle DO Admitting Physician: Nidia Carlisle DO Referring Physician: Yao Siddiqui MD Allergies, Adverse Reactions, Alerts Substance Reaction [...] 1 Refills, Maintenance, 10/19/23 12:54:00 EDT, Tablet, [facility], Partial fill upon patient request if the prescription is for a schedule II opioid drug., 183, cm, 10/15/23 12:11:00 EDT, Hei... Start Date: 10/19/23 Status: Ordered aspirin 81 mg oral delayed release tablet 81 mg, By Mouth, Daily, # 30 tablet, Refills 1, Tot. Refills 1, Maintenance, 10/19/23 12:54:00 EDT,Route to Pharmacy Electronically, [facility], Partial fill upon [...] Maintenance, 12/01/23 13:30:00 EDT,Route to Pharmacy Electronically, [facility], Partial fill upon [...] 10/19/23 12:54:00 EDT, Route to Pharmacy Electronically, [facility], Partial fill upon patient request if [...] RN Position: [facility] RN Member Role: Primary Care Nurse Name: Deisy Baker RN Position: [facility] RN Member Role: Primary Care Nurse Name: Sofia Richey RN Position: [facility] RN Member Role: Primary Care Nurse Name: Cecy Rojas RN Position: [facility] RN Member Role: Primary Care Nurse Name: Gin Savage RN Position: [facility] RN Member Role: Primary Care Nurse Name: Abhishek Martinez RN Position: [facility] RN Member Role: Primary Care Nurse Name: Balta Driscoll RN Position: [facility] RN Member Role: Primary Care Nurse Name: Yazmin Richards LPN Position: [facility] RN Member Role: Primary Care Nurse Name: Taryn Paiz RN Position: [facility] RN Member Role: Primary Care Nurse Name: Nidia Carlisle DO Position: [facility] Physician (General Medicine) Member Role: PCP Address: Address: [address] [place] [id number] Name: Alba Carrillo (INSTR) Position: [facility] RN Member Role: Primary Care Nurse Name: Cyndy Caballero RN Position: [facility] RN Member Role: Primary Care Nurse Name: Stephanie Krishnamurthy RN Position: [facility] RN Member Role: Primary Care Nurse Name: Valente Dyer RN Position: [facility] RN Member Role: Primary Care Nurse Name: Odessa Spence RN Position: [facility] RN Member Role: Primary Care Nurse Care Team Related Persons Name: GRANT ROY Address: home [address] [address] Name: RHONDA MORENO Address: home [address] [place] [address]
--- OUTSIDE RECORDS SUMMARY | 2024-02-13 17:54 | XMS_ITS | Continuity of Care Document ---
Author Organization [facility] Address [address] [place] [id number]- Care Team Providers Care Fermentation Operator Name Role Phone Maylin Nidia GRANT Primary Care Physician Encounter [facility] Date(s): 12/28/23 - 12/28/[address] [address]- Discharge Disposition: A-D/C Home Attending Physician: Zoltan Chan MD Admitting Physician: Zoltan Chan MD Referring Physician: Not on Staff, Referring [...] 1 Refills, Maintenance, 10/19/23 12:54:00 EDT, Tablet, [facility], Partial fill upon patient request if the prescription is for a schedule II opioid drug., 183, cm, 10/15/23 12:11:00 EDT, Hei... Start Date: 10/19/23 Status: Ordered aspirin 81 mg oral delayed release tablet 81 mg, By Mouth, Daily, # 30 tablet, Refills 1, Tot. Refills 1, Maintenance, 10/19/23 12:54:00 EDT,Route to Pharmacy Electronically, [facility], Partial fill upon patient [...] Maintenance, 12/01/23 13:30:00 EDT,Route to Pharmacy Electronically, [facility], Partial fill upon patient request if the prescription is for a schedule II opioid drug., 18... Start Date: 12/01/23 Status: Ordered lidocaine 5% topical film 1 patch, Topically, Daily, remove patches after 12 hours, # 30 patch, 0 Refills, Acute 01/20/24 11:26:00 EDT, 12/20/23 11:25:00 EDT, Film, [id number], Partial fill upon patient [...] 10/19/23 12:54:00 EDT, Route to Pharmacy Electronically, [facility], Partial fill upon patient request if the prescription is for a schedule II opi... Start Date: 10/19/23 Status: Ordered Problem List Condition Confirmation Course Effective Dates Status [facility] Informant Anxiety Confirmed Active Chronic back pain s/p resection of herniated disc Confirmed Active HTN Confirmed Active Results Radiology Reports * Exam Date Time Procedure Performing Provider Status 12/28/23 8:[address] Angio Chest Ann-Marie Yung; Auth ( Verified) Notes: (CT Angio Chest) Reason For Exam: PE suspected, Intermediate prob, positive D-dimer,;Other: RESULT: CT Angio Chest EXAMINATION: CT Angio Chest INDICATION: Hx of Present Illness: I have been feeling sob, last time this happened I had fluid behind my lung and they had to drain it; Reason: Other:; PE suspected, Intermediate prob, positive D-dimer,; Clinical Question(s): Pulmonary Embolism TECHNIQUE: Spiral CTA of the chest was performed after rapid IV contrast administration without cardiac gating, triggered by an DIONNE on the main pulmonary artery. Images are formatted in multiple planes using 2-D multiplanar and 3-D maximum intensity projection. 75 cc of Omnipaque 300 was administered intravenously. Weight-based protocol using automatic tube modulation was used to optimize exposure parameters. CTDIvol Body: 7.50 mGy, DLP Body: 374 mGy*cm. COMPARISONS: 12/20/2023 ANGIOGRAPHIC FINDINGS: No pulmonary embolism to the subsegmental level. Normal caliber pulmonary arteries. No acute aortic abnormality seen on this study performed without cardiac gating. NON-ANGIOGRAPHIC FINDINGS: Entry Level Software Developer View Findings, Lines and Tubes: None. Trachea and Airways: Patent without evidence of tracheal or endobronchial lesion. Lungs and Pleura: Mild upper lobe centrilobular emphysema. Left lung base atelectasis association with a stable small left pleural effusion. No right pleural effusion. No pneumothorax. Mediastinum and geovanny: No mass or hematoma. No mediastinal or hilar lymphadenopathy. No esophageal abnormality. Inhomogeneous right thyroid lobe containing a 2.1 cm heterogeneous nodule and likely an additional smaller nodule more anteriorly. Normal left lobe and isthmus. Heart: Heart is normal in size. No pericardial effusion. Chest Wall Soft Tissues: Normal. Diaphragm and upper abdomen: The diaphragm is intact. Geographic hepatic steatosis. Mild ascites, new since 12/20/2023. Bones: No acute abnormality. IMPRESSION: No evidence of pulmonary embolism.. No acute abnormality in the chest. Stable small left pleural effusion with associated left lung base atelectasis. Mild upper lobe centrilobular emphysema. Stable abnormal right thyroid lobe containing a 2.1 cm heterogeneous nodule and likely an additional smaller nodule anteriorly. If clinically indicated, a thyroid ultrasound would provide additional information. New mild ascites. Geographic hepatic steatosis. WSN: [id number] Ordering Physician: Amada Ibarra Dictated By: Garrett Shore MD Dictated Date/Time: 12/28/23 8:37 am Reviewed By: Garrett Shore MD Signed By: Garrett Shore MD Signed Date/Time: 12/28/23 8:37 am Transcribed By: RYNE Transcribed Date/Time: 12/28/23 8:28 am Vital Signs Most recent to oldest [Reference Range]: 1 2 3 Height 183 cm (12/28/23 9:52 AM) 183 cm (12/28/23 7:21 AM) 183 cm (12/28/23 7:11 AM) Weight 68 kg (12/28/23 9:52 AM) 68 kg (12/28/23 7:21 AM) 68 kg (12/28/23 7:11 AM) Oxygen Saturation [94-100 %] 100 % (12/28/23 9:52 AM) 99 % (12/28/23 7:21 AM) 99 % (12/28/23 7:11 AM) Pulse Rate [55-90 bpm] 96 bpm *H* (12/28/23 9:52 AM) 109 bpm *H* (12/28/23 7:21 AM) 119 bpm *H* (12/28/23 7:11 AM) Body Mass Index [18.5-24.99 kg/m2] 20.31 kg/m2 (12/28/23 9:52 AM) 20.31 kg/m2 (12/28/23 7:11 AM) Blood Pressure [90-138/55-84 mm Hg] 116/88mm Hg (12/28/23 9:52 AM) 133/95mm Hg (12/28/23 7:21 AM) 115/89mm Hg (12/28/23 7:11 AM) Respiratory Rate [16-30 br/min] 11 br/min *L* (12/28/23 9:52 AM) 18 br/min (12/28/23 7:21 AM) 18 br/min (12/28/23 7:11 AM) Temperature [96.8-100.4 DegF] 98.1 DegF (12/28/23 7:21 AM) 98.4 DegF (12/28/23 7:11 AM) Mode of Delivery (Oxygen) Room air (12/28/23 9:52 AM) Room air (12/28/23 7:21 AM) Room air (12/28/23 7:11 AM) Blood pressure sites Arm, right (12/28/23 9:52 AM) Arm, left (12/28/23 7:21 AM) Arm, right (12/28/23 7:11 AM) Temperature Route Oral (12/28/23 7:21 AM) Oral (12/28/23 7:11 AM) Dry Weight 68 kg (12/28/23 9:52 AM) 68 kg (12/28/23 7:21 AM) 68 kg (12/28/23 7:11 AM) Weight Obtained Via Patient/family state d (12/28/23 7:11 AM) Dry Weight Obtained Via Patient/family s tated (12/28/23 7:11 AM) Social History Social History Type Response Smoking Status Use: 4 or less cigar ettes(less than 1/4 pack)/day in last 30 days;5-9 cigarettes (between 1/4 to 1/2 pack)/day in last 30 days; Type: Cigarettes entered on: 10/30/23 Sex EKG study * Event Display: ECG 12-Lead Authored Date: Please click on pdf link to open report * Event Display: ECG 12-Lead Authored Date: Ventricular Rate: 98 BPM Atrial Rate: 98 BPM P-R Interval: 166 ms QRS Duration: 88 ms Q-T Interval: 300 ms QTC Calculation(Bazett): 383 ms P [place]: 80 degrees R [place]: 53 degrees T [place]: 90 degrees Normal sinus rhythm Nonspecific T wave abnormality Abnormal ECG When compared with ECG of 28-DEC-2023 07:16, Nonspecific T wave abnormality has replaced inverted T waves in Inferior leads Nonspecific T wave abnormality has replaced inverted T waves in Anterolateral leads QT has shortened Confirmed by MADISON LILLY ([id number]) on 12/28/2023 11:23:30 AM Norman: MADISON LILLY * Event Display: ECG 12-Lead Authored Date: Please click on pdf link to open report * Event Display: ECG 12-Lead Authored Date: Ventricular Rate: 108 BPM Atrial Rate: 108 BPM P-R Interval: 162 ms QRS Duration: 86 ms Q-T Interval: 342 ms QTC Calculation(Bazett): 458 ms P [place]: 77 degrees R [place]: 72 degrees T [place]: 43 degrees Sinus tachycardia Biatrial enlargement ST and T wave abnormality, consider inferior ischemia ST and T wave abnormality, consider anterolateral ischemia Abnormal ECG When compared with ECG of 22-NOV-2023 07:56, Inverted T waves have replaced nonspecific T wave abnormality in Inferior leads T wave inversion now evident in Anterior leads Confirmed by OLIVER KIM MD ([id number]) on 12/28/2023 9:02:03 AM Norman: OLIVER KIM MD Patient Care team information Care Team Personnel Name: Wen Kennedy RN Position: [facility] RN Member Role: Primary Care Nurse Name: Deisy Baker RN Position: [facility] RN Member Role: Primary Care Nurse Name: Sofia Richey RN Position: [facility] RN Member Role: Primary Care Nurse Name: Cecy Rojas RN Position: [facility] RN Member Role: Primary Care Nurse Name: Gin Savage RN Position: [facility] RN Member Role: Primary Care Nurse Name: Abhishek Martinez RN Position: [facility] RN Member Role: Primary Care Nurse Name: Balta Driscoll RN Position: [facility] RN Member Role: Primary Care Nurse Name: Yazmin Richards LPN Position: [facility] RN Member Role: Primary Care Nurse Name: Nidia Carlisle DO Position: [facility] Physician (General Medicine) Member Role: PCP Address: Address: [address] [place] [id number] Name: Alba Carrillo (INSTR) Position: [facility] RN Member Role: Primary Care Nurse Name: Cyndy Caballero RN Position: [facility] RN Member Role: Primary Care Nurse Name: Stephanie Krishnamurthy RN Position: [facility] RN Member Role: Primary Care Nurse Name: Valente Dyer RN Position: [facility] RN Member Role: Primary Care Nurse Name: Odessa Spence RN Position: [facility] RN Member Role: Primary Care Nurse Care Team Related Persons Name: GRANT ROY Address: home [address] [address] Name: MARKLAZARARHONDA Address: [address] [place] [address]
--- OUTSIDE RECORDS SUMMARY | 2024-02-13 17:54 | XMS_ITS | Continuity of Care Document ---
Author Organization [facility] Address [address] [place] [address]- Care Team Providers Care C Consultant Name Role Phone Nidia Carlisle DO Primary Care Physician Encounter 10/25/23 - 11/28/23 [facility] [address] [facility], [address] [place] [address]- Attending Physician: Kingsley Ryan MD Admitting Physician: Kingsley Ryan MD Referring Physician: Kingsley Ryan MD Allergies, Adverse Reactions, Alerts Substance Reaction [...] 1 Refills, Maintenance, 10/19/23 12:54:00 EDT, Tablet, [facility], Partial fill upon patient request if the prescription is for a schedule II opioid drug., 183, cm, 10/15/23 12:11:00 EDT, Hei... Start Date: 10/19/23 Status: Ordered aspirin 81 mg oral delayed release tablet 81 mg, By Mouth, Daily, # 30 tablet, Refills 1, Tot. Refills 1, Maintenance, 10/19/23 12:54:00 EDT,Route to Pharmacy Electronically, [facility], Partial fill upon patient [...] 10/19/23 12:54:00 EDT, [facility], Partial fill upon patient request [...] 10/19/23 12:54:00 EDT, Route to Pharmacy Electronically, [facility], Partial fill upon [...] Team Personnel Name: Wen Kennedy RN Position: [facility] RN Member Role: Primary Care Nurse Name: Deisy Baker RN Position: [facility] RN Member Role: Primary Care Nurse Name: Sofia Richey RN Position: [facility] RN Member Role: Primary Care Nurse Name: Cecy Rojas RN Position: [facility] RN Member Role: Primary Care Nurse Name: Gin Savage RN Position: [facility] RN Member Role: Primary Care Nurse Name: Abhishek Martinez RN Position: [facility] RN Member Role: Primary Care Nurse Name: Balta Driscoll RN Position: [facility] RN Member Role: Primary Care Nurse Name: Yazmin Richards LPN Position: [facility] RN Member Role: Primary Care Nurse Name: Taryn Paiz RN Position: [facility] RN Member Role: Primary Care Nurse Name: Nidia Carlisle DO Position: [facility] Physician (General Medicine) Member Role: PCP Address: Address: [address] [place] [id number] Name: Alba Carrillo (INSTR) Position: [facility] RN Member Role: Primary Care Nurse Name: Cyndy Caballero RN Position: [facility] RN Member Role: Primary Care Nurse Name: Stephanie Krishnamurthy RN Position: [facility] RN Member Role: Primary Care Nurse Name: Valente Dyer RN Position: [facility] RN Member Role: Primary Care Nurse Name: Odessa Spence RN Position: [facility] RN Member Role: Primary Care Nurse Care Team Related Persons Name: GRANT ROY Address: home [address] [address] Name: RHONDA MORENO Address: [address] [place] [address]
--- OUTSIDE RECORDS SUMMARY | 2024-02-13 17:54 | XMS_ITS | Continuity of Care Document ---
Author Organization [facility] Address [address] [place] [address]- Care Team Providers Care Piston Maker Name Role Phone Arik HELM, Ovidio Adrian Primary Care Physician [place] [facility] [place]22 - 06/21/22 [facility] [address] [place] [address]- [place] Allergies, Adverse Reactions, Alerts Substance Reaction Severity [...] Care team information Care Team Personnel Name: Cyndy Caballero RN Position: S RN Member Role: Primary Care Nurse Name: Arik HELM, Ovidio Adrian Position: [facility] Physician (General Medicine) Member Role: PCP Address: Address: [address] [place] [address], [address] [facility] [place] [id number]- Care Team Related Persons Name: GRANT ROY Address: home [address] [address] Name: RHONDA MORENO Address: home [address] [place] [address]
--- OUTSIDE RECORDS SUMMARY | 2024-02-13 17:54 | XMS_ITS | Continuity of Care Document ---
Author Organization [facility] Address [address] [place] [address]- Care Team Providers Care Farmworker Chicken [employer] Name Role Phone Nidia Carlisle DO Primary Care Physician [place] [facility] [place]23 [place] 01/01/24 [facility] [address] [place] [id number] Attending Physician: Rosenda Ríos Admitting Physician: Rosenda Ríos Referring Physician: trRosenda Referring Physician: Renu Gunn NP Allergies, Adverse [...] 1 Refills, Maintenance, 10/19/23 12:54:00 EDT, Tablet, [facility], Partial fill upon patient request if the prescription is for a schedule II opioid drug., 183, cm, 10/15/23 12:11:00 EDT, Hei... Start Date: 10/19/23 Status: Ordered aspirin 81 mg oral delayed release tablet 81 mg, By Mouth, Daily, # 30 tablet, Refills 1, Tot. Refills 1, Maintenance, 10/19/23 12:54:00 EDT,Route to Pharmacy Electronically, [facility], Partial fill upon patient [...] Maintenance, 12/01/23 13:30:00 EDT,Route to Pharmacy Electronically, [facility], Partial fill upon patient request if the prescription is for a schedule II opioid drug., 18... Start Date: 12/01/23 Status: Ordered lidocaine 5% topical film 1 patch, Topically, Daily, remove patches after 12 hours, # 30 patch, 0 Refills, Acute 01/20/24 11:26:00 EDT, 12/20/23 11:25:00 EDT, Film, [facility]/pharmacy #[id number], Partial fill upon [...] 10/19/23 12:54:00 EDT, Route to Pharmacy Electronically, [facility], Partial fill upon patient [...] (General Medicine) Member Role: PCP Address: Address: [address] [place] [id number] Name: Alba Carrillo (INSTR) Position: SEARCY [...] Persons Name: GRANT ROY Address: home [address] [address] Name: RHONDA MORENO Address: home [address] [place] [address]
--- OUTSIDE RECORDS SUMMARY | 2024-02-13 17:54 | XMS_ITS | Continuity of Care Document ---
Author Organization [facility] Address [address] [place] [address] [address] [place] [address]- Care Team Providers Care Welding Rod Coater Name Role Phone Nidia Carlisle DO Primary Care Physician Encounter [facility] [place] Date(s): 11/08/23 - 12/08/[address] [place], [place] [address] Attending Physician: Admasael, Rosenda Admitting Physician: AdmtrJulio C8 Referring Physician: Admtr, Ar8 Allergies, Adverse Reactions, Alerts Substance Reaction Severity [...] 1 Refills, Maintenance, 10/19/23 12:54:00 EDT, Tablet, [facility], Partial fill upon patient request if the prescription is for a schedule II opioid drug., 183, cm, 10/15/23 12:11:00 EDT, Hei... Start Date: 10/19/23 Status: Ordered aspirin 81 mg oral delayed release tablet 81 mg, By Mouth, Daily, # 30 tablet, Refills 1, Tot. Refills 1, Maintenance, 10/19/23 12:54:00 EDT,Route to Pharmacy Electronically, [facility], Partial fill upon patient [...] Maintenance, 12/01/23 13:30:00 EDT,Route to Pharmacy Electronically, [facility], Partial fill upon patient [...] 10/19/23 12:54:00 EDT, Route to Pharmacy Electronically, [facility], Partial fill upon patient request [...] last 30 days; Type: Cigarettes entered on: 3/27/24 Sex Patient Care team information Care Team Personnel Name: Wen Kennedy RN Position: [facility] RN Member Role: Primary Care Nurse Name: Deisy Baker RN Position: [facility] RN Member Role: Primary Care Nurse Name: Sofia Richey RN Position: [facility] RN Member Role: Primary Care Nurse Name: Cecy Rojas RN Position: [facility] RN Member Role: Primary Care Nurse Name: Gin Savage RN Position: [facility] RN Member Role: Primary Care Nurse Name: Abhishek Martinez RN Position: [facility] RN Member Role: Primary Care Nurse Name: Balta Driscoll RN Position: [facility] RN Member Role: Primary Care Nurse Name: Yazmin Richards LPN Position: [facility] RN Member Role: Primary Care Nurse Name: Taryn Paiz RN Position: [facility] RN Member Role: Primary Care Nurse Name: Nidia Carlisle DO Position: [facility] Physician (General Medicine) Member Role: PCP Address: Address: [address] [place] [id number] Name: Alba Carrillo (INSTR) Position: [facility] RN Member Role: Primary Care Nurse Name: Cyndy Caballero RN Position: [facility] RN Member Role: Primary Care Nurse Name: Stephanie Krishnamurthy RN Position: [facility] RN Member Role: Primary Care Nurse Name: Valente Dyer RN Position: [facility] RN Member Role: Primary Care Nurse Name: Odessa Spence RN Position: [facility] RN Member Role: Primary Care Nurse Care Team Related Persons Name: GRANT ROY Address: home [address] [address] Name: RHONDA MORENO Address: [address] [place] [address]
--- OUTSIDE RECORDS SUMMARY | 2024-02-13 17:54 | XMS_ITS | Continuity of Care Document ---
Author Organization [facility] Address [address] [place] [id number]- Care Team Providers Care Line Fixer Name Role Phone Maylin Nidia GRANT Primary Care Physician Encounter [facility] [place] Date(s): 12/20/23 - 12/20/[address] [address]- Discharge Disposition: A-D/C AMA Attending Physician: Chio Espinal MD Admitting Physician: Chio Espinal MD Referring Physician: Not on Staff, Referring MD Allergies, Adverse Reactions, Alerts Substance Reaction Severity Status codeine Active Immunizations Given and Recorded Vaccine Date Status Refusal Reason tetanus/diphtheria/pertussis, acel(Tdap) 05/13/19 Given Medications acetaminophen 325 mg oral tablet 975 mg, Tablet, By Mouth, Once, STAT, 12/20/23 8:02:00 EDT, Stop date 12/20/23 8:02:00 EDT Start Date: 12/20/23 Stop Date: 12/20/23 Status: Completed amitriptyline 75 mg oral tablet 1 tablet = 75 mg, By Mouth, Daily at bedtime, # 90 tablet, 0 Refills, Maintenance, 05/14/19 10:48:35 EDT, Tablet Start Date: 05/14/19 Status: Ordered apixaban Starter Pack 5 mg oral tablet = 5 mg, By Mouth, 2 times a day, # 60 tablet, 1 Refills, Maintenance, 10/19/23 12:54:00 EDT, Tablet, [facility], Partial fill upon patient request if the prescription is for a schedule II opioid drug., 183, cm, 10/15/23 12:11:00 EDT, Hei... Start Date: 10/19/23 Status: Ordered aspirin 81 mg oral delayed release tablet 81 mg, By Mouth, Daily, # 30 tablet, Refills 1, Tot. Refills 1, Maintenance, 10/19/23 12:54:00 EDT,Route to Pharmacy Electronically, [facility], Partial fill upon patient request if the prescription is for a schedule II opioid drug., 18... Start Date: 10/19/23 Status: Ordered clonazePAM 1 mg oral tablet 1 tablet = 1 mg, By Mouth, 2 times a day, PRN Anxiety, 0 Refills, Maintenance, 05/14/19 10:47:58 EDT, Tablet Start Date: 05/14/19 Status: Ordered gabapentin 100 mg oral capsule 100 mg, Capsule, By Mouth, Once, STAT, 12/20/23 8:02:00 EDT, Stop date 12/20/23 8:02:00 EDT Start Date: 12/20/23 Stop Date: 12/20/23 Status: Completed Lasix 40 mg oral tablet 40 mg, By Mouth, Daily, # 30 tablet, Refills 0, Tot. Refills 0, Maintenance, 12/01/23 13:30:00 EDT,Route to Pharmacy Electronically, [facility], Partial fill upon patient request if the prescription is for a schedule II opioid drug., 18... Start Date: 12/01/23 Status: Ordered lidocaine 5% topical film 1 patch, Topically, Daily, remove patches after 12 hours, # 30 patch, 0 Refills, Acute 01/20/24 11:26:00 EDT, 12/20/23 11:25:00 EDT, Film, [facility]/pharmacy #[id number], Partial fill upon patient request [...] 10/19/23 12:54:00 EDT, Route to Pharmacy Electronically, [facility], Partial fill upon patient request if the prescription is for a schedule II opi... Start Date: 10/19/23 Status: Ordered Problem List Condition Confirmation Course Effective Dates Status Health St atus Informant Anxiety Confirmed Active Chronic back pain s/p resection of herniated disc Confirmed Active HTN Confirmed Active Results Radiology Reports * Exam Date Time Procedure Performing Provider Status 12/20/23 8:[address] Abd/Pelvis W/ IV Contrast Only Yun Chirstensen; Kera (Verified) Notes: (CT Abd/Pelvis W/ IV Contrast Only) Reason For Exam: Abdominal trauma, blunt;Other: RESULT: CT Abd/Pelvis W/ IV Contrast Only CT Chest W/ Contrast, CT Abd/Pelvis W/ IV Contrast Only INDICATION: Hx of Present Illness: right side rib pain since Saturday.. reports seizure and fall on Saturday and having pain since. Reports 9 10 right side rib pain. Taking ibuprofen at home with no relief.; Reason: Other:; Trauma; Clinical Question(s): Other:; Rib fractures TECHNIQUE: Helical CT scan of the chest, abdomen, and pelvis with IV contrast, formatted in 3 planes. The original dataset was reconstructed with a small field of view around the thoracic and lumbar spine utilizing soft tissue and bone algorithm reconstructions in 3 planes. 100 cc of Omnipaque 300 was administered intravenously. This study was performed without oral contrast. Weight-based protocol was performed using automatic exposure control. CTDIvol Body: 8.73 mGy, DLP Body: 672 mGy*cm. COMPARISON: None. FINDINGS: Primer Assembler view findings, lines and tubes: None. Trachea and airways: Patent without evidence of tracheal or endobronchial lesion. Lungs and pleura: Small left pleural effusion and associated atelectasis. Area of scarring within the lingula, right middle lobe, and and left lower lobe Mediastinum and geovanny: No mass or hematoma. No mediastinal or hilar lymphadenopathy. No esophageal abnormality. 2.4 x 1.7 cm area of calcification with a rim of low attenuation within the right thyroid lobe. Heart: Heart is normal in size. No pericardial effusion. Aorta: No aortic aneurysm. Pulmonary arteries: Normal caliber. No evidence of pulmonary embolism on this study performed without angiographic technique. Chest wall soft tissues: No acute abnormality. Diaphragm: Intact. Liver: As on the prior examination is low attenuation area within the right hepatic lobe consistentwith prior infarct. There are geographic areas of fatty infiltration. Gallbladder: Gallbladder sludge. Bile ducts: No biliary ductal dilation. 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 Pancreas: The previously seen pseudocyst within the pancreatic body measuring 7.3 x 5 cm now measures 5.3 x 3.8 cm. Adrenal glands: No nodule. Kidneys and ureters: No hydronephrosis, or suspicious lesion. There is a nonobstructive stone within the midpole of the right kidney. Bladder: No wall thickening or surrounding stranding. Reproductive organs: Unremarkable. Stomach, small bowel, and large bowel: There is circumferential wall thickening within the distal transverse, descending, sigmoid colon and mucosal enhancement extending to the rectum. Appendix: Not seen, but no evidence of acute appendicitis. Peritoneum and retroperitoneum: No ascites or pneumoperitoneum. No omental or mesenteric lesions. Lymph nodes: No small lymph nodes within the ramón hepatic region. Blood vessels: Calcific atherosclerotic disease of the abdominal aorta without aneurysmal dilatation. No evidence of venous thrombosis. Abdominal and pelvic wall soft tissues: No acute abnormality. Bones: No acute abnormality. IMPRESSION: Small left pleural effusion with associated atelectasis. 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 WSN: [id number] Ordering Physician: Pallavi Graves Dictated By: Sofia Fernandez MD Dictated Date/Time: 12/20/23 10:30 a Reviewed By: Sofia Fernandez MD Signed By: Sofia Fernandez MD Signed Date/Time: 12/20/23 10:30 am Transcribed By: RYNE Transcribed Date/Time: 12/20/23 10:03 am * Exam Date Time Procedure Performing Provider Status 12/20/23 8:[address] Chest W/ Contrast Yun Sprague ; Auth (Verified) Notes: (CT Chest W/ Contrast) Reason For Exam: Trauma;Other: RESULT: CT Chest W/ Contrast CT Chest W/ Contrast, CT Abd/Pelvis W/ IV Contrast Only INDICATION: Hx of Present Illness: right side rib pain since Saturday.. reports seizure and fall on Saturday and having pain since. Reports 9 10 right side rib pain. Taking ibuprofen at home with no relief.; Reason: Other:; Trauma; Clinical Question(s): Other:; Rib fractures TECHNIQUE: Helical CT scan of the chest, abdomen, and pelvis with IV contrast, formatted in 3 planes. The original dataset was reconstructed with a small field of view around the thoracic and lumbar spine utilizing soft tissue and bone algorithm reconstructions in 3 planes. 100 cc of Omnipaque 300 was administered intravenously. This study was performed without oral contrast. Weight-based protocol was performed using automatic exposure control. CTDIvol Body: 8.73 mGy, DLP Body: 672 mGy*cm. COMPARISON: None. FINDINGS: Primer Assembler view findings, lines and tubes: None. Trachea and airways: Patent without evidence of tracheal or endobronchial lesion. Lungs and pleura: Small left pleural effusion and associated atelectasis. Area of scarring within the lingula, right middle lobe, and and left lower lobe Mediastinum and geovanny: No mass or hematoma. No mediastinal or hilar lymphadenopathy. No esophageal abnormality. 2.4 x 1.7 cm area of calcification with a rim of low attenuation within the right thyroid lobe. Heart: Heart is normal in size. No pericardial effusion. Aorta: No aortic aneurysm. Pulmonary arteries: Normal caliber. No evidence of pulmonary embolism on this study performed without angiographic technique. Chest wall soft tissues: No acute abnormality. Diaphragm: Intact. Liver: As on the prior examination is low attenuation area within the right hepatic lobe consistentwith prior infarct. There are geographic areas of fatty infiltration. Gallbladder: Gallbladder sludge. Bile ducts: No biliary ductal dilation. 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 Pancreas: The previously seen pseudocyst within the pancreatic body measuring 7.3 x 5 cm now measures 5.3 x 3.8 cm. Adrenal glands: No nodule. Kidneys and ureters: No hydronephrosis, or suspicious lesion. There is a nonobstructive stone within the midpole of the right kidney. Bladder: No wall thickening or surrounding stranding. Reproductive organs: Unremarkable. Stomach, small bowel, and large bowel: There is circumferential wall thickening within the distal transverse, descending, sigmoid colon and mucosal enhancement extending to the rectum. Appendix: Not seen, but no evidence of acute appendicitis. Peritoneum and retroperitoneum: No ascites or pneumoperitoneum. No omental or mesenteric lesions. Lymph nodes: No small lymph nodes within the ramón hepatic region. Blood vessels: Calcific atherosclerotic disease of the abdominal aorta without aneurysmal dilatation. No evidence of venous thrombosis. Abdominal and pelvic wall soft tissues: No acute abnormality. Bones: No acute abnormality. IMPRESSION: Small left pleural effusion with associated atelectasis. 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 WSN: [id number] Ordering Physician: Pallavi Graves Dictated By: Sofia Fernandez MD Dictated Date/Time: 12/20/23 10:30 a Reviewed By: Sofia Fernandez MD Signed By: Sofia Fernandez MD Signed Date/Time: 12/20/23 10:30 am Transcribed By: RYNE Transcribed Date/Time: 12/20/23 10:03 am * Exam Date Time Procedure Performing Provider Status 12/20/23 8:[address] Head/Brain W/O Contrast Yun Sprague; Auth (Verified) Notes: (CT Head/Brain W/O Contrast) Reason For Exam: Trauma RESULT: CT Head/Brain W/O Contrast CT Head/Brain W/O Contrast INDICATION: Hx of Present Illness: right side rib pain since Saturday.. reports seizure and fall on Saturday and having pain since. Reports 9 10 right side rib pain. Taking ibuprofen at [place] with no relief.; Reason: Trauma; Clinical Question(s): Hematoma; Order Comment: TECHNIQUE: Noncontrast head CT using axial technique and reconstructed in axial and coronal planes.Iterative reconstruction techniques are used to optimize dose and image quality. CTDIvol Head: 42.61 mGy, DLP Head: 682 mGy*cm. COMPARISON: 08/07/2023. FINDINGS: Primer Assembler view findings, lines and tubes: None. BRAIN AND EXTRA-AXIAL SPACES: No parenchymal hemorrhage, midline shift, or mass effect. Rouse-white matter differentiation is wellpreserved. No acute infarct. Ventricles, sulci, and basilar cisterns are normal. Mild low-density white matter changes. No subarachnoid hemorrhage. No subdural or epidural collection. CALVARIUM, SKULL BASE, AND SOFT TISSUES: No fractures or suspicious bony lesions. The paranasal sinuses and mastoid air cells are clear. Visualized orbits and globes are intact. The extracranial soft tissues are unremarkable. IMPRESSION: No acute intracranial pathology. WSN: [id number] Ordering Physician: Pallavi Graves Dictated By: Sofia Fernandez MD Dictated Date/Time: 12/20/23 9:02 am Reviewed By: Sofia Fernandez MD Signed By: Sofia Fernandez MD Signed Date/Time: 12/20/23 9:02 am Transcribed By: RYNE Transcribed Date/Time: 12/20/23 9:00 am * Exam Date Time Procedure Performing Provider Status 12/20/23 7:24 AM Chest 2 Views Frontal and Lat Kimmie Brizuela; Auth (Verified) Notes: (Chest 2 Views Frontal and Lat) Reason For Exam: Cough RESULT: Chest 2 Views Frontal and Lat Examination: Chest performed on 12/20/2023. History: Right rib pain. Findings: Frontal and lateral views of the chest are compared to a prior study dated 11/30/2023. The cardiac and mediastinal silhouettes are within normal limits. Minimal left basilar atelectasis is seen. The left pleural effusion has resolved. The osseous and soft tissue structures are unremarkable. Impression: Resolved left pleural effusion. WSN: [id number] Ordering Physician: Rosi Real Dictated By: Deisy Rand MD Dictated Date/Time: 12/20/23 7:55 am Reviewed By: Deisy Rand MD Signed By: Deisy Rand MD Signed Date/Time: 12/20/23 7:55 am Transcribed By: RYNE Transcribed Date/Time: 12/20/23 7:54 am Vital Signs Most recent to oldest [Reference Range]: 1 2 3 Oxygen Saturation [94-100 %] 100 % (12/20/23 6:36 AM) 100 % (12/20/23 6:32 AM) Pulse Rate [55-90 bpm] 87 bpm (12/20/23 6:36 AM) 91 bpm *H* (12/20/23 6:32 AM) Blood Pressure [90-138/55-84 mm Hg] 118/81mm Hg (12/20/23 6:36 AM) Respiratory Rate [16-30 br/min] 16 br/min (12/20/23 9:14 AM) 16 br/min (12/20/23 9:14 AM) 16 br/min (12/20/23 8:14 AM) Temperature [96.8-100.4 DegF] 98.1 DegF (12/20/23 6:36 AM) Mode of Delivery (Oxygen) Room air (12/20/23 6:36 AM) Room air (12/20/23 6:32 AM) Blood pressure sites Arm, left (12/20/23 6:36 AM) Temperature Route Oral (12/20/23 6:36 AM) Dry Weight 66.9 kg (12/20/23 12:38 PM) 66.9 kg (12/20/23 6:36 AM) Weight Obtained Via Standing scale (12/20/23 6:36 AM) Dry Weight Obtained Via Standing scale (12/20/23 6:36 AM) Social History Social History Type Response Smoking Status Use: 4 or less cigar ettes(less than 1/4 pack)/day in last 30 days;5-9 cigarettes (between 1/4 to 1/2 pack)/day in last 30 days; Type: Cigarettes entered on: 10/30/23 Sex Note * Pallavi Graves NP: PERFORM, SIGN, VERIFY Event Display: Patient Education Handout Authored Date: Patient Care team information Care Team Personnel Name: Wen Kennedy RN Position: [facility] RN Member Role: Primary Care Nurse Name: Deisy Baker RN Position: [facility] RN Member Role: Primary Care Nurse Name: Sofia Richey RN Position: [facility] RN Member Role: Primary Care Nurse Name: Cecy Rojas RN Position: S RN Member Role: Primary Care Nurse Name: Gin Savage RN Position: S RN Member Role: Primary Care Nurse Name: Abhishek Martinez RN Position: S RN Member Role: Primary Care Nurse Name: Balta Driscoll RN Position: S RN Member Role: Primary Care Nurse Name: Yazmin Richards LPN Position: [facility] RN Member Role: Primary Care Nurse Name: Nidia Carlisle DO Position: [facility] Physician (General Medicine) Member Role: PCP Address: Address: [address] [place] [id number]- Name: Gerardo KELLEY) Alba Position: [facility] RN Member Role: Primary Care Nurse Name: Cyndy Caballero RN Position: [facility] RN Member Role: Primary Care Nurse Name: Stephanie Krishnamurthy RN Position: [facility] RN Member Role: Primary Care Nurse Name: Valente Dyer RN Position: [facility] RN Member Role: Primary Care Nurse Name: Odessa Spence RN Position: [facility] RN Member Role: Primary Care Nurse Care Team Related Persons Name: GRANT ROY Address: [address] [address] Name: RHONDA MORENO Address: [address] [place] [address]
--- OUTSIDE RECORDS SUMMARY | 2024-02-13 17:54 | XMS_ITS | Continuity of Care Document ---
Author Organization [facility] As [facility] Address [address] [place] [address] [address] [place] [address]- Care Team Providers Care Head Machinist Name Role Phone Nidia Carlisle DO Primary Care Physician [place] [facility] [place]28/23 - 11/27/[address] [place], [place] [address] Allergies, Adverse Reactions, Alerts Substance Reaction [...] Pharmacy Electronically, [facility], Partial fill upon patient [...] Pharmacy Electronically, [facility], Partial fill upon patient request if [...] Team Personnel Name: Wen Kennedy RN Position: [facility] RN Member Role: Primary Care Nurse Name: Deisy Baker RN Position: [facility] RN Member Role: Primary Care Nurse Name: Sofia Richey RN Position: [facility] RN Member Role: Primary Care Nurse Name: Cecy Rojas RN Position: [facility] RN Member Role: Primary Care Nurse Name: Gin Savage RN Position: [facility] RN Member Role: Primary Care Nurse Name: Abhishek Martinez RN Position: [facility] RN Member Role: Primary Care Nurse Name: Balta Driscoll RN Position: [facility] RN Member Role: Primary Care Nurse Name: Yazmin Richards LPN Position: [facility] RN Member Role: Primary Care Nurse Name: Taryn Paiz RN Position: [facility] RN Member Role: Primary Care Nurse Name: Nidia Carlisle DO Position: [facility] Physician (General Medicine) Member Role: PCP Address: Address: [address] [place] [address] [address] Name: lAba Carrillo (INSTR) Position: [facility] RN Member Role: Primary Care Nurse Name: Cyndy Caballero RN Position: [facility] RN Member Role: Primary Care Nurse Name: Stephanie Krishnamurthy RN Position: [facility] RN Member Role: Primary Care Nurse Name: Valente Dyer RN Position: [facility] RN Member Role: Primary Care Nurse Name: Odessa Spence RN Position: [facility] RN Member Role: Primary Care Nurse Care Team Related Persons Name: GRANT ROY Address: home [address] [address] Name: RHONDA MORENO Address: home [address] [place] [address]
[2024-02-13 18:51] VITALS: BP 128/68; PULSE 106; RESP 22; TEMP 36.8; O2SAT 100
--- NOTE | 2024-02-13 18:58 | PC.ADMIT ---
Pt. is a CV from [facility] s/p suicide attempt via med OD. This is the 2nd recorded attempt, both by OD, for this pt. Pt. was restrained in [facility] ED (4-point) secondary to agitation, likely in connection with encephalopathy. Pt. admitted to [facility] Medical Floor for tx of encephalopathy. RN at [facility] states he has been in behavioral control and was pleasant during his stay. Pt. does not admit to suicide attempt and denies understanding why he is here- states this place gives him a weird bad feeling . Pt. also insists that he has never been restrained- unclear if this is a falsehood or if pt. does not remember while being encephalopathic. Pt. is overall flat and calm, but frustrates quickly and becomes terse in speech. Refuses to endorse anything on the safety tool. Pt. skin has many small scabs, but no open wounds. Pt. is currently anticoag'ed on . Pt. shown to room and is relaxing in bed at this time.
[2024-02-14 02:23] VITALS: BP 137/88; PULSE 94
[2024-02-14 08:00] VITALS: BP 115/77; PULSE 127; RESP 16; TEMP 36.4; O2SAT 99
[2024-02-14 09:38] LABS: Estimated Average Glucose 85 mg/dL; Hemoglobin A1c % 4.6 % (<6.0)
[2024-02-14 09:41] LABS: Alanine Aminotransferase 28 U/L (0-40); Albumin Level 2.8 g/dL (3.5-5.0); Alkaline Phosphatase 151 U/L (39-117); Anion Gap 11 (12-20); Aspartate Amino Transferase 19 U/L (5-37); Bilirubin Total 0.2 mg/dL (0.0-1.0); Blood Urea Nitrogen 8 mg/dL (9-16); Calcium 8.7 mg/dL (8.4-10.2); Carbon Dioxide 26 mmol/L (22-29); Chloride 105 mmol/L (96-108); Cholesterol 140 mg/dL (<200); Creatinine Clr Calc Pharmacy 132.7; Estimated Glomerular Filt Rate > 60; Glucose Fasting 94 mg/dL (60-99); HDL Cholesterol 48 mg/dL (>40); LDL Cholesterol Calculated 79 mg/dL (<100); Potassium 4.6 mmol/L (3.3-5.1); Sodium 137 mmol/L (135-145); Total Protein 5.8 g/dL (6.5-8.0); Triglycerides 66 mg/dL (<150)
[2024-02-14 09:55] VITALS: BP 155/77
[2024-02-14] MEDS: Furosemide 40 MG TABLET PO (09:55)
[2024-02-14] MEDS: Potassium Chloride ER 10 MEQ TABLET.ER PO (09:55)
[2024-02-14] MEDS: Valsartan 80 MG TABLET PO ×2 (09:55→21:56)
[2024-02-14] MEDS: Tamsulosin HCL 0.4 MG CAPSULE PO (09:55)
[2024-02-14] MEDS: carvediloL 12.5 MG TABLET PO ×2 (09:55→21:52)
[2024-02-14] MEDS: Apixaban 5 MG TABLET PO ×2 (09:56→21:55)
[2024-02-14] MEDS: Spironolactone 25 MG TABLET PO (09:56)
--- NOTE | 2024-02-14 10:39 | P.HPPS_ITS ---
HPI Date of Service: 02/14/24 Chief Complaint: Depression Sources of Information: patient interviewed, chart reviewed and crisis/core team assessment reviewed HPI Subjective Notes: Hartley Warning and Conditional Voluntary Narrative: pt seen at 4pm pt is a 53 yo male with hx depression, opioid dependence on methadone,?portal?vein?thrombosis,?on?Eliquis who presents following suicide attempt by overdose in face of depression and psychosocial stressors. He was brought to hospital with encephalopathy, now medically cleared; Patient?does?not?remember?all?that?much?from?when?he?was?brought?to?the?emergenc y?room,? says?it?is?not?clear?to?me.Patient is a reluctant historian, somewhat guarded;?speech?is?latent. Patient?is?vague?but?he?says?he?was?depressed?because?his?father??14?days?ag o.??On?further?inquiry?he?said?his?father? c ommitted?suicide?a?year?ago?by?overdose?and?that?the?anniversary?of?his??wa s?14?days?ago.??Patient?said now?I look at D oing?the?same?thing... He?says?he?intentionally?tried?to?overdose?with?pills.??H e?denies?this?was?planned?and?says?it?was?impulsive. P atient?said?that?when?he?realized?it?did?not?work?and?he?was?alive?he?felt?jippe d;?however?now?he?says?he?feels?regretful?and? d oes?not?want?to?be?.??Patient?also?cites?other?stressors,Saying?he?broke?up? with?his?girlfriend?and is?now?homeless. ?Patient?takes?amitriptyline?consistently?for?sleep.??Denies?AVH;?reports?histor y?of?depression?but?moderate;?denies?history?of?domingo. D enies?alcohol?or?drug?abuse;?says?he?has?been?sober?from?opiates?and?cocaine.??D enies?history?of?trauma.? Past Psychiatric History: denies hx of psych admissions Medical Evaluation Reviewed: Hospitalist Braulio [facility] Medical History (Updated 02/15/24 @ 22:34 by Cedrick Panda MD) Generalized anxiety disorder MDD (major depressive disorder) Opioid use disorder Mesenteric ischemia Portal vein thrombosis Family History: father committed suicide about 1 year ago (or 2 weeks ago)? Social History: recently broke up with partner and now homeless Substance History: janicepaul; says no longer uses cocaine/heroin Trauma History: denies Diagnostics Vital Signs (24Hr): Vital Signs - 24 hr 02/13/24 18:51 02/14/24 02:23 02/14/24 08:00 Temperature 98.2 F 97.5 F Pulse Rate 106 H 94 127 H Respiratory Rate 22 H 16 Blood Pressure 128/68 137/88 115/77 Pulse Oximetry 100 99 Oxygen Delivery Method Room Air Room Air 02/14/24 09:55 Temperature Pulse Rate Respiratory Rate Blood Pressure 155/77 H Pulse Oximetry Oxygen Delivery Method BMI result Body Mass Index 20.0 Labs 02/14/24 08:49 Labs: Laboratory Results - last 48 hr 02/14/24 08:49 Sodium 137 Potassium 4.6 Chloride 105 Carbon Dioxide 26 Anion Gap 11 L BUN 8 L Creatinine 0.61 Estim Creat Clear Calc 132.7 Estimated GFR > 60 Fasting Glucose 94 Estimat Average Glucose 85 Hemoglobin A1c % 4.6 Calcium 8.7 Total Bilirubin 0.2 AST 19 ALT 28 Alkaline Phosphatase 151 H Total Protein 5.8 L Albumin 2.8 L Triglycerides 66 Cholesterol 140 LDL Cholesterol, Calc 79 HDL Cholesterol 48 Meds/Allergies Meds Home Medications ?Medication ?Instructions ?Recorded ?Confirmed ?Type acetaminophen 325 mg tablet 325 mg PO BID 02/13/24 02/13/24 History amitriptyline 75 mg tablet 75 mg PO BEDTIME 02/13/24 02/13/24 History apixaban 5 mg tablet (Eliquis) 5 mg PO BID 02/13/24 02/13/24 History carvedilol 12.5 mg tablet 12.5 mg PO BID 02/13/24 02/13/24 History dapagliflozin propanediol 10 mg 10 mg PO DAILY 02/13/24 02/13/24 History tablet (Farxiga) furosemide 40 mg tablet 40 mg PO DAILY 02/13/24 02/13/24 History loratadine 10 mg tablet 10 mg PO BEDTIME 02/13/24 02/13/24 History potassium chloride 10 mEq 10 meq PO DAILY 02/13/24 02/13/24 History tablet,extended release spironolactone 25 mg tablet 25 mg PO DAILY 02/13/24 02/13/24 History tamsulosin 0.4 mg capsule 0.4 mg PO DAILY 02/13/24 02/13/24 History valsartan 80 mg tablet 80 mg PO BID 02/13/24 02/13/24 History Allergies Allergies Allergy/AdvReac Type Severity Reaction Status Date / Time No Known Allergies Allergy Verified 02/13/24 21:11 Mental Status Exam Mental Status Exam Narrative: Pt is alert and oriented; behavior is guarded; hesitant but not uncooperative; calm; patient is not in distress; dressed in hospital attire, Cachectic, unkempt; mood is described as depressed and affect congruent; eye contact appropriate; Speech latent, slowed, softer; psychomotor retardation present; thought process is goal directed; Thought content is on fathers ; no delusional content expressed; denies any SI/HI. Thought blocking and speech latency, but denies AVH. Patients insight and judgment impaired. Assessment & Plan Assessment & Plan (1) MDD (major depressive disorder): Status: Acute Code(s): F32.9 - Major depressive disorder, single episode, unspecified (2) Opioid use disorder: Status: Acute Code(s): F11.90 - Opioid use, unspecified, uncomplicated (3) Hypertension: Status: Acute Code(s): I10 - Essential (primary) hypertension (4) Portal vein thrombosis: Status: Acute Code(s): I81 - Portal vein thrombosis Plan pt is a 53 yo male with hx depression, opioid dependence on methadone,?portal?vein?thrombosis,?on?Eliquis who presents following suicide attempt by overdose in face of depression and psychosocial stressors. He was brought to hospital with encephalopathy, now medically cleared; Patient?does?not?remember?all?that?much?from?when?he?was?brought?to?the?emergenc y?room,? says?it?is?not?clear?to?me.Patient is a reluctant historian, somewhat guarded;?speech?is?latent. Patient?is?vague?but?he?says?he?was?depressed?because?his?father??14?days?ag o.??On?further?inquiry?he?said?his?father? c ommitted?suicide?a?year?ago?by?overdose?and?that?the?anniversary?of?his??wa s?14?days?ago.??Patient?said now?I look at D oing?the?same?thing... He?says?he?intentionally?tried?to?overdose?with?pills.??H e?denies?this?was?planned?and?says?it?was?impulsive. P atient?said?that?when?he?realized?it?did?not?work?and?he?was?alive?he?felt?jippe d;?however?now?he?says?he?feels?regretful?and? d oes?not?want?to?be?.??Patient?also?cites?other?stressors,Saying?he?broke?up? with?his?girlfriend?and is?now?homeless. ?Patient?takes?amitriptyline?consistently?for?sleep.??Denies?AVH;?reports?histor y?of?depression?but?moderate;?denies?history?of?domingo. D enies?alcohol?or?drug?abuse;?says?he?has?been?sober?from?opiates?and?cocaine.??D enies?history?of?trauma.? impression: depressed; guarded with speech latency. Some of story changes; not sure why. Denies AVH. Pt gaunt, not sure why. Right now, since guarded, will wait until more acclimated for further inquiries including why pt appear cachectic agrees to start Mirtazapine in addition to amytriptyline. 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 Added ensure; vitamins Patient educated on: diagnosis, medication risk/benefits, substance abuse and medical condition Informed Consent: understands, does not understand and further education needed Reason for continued inpatient stay Substantial Risk for: inability to function and rapid decompensation Statement Statement: I have reviewed the history and physical and performed a pertinent examination on my patient. No changes have occurred unless specified. If the History and Physical was not performed prior to admission, the Hospitalist's service will be consulted for completing the admission physical. Time Spent With Patient Time: Total time managing care of this patient today ____ minutes.
--- NOTE | 2024-02-14 11:23 | HE.PHANOTE ---
METHADONE Pharmacy has received patients methadone verification sheet. Verified by Gerda with Emily, patient receives 140 mg from [facility] but last dose was 01/03/24
[2024-02-14] MEDS: methADONE HCl 20 MG/2 ML ORAL.CONC 50 MG PO (11:46)
[2024-02-14] MEDS: Empagliflozin 10 MG TABLET PO (11:47)
--- NOTE | 2024-02-14 13:35 | HO.PM.IMCN ---
History of Present Illness Data of Consult Service Date: 02/14/24 Primary Care Provider: DO ANGIE Coyle Reason for consult: Admission H&P Pt is a 53-year-old male with a PMH significant for?HTN, hx of portal vein thrombosis on Eliquis, hx of mesenteric ischemia s/p exploratory laparotomy with open SMA embolectomy, chronic lower leg edema, BPH, opiate use disorder on methadone, MDD, and AASHISH who is admitted to psychiatry unit for increasing depression and SI with attempt to overdose on home medications. Patient was apparently found with AMS in his car. Patient currently homeless and had his girlfriend recently leave him. Admitted to [facility] ED provider attempted to intentionally overdose on home medications. While in the ED labs significant for mild hypokalemia, otherwise unremarkable. CT of head/brain and C-spine negative for acute pathology. EEG negative for seizure. Patient initially agitated which required chemical and physical restraints. Medical consult for admission H&P. ?Patient overall a rather vague historian and uncertain what medications he is or why he is on them. States has had lower leg edema in the past though improved since being Lasix and spironolactone. Unsure whether he has a history of heart failure. Reports he currently feels good without acute medical complaint. No SOB, AREVALO, or orthopnea. No paroxysmal dyspnea. Denies chest pain/pressure or palpitations. No fever, chills, N/V/D, or abdominal pain. CMP reviewed, grossly unremarkable. Review of Systems Review of Systems: No acute medical complaints at this time [facility] Medical History (Updated 02/14/24 @ 15:16 by RICARDO Valdez) Generalized anxiety disorder MDD (major depressive disorder) Opioid use disorder Mesenteric ischemia Portal vein thrombosis Social History Patient Tobacco Use Status: Tobacco use Unknown Currently Displaying Signs/Symptoms of Drug Intoxication Withdrawal: No Advance Directives: No Advance Directives Information Provided: No Do you have thoughts of harming others: None Do you have a plan to hurt others: No Plan service: No Sexual orientation: Straight/Heterosexual Meds Allergies Allergy/AdvReac Type Severity Reaction Status Date / Time No Known Allergies Allergy Verified 02/13/24 21:11 Active Medications: Current Medications Acetaminophen (Acetaminophen 325 Mg Tablet) 650 mg PO Q6H PRN PRN Reason: Headache/Pain Mild Scale (1-3) Al Hydroxide/Mg Hydroxide (Magnesium Hydrox/Alum Hydrox 30 Ml Oral.Susp) 30 ml PO Q6H PRN PRN Reason: Heartburn/Nausea Amitriptyline HCl (Amitriptyline Hcl 25 Mg Tablet) 75 mg PO BEDTIME COUNT INCLUDES THE [facility] Last Admin: 02/14/24 02:23 Dose: Not Given Apixaban (Apixaban 5 Mg Tablet) 5 mg PO BID COUNT INCLUDES THE [facility] Last Admin: 02/14/24 09:56 Dose: 5 mg Carvedilol (Carvedilol 12.5 Mg Tablet) 12.5 mg PO BID COUNT INCLUDES THE [facility]; Protocol Last Admin: 02/14/24 09:55 Dose: 12.5 mg Empagliflozin (Empagliflozin 10 Mg Tablet) 10 mg PO DAILY COUNT INCLUDES THE [facility] Last Admin: 02/14/24 11:47 Dose: 10 mg Furosemide (Furosemide 40 Mg Tablet) 40 mg PO DAILY COUNT INCLUDES THE [facility]; Protocol Last Admin: 02/14/24 09:55 Dose: 40 mg Hydroxyzine HCl (Hydroxyzine Hcl 25 Mg Tablet) 25 mg PO Q6H PRN PRN Reason: Anxiety Loratadine (Loratadine 10 Mg Tablet) 10 mg PO BEDTIME COUNT INCLUDES THE [facility] Magnesium Hydroxide (Milk Of Magnesia 30 Ml Oral.Susp) 30 ml PO DAILY PRN PRN Reason: Constipation Methadone HCl (Methadone Hcl 20 Mg/2 Ml Oral.Conc) 50 mg PO DAILY COUNT INCLUDES THE [facility] Nicotine (Nicotine 21 Mg Patch.Td24) 21 mg TRANSDERMA DAILY PRN PRN Reason: smoking cessation Nicotine Polacrilex (Nicotine Polacrilex 2 Mg Gum) 4 mg BUCCAL Q2H PRN PRN Reason: Nicotine Cravings Olanzapine (Olanzapine 5 Mg Tablet) 5 mg PO TID PRN PRN Reason: agitation Potassium Chloride (Potassium Chloride Er 10 Meq Tablet.Er) 10 meq PO DAILY COUNT INCLUDES THE [facility] Last Admin: 02/14/24 09:55 Dose: 10 meq Spironolactone (Spironolactone 25 Mg Tablet) 25 mg PO DAILY COUNT INCLUDES THE [facility]; Protocol Last Admin: 02/14/24 09:56 Dose: 25 mg Tamsulosin HCl (Tamsulosin Hcl 0.4 Mg Capsule) 0.4 mg PO DAILY COUNT INCLUDES THE [facility] Last Admin: 02/14/24 09:55 Dose: 0.4 mg Trazodone HCl (Trazodone Hcl 50 Mg Tablet) 50 mg PO BEDTIME MRX1 PRN PRN Reason: Insomnia Valsartan (Valsartan 80 Mg Tablet) 80 mg PO BID COUNT INCLUDES THE [facility]; Protocol Last Admin: 02/14/24 09:55 Dose: 80 mg Home Medications ?Medication ?Instructions ?Recorded ?Confirmed ?Last Taken ?Type acetaminophen 325 mg tablet 325 mg PO BID 02/13/24 02/13/24 Unknown History amitriptyline 75 mg tablet 75 mg PO BEDTIME 02/13/24 02/13/24 Unknown History apixaban 5 mg tablet (Eliquis) 5 mg PO BID 02/13/24 02/13/24 Unknown History carvedilol 12.5 mg tablet 12.5 mg PO BID 02/13/24 02/13/24 Unknown History dapagliflozin propanediol 10 mg 10 mg PO DAILY 02/13/24 02/13/24 Unknown History tablet (Farxiga) furosemide 40 mg tablet 40 mg PO DAILY 02/13/24 02/13/24 Unknown History loratadine 10 mg tablet 10 mg PO BEDTIME 02/13/24 02/13/24 Unknown History potassium chloride 10 mEq 10 meq PO DAILY 02/13/24 02/13/24 Unknown History tablet,extended release spironolactone 25 mg tablet 25 mg PO DAILY 02/13/24 02/13/24 Unknown History tamsulosin 0.4 mg capsule 0.4 mg PO DAILY 02/13/24 02/13/24 Unknown History valsartan 80 mg tablet 80 mg PO BID 02/13/24 02/13/24 Unknown History Physical Exam Vital Signs and Narrative: Vital Signs: Last Vital Signs Temp 97.5 F 02/14/24 08:00 Pulse 127 H 02/14/24 08:00 Resp 16 02/14/24 08:00 BP 155/77 H 02/14/24 09:55 Pulse Ox 99 02/14/24 08:00 O2 Del Method Room Air 02/14/24 08:00 BMI result Body Mass Index 20.0 General: AOx3, no acute distress Resp: CTA bilaterally CVS: S1, S2, RRR GI: +BS, NT, no distention Skin: Warm, dry Neuro: Cranial nerves II-XII grossly intact bilaterally. Motor grossly intact bilaterally Extremities: Trace bilateral lower leg edema Results Labs 02/14/24 08:49 Labs: Laboratory Results - last 24 hr 02/14/24 08:49 Anion Gap 11 L Estim Creat Clear Calc 132.7 Estimated GFR > 60 Fasting Glucose 94 Estimat Average Glucose 85 Hemoglobin A1c % 4.6 Calcium 8.7 Total Bilirubin 0.2 AST 19 ALT 28 Alkaline Phosphatase 151 H Total Protein 5.8 L Albumin 2.8 L Triglycerides 66 Cholesterol 140 LDL Cholesterol, Calc 79 HDL Cholesterol 48 Assessment and Plan (1) Medical clearance for psychiatric admission: Status: Acute Plan Pt is a 53-year-old male with a PMH significant for?HTN, hx of portal vein thrombosis on Eliquis, hx of mesenteric ischemia s/p exploratory laparotomy with open SMA embolectomy, chronic lower leg edema, BPH, opiate use disorder on methadone, MDD, and AASHISH who is admitted to psychiatry unit for increasing depression and SI with attempt to overdose on home medications. Patient was apparently found with AMS in his car. Patient currently homeless and had his girlfriend recently leave him. Admitted to [facility] ED provider attempted to intentionally overdose on home medications. While in the ED labs significant for mild hypokalemia, otherwise unremarkable. CT of head/brain and C-spine negative for acute pathology. EEG negative for seizure. Patient initially agitated which required chemical and physical restraints. Medical consult for admission H&P. Mood disorder Plan as per Psychiatry HTN Continue carvedilol, valsartan Continue furosemide, spironolactone Hx of portal vein thrombosis Continue Eliquis Hx of lower leg edema Continue furosemide, spironolactone BPH Continue tamsulosin Opiate use disorder Question of currently taking methadone Plan as per Psychiatry Thank you for allowing us to participate in the care of this patient. Signing off at this time. Please re-consult if any acute complaints or issues arise.
[2024-02-14] MEDS: Acetaminophen 325 MG TABLET 650 MG PO (18:47)
[2024-02-14 20:00] VITALS: BP 118/78; PULSE 120; RESP 18; TEMP 36.6; O2SAT 98
[2024-02-14 21:52] VITALS: BP 127/65; PULSE 77
[2024-02-14] MEDS: Amitriptyline HCl 25 MG TABLET 75 MG PO (21:52)
[2024-02-14] MEDS: Mirtazapine 7.5 MG TABLET PO (21:52)
[2024-02-14] MEDS: Loratadine 10 MG TABLET PO (21:55)
[2024-02-14 21:56] VITALS: BP 127/77
[2024-02-15 08:26] VITALS: BP 120/80; PULSE 87; RESP 16; TEMP 36.6; O2SAT 99
[2024-02-15] MEDS: methADONE HCl 20 MG/2 ML ORAL.CONC 50 MG PO (08:49)
[2024-02-15] MEDS: carvediloL 12.5 MG TABLET PO ×2 (08:51→21:01)
[2024-02-15] MEDS: Potassium Chloride ER 10 MEQ TABLET.ER PO (08:51)
[2024-02-15] MEDS: Valsartan 80 MG TABLET PO ×2 (08:51→21:00)
[2024-02-15] MEDS: Empagliflozin 10 MG TABLET PO (08:51)
[2024-02-15] MEDS: Spironolactone 25 MG TABLET PO (08:51)
[2024-02-15] MEDS: Tamsulosin HCL 0.4 MG CAPSULE PO (08:52)
[2024-02-15] MEDS: Apixaban 5 MG TABLET PO ×2 (08:52→21:01)
[2024-02-15] MEDS: Multivitamin TABLET 1 TAB PO (08:52)
[2024-02-15] MEDS: Furosemide 40 MG TABLET PO (08:52)
--- NOTE | 2024-02-15 10:08 | HO.PSYCHPN ---
Subjective Subjective Date of Service: 02/15/24 Reason For Visit: Depression Review of Systems Review of Systems No acute medical complaints at this time Diagnostics Vital Signs (24Hr): Vital Signs - 24 hr 02/14/24 20:00 02/14/24 21:52 02/14/24 21:56 Temperature 98 F Pulse Rate 120 H 77 Respiratory Rate 18 Blood Pressure 118/78 127/65 127/77 Pulse Oximetry 98 Oxygen Delivery Method Room Air 02/15/24 08:26 Temperature 97.9 F Pulse Rate 87 Respiratory Rate 16 Blood Pressure 120/80 Pulse Oximetry 99 Oxygen Delivery Method Room Air BMI result Body Mass Index 20.0 Labs 02/14/24 08:49 Labs: Laboratory Results - last 48 hr 02/14/24 08:49 Sodium 137 Potassium 4.6 Chloride 105 Carbon Dioxide 26 Anion Gap 11 L BUN 8 L Creatinine 0.61 Estim Creat Clear Calc 132.7 Estimated GFR > 60 Fasting Glucose 94 Estimat Average Glucose 85 Hemoglobin A1c % 4.6 Calcium 8.7 Total Bilirubin 0.2 AST 19 ALT 28 Alkaline Phosphatase 151 H Total Protein 5.8 L Albumin 2.8 L Triglycerides 66 Cholesterol 140 LDL Cholesterol, Calc 79 HDL Cholesterol 48 Medications Medications Current Medications Acetaminophen (Acetaminophen 325 Mg Tablet) 650 mg PO Q6H PRN PRN Reason: Headache/Pain Mild Scale (1-3) Last Admin: 02/14/24 18:47 Dose: 650 mg Al Hydroxide/Mg Hydroxide (Magnesium Hydrox/Alum Hydrox 30 Ml Oral.Susp) 30 ml PO Q6H PRN PRN Reason: Heartburn/Nausea Amitriptyline HCl (Amitriptyline Hcl 25 Mg Tablet) 75 mg PO BEDTIME [facility] Last Admin: 02/14/24 21:52 Dose: 75 mg Apixaban (Apixaban 5 Mg Tablet) 5 mg PO BID [facility] Last Admin: 02/15/24 08:52 Dose: 5 mg Carvedilol (Carvedilol 12.5 Mg Tablet) 12.5 mg PO BID [facility]; Protocol Last Admin: 02/15/24 08:51 Dose: 12.5 mg Empagliflozin (Empagliflozin 10 Mg Tablet) 10 mg PO DAILY [facility] Last Admin: 02/15/24 08:51 Dose: 10 mg Furosemide (Furosemide 40 Mg Tablet) 40 mg PO DAILY [facility]; Protocol Last Admin: 02/15/24 08:52 Dose: 40 mg Hydroxyzine HCl (Hydroxyzine Hcl 25 Mg Tablet) 25 mg PO Q6H PRN PRN Reason: Anxiety Loratadine (Loratadine 10 Mg Tablet) 10 mg PO BEDTIME [facility] Last Admin: 02/14/24 21:55 Dose: 10 mg Magnesium Hydroxide (Milk Of Magnesia 30 Ml Oral.Susp) 30 ml PO DAILY PRN PRN Reason: Constipation Methadone HCl (Methadone Hcl 20 Mg/2 Ml Oral.Conc) 50 mg PO DAILY [facility] Last Admin: 02/15/24 08:49 Dose: 50 mg Mirtazapine (Mirtazapine 7.5 Mg Tablet) 7.5 mg PO BEDTIME [facility] Last Admin: 02/14/24 21:52 Dose: 7.5 mg Multivitamins/Vitamin C (Multivitamin Tablet) 1 tab PO DAILY [facility] Last Admin: 02/15/24 08:52 Dose: 1 tab Nicotine (Nicotine 21 Mg Patch.Td24) 21 mg TRANSDERMA DAILY PRN PRN Reason: smoking cessation Nicotine Polacrilex (Nicotine Polacrilex 2 Mg Gum) 4 mg BUCCAL Q2H PRN PRN Reason: Nicotine Cravings Olanzapine (Olanzapine 5 Mg Tablet) 5 mg PO TID PRN PRN Reason: agitation Potassium Chloride (Potassium Chloride Er 10 Meq Tablet.Er) 10 meq PO DAILY [facility] Last Admin: 02/15/24 08:51 Dose: 10 meq Spironolactone (Spironolactone 25 Mg Tablet) 25 mg PO DAILY [facility]; Protocol Last Admin: 02/15/24 08:51 Dose: 25 mg Tamsulosin HCl (Tamsulosin Hcl 0.4 Mg Capsule) 0.4 mg PO DAILY [facility] Last Admin: 02/15/24 08:52 Dose: 0.4 mg Trazodone HCl (Trazodone Hcl 50 Mg Tablet) 50 mg PO BEDTIME MRX1 PRN PRN Reason: Insomnia Valsartan (Valsartan 80 Mg Tablet) 80 mg PO BID [facility]; Protocol Last Admin: 02/15/24 08:51 Dose: 80 mg Allergies Allergies Allergy/AdvReac Type Severity Reaction Status Date / Time No Known Allergies Allergy Verified 02/13/24 21:11 Assessment & Plan Assessment & Plan (1) Medical clearance for psychiatric admission: Status: Acute Code(s): Z00.8 - Encounter for other general examination Plan Pt is a 53-year-old male with a PMH significant for?HTN, hx of portal vein thrombosis on Eliquis, hx of mesenteric ischemia s/p exploratory laparotomy with open SMA embolectomy, chronic lower leg edema, BPH, opiate use disorder on methadone, MDD, and AASHISH who is admitted to [facility] psychiatry unit for increasing depression and SI with attempt to overdose on home medications. Patient was apparently found with AMS in his car. Patient currently homeless and had his girlfriend recently leave him. Admitted to [facility] ED provider attempted to intentionally overdose on home medications. While in the ED labs significant for mild hypokalemia, otherwise unremarkable. CT of head/brain and C-spine negative for acute pathology. EEG negative for seizure. Patient initially agitated which required chemical and physical restraints. Medical consult for admission H&P. Mood disorder Plan as per Psychiatry HTN Continue carvedilol, valsartan Continue furosemide, spironolactone Hx of portal vein thrombosis Continue Eliquis Hx of lower leg edema Continue furosemide, spironolactone BPH Continue tamsulosin Opiate use disorder Question of currently taking methadone Plan as per Psychiatry Thank you for allowing us to participate in the care of this patient. Signing off at this time. Please re-consult if any acute complaints or issues arise. Time Spent With Patient Time: Total time managing care of this patient today ____ minutes.
--- NOTE | 2024-02-15 10:11 | P.PNPSI_ITS ---
Subjective Subjective Date of Service: 02/15/24 Reason For Visit: Depression Interim History: Patient remains guarded and difficult to engage. Reports unchanged mood. Pleasant with staff. Intermittently visible on the unit. Ate breakfast in common area. Ate lunch in his room alone. Looks older than stated age. Tolerating Remeron. No side effects. Feels the same as when he presented. Mental Status Exam Mental Status Exam Narrative: Pt is alert and oriented; behavior is guarded; hesitant but not uncooperative; calm; patient is not in distress; dressed in hospital attire, Cachectic, unkempt; mood is described as depressed and affect congruent; eye contact appropriate; Speech latent, slowed, softer; psychomotor retardation present; thought process is goal directed; Thought content is on fathers ; no delusional content expressed; denies any SI/HI. Thought blocking and speech latency, but denies AVH. Patients insight and judgment impaired. Diagnostics Vital Signs (24Hr): Vital Signs - 24 hr 02/14/24 20:00 02/14/24 21:52 02/14/24 21:56 Temperature 98 F Pulse Rate 120 H 77 Respiratory Rate 18 Blood Pressure 118/78 127/65 127/77 Pulse Oximetry 98 Oxygen Delivery Method Room Air 02/15/24 08:26 Temperature 97.9 F Pulse Rate 87 Respiratory Rate 16 Blood Pressure 120/80 Pulse Oximetry 99 Oxygen Delivery Method Room Air BMI result Body Mass Index 20.0 Labs 02/14/24 08:49 Labs: Laboratory Results - last 48 hr 02/14/24 08:49 Sodium 137 Potassium 4.6 Chloride 105 Carbon Dioxide 26 Anion Gap 11 L BUN 8 L Creatinine 0.61 Estim Creat Clear Calc 132.7 Estimated GFR > 60 Fasting Glucose 94 Estimat Average Glucose 85 Hemoglobin A1c % 4.6 Calcium 8.7 Total Bilirubin 0.2 AST 19 ALT 28 Alkaline Phosphatase 151 H Total Protein 5.8 L Albumin 2.8 L Triglycerides 66 Cholesterol 140 LDL Cholesterol, Calc 79 HDL Cholesterol 48 Medications Medications Current Medications Acetaminophen (Acetaminophen 325 Mg Tablet) 650 mg PO Q6H PRN PRN Reason: Headache/Pain Mild Scale (1-3) Last Admin: 02/14/24 18:47 Dose: 650 mg Al Hydroxide/Mg Hydroxide (Magnesium Hydrox/Alum Hydrox 30 Ml Oral.Susp) 30 ml PO Q6H PRN PRN Reason: Heartburn/Nausea Amitriptyline HCl (Amitriptyline Hcl 25 Mg Tablet) 75 mg PO BEDTIME [facility] Last Admin: 02/14/24 21:52 Dose: 75 mg Apixaban (Apixaban 5 Mg Tablet) 5 mg PO BID [facility] Last Admin: 02/15/24 08:52 Dose: 5 mg Carvedilol (Carvedilol 12.5 Mg Tablet) 12.5 mg PO BID [facility]; Protocol Last Admin: 02/15/24 08:51 Dose: 12.5 mg Empagliflozin (Empagliflozin 10 Mg Tablet) 10 mg PO DAILY [facility] Last Admin: 02/15/24 08:51 Dose: 10 mg Furosemide (Furosemide 40 Mg Tablet) 40 mg PO DAILY [facility]; Protocol Last Admin: 02/15/24 08:52 Dose: 40 mg Hydroxyzine HCl (Hydroxyzine Hcl 25 Mg Tablet) 25 mg PO Q6H PRN PRN Reason: Anxiety Loratadine (Loratadine 10 Mg Tablet) 10 mg PO BEDTIME [facility] Last Admin: 02/14/24 21:55 Dose: 10 mg Magnesium Hydroxide (Milk Of Magnesia 30 Ml Oral.Susp) 30 ml PO DAILY PRN PRN Reason: Constipation Methadone HCl (Methadone Hcl 20 Mg/2 Ml Oral.Conc) 50 mg PO DAILY [facility] Last Admin: 02/15/24 08:49 Dose: 50 mg Mirtazapine (Mirtazapine 7.5 Mg Tablet) 7.5 mg PO BEDTIME [facility] Last Admin: 02/14/24 21:52 Dose: 7.5 mg Multivitamins/Vitamin C (Multivitamin Tablet) 1 tab PO DAILY [facility] Last Admin: 02/15/24 08:52 Dose: 1 tab Nicotine (Nicotine 21 Mg Patch.Td24) 21 mg TRANSDERMA DAILY PRN PRN Reason: smoking cessation Nicotine Polacrilex (Nicotine Polacrilex 2 Mg Gum) 4 mg BUCCAL Q2H PRN PRN Reason: Nicotine Cravings Olanzapine (Olanzapine 5 Mg Tablet) 5 mg PO TID PRN PRN Reason: agitation Potassium Chloride (Potassium Chloride Er 10 Meq Tablet.Er) 10 meq PO DAILY [facility] Last Admin: 02/15/24 08:51 Dose: 10 meq Spironolactone (Spironolactone 25 Mg Tablet) 25 mg PO DAILY [facility]; Protocol Last Admin: 02/15/24 08:51 Dose: 25 mg Tamsulosin HCl (Tamsulosin Hcl 0.4 Mg Capsule) 0.4 mg PO DAILY [facility] Last Admin: 02/15/24 08:52 Dose: 0.4 mg Trazodone HCl (Trazodone Hcl 50 Mg Tablet) 50 mg PO BEDTIME MRX1 PRN PRN Reason: Insomnia Valsartan (Valsartan 80 Mg Tablet) 80 mg PO BID [facility]; Protocol Last Admin: 02/15/24 08:51 Dose: 80 mg Allergies Allergies Allergy/AdvReac Type Severity Reaction Status Date / Time No Known Allergies Allergy Verified 02/13/24 21:11 Assessment & Plan Assessment & Plan (1) MDD (major depressive disorder): Status: Acute Code(s): F32.9 - Major depressive disorder, single episode, unspecified (2) Portal vein thrombosis: Status: Acute Code(s): I81 - Portal vein thrombosis (3) Opioid use disorder: Status: Acute Code(s): F11.90 - Opioid use, unspecified, uncomplicated (4) Hypertension: Status: Acute Code(s): I10 - Essential (primary) hypertension Plan Plan pt is a 53 yo male with hx depression, opioid dependence on methadone,?portal?vein?thrombosis,?on?Natashayobanyjosiah who presents following suicide attempt by overdose in face of depression and psychosocial stressors. He was brought to hospital with encephalopathy, now medically cleared; Patient?does?not?remember?all?that?much?from?when?he?was?brought?to?the?emergenc y?room,? says?it?is?not?clear?to?me.Patient is a reluctant historian, somewhat guarded;?speech?is?latent. Patient?is?vague?but?he?says?he?was?depressed?because?his?father??14?days?ag o.??On?further?inquiry?he?said?his?father? c ommitted?suicide?a?year?ago?by?overdose?and?that?the?anniversary?of?his??wa s?14?days?ago.??Patient?said now?I look at D oing?the?same?thing... He?says?he?intentionally?tried?to?overdose?with?pills.??H e?denies?this?was?planned?and?says?it?was?impulsive. P atient?said?that?when?he?realized?it?did?not?work?and?he?was?alive?he?felt?jippe d;?however?now?he?says?he?feels?regretful?and? d oes?not?want?to?be?.??Patient?also?cites?other?stressors,Saying?he?broke?up? with?his?girlfriend?and is?now?homeless. ?Patient?takes?amitriptyline?consistently?for?sleep.??Denies?AVH;?reports?histor y?of?depression?but?moderate;?denies?history?of?domingo. D enies?alcohol?or?drug?abuse;?says?he?has?been?sober?from?opiates?and?cocaine.??D enies?history?of?trauma.? impression: depressed; guarded with speech latency. Some of story changes; not sure why. Denies AVH. Pt gaunt, not sure why. Right now, since guarded, will wait until more acclimated for further inquiries including why pt appear cachectic agrees to start Mirtazapine in addition to amytriptyline. 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 Added ensure; vitamins 02/14: Continue current management and treatment plan. Reason for continued inpatient stay Substantial Risk for: harm to self Time Spent With Patient Time: Total time managing care of this patient today ____ minutes.
[2024-02-15 21:00] VITALS: BP 110/64; PULSE 86; RESP 18; TEMP 36.6
[2024-02-15] MEDS: Amitriptyline HCl 25 MG TABLET 75 MG PO (21:00)
[2024-02-15] MEDS: Loratadine 10 MG TABLET PO (21:01)
[2024-02-16 08:00] VITALS: BP 95/55; PULSE 89; RESP 18; TEMP 36.9; O2SAT 96
[2024-02-16] MEDS: methADONE HCl 20 MG/2 ML ORAL.CONC 50 MG PO (08:42)
[2024-02-16] MEDS: Spironolactone 25 MG TABLET PO (08:44)
[2024-02-16] MEDS: Tamsulosin HCL 0.4 MG CAPSULE PO (08:45)
[2024-02-16] MEDS: Empagliflozin 10 MG TABLET PO (08:45)
[2024-02-16] MEDS: Furosemide 40 MG TABLET PO (08:45)
[2024-02-16] MEDS: Apixaban 5 MG TABLET PO ×2 (08:45→21:31)
[2024-02-16] MEDS: Multivitamin TABLET 1 TAB PO (08:45)
[2024-02-16] MEDS: Potassium Chloride ER 10 MEQ TABLET.ER PO (08:46)
--- NOTE | 2024-02-16 09:09 | P.PNPSI_ITS ---
Subjective Subjective Date of Service: 02/16/24 Reason For Visit: Depression Interim History: Patient remains guarded and difficult to engage. Reports unchanged mood. Isolative. Remains depressed. Intermittently visible on the unit. Tolerating Remeron. No side effects. Feels the same as when he presented. Low BP in AM. BP meds held then given later in the morning. Denies SI/HI/AVH. Mental Status Exam Mental Status Exam Narrative: Pt is alert and oriented; behavior is guarded; hesitant but not uncooperative; calm; patient is not in distress; dressed in hospital attire, Cachectic, unkempt; mood is described as depressed and affect congruent; eye contact appropriate; Speech latent, slowed, softer; psychomotor retardation present; thought process is goal directed; Thought content is on fathers ; no delusional content expressed; denies any SI/HI. Thought blocking and speech latency, but denies AVH. Patients insight and judgment impaired. Diagnostics Vital Signs (24Hr): Vital Signs - 24 hr 02/15/24 21:00 02/15/24 21:00 02/16/24 08:00 Temperature 98 F 98.5 F Pulse Rate 86 89 Respiratory Rate 18 18 Blood Pressure 110/64 95/55 L Pulse Oximetry 96 Oxygen Delivery Method Room Air BMI result Body Mass Index 20.0 Labs 02/14/24 08:49 Labs: Laboratory Results - last 48 hr 02/14/24 08:49 Sodium 137 Potassium 4.6 Chloride 105 Carbon Dioxide 26 Anion Gap 11 L BUN 8 L Creatinine 0.61 Estim Creat Clear Calc 132.7 Estimated GFR > 60 Fasting Glucose 94 Estimat Average Glucose 85 Hemoglobin A1c % 4.6 Calcium 8.7 Total Bilirubin 0.2 AST 19 ALT 28 Alkaline Phosphatase 151 H Total Protein 5.8 L Albumin 2.8 L Triglycerides 66 Cholesterol 140 LDL Cholesterol, Calc 79 HDL Cholesterol 48 Medications Medications Current Medications Acetaminophen (Acetaminophen 325 Mg Tablet) 650 mg PO Q6H PRN PRN Reason: Headache/Pain Mild Scale (1-3) Last Admin: 02/14/24 18:47 Dose: 650 mg Al Hydroxide/Mg Hydroxide (Magnesium Hydrox/Alum Hydrox 30 Ml Oral.Susp) 30 ml PO Q6H PRN PRN Reason: Heartburn/Nausea Amitriptyline HCl (Amitriptyline Hcl 25 Mg Tablet) 75 mg PO BEDTIME [facility] Last Admin: 02/15/24 21:00 Dose: 75 mg Apixaban (Apixaban 5 Mg Tablet) 5 mg PO BID [facility] Last Admin: 02/16/24 08:45 Dose: 5 mg Carvedilol (Carvedilol 12.5 Mg Tablet) 12.5 mg PO BID [facility]; Protocol Last Admin: 02/15/24 21:01 Dose: 12.5 mg Empagliflozin (Empagliflozin 10 Mg Tablet) 10 mg PO DAILY [facility] Last Admin: 02/16/24 08:45 Dose: 10 mg Furosemide (Furosemide 40 Mg Tablet) 40 mg PO DAILY [facility]; Protocol Last Admin: 02/16/24 08:45 Dose: 40 mg Hydroxyzine HCl (Hydroxyzine Hcl 25 Mg Tablet) 25 mg PO Q6H PRN PRN Reason: Anxiety Loratadine (Loratadine 10 Mg Tablet) 10 mg PO BEDTIME [facility] Last Admin: 02/15/24 21:01 Dose: 10 mg Magnesium Hydroxide (Milk Of Magnesia 30 Ml Oral.Susp) 30 ml PO DAILY PRN PRN Reason: Constipation Methadone HCl (Methadone Hcl 20 Mg/2 Ml Oral.Conc) 50 mg PO DAILY [facility] Last Admin: 02/16/24 08:42 Dose: 50 mg Mirtazapine (Mirtazapine 7.5 Mg Tablet) 7.5 mg PO BEDTIME [facility] Last Admin: 02/15/24 21:02 Dose: Not Given Multivitamins/Vitamin C (Multivitamin Tablet) 1 tab PO DAILY [facility] Last Admin: 02/16/24 08:45 Dose: 1 tab Nicotine (Nicotine 21 Mg Patch.Td24) 21 mg TRANSDERMA DAILY PRN PRN Reason: smoking cessation Nicotine Polacrilex (Nicotine Polacrilex 2 Mg Gum) 4 mg BUCCAL Q2H PRN PRN Reason: Nicotine Cravings Olanzapine (Olanzapine 5 Mg Tablet) 5 mg PO TID PRN PRN Reason: agitation Potassium Chloride (Potassium Chloride Er 10 Meq Tablet.Er) 10 meq PO DAILY [facility] Last Admin: 02/16/24 08:46 Dose: 10 meq Spironolactone (Spironolactone 25 Mg Tablet) 25 mg PO DAILY [facility]; Protocol Last Admin: 02/16/24 08:44 Dose: 25 mg Tamsulosin HCl (Tamsulosin Hcl 0.4 Mg Capsule) 0.4 mg PO DAILY [facility] Last Admin: 02/16/24 08:45 Dose: 0.4 mg Trazodone HCl (Trazodone Hcl 50 Mg Tablet) 50 mg PO BEDTIME MRX1 PRN PRN Reason: Insomnia Valsartan (Valsartan 80 Mg Tablet) 80 mg PO BID [facility]; Protocol Last Admin: 02/15/24 21:00 Dose: 80 mg Allergies Allergies Allergy/AdvReac Type Severity Reaction Status Date / Time No Known Allergies Allergy Verified 02/13/24 21:11 Assessment & Plan Assessment & Plan (1) MDD (major depressive disorder): Status: Acute Code(s): F32.9 - Major depressive disorder, single episode, unspecified (2) Portal vein thrombosis: Status: Acute Code(s): I81 - Portal vein thrombosis (3) Opioid use disorder: Status: Acute Code(s): F11.90 - Opioid use, unspecified, uncomplicated (4) Hypertension: Status: Acute Code(s): I10 - Essential (primary) hypertension Plan Plan pt is a 53 yo male with hx depression, opioid dependence on methadone,?portal?vein?thrombosis,?on?Leni who presents following suicide attempt by overdose in face of depression and psychosocial stressors. He was brought to hospital with encephalopathy, now medically cleared; Patient?does?not?remember?all?that?much?from?when?he?was?brought?to?the?emergenc y?room,? says?it?is?not?clear?to?me.Patient is a reluctant historian, somewhat guarded;?speech?is?latent. Patient?is?vague?but?he?says?he?was?depressed?because?his?father??14?days?ag o.??On?further?inquiry?he?said?his?father? c ommitted?suicide?a?year?ago?by?overdose?and?that?the?anniversary?of?his??wa s?14?days?ago.??Patient?said now?I look at D oing?the?same?thing... He?says?he?intentionally?tried?to?overdose?with?pills.??H e?denies?this?was?planned?and?says?it?was?impulsive. P atient?said?that?when?he?realized?it?did?not?work?and?he?was?alive?he?felt?jippe d;?however?now?he?says?he?feels?regretful?and? d oes?not?want?to?be?.??Patient?also?cites?other?stressors,Saying?he?broke?up? with?his?girlfriend?and is?now?homeless. ?Patient?takes?amitriptyline?consistently?for?sleep.??Denies?AVH;?reports?histor y?of?depression?but?moderate;?denies?history?of?domingo. D enies?alcohol?or?drug?abuse;?says?he?has?been?sober?from?opiates?and?cocaine.??D enies?history?of?trauma.? impression: depressed; guarded with speech latency. Some of story changes; not sure why. Denies AVH. Pt gaunt, not sure why. Right now, since guarded, will wait until more acclimated for further inquiries including why pt appear cachectic agrees to start Mirtazapine in addition to amytriptyline. 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 Added ensure; vitamins 02/14: Continue current management and treatment plan. 02/15: continue current management and treatment plan. Reason for continued inpatient stay Substantial Risk for: harm to self, inability to function and rapid decompensation Time Spent With Patient Time: Total time managing care of this patient today ____ minutes.
[2024-02-16 10:23] VITALS: BP 115/65; RESP 18
[2024-02-16] MEDS: Valsartan 80 MG TABLET PO ×2 (10:27→21:32)
[2024-02-16] MEDS: carvediloL 12.5 MG TABLET PO ×2 (10:27→21:31)
[2024-02-16 20:00] VITALS: BP 100/64; PULSE 81; RESP 18; TEMP 36.6
[2024-02-16] MEDS: Loratadine 10 MG TABLET PO (21:29)
[2024-02-16] MEDS: Amitriptyline HCl 25 MG TABLET 75 MG PO (21:29)
[2024-02-16] MEDS: traZODone HCL 50 MG TABLET PO (21:30)
[2024-02-16 21:31] VITALS: BP 100/64; PULSE 81
[2024-02-16 21:32] VITALS: BP 100/64
[2024-02-17] MEDS: methADONE HCl 20 MG/2 ML ORAL.CONC 50 MG PO (08:11)
[2024-02-17 09:24] VITALS: BP 100/57; PULSE 91; RESP 16; TEMP 36.8; O2SAT 99
[2024-02-17] MEDS: carvediloL 12.5 MG TABLET PO ×2 (09:24→21:45)
[2024-02-17 09:25] VITALS: BP 100/57
[2024-02-17] MEDS: Apixaban 5 MG TABLET PO ×2 (09:25→21:45)
[2024-02-17] MEDS: Furosemide 40 MG TABLET PO (09:25)
[2024-02-17] MEDS: Potassium Chloride ER 10 MEQ TABLET.ER PO (09:25)
[2024-02-17] MEDS: Valsartan 80 MG TABLET PO ×2 (09:25→21:45)
[2024-02-17] MEDS: Empagliflozin 10 MG TABLET PO (09:25)
[2024-02-17] MEDS: Spironolactone 25 MG TABLET PO (09:25)
[2024-02-17] MEDS: Tamsulosin HCL 0.4 MG CAPSULE PO (09:25)
[2024-02-17] MEDS: Multivitamin TABLET 1 TAB PO (09:25)
[2024-02-17] MEDS: Acetaminophen 325 MG TABLET 650 MG PO (09:34)
--- NOTE | 2024-02-17 09:58 | HO.PSYCHPN ---
Subjective Subjective Date of Service: 02/17/24 Reason For Visit: Depression Interim History: Met with patient; discussed with team Patient more talkative, speech more spontaneous. Says he is feeling better, that his mood is better and finds that he is talking more easily. Says looking back he has upset with himself for how impulsive he was recording overdose. Patient discussed treatment and after poem writer explained again 3 day notice, he went and signed 1. Patient said it was fine to call his partner Myesha and gave poem writer her number. Myesha reports that suicide attempt was after an argument they had; she was the 1 who found him and brought him in. She says they are reconciled and she is looking forward to seeing him. The 2 of them live together in a car, sometimes in a mutual friend's apartment however that seems to have fallen through. She reports that several months ago patient got very sick, was an out of hospitals, got several blood clots Mental Status Exam Mental Status Exam Narrative: Pt is alert and oriented; behavior is cooperative, more friendly and calm; patient is not in distress; dressed in hospital attire, scruffy but adequate hygiene; mood is described as good and affect congruent, brighter; eye contact appropriate; Speech is still with some latency but much less and spontaneous; normal rate, volume and prosody and not pressured; some psychomotor retardation present, but less; thought process is organized and goal directed; Thought content is on tx; otherwise pertinent to relevant topics and without any delusional content, paranoid ideations or grandiosity; denies any SI/HI. There is no evidence of perceptual disturbance. Patients insight and judgment appear intact. Diagnostics Vital Signs (24Hr): Vital Signs - 24 hr 02/16/24 10:23 02/16/24 20:00 02/16/24 21:31 Temperature 97.8 F Pulse Rate 81 81 Respiratory Rate 18 18 Blood Pressure 115/65 100/64 100/64 Pulse Oximetry Oxygen Delivery Method Room Air 02/16/24 21:32 02/17/24 09:24 02/17/24 09:24 Temperature 98.3 F Pulse Rate 91 91 Respiratory Rate 16 Blood Pressure 100/64 100/57 L 100/57 L Pulse Oximetry 99 Oxygen Delivery Method Room Air 02/17/24 09:25 02/17/24 09:25 07/15/24 09:25 Temperature Pulse Rate Respiratory Rate Blood Pressure 100/57 L 100/57 L 100/57 L Pulse Oximetry Oxygen Delivery Method BMI result Body Mass Index 20.0 Labs 02/14/24 08:49 Medications Medications Current Medications Acetaminophen (Acetaminophen 325 Mg Tablet) 650 mg PO Q6H PRN PRN Reason: Headache/Pain Mild Scale (1-3) Last Admin: 02/17/24 09:34 Dose: 650 mg Al Hydroxide/Mg Hydroxide (Magnesium Hydrox/Alum Hydrox 30 Ml Oral.Susp) 30 ml PO Q6H PRN PRN Reason: Heartburn/Nausea Amitriptyline HCl (Amitriptyline Hcl 25 Mg Tablet) 75 mg PO BEDTIME [facility] Last Admin: 02/16/24 21:29 Dose: 75 mg Apixaban (Apixaban 5 Mg Tablet) 5 mg PO BID [facility] Last Admin: 02/17/24 09:25 Dose: 5 mg Carvedilol (Carvedilol 12.5 Mg Tablet) 12.5 mg PO BID [facility]; Protocol Last Admin: 02/17/24 09:24 Dose: 12.5 mg Empagliflozin (Empagliflozin 10 Mg Tablet) 10 mg PO DAILY TREV Last Admin: 02/17/24 09:25 Dose: 10 mg Furosemide (Furosemide 40 Mg Tablet) 40 mg PO DAILY [facility]; Protocol Last Admin: 02/17/24 09:25 Dose: 40 mg Hydroxyzine HCl (Hydroxyzine Hcl 25 Mg Tablet) 25 mg PO Q6H PRN PRN Reason: Anxiety Loratadine (Loratadine 10 Mg Tablet) 10 mg PO BEDTIME [facility] Last Admin: 02/16/24 21:29 Dose: 10 mg Magnesium Hydroxide (Milk Of Magnesia 30 Ml Oral.Susp) 30 ml PO DAILY PRN PRN Reason: Constipation Methadone HCl (Methadone Hcl 20 Mg/2 Ml Oral.Conc) 50 mg PO DAILY@0800 [facility] Last Admin: 02/17/24 08:11 Dose: 50 mg Mirtazapine (Mirtazapine 7.5 Mg Tablet) 7.5 mg PO BEDTIME TREV Last Admin: 02/15/24 21:02 Dose: Not Given Multivitamins/Vitamin C (Multivitamin Tablet) 1 tab PO DAILY [facility] Last Admin: 02/17/24 09:25 Dose: 1 tab Nicotine (Nicotine 21 Mg Patch.Td24) 21 mg TRANSDERMA DAILY PRN PRN Reason: smoking cessation Nicotine Polacrilex (Nicotine Polacrilex 2 Mg Gum) 4 mg BUCCAL Q2H PRN PRN Reason: Nicotine Cravings Olanzapine (Olanzapine 5 Mg Tablet) 5 mg PO TID PRN PRN Reason: agitation Potassium Chloride (Potassium Chloride Er 10 Meq Tablet.Er) 10 meq PO DAILY [facility] Last Admin: 02/17/24 09:25 Dose: 10 meq Spironolactone (Spironolactone 25 Mg Tablet) 25 mg PO DAILY [facility]; Protocol Last Admin: 02/17/24 09:25 Dose: 25 mg Tamsulosin HCl (Tamsulosin Hcl 0.4 Mg Capsule) 0.4 mg PO DAILY [facility] Last Admin: 02/17/24 09:25 Dose: 0.4 mg Trazodone HCl (Trazodone Hcl 50 Mg Tablet) 50 mg PO BEDTIME MRX1 PRN PRN Reason: Insomnia Last Admin: 02/16/24 21:30 Dose: 50 mg Valsartan (Valsartan 80 Mg Tablet) 80 mg PO BID [facility]; Protocol Last Admin: 02/17/24 09:25 Dose: 80 mg Allergies Allergies Allergy/AdvReac Type Severity Reaction Status Date / Time No Known Allergies Allergy Verified 02/13/24 21:11 Assessment & Plan Assessment & Plan (1) MDD (major depressive disorder): Status: Acute Code(s): F32.9 - Major depressive disorder, single episode, unspecified (2) Portal vein thrombosis: Status: Acute Code(s): I81 - Portal vein thrombosis (3) Opioid use disorder: Status: Acute Code(s): F11.90 - Opioid use, unspecified, uncomplicated (4) Hypertension: Status: Acute Code(s): I10 - Essential (primary) hypertension Plan Plan pt is a 53 yo male with hx depression, opioid dependence on methadone,?portal?vein?thrombosis,?on?Leni who presents following suicide attempt by overdose in face of depression and psychosocial stressors. He was brought to hospital with encephalopathy, now medically cleared; Patient?does?not?remember?all?that?much?from?when?he?was?brought?to?the?emergency?room,? says?it?is?not?clear?to?me.Patient is a reluctant historian, somewhat guarded;?speech?is?latent. Patient?is?vague?but?he?says?he?was?depressed?because?his?father??14?days?ago.??On?further?inquiry?he?said?his?father? committed?suicide?a?year?ago?by?overdose?and?that?the?anniversary?of?his??was?14?days?ago.??Patient?said now?I look at Doing?the?same?thing... He?says?he?intentionally?tried?to?overdose?with?pills.??He?denies?this?was?planned?and?says?it?was?impulsive. Patient?said?that?when?he?realized?it?did?not?work?and?he?was?alive?he?felt?jipped;?however?now?he?says?he?feels?regretful?and? does?not?want?to?be?.??Patient?also?cites?other?stressors,Saying?he?broke?up?with?his?girlfriend?and is?now?homeless. ?Patient?takes?amitriptyline?consistently?for?sleep.??Denies?AVH;?reports?history?of?depression?but?moderate;?denies?history?of?domingo. Denies?alcohol?or?drug?abuse;?says?he?has?been?sober?from?opiates?and?cocaine.??Denies?history?of?trauma.? impression: depressed; guarded with speech latency. Some of story changes; not sure why. Denies AVH. Pt gaunt, not sure why. Right now, since guarded, will wait until more acclimated for further inquiries including why pt appear cachectic agrees to start Mirtazapine in addition to amytriptyline. Hospital course: 02/14: Continue current management and treatment plan. 02/15: continue current management and treatment plan. 02/16 Patient more talkative, speech more spontaneous. Says he is feeling better, that his mood is better and finds that he is talking more easily. Says looking back he has upset with himself for how impulsive he was recording overdose. Patient discussed treatment and after poem writer explained again 3 day notice, he went and signed 1. Patient said it was fine to call his partner Myesha and gave poem writer her number. Myesha reports that suicide attempt was after an argument they had; she was the 1 who found him and brought him in. She says they are reconciled and she is looking forward to seeing him. The 2 of them live together in a car, sometimes in a mutual friend's apartment however that seems to have fallen through. She reports that several months ago patient got very sick, was an out of hospitals, got several blood clots -patient seems to be improving. Continue with current treatment plan dx: depression Plan: 3 day q15min Continue home meds incluidng Amytrpytline 75mg continue Mirtazapine 7.5mg for depression/anxiety and insomnia. Added ensure; vitamins Patient educated on: diagnosis, medication risk/benefits, therapeutic strategies and medical condition Informed Consent: understands and further education needed Reason for continued inpatient stay Substantial Risk for: stable for discharge and rapid decompensation Time Spent With Patient Time: Total time managing care of this patient today ____ minutes.
[2024-02-17 20:00] VITALS: BP 112/53; PULSE 85; TEMP 36.6; O2SAT 97
[2024-02-17] MEDS: Amitriptyline HCl 25 MG TABLET 75 MG PO (21:45)
[2024-02-17] MEDS: Mirtazapine 7.5 MG TABLET PO (21:45)
[2024-02-17] MEDS: Loratadine 10 MG TABLET PO (21:45)
[2024-02-18] MEDS: methADONE HCl 20 MG/2 ML ORAL.CONC 50 MG PO (07:58)
[2024-02-18 08:00] VITALS: BP 108/68; PULSE 84; RESP 18; TEMP 36.4; O2SAT 96
[2024-02-18] MEDS: Multivitamin TABLET 1 TAB PO (09:05)
[2024-02-18] MEDS: Potassium Chloride ER 10 MEQ TABLET.ER PO (09:05)
[2024-02-18] MEDS: Spironolactone 25 MG TABLET PO (09:05)
[2024-02-18] MEDS: Empagliflozin 10 MG TABLET PO (09:06)
[2024-02-18] MEDS: carvediloL 12.5 MG TABLET PO (09:06)
[2024-02-18] MEDS: Furosemide 40 MG TABLET PO (09:06)
[2024-02-18] MEDS: Valsartan 80 MG TABLET PO (09:06)
[2024-02-18] MEDS: Tamsulosin HCL 0.4 MG CAPSULE PO (09:06)
[2024-02-18] MEDS: Apixaban 5 MG TABLET PO ×2 (09:06→20:06)
--- NOTE | 2024-02-18 19:17 | HO.PSYCHPN ---
Subjective Subjective Date of Service: 02/18/24 Reason For Visit: Depression Interim History: Patient seen; discussed with team Patient reports that he is feeling better; he continues to deny any SI. Says he is sleeping better. Patient appreciated that Myesha plans to come and pick him up. Of note patient's affect is brighter and speech more spontaneous. Patient also out and about in the milieu more Mental Status Exam Mental Status Exam Narrative: Pt is alert and oriented; behavior is cooperative, friendly and calm; patient is not in distress; dressed in hospital attire, scruffy but adequate hygiene; mood is described as good and affect congruent, brighter; eye contact appropriate; Speech is spontaneous; still with some latency but much less and normal rate, volume and prosody and not pressured; no psychomotor retardation present; thought process is organized and goal directed; Thought content is on tx; otherwise pertinent to relevant topics and without any delusional content, paranoid ideations or grandiosity; denies any SI/HI. There is no evidence of perceptual disturbance. Patients insight and judgment appear intact. Diagnostics Vital Signs (24Hr): Vital Signs - 24 hr 02/17/24 20:00 02/18/24 08:00 Temperature 97.9 F 97.5 F Pulse Rate 85 84 Respiratory Rate 18 Blood Pressure 112/53 L 108/68 Pulse Oximetry 97 96 Oxygen Delivery Method Room Air Room Air BMI result Body Mass Index 20.0 Labs 02/14/24 08:49 Medications Medications Current Medications Acetaminophen (Acetaminophen 325 Mg Tablet) 650 mg PO Q6H PRN PRN Reason: Headache/Pain Mild Scale (1-3) Last Admin: 02/17/24 09:34 Dose: 650 mg Al Hydroxide/Mg Hydroxide (Magnesium Hydrox/Alum Hydrox 30 Ml Oral.Susp) 30 ml PO Q6H PRN PRN Reason: Heartburn/Nausea Amitriptyline HCl (Amitriptyline Hcl 25 Mg Tablet) 75 mg PO BEDTIME [facility] Last Admin: 02/17/24 21:45 Dose: 75 mg Apixaban (Apixaban 5 Mg Tablet) 5 mg PO BID [facility] Last Admin: 02/18/24 09:06 Dose: 5 mg Carvedilol (Carvedilol 12.5 Mg Tablet) 12.5 mg PO BID [facility]; Protocol Last Admin: 02/18/24 09:06 Dose: 12.5 mg Empagliflozin (Empagliflozin 10 Mg Tablet) 10 mg PO DAILY [facility] Last Admin: 02/18/24 09:06 Dose: 10 mg Furosemide (Furosemide 40 Mg Tablet) 40 mg PO DAILY TREV; Protocol Last Admin: 02/18/24 09:06 Dose: 40 mg Hydroxyzine HCl (Hydroxyzine Hcl 25 Mg Tablet) 25 mg PO Q6H PRN PRN Reason: Anxiety Loratadine (Loratadine 10 Mg Tablet) 10 mg PO BEDTIME TREV Last Admin: 02/17/24 21:45 Dose: 10 mg Magnesium Hydroxide (Milk Of Magnesia 30 Ml Oral.Susp) 30 ml PO DAILY PRN PRN Reason: Constipation Methadone HCl (Methadone Hcl 20 Mg/2 Ml Oral.Conc) 50 mg PO DAILY@0800 [facility] Last Admin: 02/18/24 07:58 Dose: 50 mg Mirtazapine (Mirtazapine 7.5 Mg Tablet) 7.5 mg PO BEDTIME TREV Last Admin: 02/17/24 21:45 Dose: 7.5 mg Multivitamins/Vitamin C (Multivitamin Tablet) 1 tab PO DAILY TREV Last Admin: 02/18/24 09:05 Dose: 1 tab Nicotine (Nicotine 21 Mg Patch.Td24) 21 mg TRANSDERMA DAILY PRN PRN Reason: smoking cessation Nicotine Polacrilex (Nicotine Polacrilex 2 Mg Gum) 4 mg BUCCAL Q2H PRN PRN Reason: Nicotine Cravings Olanzapine (Olanzapine 5 Mg Tablet) 5 mg PO TID PRN PRN Reason: agitation Potassium Chloride (Potassium Chloride Er 10 Meq Tablet.Er) 10 meq PO DAILY [facility] Last Admin: 02/18/24 09:05 Dose: 10 meq Spironolactone (Spironolactone 25 Mg Tablet) 25 mg PO DAILY TREV; Protocol Last Admin: 02/18/24 09:05 Dose: 25 mg Tamsulosin HCl (Tamsulosin Hcl 0.4 Mg Capsule) 0.4 mg PO DAILY TREV Last Admin: 02/18/24 09:06 Dose: 0.4 mg Trazodone HCl (Trazodone Hcl 50 Mg Tablet) 50 mg PO BEDTIME MRX1 PRN PRN Reason: Insomnia Last Admin: 02/16/24 21:30 Dose: 50 mg Valsartan (Valsartan 80 Mg Tablet) 80 mg PO BID [facility]; Protocol Last Admin: 02/18/24 09:06 Dose: 80 mg Allergies Allergies Allergy/AdvReac Type Severity Reaction Status Date / Time No Known Allergies Allergy Verified 02/13/24 21:11 Assessment & Plan Assessment & Plan (1) MDD (major depressive disorder): Status: Acute Code(s): F32.9 - Major depressive disorder, single episode, unspecified (2) Portal vein thrombosis: Status: Acute Code(s): I81 - Portal vein thrombosis (3) Opioid use disorder: Status: Acute Code(s): F11.90 - Opioid use, unspecified, uncomplicated (4) Hypertension: Status: Acute Code(s): I10 - Essential (primary) hypertension Plan Plan pt is a 53 yo male with hx depression, opioid dependence on methadone,?portal?vein?thrombosis,?on?Leni who presents following suicide attempt by overdose in face of depression and psychosocial stressors. He was brought to hospital with encephalopathy, now medically cleared; Patient?does?not?remember?all?that?much?from?when?he?was?brought?to?the?emergency?room,? says?it?is?not?clear?to?me.Patient is a reluctant historian, somewhat guarded;?speech?is?latent. Patient?is?vague?but?he?says?he?was?depressed?because?his?father??14?days?ago.??On?further?inquiry?he?said?his?father? committed?suicide?a?year?ago?by?overdose?and?that?the?anniversary?of?his??was?14?days?ago.??Patient?said now?I look at Doing?the?same?thing... He?says?he?intentionally?tried?to?overdose?with?pills.??He?denies?this?was?planned?and?says?it?was?impulsive. Patient?said?that?when?he?realized?it?did?not?work?and?he?was?alive?he?felt?jipped;?however?now?he?says?he?feels?regretful?and? does?not?want?to?be?.??Patient?also?cites?other?stressors,Saying?he?broke?up?with?his?girlfriend?and is?now?homeless. ?Patient?takes?amitriptyline?consistently?for?sleep.??Denies?AVH;?reports?history?of?depression?but?moderate;?denies?history?of?domingo. Denies?alcohol?or?drug?abuse;?says?he?has?been?sober?from?opiates?and?cocaine.??Denies?history?of?trauma.? impression: depressed; guarded with speech latency. Some of story changes; not sure why. Denies AVH. Pt gaunt, not sure why. Right now, since guarded, will wait until more acclimated for further inquiries including why pt appear cachectic agrees to start Mirtazapine in addition to amytriptyline. Hospital course: 02/14: Continue current management and treatment plan. 02/15: continue current management and treatment plan. 02/16 Patient more talkative, speech more spontaneous. Says he is feeling better, that his mood is better and finds that he is talking more easily. Says looking back he has upset with himself for how impulsive he was recording overdose. Patient discussed treatment and after story writer explained again 3 day notice, he went and signed 1. Patient said it was fine to call his partner Myesha and gave story writer her number. Myesha reports that suicide attempt was after an argument they had; she was the 1 who found him and brought him in. She says they are reconciled and she is looking forward to seeing him. The 2 of them live together in a car, sometimes in a mutual friend's apartment however that seems to have fallen through. She reports that several months ago patient got very sick, was an out of hospitals, got several blood clots. She denies any history of psychotic symptoms -patient seems to be improving. Continue with current treatment plan 02/17 patient appears to be doing better. Speech is more spontaneous, affect brighter and he is mood is better. Feels that medications are helping and wants to continue with them dx: depression Plan: 3 day q15min Continue home meds incluidng Amytrpytline 75mg continue Mirtazapine 7.5mg for depression/anxiety and insomnia. Added ensure; vitamins Patient educated on: diagnosis and medication risk/benefits Informed Consent: understands Reason for continued inpatient stay Substantial Risk for: stable for discharge Time Spent With Patient Time: Total time managing care of this patient today ____ minutes.
[2024-02-18 19:45] VITALS: BP 90/52; PULSE 77; RESP 18; TEMP 36.6; O2SAT 95
[2024-02-18] MEDS: Amitriptyline HCl 25 MG TABLET 75 MG PO (20:05)
[2024-02-18] MEDS: Mirtazapine 7.5 MG TABLET PO (20:06)
[2024-02-18] MEDS: Loratadine 10 MG TABLET PO (20:06)
[2024-02-18 20:07] VITALS: BP 90/52; PULSE 77
[2024-02-19] MEDS: methADONE HCl 20 MG/2 ML ORAL.CONC 50 MG PO (07:40)
[2024-02-19 08:00] VITALS: BP 111/65; PULSE 99; RESP 16; TEMP 37.1; O2SAT 98
[2024-02-19 08:51] VITALS: BP 111/65
[2024-02-19] MEDS: Furosemide 40 MG TABLET PO (08:51)
[2024-02-19] MEDS: Spironolactone 25 MG TABLET PO (08:51)
[2024-02-19] MEDS: Apixaban 5 MG TABLET PO (08:51)
[2024-02-19] MEDS: Valsartan 80 MG TABLET PO (08:51)
[2024-02-19] MEDS: Multivitamin TABLET 1 TAB PO (08:51)
[2024-02-19] MEDS: Empagliflozin 10 MG TABLET PO (08:51)
[2024-02-19] MEDS: Tamsulosin HCL 0.4 MG CAPSULE PO (08:51)
[2024-02-19] MEDS: carvediloL 12.5 MG TABLET PO (08:52)
[2024-02-19] MEDS: Potassium Chloride ER 10 MEQ TABLET.ER PO (08:52)
--- NOTE | 2024-02-19 19:53 | PM.EVENT ---
Event Note Date of Service: 02/19/24 Event Note: Was called by the nurse as patient was found on the floor. He states that as he tried to get up, he got dizzy/lightheaded and fell. Patient lowered himself to the floor. Did not hit his head. Blood pressure in the 70s. Will order crystalloid bolus and repeat blood pressure. Patient also complaining of left hip pain unclear if it started before or after the fall. Will obtain imaging of the left hip. Time Spent With Patient Time: Total time managing care of this patient today ____ minutes.
[2024-02-19] MEDS: Acetaminophen 325 MG TABLET 975 MG PO (20:03)
--- NOTE | 2024-02-19 20:48 | PM.PSYDC ---
DS: Providers Provider Date of Service: 02/19/24 Date of admission: 02/13/24 17:50 Primary care physician: Nidia Carlisle DO Consults: 02/13/24 23:38 Consult to Hospitalist Routine Comment: Consulting Provider: Hospitalist Reason For Exam: admission physical DS: Diagnosis Discharge Diagnosis (1) MDD (major depressive disorder): Status: Acute (2) Portal vein thrombosis: Status: Acute (3) Opioid use disorder: Status: Acute (4) Hypertension: Status: Acute DS: Medications Discharge Medications Home Medications: Home Medications ?Medication ?Instructions ?Recorded ?Confirmed acetaminophen 325 mg tablet 325 mg PO BID 02/13/24 02/13/24 amitriptyline 75 mg tablet 75 mg PO BEDTIME 02/13/24 02/13/24 apixaban 5 mg tablet (Eliquis) 5 mg PO BID 02/13/24 02/13/24 carvedilol 12.5 mg tablet 12.5 mg PO BID 02/13/24 02/13/24 dapagliflozin propanediol 10 mg 10 mg PO DAILY 02/13/24 02/13/24 tablet (Farxiga) furosemide 40 mg tablet 40 mg PO DAILY 02/13/24 02/13/24 loratadine 10 mg tablet 10 mg PO BEDTIME 02/13/24 02/13/24 potassium chloride 10 mEq 10 meq PO DAILY 02/13/24 02/13/24 tablet,extended release spironolactone 25 mg tablet 25 mg PO DAILY 02/13/24 02/13/24 tamsulosin 0.4 mg capsule 0.4 mg PO DAILY 02/13/24 02/13/24 valsartan 80 mg tablet 80 mg PO BID 02/13/24 02/13/24 Previous Rx's ?Medication ?Instructions ?Recorded aluminum-magnesium hydroxide 200 30 ml PO Q6H PRN Heartburn/Nausea 02/19/24 mg-200 mg/5 mL oral suspension #0 mL (MAG-AL) hydroxyzine HCl 25 mg tablet 25 mg PO Q6H PRN Anxiety #0 tabs 02/19/24 magnesium hydroxide 400 mg/5 mL 30 ml PO DAILY PRN Constipation #0 02/19/24 oral suspension (Milk of Magnesia) mL methadone 10 mg/mL oral 50 mg (5 mL) PO DAILY@0800 #0 mL 02/19/24 concentrate (Methadose) mirtazapine 7.5 mg tablet 7.5 mg PO BEDTIME #0 tabs 02/19/24 multivitamin (Daily-Nestor tablet) 1 tab PO DAILY #0 tabs 02/19/24 nicotine (polacrilex) 2 mg gum 4 mg buccal Q2H PRN Nicotine 02/19/24 Cravings #0 ea nicotine 21 mg/24 hr daily 21 mg transdermal DAILY PRN 02/19/24 transdermal patch smoking cessation #0 ea olanzapine 5 mg tablet 5 mg PO TID PRN agitation #0 tabs 02/19/24 trazodone 50 mg tablet 50 mg PO BEDTIME MRX1 PRN Insomnia 02/19/24 #0 tabs Data Data Completed and Pending Completed studies during hospitalization [Text1]: 02/14/24 08:49 Sodium 137 Potassium 4.6 Chloride 105 Carbon Dioxide 26 Anion Gap 11 L BUN 8 L Creatinine 0.61 Estim Creat Clear Calc 132.7 Estimated GFR > 60 Fasting Glucose 94 Estimat Average Glucose 85 Hemoglobin A1c % 4.6 Calcium 8.7 Total Bilirubin 0.2 AST 19 ALT 28 Alkaline Phosphatase 151 H Total Protein 5.8 L Albumin 2.8 L Triglycerides 66 Cholesterol 140 LDL Cholesterol, Calc 79 HDL Cholesterol 48 DS: Summary Hospital Course Hospital Course: per 02/13 admission note: pt is a 53 yo male with hx depression, opioid dependence on methadone,?portal?vein?thrombosis,?on?Elijhonny who presents following suicide attempt by overdose in face of depression and psychosocial stressors. He was brought to hospital with encephalopathy, now medically cleared; Patient?does?not?remember?all?that?much?from?when?he?was?brought?to?the?emergency?room,? says?it?is?not?clear?to?me.Patient is a reluctant historian, somewhat guarded;?speech?is?latent. Patient?is?vague?but?he?says?he?was?depressed?because?his?father??14?days?ago.??On?further?inquiry?he?said?his?father? committed?suicide?a?year?ago?by?overdose?and?that?the?anniversary?of?his??was?14?days?ago.??Patient?said now?I look at Doing?the?same?thing... He?says?he?intentionally?tried?to?overdose?with?pills.??He?denies?this?was?planned?and?says?it?was?impulsive. Patient?said?that?when?he?realized?it?did?not?work?and?he?was?alive?he?felt?jipped;?however?now?he?says?he?feels?regretful?and? does?not?want?to?be?.??Patient?also?cites?other?stressors,Saying?he?broke?up?with?his?girlfriend?and is?now?homeless. ?Patient?takes?amitriptyline?consistently?for?sleep.??Denies?AVH;?reports?history?of?depression?but?moderate;?denies?history?of?domingo. Denies?alcohol?or?drug?abuse;?says?he?has?been?sober?from?opiates?and?cocaine.??Denies?history?of?trauma.? Past Psychiatric History: denies hx of psych admissions Medical Evaluation Reviewed: Hospitalist Braulio Pending [facility] Medical History (Updated 02/15/24 @ 22:34 by Cedrick Panda MD) Generalized anxiety disorder MDD (major depressive disorder) Opioid use disorder Mesenteric ischemia Portal vein thrombosis Family History: father committed suicide about 1 year ago (or 2 weeks ago)? Social History: recently broke up with partner and now homeless Substance History: vauge; says no longer uses cocaine/heroin Trauma History: denies Precis: pt is a 53 yo male with hx depression, opioid dependence on methadone,?portal?vein?thrombosis,?on?Leni who presents following suicide attempt by overdose in face of depression and psychosocial stressors. He was brought to hospital with encephalopathy, now medically cleared; Patient?does?not?remember?all?that?much?from?when?he?was?brought?to?the?emergency?room,? says?it?is?not?clear?to?me.Patient is a reluctant historian, somewhat guarded;?speech?is?latent. depressed; guarded with speech latency. Some of story changes; not sure why. Denies AVH. Pt gaunt, not sure why. Right now, since guarded, will wait until more acclimated for further inquiries including why pt appear cachectic agrees to start Mirtazapine in addition to amytriptyline. Floor Finisher Helper wonders if antipsychotic may help dx: depression r/o psychotic illness 02/13: Continue home meds incluidng Amytrpytline 75mg. START Mirtazapine 7.5mg for depression/anxiety and insomnia. Added ensure; vitamins 02/14: Continue current management and treatment plan. 02/15: continue current management and treatment plan. 02/18: pt fell, c/o pain. xray showed hip fx. transferred to medicine. Time Spent with Patient Time attestation: Total time managing care of this patient today __20__ minutes. Discharge Plan Discharge Anticipated Discharge Date/Time: 02/19/24 20:43 Patient Disposition: er Acute [facility] Discharge Diagnosis: MDD Referrals: Nidia Carlisle DO [Primary Care Provider] - 1 Week Discharge Medications: New multivitamin [Daily-Nestor] Tablet 1 tab PO DAILY Qty: 0 0RF trazodone 50 mg Tablet 50 mg PO BEDTIME MRX1 PRN (Reason: Insomnia) Qty: 0 0RF nicotine (polacrilex) 2 mg Gum 4 mg buccal Q2H PRN (Reason: Nicotine Cravings) Qty: 0 0RF olanzapine 5 mg Tablet 5 mg PO TID PRN (Reason: agitation) Qty: 0 0RF magnesium hydroxide [Milk of Magnesia] 400 mg/5 mL Suspension 30 ml PO DAILY PRN (Reason: Constipation) Qty: 0 0RF nicotine 21 mg/24 hr Patch 24 Hour 21 mg transdermal DAILY PRN (Reason: smoking cessation) Qty: 0 0RF hydroxyzine HCl 25 mg Tablet 25 mg PO Q6H PRN (Reason: Anxiety) Qty: 0 0RF methadone [Methadose] 10 mg/mL Concentrate 50 mg PO DAILY@0800 Qty: 0 0RF Rx Instructions: Partial Fill upon patient request. mirtazapine 7.5 mg Tablet 7.5 mg PO BEDTIME Qty: 0 0RF MAG-AL 200-200 mg/5 mL Suspension 30 ml PO Q6H PRN (Reason: Heartburn/Nausea) Qty: 0 0RF Continued furosemide 40 mg tablet 40 mg PO DAILY acetaminophen 325 mg tablet 325 mg PO BID carvedilol 12.5 mg tablet 12.5 mg PO BID amitriptyline 75 mg tablet 75 mg PO BEDTIME valsartan 80 mg tablet 80 mg PO BID potassium chloride 10 mEq tablet extended release 10 meq PO DAILY spironolactone 25 mg tablet 25 mg PO DAILY tamsulosin 0.4 mg capsule 0.4 mg PO DAILY loratadine 10 mg tablet 10 mg PO BEDTIME Eliquis 5 mg tablet 5 mg PO BID dapagliflozin propanediol [Farxiga] 10 mg tablet 10 mg PO DAILY Discharge Orders: Discharge Order (Routine); Ordered 02/19/24 Ordered By: Tim Ch Diet: Diabetic diet Activity on Discharge: As tolerated Stand Alone Forms: Patient Portal Discharge page Print Language: [place] Care Plan Goals: remain safe and stable outside inpatient mental health unit Health Concerns: broken femur Plan of Treatment: transfer to inpatient med/surg Assessment: suitable for transfer to medical floor
--- NOTE | 2024-02-19 20:52 | PM.EVENT ---
Event Note Date of Service: 02/19/24 Event Note: pt fell, xray showed hip fracture. transferred to medicine. Time Spent With Patient Time: Total time managing care of this patient today __20__ minutes.
--- NOTE | 2024-02-19 22:39 | P.PNPSI_ITS ---
Subjective Subjective Date of Service: 02/19/24 Reason For Visit: Depression Interim History: Met with patient; discussed with team Patient reports that his mood is good. He says he is eating well, sleeping well feeling ready to go home. Patient expresses gratitude for help received on the unit. He says he will call Myesha to coordinate her picking him up which is the plan. Mental Status Exam Mental Status Exam Narrative: Pt is alert and oriented; behavior is cooperative, friendly and calm; patient is not in distress; dressed in hospital attire, scruffy but adequate hygiene; mood is described as good and affect congruent, brighter; eye contact appropriate; Speech is spontaneous; still with some latency but much less and normal rate, volume and prosody and not pressured; no psychomotor retardation present; thought process is organized and goal directed; Thought content is on tx; otherwise pertinent to relevant topics and without any delusional content, paranoid ideations or grandiosity; denies any SI/HI. There is no evidence of perceptual disturbance. Patients insight and judgment appear intact. Diagnostics Vital Signs (24Hr): Vital Signs - 24 hr 02/19/24 08:00 02/19/24 08:51 Temperature 98.8 F Pulse Rate 99 Respiratory Rate 16 Blood Pressure 111/65 111/65 Pulse Oximetry 98 Oxygen Delivery Method Room Air BMI result Body Mass Index 20.0 Labs 02/14/24 08:49 Imaging Radiology Impressions: ITS Impressions Hip X-Ray 02/19/24 20:30 IMPRESSION: Nondisplaced intertrochanteric fracture left femur. Medications Allergies Allergies Allergy/AdvReac Type Severity Reaction Status Date / Time No Known Allergies Allergy Verified 02/13/24 21:11 Assessment & Plan Assessment & Plan (1) MDD (major depressive disorder): Status: Acute Code(s): F32.9 - Major depressive disorder, single episode, unspecified (2) Portal vein thrombosis: Status: Acute Code(s): I81 - Portal vein thrombosis (3) Opioid use disorder: Status: Acute Code(s): F11.90 - Opioid use, unspecified, uncomplicated (4) Hypertension: Status: Acute Code(s): I10 - Essential (primary) hypertension Plan Plan pt is a 53 yo male with hx depression, opioid dependence on methadone,?portal?vein?thrombosis,?on?Eliquis who presents following suicide attempt by overdose in face of depression and psychosocial stressors. He was brought to hospital with encephalopathy, now medically cleared; Patient?does?not?remember?all?that?much?from?when?he?was?brought?to?the?emergenc y?room,? says?it?is?not?clear?to?me.Patient is a reluctant historian, somewhat guarded;?speech?is?latent. Patient?is?vague?but?he?says?he?was?depressed?because?his?father??14?days?ag o.??On?further?inquiry?he?said?his?father? c ommitted?suicide?a?year?ago?by?overdose?and?that?the?anniversary?of?his??wa s?14?days?ago.??Patient?said now?I look at D oing?the?same?thing... He?says?he?intentionally?tried?to?overdose?with?pills.??H e?denies?this?was?planned?and?says?it?was?impulsive. P atient?said?that?when?he?realized?it?did?not?work?and?he?was?alive?he?felt?jippe d;?however?now?he?says?he?feels?regretful?and? d oes?not?want?to?be?.??Patient?also?cites?other?stressors,Saying?he?broke?up? with?his?girlfriend?and is?now?homeless. ?Patient?takes?amitriptyline?consistently?for?sleep.??Denies?AVH;?reports?histor y?of?depression?but?moderate;?denies?history?of?domingo. D enies?alcohol?or?drug?abuse;?says?he?has?been?sober?from?opiates?and?cocaine.??D enies?history?of?trauma.? impression: depressed; guarded with speech latency. Some of story changes; not sure why. Denies AVH. Pt chelsea, not sure why. Right now, since guarded, will wait until more acclimated for further inquiries including why pt appear cachectic agrees to start Mirtazapine in addition to amytriptyline. Hospital course: 02/14: Continue current management and treatment plan. 02/15: continue current management and treatment plan. 02/16 Patient more talkative, speech more spontaneous. Says he is feeling better, that his mood is better and finds that he is talking more easily. Says looking back he has upset with himself for how impulsive he was recording overdose. Patient discussed treatment and after copywriter explained again 3 day notice, he went and signed 1. Patient said it was fine to call his partner Myesha and gave copywriter her number. Myesha reports that suicide attempt was after an argument they had; she was the 1 who found him and brought him in. She says they are reconciled and she is looking forward to seeing him. The 2 of them live together in a car, sometimes in a mutual friend's apartment however that seems to have fallen through. She reports that several months ago patient got very sick, was an out of hospitals, got several blood clots. She denies any history of psychotic symptoms -patient seems to be improving. Continue with current treatment plan 02/17 patient appears to be doing better. Speech is more spontaneous, affect brighter and he is mood is better. Feels that medications are helping and wants to continue with them 02/18 much improved, depression resolved, patient reports good mood and with noticeably brighter affect; he is also much more social, out about the milieu. Patient is discharging back to be with his partner Myesha who is picking him up tomorrow. Patient has been in good behavioral and impulse control throughout his time in the unit. He has been polite and appropriate with peers and staff and feels that medications have been helping. Patient has a 3 day notice in which is due tomorrow. He is not in imminent risk for harm to self or others his request for discharge honored. dx: depression Plan: 3 day q15min Continue home meds incluidng Amytrpytline 75mg continue Mirtazapine 7.5mg for depression/anxiety and insomnia. Added ensure; vitamins Patient educated on: diagnosis and medication risk/benefits Informed Consent: understands Reason for continued inpatient stay Substantial Risk for: stable for discharge Time Spent With Patient Time: Total time managing care of this patient today ____ minutes.
== END 2024-02-19 21:00 | disposition short-term general hospital (02) | DRG 754 ==
PROVIDERS: Admitting Provider Psychiatry & Neurology Psychiatry; PCP Internal Medicine; Visit Provider Psychiatry & Neurology Psychiatry
DX: F32.9 Major depressive disorder, single episode, unspecified (principal); I81 Portal vein thrombosis; S72.145A Nondisplaced intertrochanteric fracture of left femur, initial encounter for closed fracture; W19.XXXA Unspecified fall, initial encounter; F11.20 Opioid dependence, uncomplicated; I10 Essential (primary) hypertension; Z91.51 Personal history of suicidal behavior; Z63.4 Disappearance and death of family member; Z59.02 Unsheltered homelessness; Z79.01 Long term (current) use of anticoagulants; Z79.899 Other long term (current) drug therapy
CPT/HCPCS: 36415; 73502; 80053; 80061; 83036; 92950

== ENCOUNTER → 2024-02-13 17:50 | Outpatient (BNV) | payer OTHER, SELFPAY | PROVIDERS: Admitting Provider Psychiatry & Neurology Psychiatry; PCP Internal Medicine; Visit Provider Student in an Organized Health Care Education/Training Program | DX: Z02.2 Encounter for examination for admission to residential institution (principal) | CPT/HCPCS: 99429 ==

== ENCOUNTER → 2024-02-13 17:50 | Outpatient (BNV) | payer OTHER, SELFPAY | PROVIDERS: Admitting Provider Psychiatry & Neurology Psychiatry; PCP Internal Medicine; Visit Provider Psychiatry & Neurology Psychiatry | DX: F33.2 Major depressive disorder, recurrent severe without psychotic features (principal); F11.90 Opioid use, unspecified, uncomplicated; I81 Portal vein thrombosis; I10 Essential (primary) hypertension | CPT/HCPCS: 90792; 99231; 99232; 99238; 99499 ==

== ENCOUNTER 2024-02-19 21:02 | Inpatient (IN) | payer OTHER, SELFPAY ==
--- NOTE | ~2024-02-19 | FL_ITS ---
EXAMINATION: XR FLUOROSCOPY WITH IMAGES CLINICAL INFORMATION: Femoral nailing. COMPARISON: Left hip 02/19/2024. TECHNIQUE: Fluoroscopy Supervised By: Dr. Iftikhar Bone. Fluoroscopy Time: 0.6 minutes. Cumulative Dose: 13.2 mGy. DAP: 0.230 mGym2. Images: 6. FINDINGS: Intraoperative fluoroscopy and spot films were performed during a procedure in the OR. Images show placement of an intramedullary madie and screw in the left femur. Please correlate with Dr. Bone's report for complete details. FL/FL guidance in OR IMPRESSION: Intraoperative fluoroscopy and spot films were obtained. Please see Dr. Bone's report for complete details.
--- NOTE | ~2024-02-19 | CT_ITS ---
EXAMINATION: CT HEAD WITHOUT CONTRAST CLINICAL INFORMATION: Fall. Pain. COMPARISON: None available. TECHNIQUE: Contiguous axial imaging was performed from the skull base to vertex without intravenous administration of contrast. This CT examination was performed using dose optimization techniques as appropriate, variously including the following: *Automated exposure control *Adjustment of mA and/or kV according to patient size (this includes techniques or standardized protocols for targeted exams where dose is matched to indication/reason for exam; i.e. extremities or head) *Use of iterative reconstruction technique DLP: 681 mGy-cm FINDINGS: The lateral, third and fourth ventricles are normally outlined. The cortical sulci and basal cisterns are normally outlined as well. There is no acute territorial defect, hemorrhage or midline shift. The extra-axial spaces are unremarkable. Calvarium/scalp: Intact. Maxillofacial sinuses and mastoids: There is a small left maxillary sinus opacity. The remaining visualized maxillofacial sinuses and mastoids are clear. CT/CT head/brain wo IV con IMPRESSION: No CT evidence of acute intracranial pathology.
--- NOTE | 2024-02-19 21:03 | PM.IMHP ---
History of Present Illness Date of Service: 02/19/24 Chief Complaint: Fall This is a 53-year-old male with pertinent history of hypertension, history of portal vein thrombosis on Eliquis, history of mesenteric ischemia status post exploratory laparotomy with open SMA embolectomy, lower extremity edema, BPH, opioid use disorder on methadone, mood disorder who was admitted to for SI. Hospital medicine team consulted as patient had a fall. Patient stated that he tried to get up and got dizzy/lightheaded before falling down. Patient fell on his left hip. Patient has pain with movement of the left hip since the fall. Did not lose consciousness. Did not hit his head. Initial blood pressure after the fall with systolic in the 70s. Heart rate and SpO2 within normal limits. X-ray of the left hip revealed intertrochanteric fracture of the left femur. Patient transferred to surgical floor for further management. He denies chest pain, palpitations, shortness of breath, abdominal pain, nausea or vomiting. Review of Systems ENT: Reports dizziness Cardiovascular: Cardiovascular: Reports no additional cardiovascular complaints Respiratory: Respiratory: Reports no additional respiratory complaints Gastrointestinal: Gastrointestinal: Reports no additional gastrointestinal complaints Musculoskeletal: Musculoskeletal: Reports arthralgias Neurologic: Reports dizziness [facility] Medical History Generalized anxiety disorder MDD (major depressive disorder) Opioid use disorder Mesenteric ischemia Portal vein thrombosis Pertinent family history: No family history of early CAD Social History Household Members: None Housing: Homeless Do you presently have visiting nurse or other home services: No Patient Tobacco Use Status: Former Tobacco user Tobacco use type: Cigarette Smoked in Last 30 Days: No Patient Interested in Nicotine Replacement: No Patient Given Instructions on How to Stop Smoking: No Second Hand Smoke Exposure: No Use of substances other than those prescribed or required for medical reasons: No Currently Displaying Signs/Symptoms of Drug Intoxication Withdrawal: No Have you been hit, kicked, punched, or otherwise hurt by someone within the past year? If so, by whom?: No Do you feel safe in your current relationship?: No Current Relationship Is there a partner from a previous relationship who is making you feel unsafe now?: No Are you made to feel afraid or neglected: No Advance Directives: No Advance Directives Information Provided: No Do you have a plan to hurt others: No Plan Recently lost weight without trying: No How much weight loss: Not applicable Eating poorly because of decreased appetite: No Nutrition screen score: 0 Nutrition Risks: No Nutritional Risk Poor oral hygiene: No service: No Sexual orientation: Straight/Heterosexual Meds Allergies Allergy/AdvReac Type Severity Reaction Status Date / Time No Known Allergies Allergy Verified 02/13/24 21:11 Home Medications ?Medication ?Instructions ?Recorded ?Confirmed ?Last Taken ?Type acetaminophen 325 mg tablet 325 mg PO BID 02/13/24 02/13/24 Unknown History amitriptyline 75 mg tablet 75 mg PO BEDTIME 02/13/24 02/13/24 Unknown History apixaban 5 mg tablet (Eliquis) 5 mg PO BID 02/13/24 02/13/24 Unknown History carvedilol 12.5 mg tablet 12.5 mg PO BID 02/13/24 02/13/24 Unknown History dapagliflozin propanediol 10 mg 10 mg PO DAILY 02/13/24 02/13/24 Unknown History tablet (Farxiga) furosemide 40 mg tablet 40 mg PO DAILY 02/13/24 02/13/24 Unknown History loratadine 10 mg tablet 10 mg PO BEDTIME 02/13/24 02/13/24 Unknown History potassium chloride 10 mEq 10 meq PO DAILY 02/13/24 02/13/24 Unknown History tablet,extended release spironolactone 25 mg tablet 25 mg PO DAILY 02/13/24 02/13/24 Unknown History tamsulosin 0.4 mg capsule 0.4 mg PO DAILY 02/13/24 02/13/24 Unknown History valsartan 80 mg tablet 80 mg PO BID 02/13/24 02/13/24 Unknown History Physical Exam Vital Signs and Narrative: Middle-aged male lying in bed in no distress Neck supple, no JVD Regular rate and rhythm, S1-S2 heard Regular breath sounds bilaterally, no wheezing or crackles appreciated Abdomen soft nontender, no guarding, no rigidity Patient is awake, alert and oriented to self, place, time and person ; difficulty moving left lower extremity due to pain Psych: Normal mood Trace pedal edema Results Labs 02/20/24 00:48 02/20/24 00:48 Assessment and Plan (1) Femur fracture: Status: Acute (2) Pre-syncope: Status: Acute (3) Fall: Status: Acute Plan This is a 53-year-old male with pertinent history of hypertension, history of portal vein thrombosis on Eliquis, history of mesenteric ischemia status post exploratory laparotomy with open SMA embolectomy, lower extremity edema, BPH, opioid use disorder on methadone, mood disorder who was admitted to for SI. Hospital medicine team consulted as patient had a fall. #. Nondisplaced intertrochanteric left femur fracture due to fall: Will admit patient and initiate IV opioids p.r.n. for analgesia. Consulting orthopedic surgery, appreciate assistance. Preoperative risk: RCRI score 0. Will hold anticoagulation and keep patient NPO after midnight #. Orthostatic presyncope leading to fall: Resuscitating with IV crystalloids. Repeat orthostatics in a.m. #. Hypertension/lower leg edema: Hold ARB to prevent postop hypotension. Hold diuretics in the setting of orthostasis. #. Mood disorder with SI: Continue home mood stabilizers. Consult sitter for SI #. History of portal wean thrombosis: Hold Eliquis until orthopedic surgical evaluation #. BPH: On Flomax #. Leukocytosis, reactive #. Normocytic anemia Med rec pending DVT prophylaxis: Mechanical Full code Admit as inpatient and will require two night minimum hospital stay for treatment of left femur fracture (as above), which is not possible in a lesser acute setting. Specialist consult pending Quality Stroke Does the patient have a stroke diagnosis?: No VTE Prior VTE?: No VTE Risk Level:: Medical - moderate - high VTE Device Contraindication: N/A - Device Ordered VTE Drug Contraindication: Treatment Not Indicated
[2024-02-19] MEDS: Morphine Sulfate 4 MG/ML CARTRIDGE 2 MG IVPUSH (21:56)
[2024-02-19] MEDS: Lactated Ringers 1,000 ML 999 ML IV (21:57)
[2024-02-19 22:27] VITALS: BP 100/61; PULSE 67; RESP 18; TEMP 36.6; O2SAT 96
[2024-02-19] MEDS: Melatonin 3 MG TABLET 6 MG PO (22:28)
[2024-02-19] MEDS: Acetaminophen 325 MG TABLET 650 MG PO (22:28)
[2024-02-19] MEDS: 0.9 % Sodium Chloride Flush 3 ML SYRINGE IVFLUSH (22:30)
[2024-02-19 22:31] VITALS: BMI 19.1
[2024-02-20 00:54] LABS: Hematocrit 30.8 % (42.0-52.0); Hemoglobin 9.5 g/dl (14.0-18.0); Mean Corpuscular HGB Conc 30.8 g/dl (31.0-36.0); Mean Corpuscular Hemoglobin 25.3 pg (27.0-33.0); Mean Corpuscular Volume 82.1 fL (80.0-98.0); Mean Platelet Volume 9.7 fL (9.4-12.4); Platelet Count 484 X10*3/uL (160-400); Red Blood Count 3.75 X10*6/uL (4.60-5.80); Red Cell Distribution Width 15.6 % (11.0-16.0); White Blood Count 16.2 X10*3/uL (4.8-10.8)
[2024-02-20 01:12] LABS: Alanine Aminotransferase 24 U/L (0-40); Albumin Level 2.7 g/dL (3.5-5.0); Alkaline Phosphatase 138 U/L (39-117); Anion Gap 14 (12-20); Aspartate Amino Transferase 20 U/L (5-37); Bilirubin Total 0.2 mg/dL (0.0-1.0); Blood Urea Nitrogen 22 mg/dL (9-16); Calcium 8.7 mg/dL (8.4-10.2); Carbon Dioxide 26 mmol/L (22-29); Chloride 100 mmol/L (96-108); Creatinine Clr Calc Pharmacy 97.8; Estimated Glomerular Filt Rate > 60; Glucose Random 140 mg/dL (60-115); Potassium 4.4 mmol/L (3.3-5.1); Sodium 136 mmol/L (135-145); Total Protein 5.5 g/dL (6.5-8.0)
[2024-02-20] MEDS: Morphine Sulfate 4 MG/ML CARTRIDGE 2 MG IVPUSH ×2 (01:56→07:47)
[2024-02-20 03:41] VITALS: BP 111/67; PULSE 77; RESP 16; TEMP 36.2; O2SAT 96
[2024-02-20] MEDS: HYDROmorphone HCl 1 MG/ML SYRINGE IVPUSH (03:47)
[2024-02-20 05:55] LABS: MANUAL DIFF FLAG NO
[2024-02-20 06:07] LABS: Basophils Absolute Auto 0.1 X10*3/uL (0.0-0.2); Basophils Percent Auto 0.5 % (0-2); Eosinophils Absolute Auto 0.2 X10*3/uL (0.0-0.4); Eosinophils Percent Auto 1.7 % (0-4); Hematocrit 30.9 % (42.0-52.0); Hemoglobin 9.2 g/dl (14.0-18.0); Imm Gran Abs Auto 0.08 X10*3/uL (0.00-0.03); Imm Gran Pct Auto 0.7 % (0.0-0.4); Lymphocytes Absolute Auto 2.7 X10*3/uL (1.2-4.9); Mean Corpuscular HGB Conc 29.8 g/dl (31.0-36.0); Mean Corpuscular Hemoglobin 24.9 pg (27.0-33.0); Mean Corpuscular Volume 83.7 fL (80.0-98.0); Mean Platelet Volume 10.7 fL (9.4-12.4); Monocytes Absolute Auto 1.5 X10*3/uL (0.1-1.2); Neutrophils Percent Auto 61.1 % (45-73); Platelet Count 432 X10*3/uL (160-400); Red Blood Count 3.69 X10*6/uL (4.60-5.80); Red Cell Distribution Width 15.8 % (11.0-16.0); White Blood Count 11.5 X10*3/uL (4.8-10.8)
[2024-02-20 06:20] LABS: Anion Gap 14 (12-20); Blood Urea Nitrogen 21 mg/dL (9-16); Calcium 8.9 mg/dL (8.4-10.2); Carbon Dioxide 27 mmol/L (22-29); Chloride 100 mmol/L (96-108); Creatinine Clr Calc Pharmacy 105.9; Estimated Glomerular Filt Rate > 60; Glucose Random 99 mg/dL (60-115); Potassium 4.7 mmol/L (3.3-5.1); Sodium 136 mmol/L (135-145)
[2024-02-20 06:30] LABS: INTERNATIONAL NORM RATIO 0.9 (0.9-1.1); Prothrombin Time 11.2 SEC (11.1-13.3)
[2024-02-20 07:08] VITALS: BP 117/65; PULSE 82; RESP 14; TEMP 36.5; O2SAT 96
[2024-02-20] MEDS: Albumin Human 25 % 100 ML IV ×2 (07:49→09:30)
--- NOTE | 2024-02-20 09:23 | PHA.MEDREC ---
Addendum entered by Renu Cortez RPh 02/20/24 09:54: med rec reviewed Original Note: Pharmacy Consult ? Medication Reconciliation Pharmacy has completed the medication reconciliation. Patient was not very aware of medications he takes so the discharge packet from 02/19/24 from was utilized to confirm medications. Patient also state he does not know the last time he took his medications
--- NOTE | 2024-02-20 09:41 | MHC.CM.PN ---
Patient lives in an apartment w/ girlfriend, but reports he is unsure if he is able to return. Admitted from [facility] after fall. + SI, sitter at bedside. 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 Methadone w/ [facility]. No PCP. Brocure provided. +THRIVE. Resource guide provided. No HCP. CM provided education and offered assistance. Patient declined. DP: Will need ortho eval for hip fx and CARE eval for SI when medically cleared. CM will continue to follow.
--- NOTE | 2024-02-20 10:58 | P.PNIM_ITS ---
Subjective Subjective Date of Service: 02/20/24 Interval History: Being followed for left hip fracture sustained after a fall with orthostatic BP . Patient is complaining of pain, offers no other complaints denies lightheadedness, no dizziness, no headache no chest pain no shortness of breath. Review of Systems All other systems are reviewed and are negative. Physical Exam 2 Vital Signs: Vital Signs: Last Vital Signs Temp 97.7 F 02/20/24 07:08 Pulse 82 02/20/24 07:08 Resp 14 02/20/24 07:08 BP 117/65 02/20/24 07:08 Pulse Ox 96 02/20/24 07:08 O2 Del Method Room Air 02/20/24 07:08 BMI result Body Mass Index 19.1 Const: Other: General resting comfortably in no acute distress. Anicteric sclera Neck no JVD. CVS regular rate rhythm, Respiratory lungs clear to auscultation, no respiratory distress, no wheeze, no rhonchi. Gastrointestinal abdomen soft, non tender, bowel sounds audible, no guarding , no rigidity. Extremities Neuro non focal,speech clear. Skin no rash Psych appropriate affect Objective Data Active Medications Acetaminophen (Acetaminophen 325 Mg Tablet) 650 mg PO Q6H PRN PRN Reason: Pain, Mild (Pain Scale 1-3), fever or headache Last Admin: 02/19/24 22:28 Dose: 650 mg Documented By: IRIS Calcium Carbonate (Calcium Carbonate 750 Mg Tab.Chew) 750 mg PO Q4H PRN PRN Reason: Heartburn Magnesium Hydroxide (Milk Of Magnesia 30 Ml Oral.Susp) 30 ml PO DAILY PRN PRN Reason: Constipation Melatonin (Melatonin 3 Mg Tablet) 6 mg PO BEDTIME PRN PRN Reason: Insomnia Last Admin: 02/19/24 22:28 Dose: 6 mg Documented By: IRIS Morphine Sulfate (Morphine Sulfate 4 Mg/Ml Cartridge) 2 mg IVPUSH Q4H PRN; Protocol PRN Reason: Pain, Severe (Pain Scale 7-10) Last Admin: 02/20/24 07:47 Dose: 2 mg Documented By: EMILIANA Ondansetron HCl (Ondansetron Hcl 4 Mg/2 Ml Vial) 4 mg IVPUSH Q8H PRN PRN Reason: Nausea and Vomiting Sodium Chloride (0.9 % Sodium Chloride Flush 3 Ml Syringe) 3 ml IVFLUSH QSHIFT TREV Last Admin: 02/20/24 08:14 Dose: Not Given Documented By: EMILIANA Non-Admin Reason: IV Running Labs 02/20/24 05:12 02/20/24 05:12 Labs: Laboratory Results - last 24 hr 02/20/24 02/20/24 00:48 05:12 MCV 82.1 83.7 MCH 25.3 L 24.9 L MCHC 30.8 L 29.8 L RDW 15.6 15.8 Plt Count 484 H 432 H MPV 9.7 10.7 Immature Gran % (Auto) 0.7 H Neut % (Auto) 61.1 Lymph % (Auto) 23.0 [place] % (Auto) 13.0 H Eos % (Auto) 1.7 Baso % (Auto) 0.5 Lymph # (Auto) 2.7 [place] # (Auto) 1.5 H Eos # (Auto) 0.2 Baso # (Auto) 0.1 Abs Immat Gran (auto) 0.08 H Absolute Neuts (auto) 7.0 Absolute Nucleated RBC 0.000 0.000 Nucleated RBC % (auto) 0.0 0.0 PT 11.2 INR 0.9 Anion Gap 14 14 Estim Creat Clear Calc 97.8 105.9 Estimated GFR > 60 > 60 Random Glucose 140 H 99 Calcium 8.7 8.9 Total Bilirubin 0.2 AST 20 ALT 24 Alkaline Phosphatase 138 H Total Protein 5.5 L Albumin 2.7 L Assessment and Plan (1) Intertrochanteric fracture of left femur: Status: Acute (2) Fall: Status: Acute (3) Portal vein thrombosis: Status: Acute (4) Opioid use disorder: Status: Acute (5) MDD (major depressive disorder): Status: Acute Plan 53-year-old male with pertinent history of hypertension, history of portal vein thrombosis on Eliquis, history of mesenteric ischemia status post exploratory laparotomy with open SMA embolectomy, lower extremity edema, BPH, opioid use disorder on methadone, mood disorder who was admitted to for SI. Hospital medicine team consulted as patient had a fall. #. Nondisplaced intertrochanteric left femur fracture due to fall: Continue IV morphine and Tylenol Await ortho input Hold Eliquis/continue NPO # opioid use disorder resume methadone #. Orthostatic presyncope leading to fall: Follow orthostatic BP, hold all blood pressure medications and diuretics since BP remains soft, continue IV fluids. #. Hypertension on multiple antihypertensives, will hold valsartan 80 mg b.i.d., spironolactone 25 mg daily, Coreg 12.5 mg b.i.d. Lasix 40 mg daily, will resume Coreg once blood pressure improves #. Mood disorder with SI: On multiple psychiatric medications including mirtazapine 7.5 mg, Zyprexa 5 mg t.i.d. as needed, trazodone 50 mg b.i.d. as needed ,Continue amitriptyline Continue sitter, will be followed by Psychiatry #. History of portal vein thrombosis: Hold Eliquis for Orthopedic surgery # diabetes mellitus type 2 hold Farxiga , stable blood sugar, monitor blood sugar qid #. BPH: Continue Flomax #. Leukocytosis, reactive WBC improved to 11.5 #. Normocytic anemia # tobacco use disorder continue nicotine replacement. DVT prophylaxis: Mechanical Full code Patient will require continued inpatient hospitalization for treatment of left femur fracture (as above), which is not possible in a lesser acute setting. Specialist consult pending. Quality Stroke Does the patient have a stroke diagnosis?: No VTE Prior VTE?: No VTE Risk Level:: Medical - moderate - high VTE Device Contraindication: N/A - Device Ordered VTE Drug Contraindication: Treatment Not Indicated
[2024-02-20] MEDS: Lactated Ringers 1,000 ML 80 ML IVCONT (11:56)
--- NOTE | 2024-02-20 12:30 | PM.CNOR ---
History of Present Illness HPI Consult date: 02/20/24 Chief complaint: Fall Narrative: Patient is a 53-year-old male being evaluated for a left hip fracture, date of injury 02/19/2024. Patient reports that he was walking in the unit, slipped and fell onto his left hip, and began to immediately experienced pain. X-rays were taken, revealing nondisplaced intertrochanteric fracture of the left hip, and the patient was transferred to the surgical floor for further management. Today, the patient reports that he has been totally nonweightbearing since time of injury, and that he has been experiencing discomfort in his left hip since time of injury. Patient inquires as to what his further course of treatment will be. Review of Systems Review of Systems: Yes all other systems are reviewed and are negative PMFSH Past Medical History Medical History Generalized anxiety disorder MDD (major depressive disorder) Opioid use disorder Mesenteric ischemia Portal vein thrombosis Social History Social History Household Members: None Housing: Homeless Do you presently have visiting nurse or other home services: No Patient Tobacco Use Status: Former Tobacco user Tobacco use type: Cigarette Smoked in Last 30 Days: No Patient Interested in Nicotine Replacement: No Patient Given Instructions on How to Stop Smoking: No Second Hand Smoke Exposure: No Use of substances other than those prescribed or required for medical reasons: No Currently Displaying Signs/Symptoms of Drug Intoxication Withdrawal: No Have you been hit, kicked, punched, or otherwise hurt by someone within the past year? If so, by whom?: No Do you feel safe in your current relationship?: No Current Relationship Is there a partner from a previous relationship who is making you feel unsafe now?: No Are you made to feel afraid or neglected: No Advance Directives: No Advance Directives Information Provided: No Do you have a plan to hurt others: No Plan Recently lost weight without trying: No How much weight loss: Not applicable Eating poorly because of decreased appetite: No Nutrition screen score: 0 Nutrition Risks: No Nutritional Risk Poor oral hygiene: No service: No Sexual orientation: Straight/Heterosexual Meds Allergies Allergy/AdvReac Type Severity Reaction Status Date / Time No Known Allergies Allergy Verified 02/13/24 21:11 Active Medications: Current Medications Acetaminophen (Acetaminophen 325 Mg Tablet) 650 mg PO Q6H PRN PRN Reason: Pain, Mild (Pain Scale 1-3), fever or headache Last Admin: 02/19/24 22:28 Dose: 650 mg Al Hydroxide/Mg Hydroxide (Magnesium Hydrox/Alum Hydrox 30 Ml Oral.Susp) 30 ml PO Q6H PRN PRN Reason: Heartburn/Nausea Amitriptyline HCl (Amitriptyline Hcl 25 Mg Tablet) 75 mg PO BEDTIME [facility] Calcium Carbonate (Calcium Carbonate 750 Mg Tab.Chew) 750 mg PO Q4H PRN PRN Reason: Heartburn Hydroxyzine HCl (Hydroxyzine Hcl 25 Mg Tablet) 25 mg PO Q6H PRN PRN Reason: Anxiety Lactated Ringer's (Lr) 1,000 mls @ 80 mls/hr IVCONT .[id number] [facility] Stop: 02/20/24 23:59 Last Admin: 02/20/24 11:56 Dose: 80 mls/hr Magnesium Hydroxide (Milk Of Magnesia 30 Ml Oral.Susp) 30 ml PO DAILY PRN PRN Reason: Constipation Melatonin (Melatonin 3 Mg Tablet) 6 mg PO BEDTIME PRN PRN Reason: Insomnia Last Admin: 02/19/24 22:28 Dose: 6 mg Morphine Sulfate (Morphine Sulfate 4 Mg/Ml Cartridge) 3 mg IVPUSH Q4H PRN; Protocol PRN Reason: Pain, Severe (Pain Scale 7-10) Nicotine Polacrilex (Nicotine Polacrilex 2 Mg Gum) 4 mg BUCCAL Q2H PRN PRN Reason: Nicotine Cravings Ondansetron HCl (Ondansetron Hcl 4 Mg/2 Ml Vial) 4 mg IVPUSH Q8H PRN PRN Reason: Nausea and Vomiting Sodium Chloride (0.9 % Sodium Chloride Flush 3 Ml Syringe) [address] [facility] Last Admin: 02/20/24 08:14 Dose: Not Given Tamsulosin HCl (Tamsulosin Hcl 0.4 Mg Capsule) 0.4 mg PO DAILY [facility] Home Medications ?Medication ?Instructions ?Recorded ?Confirmed ?Last Taken ?Type acetaminophen 325 mg tablet 325 mg PO BID 02/13/24 02/20/24 Unknown History amitriptyline 75 mg tablet 75 mg PO BEDTIME 02/13/24 02/20/24 Unknown History apixaban 5 mg tablet (Eliquis) 5 mg PO BID 02/13/24 02/20/24 Unknown History carvedilol 12.5 mg tablet 12.5 mg PO BID 02/13/24 02/20/24 Unknown History dapagliflozin propanediol 10 mg 10 mg PO DAILY 02/13/24 02/20/24 Unknown History tablet (Farxiga) furosemide 40 mg tablet 40 mg PO DAILY 02/13/24 02/20/24 Unknown History loratadine 10 mg tablet 10 mg PO BEDTIME 02/13/24 02/20/24 Unknown History potassium chloride 10 mEq 10 meq PO DAILY 02/13/24 02/20/24 Unknown History tablet,extended release spironolactone 25 mg tablet 25 mg PO DAILY 02/13/24 02/20/24 Unknown History tamsulosin 0.4 mg capsule 0.4 mg PO DAILY 02/13/24 02/20/24 Unknown History valsartan 80 mg tablet 80 mg PO BID 02/13/24 02/20/24 Unknown History Physical Exam Vital Signs: Vital Signs: Last Vital Signs Temp 97.7 F 02/20/24 07:08 Pulse 82 02/20/24 07:08 Resp 14 02/20/24 07:08 BP 117/65 02/20/24 07:08 Pulse Ox 96 02/20/24 07:08 O2 Del Method Room Air 02/20/24 07:08 BMI result Body Mass Index 19.1 Extrem: Other: On inspection, no visible deformity of the left hip noted No leg shortening or rotational deformity noted Patient reports tenderness to gentle palpation of the greater trochanter Distal sensation intact Capillary refill brisk Results Labs 02/20/24 05:12 02/20/24 05:12 Labs: Abnormal lab results 02/20/24 02/20/24 Range/Units 00:48 05:12 WBC 16.2 H 11.5 H (4.8-10.8) X10*3/uL RBC 3.75 L 3.69 L (4.60-5.80) X10*6/uL Hgb 9.5 L 9.2 L (14.0-18.0) g/dl Hct 30.8 L 30.9 L (42.0-52.0) % MCH 25.3 L 24.9 L (27.0-33.0) pg MCHC 30.8 L 29.8 L (31.0-36.0) g/dl Plt Count 484 H 432 H (160-400) X10*3/uL Immature Gran % (Auto) 0.7 H (0.0-0.4) % [place] % (Auto) 13.0 H (2-11) % [place] # (Auto) 1.5 H (0.1-1.2) X10*3/uL Abs Immat Gran (auto) 0.08 H (0.00-0.03) X10*3/uL BUN 22 H 21 H (9-16) mg/dL Random Glucose 140 H (60-115) mg/dL Alkaline Phosphatase 138 H (39-117) U/L Total Protein 5.5 L (6.5-8.0) g/dL Albumin 2.7 L (3.5-5.0) g/dL H & H 02/20/24 02/20/24 Range/Units 00:48 05:12 Hgb 9.5 L 9.2 L (14.0-18.0) g/dl Hct 30.8 L 30.9 L (42.0-52.0) % Coagulation 02/20/24 Range/Units 05:12 INR 0.9 (0.9-1.1) All other labs normal. Diagnostic results Hip x-ray: report reviewed and image reviewed Assessment and Plan (1) Intertrochanteric fracture of left femur: Qualifiers: Encounter type: initial encounter Fracture type: closed Fracture alignment: nondisplaced Qualified Code(s): S72.145A - Nondisplaced intertrochanteric fracture of left femur, initial encounter for closed fracture Status: Acute Plan 1. Left intertrochanteric hip fracture, nondisplaced Date of injury 02/19/2024 At this time, the plan is to proceed with surgical management of this fracture However, patient must be off of Eliquis for 2 days prior to surgery to prevent bleeding complications Due to this, the patient is placed on the OR schedule for tomorrow with Dr. Bone for left IM nail placement NPO at midnight Risks and benefit of surgery discussed with the patient at this time, the patient is amenable to proceeding with surgery Procedures Date of Service Date of Service: 02/20/24
[2024-02-20] MEDS: Morphine Sulfate 4 MG/ML CARTRIDGE 3 MG IVPUSH ×2 (13:30→19:17)
[2024-02-20 15:58] VITALS: BP 127/71; PULSE 87; RESP 20; TEMP 37.2; O2SAT 97
--- NOTE | 2024-02-20 15:58 | PC.NURSE ---
Pt had female visitor come see him. Visitor visibly intoxicated, dozing off while sitting in chair, security called. Pt visitor escorted off the unit.
[2024-02-20] MEDS: Acetaminophen 325 MG TABLET 650 MG PO ×2 (16:00→19:28)
[2024-02-20 16:28] LABS: Glucose, Whole Blood 109 mg/dL (60-115)
[2024-02-20] MEDS: Amitriptyline HCl 25 MG TABLET 75 MG PO (19:26)
[2024-02-20] MEDS: Melatonin 3 MG TABLET 6 MG PO (19:26)
[2024-02-20] MEDS: hydrOXYzine HCL 25 MG TABLET PO (19:28)
[2024-02-20] MEDS: Mirtazapine 7.5 MG TABLET PO (19:28)
[2024-02-20] MEDS: 0.9 % Sodium Chloride Flush 3 ML SYRINGE IVFLUSH (19:29)
[2024-02-20 19:47] VITALS: BP 138/81; PULSE 90; RESP 20; TEMP 37.2; O2SAT 97
[2024-02-20 20:17] LABS: Glucose, Whole Blood 135 mg/dL (60-115)
[2024-02-20] MEDS: oxyCODONE HCl Immed Release 5 MG TABLET 10 MG PO (21:30)
[2024-02-21] VITALS (9 sets, daily range): BP systolic 103–131; BP diastolic 72–93; PULSE 92–98; RESP 14–20; TEMP 36.6–37.7; O2SAT 95–100
[2024-02-21] MEDS: Morphine Sulfate 4 MG/ML CARTRIDGE 3 MG IVPUSH ×4 (04:30→20:32)
[2024-02-21 06:50] LABS: Hematocrit 33.7 % (42.0-52.0); Hemoglobin 10.1 g/dl (14.0-18.0); Mean Corpuscular Hemoglobin 24.7 pg (27.0-33.0); Mean Corpuscular Volume 82.4 fL (80.0-98.0); Mean Platelet Volume 10.6 fL (9.4-12.4); Platelet Count 493 X10*3/uL (160-400); Red Blood Count 4.09 X10*6/uL (4.60-5.80); Red Cell Distribution Width 15.7 % (11.0-16.0); White Blood Count 12.4 X10*3/uL (4.8-10.8)
[2024-02-21 07:38] LABS: Glucose, Whole Blood 107 mg/dL (60-115)
--- NOTE | 2024-02-21 08:15 | PC.NURSE ---
Methadone clinic stated pt recieved 140mg of Methadone last on 2023, notfied.
[2024-02-21] MEDS: Tamsulosin HCL 0.4 MG CAPSULE PO (08:26)
[2024-02-21] MEDS: Acetaminophen 325 MG TABLET 650 MG PO ×2 (08:26→20:34)
[2024-02-21] MEDS: 0.9 % Sodium Chloride Flush 3 ML SYRINGE IVFLUSH ×2 (08:27→19:29)
--- NOTE | 2024-02-21 08:30 | HE.PHANOTE ---
METHADONE Pt receives from [facility] Jose David, . Per Carol at facility patient last received 140 mg on January 02. Patient has been transferred from , pt was receiving 50mg in until 02/19.
--- NOTE | 2024-02-21 08:32 | PC.NURSE ---
Pt was getting 50mg of Methadone on M5, Psych unit, Pharmacy called and updated. made aware.
--- NOTE | 2024-02-21 10:08 | PC.NURSE ---
MD delacruz to d/c sitter 1:1
--- NOTE | 2024-02-21 10:34 | MHC.CM.PN ---
Per MD rounds patient to OR today. Rivera mcqueen CM will continue to follow.
--- NOTE | 2024-02-21 10:34 | PC.NURSE ---
Pt denies SI, 1:1 sitter discontinued by provider, camera in place, high fall risk interventions in place, Pt resting in bed, respirations even and unlabored.
--- NOTE | 2024-02-21 10:43 | PM.PNORT ---
Subjective Subjective Date of Service: 02/21/24 Interval history: Patient is a 53 YO M who is being evaluated for L femur intertrochanteric fracture, DOI 02/19/24. Patient is scheduled to be brought back to the OR today for L IM nail placement with Dr. Bone. Today, the patient reports that he has been feeling okay, and he is not in a lot of pain currently. He inquires what time his procedure will be today. Patient reports no other acute concerns at this time. Physical Exam Vital Signs: Vital Signs: Last Vital Signs Temp 98.6 F 02/21/24 07:39 Pulse 97 02/21/24 07:39 Resp 20 02/21/24 07:39 BP 129/83 02/21/24 07:39 Pulse Ox 96 02/21/24 07:39 O2 Del Method Room Air 02/21/24 07:39 BMI result Body Mass Index 19.1 Extrem: Other: On inspection, no visible deformity of the left hip noted No leg shortening or rotational deformity noted Patient reports tenderness to gentle palpation of the greater trochanter Distal sensation intact Capillary refill brisk Compartments soft and nontender Procedures Date of Service Date of Service: 02/21/24 Progress Note: A&P Assessment and plan (1) Intertrochanteric fracture of left femur: Status: Acute Plan 1/ L hip intertrochanteric fx Plan is to proceed with IM nail placement today with Dr. Bone Patient has been NPO since midnight Eliquis held since 02/19/24 Patient is amenable to this plan Time Spent With Patient Time: Total time managing care of this patient today ____ minutes. Quality Stroke Does the patient have a stroke diagnosis?: No VTE Prior VTE?: No VTE Risk Level:: Medical - moderate - high VTE Device Contraindication: N/A - Device Ordered VTE Drug Contraindication: Treatment Not Indicated
--- NOTE | 2024-02-21 11:59 | HO.PM.IMPN ---
Subjective Subjective Date of Service: 02/21/24 Interval History: Being followed for left hip fracture Complaining of left hip pain, no acute events overnight, no behavioral issues. Is NPO for Orthopedic surgery. Review of Systems All other system reviewed and are negative. Physical Exam Vital Signs: Vital Signs: Last Vital Signs Temp 98.6 F 02/21/24 07:39 Pulse 97 02/21/24 07:39 Resp 20 02/21/24 07:39 BP 129/83 02/21/24 07:39 Pulse Ox 96 02/21/24 07:39 O2 Del Method Room Air 02/21/24 07:39 BMI result Body Mass Index 19.1 Const: Other: General resting comfortably in no acute distress. Anicteric sclera Neck no JVD. CVS regular rate rhythm, Respiratory lungs clear to auscultation, no respiratory distress, no wheeze, no rhonchi. Gastrointestinal abdomen soft, non tender, bowel sounds audible, no guarding , no rigidity. Extremities left hip pain with movement Neuro non focal,speech clear. Skin no rash Psych appropriate affect Objective Data Active Medications Acetaminophen (Acetaminophen 325 Mg Tablet) 650 mg PO Q6H PRN PRN Reason: Pain, Mild (Pain Scale 1-3), fever or headache Last Admin: 02/19/24 22:28 Dose: 650 mg Documented By: IRIS Acetaminophen (Acetaminophen 325 Mg Tablet) 650 mg PO TID [facility] Last Admin: 02/21/24 08:26 Dose: 650 mg Documented By: DOUG Al Hydroxide/Mg Hydroxide (Magnesium Hydrox/Alum Hydrox 30 Ml Oral.Susp) 30 ml PO Q6H PRN PRN Reason: Heartburn/Nausea Amitriptyline HCl (Amitriptyline Hcl 25 Mg Tablet) 75 mg PO BEDTIME [facility] Last Admin: 02/20/24 19:26 Dose: 75 mg Documented By: IRIS Calcium Carbonate (Calcium Carbonate 750 Mg Tab.Chew) 750 mg PO Q4H PRN PRN Reason: Heartburn Hydroxyzine HCl (Hydroxyzine Hcl 25 Mg Tablet) 25 mg PO Q6H PRN PRN Reason: Anxiety Last Admin: 02/20/24 19:28 Dose: 25 mg Documented By: IRIS Magnesium Hydroxide (Milk Of Magnesia 30 Ml Oral.Susp) 30 ml PO DAILY PRN PRN Reason: Constipation Melatonin (Melatonin 3 Mg Tablet) 6 mg PO BEDTIME PRN PRN Reason: Insomnia Last Admin: 02/20/24 19:26 Dose: 6 mg Documented By: IRIS Methadone HCl (Methadone Hcl 20 Mg/2 Ml Oral.Conc) 50 mg PO DAILY@0800 [facility] Mirtazapine (Mirtazapine 7.5 Mg Tablet) 7.5 mg PO BEDTIME [facility] Last Admin: 02/20/24 19:28 Dose: 7.5 mg Documented By: IRIS Morphine Sulfate (Morphine Sulfate 4 Mg/Ml Cartridge) 3 mg IVPUSH Q4H PRN; Protocol PRN Reason: Pain, Severe (Pain Scale 7-10) Last Admin: 02/21/24 08:27 Dose: 3 mg Documented By: DOUG Nicotine Polacrilex (Nicotine Polacrilex 2 Mg Gum) 4 mg BUCCAL Q2H PRN PRN Reason: Nicotine Cravings Ondansetron HCl (Ondansetron Hcl 4 Mg/2 Ml Vial) 4 mg IVPUSH Q8H PRN PRN Reason: Nausea and Vomiting Sodium Chloride (0.9 % Sodium Chloride Flush 3 Ml Syringe) 3 ml IVFLUSH QSHIFT [facility] Last Admin: 02/21/24 08:27 Dose: 3 ml Documented By: DOUG Tamsulosin HCl (Tamsulosin Hcl 0.4 Mg Capsule) 0.4 mg PO DAILY [facility] Last Admin: 02/21/24 08:26 Dose: 0.4 mg Documented By: DOUG Labs 02/21/24 05:24 02/20/24 05:12 Labs: Laboratory Results - last 24 hr 02/20/24 02/20/24 02/21/24 16:23 19:58 05:24 MCV 82.4 MCH 24.7 L MCHC 30.0 L RDW 15.7 Plt Count 493 H MPV 10.6 Absolute Nucleated RBC 0.000 Nucleated RBC % (auto) 0.0 Hold Purple Top SEE NOTE POC Glucose 109 135 H 02/21/24 07:14 MCV MCH MCHC RDW Plt Count MPV Absolute Nucleated RBC Nucleated RBC % (auto) Hold Purple Top POC Glucose 107 Assessment and Plan (1) Intertrochanteric fracture of left femur: Status: Acute (2) Fall: Status: Acute (3) Portal vein thrombosis: Status: Acute (4) Opioid use disorder: Status: Acute (5) MDD (major depressive disorder): Status: Acute Plan 53-year-old male with pertinent history of hypertension, history of portal vein thrombosis on Eliquis, history of mesenteric ischemia status post exploratory laparotomy with open SMA embolectomy, lower extremity edema, BPH, opioid use disorder on methadone, mood disorder who was admitted to for SI. Hospital medicine team consulted as patient had a fall. #. Nondisplaced intertrochanteric left femur fracture due to fall: Continue IV morphine and Tylenol Hold Eliquis/continue NPO # opioid use disorder cont. methadone #. Orthostatic presyncope leading to fall: BP improved , continue to hold all blood pressure medications and diuretics, since BP remains soft, continue IV fluids. #. Hypertension on multiple antihypertensives, will hold valsartan 80 mg b.i.d., spironolactone 25 mg daily, Coreg 12.5 mg b.i.d. Lasix 40 mg daily, will resume Coreg once blood pressure improves #. Mood disorder with SI: On multiple psychiatric medications including mirtazapine 7.5 mg, Zyprexa 5 mg t.i.d. as needed, trazodone 50 mg b.i.d. as needed , Continue amitriptyline and Remeron, hold all as needed medications dc sitter as per Psychiatry #. History of portal vein thrombosis: Hold Eliquis for Orthopedic surgery # diabetes mellitus type 2 hold Farxiga , stable blood sugar, monitor blood sugar qid #. BPH: Continue Flomax #. Leukocytosis, reactive WBC improved to 11.5 #. Normocytic anemia # tobacco use disorder continue nicotine gums. DVT prophylaxis: Mechanical Full code Patient will require continued inpatient hospitalization for treatment of left femur fracture (as above), which is not possible in a lesser acute setting. Quality Stroke Does the patient have a stroke diagnosis?: No VTE Prior VTE?: No VTE Risk Level:: Medical - moderate - high VTE Device Contraindication: N/A - Device Ordered VTE Drug Contraindication: Treatment Not Indicated
--- NOTE | 2024-02-21 14:46 | PC.NURSE ---
left lower arm 20g iv asymptomatic. flushes patently.
[2024-02-21] MEDS: Lactated Ringers 1,000 ML 50 ML IVCONT ×2 (15:05→19:28)
--- NOTE | 2024-02-21 16:15 | P.CONAN_ITS ---
HPI - Anesthesia Eval Consult details Narrative: IM nail left hip PMFSH Active Problems Active Problems: All Active Problems Intertrochanteric fracture of left femur (Acute) Fall (Acute) Pre-syncope (Acute) Femur fracture (Acute) Medical clearance for psychiatric admission (Acute) Hypertension (Acute) Portal vein thrombosis (Acute) Opioid use disorder (Acute) MDD (major depressive disorder) (Acute) Past Medical History Medical History (Updated 02/20/24 @ 12:41 by RICARDO Sheldon) Generalized anxiety disorder MDD (major depressive disorder) Opioid use disorder Mesenteric ischemia Portal vein thrombosis Family History Family history of problems with anesthesia: No Surgical History Surgical History (Updated 02/21/24 @ 14:39 by Cristina Denis RN) Hx of appendectomy History of lumbar surgery History of Problems with Anesthesia: No Social History Social History Household Members: None Housing: Homeless Do you presently have visiting nurse or other home services: No Comment: 1:1 sitter Patient Tobacco Use Status: Former Tobacco user Tobacco use type: Cigarette Smoked in Last 30 Days: No Patient Interested in Nicotine Replacement: No Patient Given Instructions on How to Stop Smoking: No Second Hand Smoke Exposure: No Use of substances other than those prescribed or required for medical reasons: No Currently Displaying Signs/Symptoms of Drug Intoxication Withdrawal: No Have you been hit, kicked, punched, or otherwise hurt by someone within the past year? If so, by whom?: No Do you feel safe in your current relationship?: No Current Relationship Is there a partner from a previous relationship who is making you feel unsafe now?: No Are you made to feel afraid or neglected: No Are you DNR?: No Advance Directives: No Advance Directives Information Provided: No Do you have a plan to hurt others: No Plan Recently lost weight without trying: No How much weight loss: Not applicable Eating poorly because of decreased appetite: No Nutrition screen score: 0 Nutrition Risks: No Nutritional Risk Poor oral hygiene: No service: No Sexual orientation: Straight/Heterosexual Meds Allergies Allergy/AdvReac Type Severity Reaction Status Date / Time No Known Allergies Allergy Verified 02/13/24 21:11 Active Medications: Current Medications Acetaminophen (Acetaminophen 325 Mg Tablet) 650 mg PO Q6H PRN PRN Reason: Pain, Mild (Pain Scale 1-3), fever or headache Last Admin: 02/19/24 22:28 Dose: 650 mg Acetaminophen (Acetaminophen 325 Mg Tablet) 650 mg PO TID [facility] Last Admin: 02/21/24 14:34 Dose: Not Given Al Hydroxide/Mg Hydroxide (Magnesium Hydrox/Alum Hydrox 30 Ml Oral.Susp) 30 ml PO Q6H PRN PRN Reason: Heartburn/Nausea Amitriptyline HCl (Amitriptyline Hcl 25 Mg Tablet) 75 mg PO BEDTIME [facility] Last Admin: 02/20/24 19:26 Dose: 75 mg Calcium Carbonate (Calcium Carbonate 750 Mg Tab.Chew) 750 mg PO Q4H PRN PRN Reason: Heartburn Hydroxyzine HCl (Hydroxyzine Hcl 25 Mg Tablet) 25 mg PO Q6H PRN PRN Reason: Anxiety Last Admin: 02/20/24 19:28 Dose: 25 mg Lactated Ringer's (Lr) 1,000 mls @ 50 mls/hr IVCONT .Q20H [facility] Last Admin: 02/21/24 15:05 Dose: 50 mls/hr Magnesium Hydroxide (Milk Of Magnesia 30 Ml Oral.Susp) 30 ml PO DAILY PRN PRN Reason: Constipation Melatonin (Melatonin 3 Mg Tablet) 6 mg PO BEDTIME PRN PRN Reason: Insomnia Last Admin: 02/20/24 19:26 Dose: 6 mg Methadone HCl (Methadone Hcl 20 Mg/2 Ml Oral.Conc) 50 mg PO DAILY@0800 [facility] Mirtazapine (Mirtazapine 7.5 Mg Tablet) 7.5 mg PO BEDTIME [facility] Last Admin: 02/20/24 19:28 Dose: 7.5 mg Morphine Sulfate (Morphine Sulfate 4 Mg/Ml Cartridge) 3 mg IVPUSH Q4H PRN; Protocol PRN Reason: Pain, Severe (Pain Scale 7-10) Last Admin: 02/21/24 13:50 Dose: 3 mg Nicotine Polacrilex (Nicotine Polacrilex 2 Mg Gum) 4 mg BUCCAL Q2H PRN PRN Reason: Nicotine Cravings Ondansetron HCl (Ondansetron Hcl 4 Mg/2 Ml Vial) 4 mg IVPUSH Q8H PRN PRN Reason: Nausea and Vomiting Sodium Chloride (0.9 % Sodium Chloride Flush 3 Ml Syringe) [facility] Last Admin: 02/21/24 15:10 Dose: Not Given Tamsulosin HCl (Tamsulosin Hcl 0.4 Mg Capsule) 0.4 mg PO DAILY TREV Last Admin: 02/21/24 08:26 Dose: 0.4 mg Home Medications ?Medication ?Instructions ?Recorded ?Confirmed ?Last Taken ?Type acetaminophen 325 mg tablet 325 mg PO BID 02/13/24 02/20/24 Unknown History amitriptyline 75 mg tablet 75 mg PO BEDTIME 02/13/24 02/20/24 Unknown History apixaban 5 mg tablet (Eliquis) 5 mg PO BID 02/13/24 02/20/24 Unknown History carvedilol 12.5 mg tablet 12.5 mg PO BID 02/13/24 02/20/24 Unknown History dapagliflozin propanediol 10 mg 10 mg PO DAILY 02/13/24 02/20/24 Unknown History tablet (Farxiga) furosemide 40 mg tablet 40 mg PO DAILY 02/13/24 02/20/24 Unknown History loratadine 10 mg tablet 10 mg PO BEDTIME 02/13/24 02/20/24 Unknown History potassium chloride 10 mEq 10 meq PO DAILY 02/13/24 02/20/24 Unknown History tablet,extended release spironolactone 25 mg tablet 25 mg PO DAILY 02/13/24 02/20/24 Unknown History tamsulosin 0.4 mg capsule 0.4 mg PO DAILY 02/13/24 02/20/24 Unknown History valsartan 80 mg tablet 80 mg PO BID 02/13/24 02/20/24 Unknown History Exam Height,Weight and Vital Signs: Height 6 ft Weight 64 kg Last Vital Signs Temp 99.9 F 02/21/24 14:57 Pulse 97 02/21/24 14:57 Resp 16 02/21/24 14:57 BP 125/81 02/21/24 14:57 Pulse Ox 97 02/21/24 14:57 O2 Del Method Room Air 02/21/24 14:57 Pertinent Lab Results Pertinent Lab Results: Laboratory Tests 02/20/24 02/20/24 02/20/24 00:48 05:12 16:23 WBC 16.2 H 11.5 H RBC 3.75 L 3.69 L Hgb 9.5 L 9.2 L Hct 30.8 L 30.9 L MCV 82.1 83.7 MCH 25.3 L 24.9 L MCHC 30.8 L 29.8 L RDW 15.6 15.8 Plt Count 484 H 432 H MPV 9.7 10.7 Immature Gran % (Auto) 0.7 H Neut % (Auto) 61.1 Lymph % (Auto) 23.0 [place] % (Auto) 13.0 H Eos % (Auto) 1.7 Baso % (Auto) 0.5 Lymph # (Auto) 2.7 [place] # (Auto) 1.5 H Eos # (Auto) 0.2 Baso # (Auto) 0.1 Abs Immat Gran (auto) 0.08 H Absolute Neuts (auto) 7.0 Absolute Nucleated RBC 0.000 0.000 Nucleated RBC % (auto) 0.0 0.0 Hold Purple Top PT 11.2 INR 0.9 Sodium 136 136 Potassium 4.4 4.7 Chloride 100 100 Carbon Dioxide 26 27 Anion Gap 14 14 BUN 22 H 21 H Creatinine 0.79 0.73 Estim Creat Clear Calc 97.8 105.9 Estimated GFR > 60 > 60 POC Glucose 109 Random Glucose 140 H 99 Calcium 8.7 8.9 Total Bilirubin 0.2 AST 20 ALT 24 Alkaline Phosphatase 138 H Total Protein 5.5 L Albumin 2.7 L 02/20/24 02/21/24 02/21/24 19:58 05:24 07:14 WBC 12.4 H RBC 4.09 L Hgb 10.1 L Hct 33.7 L MCV 82.4 MCH 24.7 L MCHC 30.0 L RDW 15.7 Plt Count 493 H MPV 10.6 Immature Gran % (Auto) Neut % (Auto) Lymph % (Auto) [place] % (Auto) Eos % (Auto) Baso % (Auto) Lymph # (Auto) [place] # (Auto) Eos # (Auto) Baso # (Auto) Abs Immat Gran (auto) Absolute Neuts (auto) Absolute Nucleated RBC 0.000 Nucleated RBC % (auto) 0.0 Hold Purple Top SEE NOTE PT INR Sodium Potassium Chloride Carbon Dioxide Anion Gap BUN Creatinine Estim Creat Clear Calc Estimated GFR POC Glucose 135 H 107 Random Glucose Calcium Total Bilirubin AST ALT Alkaline Phosphatase Total Protein Albumin Airway Mallampati Class: I TM Dist: >3cm Neck ROM: Full Denture: Upper and Lower Heart: ok Lungs: ok Assessment and Plan Assessment Anesthesia Assessment: Anesthesia Plan Discussed and Chart Reviewed Final Anesthetic Review Family History of Problems with Anesthesia: No History of Problems with Anesthesia: No NPO: Yes ASA Class: III Final Preanesthetic Review: No Changes in Pt Med Stat, Meds/Allgs Chart Reviewed, Consent Obtained/Reviewed and Anes Risks/Benef Reviewed Patient Risk: Intermediate Procedure Risk: Intermediate Anesthetic Plan Anesthetic Plan: Spinal and Agree w/ Assess. and Plan Disposition: Standard PACU
--- NOTE | 2024-02-21 16:16 | PC.NURSE ---
Patient in preop. Last dose of Farxiga and Eliquis unknown. These meds not given during hospital stay. Anesthesia Dr. Abbasi and Dr. Smiley made aware. May proceed with surgery at this time.
--- NOTE | 2024-02-21 18:18 | P.BOP_ITS ---
Brief Operative Note Date of Service: 02/21/24 Pre-op diagnosis: Left hip intertrochanteric fracture Post-op diagnosis: same Procedure: Left hip short gamma nail placement Implants: Lita short gamma nail measuring 11 mm in diameter by 170 mm in length, lag screw measuring 100 mm in length, a standard set screw, distal locking bolt measuring 40 mm in length Surgeon: Iftikhar Bone MD Anesthesia: GLMA and spinal (Attempted spinal which was converted to general) Was an Housecleaner Floor used for this Procedure?: No Estimated blood loss (mL): 100 Pathology: none sent Condition: stable Disposition: PACU
--- NOTE | 2024-02-21 18:20 | P.OP_ITS ---
Operative Note Operative Note Date of Service: 02/21/24 Narrative: After the patient was identified as Yohan Caruso and his left hip was initialed by myself they were brought to the operating room where spinal anesthesia was induced by the anesthesiologist in routine fashion. After the incision was made the spinal was deemed incomplete. Thus at that time general anesthesia was induced by the anesthesiologist in routine fashion. The patient was given 2 g of IV Ancef for infection prophylaxis. The patient was then gently transferred from the hospital bed onto the fracture table. The patient's right lower extremity was placed into the well leg lemons. The patient's left lower extremity was placed in gentle in-line traction with their patella parallel to the floor. All bony prominences were well padded. C-arm AP and lateral radiographs were taken to confirm good fracture reduction. The patient's left hip region was prepped and draped in sterile fashion. A formal time-out was completed. A #10 scalpel blade was used to make a 5 cm incision just proximal to the tip of the greater trochanter. A curved cannulated awl was introduced into the proximal femur in routine fashion. A ball-tipped guidewire was then placed through the cannula and into the femoral canal. The awl was removed. Reaming was begun with a 9 mm reamer. Reaming was increased incrementally up to a size 13 reamer distally. The proximal canal was reamed with a 15.5 mm reamer. The gamma nail measuring 11 mm in diameter by 180 mm in length was passed over the guidewire. Good fracture reduction and nail positioning were confirmed using C-arm AP and lateral radiographs. A 2 cm incision was then made where the lag screw trocar met the patient's lateral thigh. The subcutaneous tissues and fascia latrice were split down to the lateral cortex of the femur using a hemostat. The lag screw trocar was passed down to the lateral cortex of the femur. A threaded guidewire was then placed into the inferior aspect of the femoral head on the AP x-ray and the center of the femoral head on the lateral x-ray. The guidewire measured 100 mm in length. Reaming was then performed over the guidewire to a depth of 100 mm. The lag screw measuring 100 mm in length was then placed over the guidewire. The guidewire was removed. The set screw was then placed into the nail and tightened fully. It was then turned 1/4 of a turn counter-clockwise to allow for fracture compression. The end cap was then put into place in routine fashion. A 2 cm incision was then made where the distal locking bolt trocar met the lateral aspect of the patient's thigh. The subcutaneous tissues and the fascia latrice were split down to the lateral cortex of the femur. The locking bolt hole was drilled in routine fashion. The drill bit measured a 40 mm in length. The distal locking bolt measuring 40 mm in length was put into place without difficulty. Final AP and lateral radiographs showed good fracture reduction and hardware positioning. All 3 wounds were irrigated with copious amounts of normal saline solution. The distal 2 wounds were closed with 2-0 Vicryl and skin bethany. The proximal wound was once again irrigated. The fascia latrice was closed with 0 Vicryl [id number] interrupted suture. The wound was once again irrigated. The subcutaneous tissues were closed with 2-0 Vicryl interrupted suture. The skin was closed with skin bethany. Dry sterile dressing was placed over all incisions. The patient was gently transferred from the fracture table onto their hospital bed. The patient was awoken and extubated in the operating room. The patient was transferred to the recovery ro om in stable condition.
[2024-02-21 20:34] LABS: Glucose, Whole Blood 120 mg/dL (60-115)
[2024-02-21] MEDS: Mirtazapine 7.5 MG TABLET PO (20:34)
[2024-02-21] MEDS: Amitriptyline HCl 25 MG TABLET 75 MG PO (20:34)
[2024-02-22] VITALS (8 sets, daily range): BP systolic 111–140; BP diastolic 71–85; PULSE 68–104; RESP 16–18; TEMP 36.3–37.5; O2SAT 96–98
[2024-02-22] MEDS: Morphine Sulfate 4 MG/ML CARTRIDGE 3 MG IVPUSH ×3 (00:23→15:02)
[2024-02-22] MEDS: ceFAZolin Sodium/Dextrose,Iso 2 GM/50 ML PIGGYBACK IV ×2 (00:33→08:08)
[2024-02-22] MEDS: hydrOXYzine HCL 25 MG TABLET PO ×2 (03:58→20:02)
[2024-02-22 06:48] LABS: Hematocrit 30.7 % (42.0-52.0); Hemoglobin 9.7 g/dl (14.0-18.0); Mean Corpuscular HGB Conc 31.6 g/dl (31.0-36.0); Mean Corpuscular Hemoglobin 25.7 pg (27.0-33.0); Mean Corpuscular Volume 81.4 fL (80.0-98.0); Mean Platelet Volume 10.5 fL (9.4-12.4); Platelet Count 422 X10*3/uL (160-400); Red Blood Count 3.77 X10*6/uL (4.60-5.80); Red Cell Distribution Width 15.4 % (11.0-16.0); White Blood Count 17.2 X10*3/uL (4.8-10.8)
[2024-02-22 07:17] LABS: Glucose, Whole Blood 130 mg/dL (60-115)
[2024-02-22 07:27] LABS: Anion Gap 15 (12-20); Blood Urea Nitrogen 13 mg/dL (9-16); Calcium 8.9 mg/dL (8.4-10.2); Carbon Dioxide 23 mmol/L (22-29); Chloride 103 mmol/L (96-108); Creatinine Clr Calc Pharmacy 110.4; Estimated Glomerular Filt Rate > 60; Glucose Random 120 mg/dL (60-115); Potassium 4.2 mmol/L (3.3-5.1); Sodium 137 mmol/L (135-145)
[2024-02-22] MEDS: Tamsulosin HCL 0.4 MG CAPSULE PO (08:04)
[2024-02-22] MEDS: Acetaminophen 325 MG TABLET 650 MG PO ×3 (08:04→20:01)
[2024-02-22] MEDS: 0.9 % Sodium Chloride Flush 3 ML SYRINGE IVFLUSH ×3 (08:04→20:02)
[2024-02-22] MEDS: Apixaban 5 MG TABLET PO ×2 (08:04→20:02)
[2024-02-22] MEDS: methADONE HCl 20 MG/2 ML ORAL.CONC 50 MG PO (08:07)
--- NOTE | 2024-02-22 09:09 | HO.PM.IMPN ---
Subjective Subjective Date of Service: 02/22/24 Interval History: Being followed for left hip fracture status post surgery postoperative day 1. Complaining of left hip pain, offers no other acute issues denies headache, no dizziness, no fevers, no chills, no cough ,no abdominal pain,no nausea, vomiting ,no urinary symptoms, no acute events overnight Review of Systems All other systems are reviewed and are negative. Physical Exam Vital Signs: Vital Signs: Last Vital Signs Temp 98 F 02/22/24 06:51 Pulse 102 H 02/22/24 06:51 Resp 17 02/22/24 06:51 BP 133/85 02/22/24 06:51 Pulse Ox 97 02/22/24 06:51 O2 Del Method Room Air 02/22/24 06:51 O2 Flow Rate 2 02/21/24 18:28 BMI result Body Mass Index 19.1 Const: Other: General resting comfortably in no acute distress. Anicteric sclera Neck no JVD. CVS regular rate rhythm, Respiratory lungs clear to auscultation, no respiratory distress, no wheeze, no rhonchi. Gastrointestinal abdomen soft, non tender, bowel sounds audible, no guarding , no rigidity. Extremities left hip dressing in place Neuro non focal,speech clear. Skin no rash Psych appropriate affect Objective Data Active Medications Acetaminophen (Acetaminophen 325 Mg Tablet) 650 mg PO Q6H PRN PRN Reason: Pain, Mild (Pain Scale 1-3), fever or headache Last Admin: 02/19/24 22:28 Dose: 650 mg Documented By: IRIS Acetaminophen (Acetaminophen 325 Mg Tablet) 650 mg PO TID [facility] Last Admin: 02/22/24 08:04 Dose: 650 mg Documented By: JUVENAL Al Hydroxide/Mg Hydroxide (Magnesium Hydrox/Alum Hydrox 30 Ml Oral.Susp) 30 ml PO Q6H PRN PRN Reason: Heartburn/Nausea Amitriptyline HCl (Amitriptyline Hcl 25 Mg Tablet) 75 mg PO BEDTIME [facility] Last Admin: 02/21/24 20:34 Dose: 75 mg Documented By: PAYTON Apixaban (Apixaban 5 Mg Tablet) 5 mg PO BID [facility] Last Admin: 02/22/24 08:04 Dose: 5 mg Documented By: JUVENAL Calcium Carbonate (Calcium Carbonate 750 Mg Tab.Chew) 750 mg PO Q4H PRN PRN Reason: Heartburn Hydroxyzine HCl (Hydroxyzine Hcl 25 Mg Tablet) 25 mg PO Q6H PRN PRN Reason: Anxiety Last Admin: 02/22/24 03:58 Dose: 25 mg Documented By: COLIN Cefazolin Sodium/Dextrose (Ancef) 2 gm in 50 mls @ 100 mls/hr IV Q8H [facility] Stop: 02/22/24 16:00 Last Infusion: 02/22/24 09:07 Dose: Infused Documented By: JUVENAL Magnesium Hydroxide (Milk Of Magnesia 30 Ml Oral.Susp) 30 ml PO DAILY PRN PRN Reason: Constipation Magnesium Hydroxide (Milk Of Magnesia 30 Ml Oral.Susp) 30 ml PO DAILY PRN PRN Reason: Constipation Melatonin (Melatonin 3 Mg Tablet) 6 mg PO BEDTIME PRN PRN Reason: Insomnia Last Admin: 02/20/24 19:26 Dose: 6 mg Documented By: IRIS Methadone HCl (Methadone Hcl 20 Mg/2 Ml Oral.Conc) 50 mg PO DAILY@0800 [facility] Last Admin: 02/22/24 08:07 Dose: 50 mg Documented By: JUVENAL Mirtazapine (Mirtazapine 7.5 Mg Tablet) 7.5 mg PO BEDTIME [facility] Last Admin: 02/21/24 20:34 Dose: 7.5 mg Documented By: PAYTON Morphine Sulfate (Morphine Sulfate 4 Mg/Ml Cartridge) 3 mg IVPUSH Q4H PRN; Protocol PRN Reason: Pain, Severe (Pain Scale 7-10) Last Admin: 02/22/24 04:08 Dose: 3 mg Documented By: COLIN Nicotine Polacrilex (Nicotine Polacrilex 2 Mg Gum) 4 mg BUCCAL Q2H PRN PRN Reason: Nicotine Cravings Ondansetron HCl (Ondansetron Hcl 4 Mg/2 Ml Vial) 4 mg IVPUSH Q8H PRN PRN Reason: Nausea and Vomiting Sodium Chloride (0.9 % Sodium Chloride Flush 3 Ml Syringe) 3 ml IVFLUSH [facility] Last Admin: 02/22/24 08:04 Dose: 3 ml Documented By: JUVENAL Sodium Chloride (0.9 % Sodium Chloride Flush 3 Ml Syringe) 3 ml IVFLUSH [facility] Last Admin: 02/22/24 08:07 Dose: Not Given Documented By: JUVENAL Non-Admin Reason: Duplicate Order Tamsulosin HCl (Tamsulosin Hcl 0.4 Mg Capsule) 0.4 mg PO DAILY TREV Last Admin: 02/22/24 08:04 Dose: 0.4 mg Documented By: JUVENAL Labs 02/22/24 05:52 02/22/24 05:52 Labs: Laboratory Results - last 24 hr 02/21/24 02/22/24 02/22/24 19:51 05:52 07:13 MCV 81.4 MCH 25.7 L MCHC 31.6 RDW 15.4 Plt Count 422 H MPV 10.5 Absolute Nucleated RBC 0.000 Nucleated RBC % (auto) 0.0 Anion Gap 15 Estim Creat Clear Calc 110.4 Estimated GFR > 60 POC Glucose 120 H 130 H Random Glucose 120 H Calcium 8.9 Assessment and Plan (1) Intertrochanteric fracture of left femur: Status: Acute (2) Fall: Status: Acute (3) Portal vein thrombosis: Status: Acute (4) Opioid use disorder: Status: Acute (5) MDD (major depressive disorder): Status: Acute Plan 53-year-old male with pertinent history of hypertension, history of portal vein thrombosis on Eliquis, history of mesenteric ischemia status post exploratory laparotomy with open SMA embolectomy, lower extremity edema, BPH, opioid use disorder on methadone, mood disorder who was admitted to for SI. Hospital medicine team consulted as patient had a fall. #. Nondisplaced intertrochanteric left femur fracture due to fall: Status post left hip surgery postoperative day 1 Hematocrit dropped but stable/normal renal function Eliquis for anticoagulation Continue IV morphine, Tylenol scheduled and add as needed oxycodone DC IV fluids # opioid use disorder cont. methadone. #. Orthostatic presyncope leading to fall: BP improved , continue to hold all blood pressure medications and diuretics, since BP remains <135. #. Hypertension on multiple antihypertensives, will hold valsartan 80 mg b.i.d., spironolactone 25 mg daily, Coreg 12.5 mg b.i.d. Lasix 40 mg daily, will resume Coreg once blood pressure improves #. Mood disorder with SI: On multiple psychiatric medications including mirtazapine 7.5 mg, Zyprexa 5 mg t.i.d. as needed, trazodone 50 mg b.i.d. as needed , Continue amitriptyline and Remeron, hold all as needed medications. Sitter discontinued as per Psychiatry recommendation #. History of portal vein thrombosis: On Eliquis # diabetes mellitus type 2 hold Farxiga , stable blood sugar, monitor blood sugar qid #. BPH: Continue Flomax #. Leukocytosis, reactive follow cbc ,no evidence of infection # tobacco use disorder continue nicotine gums. DVT prophylaxis: eliquis Full code Patient will require continued inpatient hospitalization for treatment of left femur fracture s/p surgery . Quality Stroke Does the patient have a stroke diagnosis?: No VTE Prior VTE?: No VTE Risk Level:: Medical - moderate - high VTE Device Contraindication: N/A - Device Ordered VTE Drug Contraindication: Treatment Not Indicated
[2024-02-22] MEDS: carvediloL 6.25 MG TABLET PO ×2 (10:35→20:01)
[2024-02-22 11:20] LABS: Glucose, Whole Blood 180 mg/dL (60-115)
--- NOTE | 2024-02-22 11:49 | HO.POSTANES ---
Post Anesthesia Evaluation Post Anesthesia Evaluation Date of Service: 02/21/24 Vital Signs: Vital Signs Temp Pulse Resp BP Pulse Ox O2 Del Method 02/22/24 06:51 98 F 102 H 17 133/85 97 Room Air 02/22/24 06:00 99.5 F 104 H 18 140/85 H 96 Room Air 02/22/24 02:00 97.3 F 98 18 134/76 98 Room Air Anesthesia: General LMA Mental Status: Awake Pain Control: Satisfactory Nausea/Vomiting: None Hydration: Adequate Anesthesia-Related Issues: No Anes. Related Issues
--- NOTE | 2024-02-22 12:24 | PM.PNORT ---
Subjective Subjective Date of Service: 02/22/24 Interval history: Patient is a 53-year-old male who is postop day 1 after left intramedullary nail placement with Dr. Bone, DOS 02/21/2024, secondary to left hip intertrochanteric fracture. Patient reports that he is doing well this morning, and feels much better he did prior to surgery. Patient states that he has not worked with physical therapy yet, and has not attempted ambulation at this time. Patient expresses no other acute complaints or concerns at this time Physical Exam Vital Signs: Vital Signs: Last Vital Signs Temp 98 F 02/22/24 06:51 Pulse 102 H 02/22/24 06:51 Resp 17 02/22/24 06:51 BP 133/85 02/22/24 06:51 Pulse Ox 97 02/22/24 06:51 O2 Del Method Room Air 02/22/24 06:51 O2 Flow Rate 2 02/21/24 18:28 BMI result Body Mass Index 19.1 Extrem: Other: Incision site clean dry and intact, Aquacel dressing in place Patient reports mild tenderness to palpation over the greater trochanter No erythema, ecchymosis, or evidence of infection noted Compartments soft, nontender Calf nontender to palpation Patient is able to actively flex at the hip, with mild discomfort Distal sensation of the left lower extremity intact Capillary refill brisk Procedures Date of Service Date of Service: 02/22/24 Progress Note: A&P Assessment and plan (1) Intertrochanteric fracture of left femur: Status: Acute Plan 1. Left hip intertrochanteric fracture, status post IM nail placement with Dr. Bone DOS 02/21/2024 Patient is doing well postoperatively Patient is educated about the typical postoperative course Patient is educated that he can weight bear as tolerated on his left leg Patient is educated that PT has been ordered for him, and they will likely be evaluating him today or Saturday Patient is educated that the Aquacel dressing should remain in place until 2 week postoperative appointment in Orthopedic office Patient is educated about the typical precautions for an Aquacel dressing, namely no showering and no getting the dressing wet Patient educated that, upon discharge, if the Aquacel dressing starts to come off or gets wet, he should present to the office for dressing change Continue with anticoagulation Continue with all of the recommendations per Medicine Time Spent With Patient Time: Total time managing care of this patient today ____ minutes. Quality Stroke Does the patient have a stroke diagnosis?: No VTE Prior VTE?: No VTE Risk Level:: Medical - moderate - high VTE Device Contraindication: N/A - Device Ordered VTE Drug Contraindication: Treatment Not Indicated
[2024-02-22 16:09] LABS: Glucose, Whole Blood 103 mg/dL (60-115)
[2024-02-22] MEDS: oxyCODONE HCl Immed Release 5 MG TABLET PO (20:02)
[2024-02-22] MEDS: Amitriptyline HCl 25 MG TABLET 75 MG PO (20:02)
[2024-02-22] MEDS: Mirtazapine 7.5 MG TABLET PO (20:02)
[2024-02-22] MEDS: Melatonin 3 MG TABLET 6 MG PO (20:02)
[2024-02-22 20:32] LABS: Glucose, Whole Blood 142 mg/dL (60-115)
--- NOTE | 2024-02-23 02:09 | PC.NURSE ---
Per RICARDO Sheldon okay to stop continous telemetry.
[2024-02-23 03:00] VITALS: BP 108/77; PULSE 84; RESP 16; TEMP 36.4; O2SAT 98
[2024-02-23] MEDS: Morphine Sulfate 4 MG/ML CARTRIDGE 3 MG IVPUSH ×2 (03:13→07:22)
[2024-02-23 06:30] LABS: Hematocrit 30.2 % (42.0-52.0); Hemoglobin 9.2 g/dl (14.0-18.0); Mean Corpuscular HGB Conc 30.5 g/dl (31.0-36.0); Mean Corpuscular Hemoglobin 25.3 pg (27.0-33.0); Platelet Count 419 X10*3/uL (160-400); Red Blood Count 3.64 X10*6/uL (4.60-5.80); Red Cell Distribution Width 15.3 % (11.0-16.0); White Blood Count 10.2 X10*3/uL (4.8-10.8)
[2024-02-23 06:47] VITALS: BP 121/81; PULSE 95; RESP 17; TEMP 36.6; O2SAT 98
[2024-02-23 07:25] LABS: Glucose, Whole Blood 107 mg/dL (60-115)
[2024-02-23] MEDS: Tamsulosin HCL 0.4 MG CAPSULE PO (08:10)
[2024-02-23] MEDS: Acetaminophen 325 MG TABLET 650 MG PO ×3 (08:10→20:09)
[2024-02-23] MEDS: Apixaban 5 MG TABLET PO ×2 (08:10→20:09)
[2024-02-23] MEDS: carvediloL 6.25 MG TABLET PO ×2 (08:10→20:08)
[2024-02-23] MEDS: 0.9 % Sodium Chloride Flush 3 ML SYRINGE IVFLUSH ×4 (08:11→20:12)
[2024-02-23] MEDS: methADONE HCl 20 MG/2 ML ORAL.CONC 50 MG PO (08:18)
--- NOTE | 2024-02-23 09:47 | MHC.CM.PN ---
PT IS MEDICALLY CLEARED TO DC, HOWEVER DOES NOT HAVE A BED OFFER AT THIS TIME ONCE A BED OFFER IS RECEIVED, CM WILL ARRANGE METHADONE GUEST DOSING PT WILL ALSO NEED INSURANCE AUTH FOR STR
--- NOTE | 2024-02-23 10:22 | HO.PM.IMPN ---
Subjective Subjective Date of Service: 02/23/24 Interval History: Being followed for left hip fracture status post surgery. Complaining of left hip pain worse with activity, no fevers no chills, tolerating diet, no constipation no headache or dizziness no other acute events overnight. Review of Systems All other systems are reviewed and are negative. Physical Exam Vital Signs: Vital Signs: Last Vital Signs Temp 98 F 02/23/24 06:47 Pulse 95 02/23/24 06:47 Resp 17 02/23/24 06:47 BP 121/81 02/23/24 06:47 Pulse Ox 98 02/23/24 06:47 O2 Del Method Room Air 02/23/24 06:47 O2 Flow Rate 2 02/21/24 18:28 BMI result Body Mass Index 19.1 Const: Other: General resting comfortably in no acute distress. Anicteric sclera Neck no JVD. CVS regular rate rhythm, Respiratory lungs clear to auscultation, no respiratory distress, no wheeze, no rhonchi. Gastrointestinal abdomen soft, non tender, bowel sounds audible, no guarding , no rigidity. Extremities left hip dressing in place,no drainage Neuro non focal,speech clear. Skin no rash Psych appropriate affect Objective Data Active Medications Acetaminophen (Acetaminophen 325 Mg Tablet) 650 mg PO Q6H PRN PRN Reason: Pain, Mild (Pain Scale 1-3), fever or headache Last Admin: 02/19/24 22:28 Dose: 650 mg Documented By: IRIS Acetaminophen (Acetaminophen 325 Mg Tablet) 650 mg PO TID [facility] Last Admin: 02/23/24 08:10 Dose: 650 mg Documented By: JUVENAL Al Hydroxide/Mg Hydroxide (Magnesium Hydrox/Alum Hydrox 30 Ml Oral.Susp) 30 ml PO Q6H PRN PRN Reason: Heartburn/Nausea Amitriptyline HCl (Amitriptyline Hcl 25 Mg Tablet) 75 mg PO BEDTIME [facility] Last Admin: 02/22/24 20:02 Dose: 75 mg Documented By: VAN Apixaban (Apixaban 5 Mg Tablet) 5 mg PO BID [facility] Last Admin: 02/23/24 08:10 Dose: 5 mg Documented By: JUVENAL Calcium Carbonate (Calcium Carbonate 750 Mg Tab.Chew) 750 mg PO Q4H PRN PRN Reason: Heartburn Carvedilol (Carvedilol 6.25 Mg Tablet) 6.25 mg PO BID [facility]; Protocol Last Admin: 02/23/24 08:10 Dose: 6.25 mg Documented By: JUVENAL Hydroxyzine HCl (Hydroxyzine Hcl 25 Mg Tablet) 25 mg PO Q6H PRN PRN Reason: Anxiety Last Admin: 02/22/24 20:02 Dose: 25 mg Documented By: VAN Magnesium Hydroxide (Milk Of Magnesia 30 Ml Oral.Susp) 30 ml PO DAILY PRN PRN Reason: Constipation Magnesium Hydroxide (Milk Of Magnesia 30 Ml Oral.Susp) 30 ml PO DAILY PRN PRN Reason: Constipation Melatonin (Melatonin 3 Mg Tablet) 6 mg PO BEDTIME PRN PRN Reason: Insomnia Last Admin: 02/22/24 20:02 Dose: 6 mg Documented By: VAN Methadone HCl (Methadone Hcl 20 Mg/2 Ml Oral.Conc) 50 mg PO DAILY@0800 [facility] Last Admin: 02/23/24 08:18 Dose: 50 mg Documented By: JUVENAL Mirtazapine (Mirtazapine 7.5 Mg Tablet) 7.5 mg PO BEDTIME [facility] Last Admin: 02/22/24 20:02 Dose: 7.5 mg Documented By: VAN Morphine Sulfate (Morphine Sulfate 4 Mg/Ml Cartridge) 3 mg IVPUSH Q4H PRN; Protocol PRN Reason: Pain, Severe (Pain Scale 7-10) Last Admin: 02/23/24 07:22 Dose: 3 mg Documented By: JUVENAL Nicotine Polacrilex (Nicotine Polacrilex 2 Mg Gum) 4 mg BUCCAL Q2H PRN PRN Reason: Nicotine Cravings Ondansetron HCl (Ondansetron Hcl 4 Mg/2 Ml Vial) 4 mg IVPUSH Q8H PRN PRN Reason: Nausea and Vomiting Oxycodone HCl (Oxycodone Hcl Immed Release 5 Mg Tablet) 5 mg PO Q4H PRN PRN Reason: Pain, Moderate(Pain Scale 4-6) Last Admin: 02/22/24 20:02 Dose: 5 mg Documented By: VAN Sodium Chloride (0.9 % Sodium Chloride Flush 3 Ml Syringe) 3 ml IVFLUSH [facility] Last Admin: 02/23/24 08:14 Dose: 3 ml Documented By: JUVENAL Sodium Chloride (0.9 % Sodium Chloride Flush 3 Ml Syringe) 3 ml IVFLUSH QSHIFT [facility] Last Admin: 02/23/24 08:16 Dose: Not Given Documented By: JUVENAL Non-Admin Reason: Duplicate Order Tamsulosin HCl (Tamsulosin Hcl 0.4 Mg Capsule) 0.4 mg PO DAILY [facility] Last Admin: 02/23/24 08:10 Dose: 0.4 mg Documented By: JUVENAL Labs 02/23/24 05:52 02/22/24 05:52 Labs: Laboratory Results - last 24 hr 02/22/24 02/22/24 02/22/24 11:15 16:01 20:25 MCV MCH MCHC RDW Plt Count MPV Absolute Nucleated RBC Nucleated RBC % (auto) POC Glucose 180 H 103 142 H 02/23/24 02/23/24 05:52 06:50 MCV 83.0 MCH 25.3 L MCHC 30.5 L RDW 15.3 Plt Count 419 H MPV 10.0 Absolute Nucleated RBC 0.000 Nucleated RBC % (auto) 0.0 POC Glucose 107 Assessment and Plan (1) Intertrochanteric fracture of left femur: Status: Acute (2) Fall: Status: Acute (3) Portal vein thrombosis: Status: Acute (4) Opioid use disorder: Status: Acute (5) MDD (major depressive disorder): Status: Acute Plan 53-year-old male with pertinent history of hypertension, history of portal vein thrombosis on Eliquis, history of mesenteric ischemia status post exploratory laparotomy with open SMA embolectomy, lower extremity edema, BPH, opioid use disorder on methadone, mood disorder who was admitted to for SI. Hospital medicine team consulted as patient had a fall. #. Nondisplaced intertrochanteric left femur fracture due to fall: Status post left hip surgery postoperative day 2 Hematocrit dropped but stable/normal renal function Eliquis for anticoagulation Continue IV morphine, Tylenol scheduled and as needed oxycodone PT recommend short-term rehab # opioid use disorder cont. methadone. #. Orthostatic presyncope leading to fall: BP improved , started back on low-dose Coreg . #. Hypertension on multiple antihypertensives Started on Coreg 6.25 mg b.i.d., continue to hold all other medications including valsartan 80 mg b.i.d., spironolactone 25 mg daily, Coreg 12.5 mg b.i.d. and Lasix 40 mg daily. #. Mood disorder with SI: On multiple psychiatric medications including mirtazapine 7.5 mg, Zyprexa 5 mg t.i.d. as needed, trazodone 50 mg b.i.d. as needed , Continue amitriptyline and Remeron, hold all as needed medications. Sitter discontinued as per Psychiatry recommendation #. History of portal vein thrombosis: On Eliquis # diabetes mellitus type 2 stable blood sugar, with few high blood sugar readings, monitor blood sugar qid and resume Farxiga. #. BPH: Continue Flomax #. Leukocytosis, reactive follow cbc ,no evidence of infection # tobacco use disorder continue nicotine gums. DVT prophylaxis: eliquis Full code Patient will require continued inpatient hospitalization for postoperative care, pain management with IV analgesics and safe disposition. Quality Stroke Does the patient have a stroke diagnosis?: No VTE Prior VTE?: No VTE Risk Level:: Medical - moderate - high VTE Device Contraindication: N/A - Device Ordered VTE Drug Contraindication: Treatment Not Indicated
[2024-02-23 11:10] LABS: Glucose, Whole Blood 174 mg/dL (60-115)
[2024-02-23] MEDS: oxyCODONE HCl Immed Release 5 MG TABLET PO ×2 (13:19→20:09)
--- NOTE | 2024-02-23 13:44 | PM.PNORT ---
Subjective Subjective Date of Service: 02/23/24 Interval history: Patient is a 53-year-old male who is postop day 1 after left intramedullary nail placement with Dr. Bone, DOS 02/21/2024, secondary to left hip intertrochanteric fracture. Patient reports that he is doing well this morning, and feels much better he did prior to surgery. Patient states that he has worked with physical therapy, and then he is ambulating with assistance. Patient reports that the plan for discharge is to short-term rehab following clearance. Patient reports that the distal side of the Aquacel dressing has begun to lift, and reports that he was picking at it last night. Patient expresses no other acute complaints or concerns at this time Physical Exam Vital Signs: Vital Signs: Last Vital Signs Temp 98 F 02/23/24 06:47 Pulse 95 02/23/24 06:47 Resp 17 02/23/24 06:47 BP 121/81 02/23/24 06:47 Pulse Ox 98 02/23/24 06:47 O2 Del Method Room Air 02/23/24 06:47 O2 Flow Rate 2 02/21/24 18:28 BMI result Body Mass Index 19.1 Extrem: Other: Incision site clean dry and intact, Aquacel dressing lifting distally Patient reports no tenderness to palpation at this time No erythema, ecchymosis, or evidence of infection noted Compartments soft, nontender Calf nontender to palpation Patient is able to actively flex at the hip, with mild discomfort Distal sensation of the left lower extremity intact Capillary refill brisk Procedures Date of Service Date of Service: 02/23/24 Progress Note: A&P Assessment and plan (1) Intertrochanteric fracture of left femur: Status: Acute Plan 1. Left hip intertrochanteric fracture, status post IM nail placement with Dr. Bone DOS 02/21/2024 Patient is doing well postoperatively Patient is educated about the typical postoperative course Patient is educated that he can continue to weight bear as tolerated on his left leg Continue working with physical therapy while in the hospital and at rehab facility Aquacel dressing removed, dressing replaced with gauze and Tegaderm due to lifting of original Aquacel dressing Patient is educated about the typical precautions for dressing, namely no showering and no getting the dressing wet Patient educated to avoid picking at the dressings Patient educated that, upon discharge, if the Aquacel dressing starts to come off or gets wet, he should present to the office for dressing change Continue with anticoagulation Continue with all of the recommendations per Medicine Time Spent With Patient Time: Total time managing care of this patient today ____ minutes. Quality Stroke Does the patient have a stroke diagnosis?: No VTE Prior VTE?: No VTE Risk Level:: Medical - moderate - high VTE Device Contraindication: N/A - Device Ordered VTE Drug Contraindication: Treatment Not Indicated
[2024-02-23 15:00] VITALS: BP 118/70; PULSE 92; RESP 18; TEMP 36.7; O2SAT 98
[2024-02-23 16:13] LABS: Glucose, Whole Blood 111 mg/dL (60-115)
[2024-02-23 19:54] VITALS: BP 120/76; PULSE 99; RESP 18; TEMP 36.9; O2SAT 95
[2024-02-23] MEDS: hydrOXYzine HCL 25 MG TABLET PO (20:08)
[2024-02-23] MEDS: Mirtazapine 7.5 MG TABLET PO (20:09)
[2024-02-23] MEDS: Amitriptyline HCl 25 MG TABLET 75 MG PO (20:09)
[2024-02-23] MEDS: Melatonin 3 MG TABLET 6 MG PO (20:09)
[2024-02-23 20:13] LABS: Glucose, Whole Blood 138 mg/dL (60-115)
[2024-02-24] VITALS (8 sets, daily range): BP systolic 106–147; BP diastolic 71–99; PULSE 85–102; RESP 15–20; TEMP 36.4–37; O2SAT 96–99
[2024-02-24] MEDS: Morphine Sulfate 4 MG/ML CARTRIDGE 3 MG IVPUSH ×2 (00:27→12:23)
[2024-02-24] MEDS: oxyCODONE HCl Immed Release 5 MG TABLET PO ×4 (05:09→18:34)
[2024-02-24] MEDS: Acetaminophen 325 MG TABLET 650 MG PO ×3 (05:10→20:47)
--- NOTE | 2024-02-24 06:07 | PC.NURSE ---
24hr update documented on paper
[2024-02-24] MEDS: Tamsulosin HCL 0.4 MG CAPSULE PO (07:42)
[2024-02-24] MEDS: carvediloL 6.25 MG TABLET PO ×2 (07:42→20:46)
[2024-02-24] MEDS: Apixaban 5 MG TABLET PO ×2 (07:43→20:47)
[2024-02-24] MEDS: 0.9 % Sodium Chloride Flush 3 ML SYRINGE IVFLUSH ×2 (07:43→18:35)
[2024-02-24] MEDS: methADONE HCl 20 MG/2 ML ORAL.CONC 50 MG PO (07:43)
[2024-02-24 07:50] LABS: Glucose, Whole Blood 107 mg/dL (60-115)
--- NOTE | 2024-02-24 08:29 | PM.PNORT ---
Subjective Subjective Date of Service: 02/24/24 Interval history: Patient is a 53-year-old male who is postop day 1 after left intramedullary nail placement with Dr. Bone, DOS 02/21/2024, secondary to left hip intertrochanteric fracture. Patient reports that he is doing well this morning, and feels much better he did prior to surgery. Patient states that he has worked with physical therapy, and then he is ambulating with assistance. Patient reports that the plan for discharge is to short-term rehab following clearance. Patient has no other acute concerns or complaints at this time Physical Exam Vital Signs: Vital Signs: Last Vital Signs Temp 98.6 F 02/24/24 07:17 Pulse 102 H 02/24/24 07:17 Resp 18 02/24/24 07:17 BP 124/72 02/24/24 07:17 Pulse Ox 97 02/24/24 07:17 O2 Del Method Room Air 02/24/24 07:17 O2 Flow Rate 2 02/21/24 18:28 BMI result Body Mass Index 19.1 Extrem: Other: Incision site clean dry and intact, dressings in place Patient reports no tenderness to palpation at this time No erythema, ecchymosis, or evidence of infection noted Compartments soft, nontender Calf nontender to palpation Patient is able to actively flex at the hip, with mild discomfort Distal sensation of the left lower extremity intact Capillary refill brisk Procedures Date of Service Date of Service: 02/24/24 Progress Note: A&P Assessment and plan (1) Intertrochanteric fracture of left femur: Status: Acute Plan 1. Left hip intertrochanteric fracture status post IM nail DOS 02/1924 Patient is doing well postoperatively Patient is educated about the typical postoperative course Patient states that he has been ambulating without much difficulty Dressings have remained in place since yesterday Plan is for discharge to short-term rehab Continue with all other recommendations per Medicine Patient will follow-up in office 2 weeks postoperatively for incision site check, reassessment of left hip, potential staple removal, sooner with any acute concerns Time Spent With Patient Time: Total time managing care of this patient today ____ minutes. Quality Stroke Does the patient have a stroke diagnosis?: No VTE Prior VTE?: No VTE Risk Level:: Medical - moderate - high VTE Device Contraindication: N/A - Device Ordered VTE Drug Contraindication: Treatment Not Indicated
[2024-02-24 11:22] LABS: Glucose, Whole Blood 125 mg/dL (60-115)
--- NOTE | 2024-02-24 12:25 | MHC.CM.PN ---
Addendum entered by Jossie Salinas RN 02/24/24 14:23: DIONNE's signed and returned to Danitza Richards via fax @ [phone]. Per Salima Bosch requesting dosing hx/tox screens from [facility] [place]. Dosing hx faxed to [phone]. No tox screens available. Addendum entered by Jossie Salinas RN 02/24/24 12:26: Danitza Richards @ [facility] [phone] Original Note: PT rec STR. Patient accepted a bed at [facility]. Pending auth and guest dosing. CM spoke w/ Danitza Richards @ [facility]. She will work w/ [employer] for guest dosing to start 02/25. ANTONIO will continue to follow.
--- NOTE | 2024-02-24 12:57 | HO.PM.IMPN ---
Subjective Subjective Date of Service: 02/24/24 Interval History: Being followed for left hip surgery and postoperative pain management with soft blood pressures. Complaining of left hip pain worse with activity, no other acute issues, tolerating 100% diet ,last bowel movement 02/22, no acute events overnight. Review of Systems All other system reviewed and are negative. Physical Exam Vital Signs: Vital Signs: Last Vital Signs Temp 98.1 F 02/24/24 11:33 Pulse 85 02/24/24 12:13 Resp 18 02/24/24 12:23 BP 106/71 02/24/24 12:13 Pulse Ox 98 02/24/24 12:13 O2 Del Method Room Air 02/24/24 11:33 O2 Flow Rate 2 02/21/24 18:28 BMI result Body Mass Index 19.1 Const: Other: General resting comfortably in no acute distress. Anicteric sclera Neck no JVD. CVS regular rate rhythm, Respiratory lungs clear to auscultation, no respiratory distress, no wheeze, no rhonchi. Gastrointestinal abdomen soft, non tender, bowel sounds audible, no guarding , no rigidity. Extremities left hip dressing in place,no drainage Neuro non focal,speech clear. Skin no rash Psych appropriate affect Objective Data Active Medications Acetaminophen (Acetaminophen 325 Mg Tablet) 650 mg PO Q6H PRN PRN Reason: Pain, Mild (Pain Scale 1-3), fever or headache Last Admin: 02/24/24 05:10 Dose: 650 mg Documented By: VAN Acetaminophen (Acetaminophen 325 Mg Tablet) 650 mg PO TID [facility] Last Admin: 02/24/24 07:35 Dose: Not Given Documented By: COTEMA Non-Admin Reason: Previously Administered Al Hydroxide/Mg Hydroxide (Magnesium Hydrox/Alum Hydrox 30 Ml Oral.Susp) 30 ml PO Q6H PRN PRN Reason: Heartburn/Nausea Amitriptyline HCl (Amitriptyline Hcl 25 Mg Tablet) 75 mg PO BEDTIME [facility] Last Admin: 02/23/24 20:09 Dose: 75 mg Documented By: VAN Apixaban (Apixaban 5 Mg Tablet) 5 mg PO BID [facility] Last Admin: 02/24/24 07:43 Dose: 5 mg Documented By: EFREN Calcium Carbonate (Calcium Carbonate 750 Mg Tab.Chew) 750 mg PO Q4H PRN PRN Reason: Heartburn Carvedilol (Carvedilol 6.25 Mg Tablet) 6.25 mg PO BID [facility]; Protocol Last Admin: 02/24/24 07:42 Dose: 6.25 mg Documented By: COTEMA Hydroxyzine HCl (Hydroxyzine Hcl 25 Mg Tablet) 25 mg PO Q6H PRN PRN Reason: Anxiety Last Admin: 02/23/24 20:08 Dose: 25 mg Documented By: VAN Magnesium Hydroxide (Milk Of Magnesia 30 Ml Oral.Susp) 30 ml PO DAILY PRN PRN Reason: Constipation Magnesium Hydroxide (Milk Of Magnesia 30 Ml Oral.Susp) 30 ml PO DAILY PRN PRN Reason: Constipation Melatonin (Melatonin 3 Mg Tablet) 6 mg PO BEDTIME PRN PRN Reason: Insomnia Last Admin: 02/23/24 20:09 Dose: 6 mg Documented By: VAN Methadone HCl (Methadone Hcl 20 Mg/2 Ml Oral.Conc) 50 mg PO DAILY@0800 [facility] Last Admin: 02/24/24 07:43 Dose: 50 mg Documented By: EFREN Mirtazapine (Mirtazapine 7.5 Mg Tablet) 7.5 mg PO BEDTIME [facility] Last Admin: 02/23/24 20:09 Dose: 7.5 mg Documented By: VAN Morphine Sulfate (Morphine Sulfate 4 Mg/Ml Cartridge) 3 mg IVPUSH Q4H PRN; Protocol PRN Reason: Pain, Severe (Pain Scale 7-10) Last Admin: 02/24/24 12:23 Dose: 3 mg Documented By: EFREN Nicotine Polacrilex (Nicotine Polacrilex 2 Mg Gum) 4 mg BUCCAL Q2H PRN PRN Reason: Nicotine Cravings Ondansetron HCl (Ondansetron Hcl 4 Mg/2 Ml Vial) 4 mg IVPUSH Q8H PRN PRN Reason: Nausea and Vomiting Oxycodone HCl (Oxycodone Hcl Immed Release 5 Mg Tablet) 5 mg PO Q4H PRN PRN Reason: Pain, Moderate(Pain Scale 4-6) Last Admin: 02/24/24 09:04 Dose: 5 mg Documented By: KENNYEMA Sodium Chloride (0.9 % Sodium Chloride Flush 3 Ml Syringe) 3 ml IVFLUSH [facility] Last Admin: 02/24/24 07:43 Dose: 3 ml Documented By: EFREN Sodium Chloride (0.9 % Sodium Chloride Flush 3 Ml Syringe) 3 ml IVFLUSH QSHIFT [facility] Last Admin: 02/24/24 07:39 Dose: Not Given Documented By: EFREN Non-Admin Reason: Duplicate Order Tamsulosin HCl (Tamsulosin Hcl 0.4 Mg Capsule) 0.4 mg PO DAILY [facility] Last Admin: 02/24/24 07:42 Dose: 0.4 mg Documented By: EFREN Labs 02/23/24 05:52 02/22/24 05:52 Labs: Laboratory Results - last 24 hr 02/23/24 02/23/24 02/24/24 16:08 19:57 07:21 POC Glucose 111 138 H 107 02/24/24 11:18 POC Glucose 125 H Assessment and Plan (1) Intertrochanteric fracture of left femur: Status: Acute (2) Fall: Status: Acute (3) Portal vein thrombosis: Status: Acute (4) Opioid use disorder: Status: Acute (5) MDD (major depressive disorder): Status: Acute Plan 53-year-old male with pertinent history of hypertension, history of portal vein thrombosis on Eliquis, history of mesenteric ischemia status post exploratory laparotomy with open SMA embolectomy, lower extremity edema, BPH, opioid use disorder on methadone, mood disorder who was admitted to for SI. Hospital medicine team consulted as patient had a fall. #. Nondisplaced intertrochanteric left femur fracture due to fall: Status post left hip surgery postoperative day 3 Hematocrit dropped but stable/normal renal function Eliquis for anticoagulation Continue Tylenol scheduled and as needed oxycodone, DC IV morphine PT recommend short-term rehab # opioid use disorder cont. methadone. #. Orthostatic presyncope leading to fall: BP improved , started back on low-dose Coreg . #. Hypertension on multiple antihypertensives Started on Coreg 6.25 mg b.i.d., continue to hold all other medications including valsartan 80 mg b.i.d., spironolactone 25 mg daily, Coreg 12.5 mg b.i.d. and Lasix 40 mg daily. #. Mood disorder with SI: On multiple psychiatric medications including mirtazapine 7.5 mg, Zyprexa 5 mg t.i.d. as needed, trazodone 50 mg b.i.d. as needed , Continue amitriptyline and mirtazapine, DC all other as needed medications. Sitter discontinued as per Psychiatry recommendation, no mood disturbance noted #. History of portal vein thrombosis: On Eliquis # diabetes mellitus type 2 stable blood sugar, with few high blood sugar readings, monitor blood sugar qid and resume Farxiga upon discharge. #. BPH: Continue Flomax #. Leukocytosis, resolved was likely reactive # tobacco use disorder continue nicotine gums prn. DVT prophylaxis: eliquis Full code Patient will require continued inpatient hospitalization for postoperative care, pain management and safe disposition to short-term rehab immigration case worker arranging for rehab bed.. Quality Stroke Does the patient have a stroke diagnosis?: No VTE Prior VTE?: No VTE Risk Level:: Medical - moderate - high VTE Device Contraindication: N/A - Device Ordered VTE Drug Contraindication: Treatment Not Indicated
[2024-02-24 16:14] LABS: Glucose, Whole Blood 148 mg/dL (60-115)
--- NOTE | 2024-02-24 16:53 | P.DS_ITS ---
DS: Providers Provider Date of Service: 02/25/24 Date of admission: 02/19/24 21:02 Primary care physician: Unknown Physician Consults: 02/19/24 21:37 Consult to Orthopedics Routine Consulting Provider: [facility] Sur[facility] Reason for consultation: Nondisplaced intertrochanteric fracture left femur DS: Diagnosis Discharge Diagnosis (1) Intertrochanteric fracture of left femur: Status: Acute (2) Fall: Status: Acute (3) Portal vein thrombosis: Status: Acute (4) Opioid use disorder: Status: Acute (5) MDD (major depressive disorder): Status: Acute DS: Summary Hospital Course Hospital Course: History of presenting illness: Date of Service: 02/19/24 Chief Complaint: Fall This is a 53-year-old male with pertinent history of hypertension, history of portal vein thrombosis on Eliquis, history of mesenteric ischemia status post exploratory laparotomy with open SMA embolectomy, lower extremity edema, BPH, opioid use disorder on methadone, mood disorder who was admitted to for SI. Hospital medicine team consulted as patient had a fall. Patient stated that he tried to get up and got dizzy/lightheaded before falling down. Patient fell on his left hip. Patient has pain with movement of the left hip since the fall. Did not lose consciousness. Did not hit his head. Initial blood pressure after the fall with systolic in the 70s. Heart rate and SpO2 within normal limits. X-ray of the left hip revealed intertrochanteric fracture of the left femur. Patient transferred to surgical floor for further management. He denies chest pain, palpitations, shortness of breath, abdominal pain, nausea or vomiting. Hospital course: 53-year-old male with pertinent history of hypertension, history of portal vein thrombosis on Eliquis, history of mesenteric ischemia status post exploratory laparotomy with open SMA embolectomy, lower extremity edema, BPH, opioid use disorder on methadone, mood disorder who was admitted to for SI, patient was cleared for discharge from psych facility but he became dizzy, lightheaded and fell down on left hip, and developed acute pain. Hospital medicine team consulted , an x-ray left hip showed Nondisplaced intertrochanteric left femur fracture ,patient transferred to medical floor, and underwent left hip surgery by Dr Bone, postoperatively he has been doing fine,has been placed back on Eliquis, his pain is controlled with oxycodone and Tylenol he was evaluated by Physical therapy and is recommended short-term rehab, he is recommended outpatient follow-up with Orthopedic surgery in 2 weeks. He was noted to have orthostatic hypotension, therefore all of his antihypertensives were held, subsequently noted to have mildly elevated blood pressure therefore low-dose Coreg 6.25 mg b.i.d. has been started all other medications have been discontinued, he is recommended to follow blood pressure closely. For opioid use disorder he has been continued on methadone. In regard to Mood disorder with SI he has been continued on amitriptyline and mirtazapine. History of portal vein thrombosis: continue Eliquis. No history of diabetes mellitus on xiga by his primary provider. BPH: Continue Flomax Tobacco use disorder continue nicotine gums prn. Time Attestation Discharge Coordination Time (in mins): 40 Quality: Safe Use of Opioids Does Pt have an Active Cancer Diagnosis on the Problem List?: No Quality: Stroke Does the patient have a stroke diagnosis?: No Physical Exam Vital Signs: Vital Signs: Last Vital Signs Temp 98.1 F 02/24/24 15:23 Pulse 99 02/24/24 15:23 Resp 20 02/24/24 15:23 BP 147/99 H 02/24/24 15:23 Pulse Ox 99 02/24/24 15:23 O2 Del Method Room Air 02/24/24 15:23 O2 Flow Rate 2 02/21/24 18:28 BMI result Body Mass Index 19.1 Const: Other: General resting comfortably in no acute distress. Anicteric sclera Neck no JVD. CVS regular rate rhythm, Respiratory lungs clear to auscultation, no respiratory distress, no wheeze, no rhonchi. Gastrointestinal abdomen soft, non tender, bowel sounds audible, no guarding , no rigidity. Extremities left hip dressing in place,no drainage Neuro non focal,speech clear. Skin no rash Psych appropriate affect DS: Data Data Completed and Pending Labs on day of discharge: Laboratory Results - last 24 hr 02/23/24 02/24/24 02/24/24 19:57 07: 11:18 POC Glucose 138 H 107 125 H 02/24/24 16:10 POC Glucose 148 H Discharge Plan Discharge Anticipated Discharge Date/Time: 02/25/24 11:02 Patient Disposition: Xfer SNF Discharge Diagnosis: Nondisplaced intertrochanteric left fracture status post surgery Orthostatic presyncope Mood disorder [facility]: [facility] [Outside] - 1 Week (short term rehab) Physician,Unknown J [Primary Care Provider] - 1 Week Discharge Medications: New oxycodone 5 mg Tablet 5 mg PO Q4H PRN (Reason: Pain, Moderate(Pain Scale 4-6)) Qty: 30 0RF Rx Instructions: Partial Fill upon patient request. carvedilol 6.25 mg Tablet 6.25 mg PO BID Qty: 60 0RF Protocol: Hold for SBP/HR < HOLD for SBP < : 90 HOLD for HR < : 60 acetaminophen 325 mg Tablet 650 mg PO Q6H PRN (Reason: Pain, Mild (Pain Scale 1-3), fever or headache) Qty: 60 0RF Continued amitriptyline 75 mg tablet 75 mg PO BEDTIME tamsulosin 0.4 mg capsule 0.4 mg PO DAILY loratadine 10 mg tablet 10 mg PO BEDTIME Eliquis 5 mg tablet 5 mg PO BID dapagliflozin propanediol [Farxiga] 10 mg tablet 10 mg PO DAILY multivitamin [Daily-Nestor] Tablet 1 tab PO DAILY Qty: 0 0RF nicotine (polacrilex) 2 mg Gum 4 mg buccal Q2H PRN (Reason: Nicotine Cravings) Qty: 0 0RF magnesium hydroxide [Milk of Magnesia] 400 mg/5 mL Suspension 30 ml PO DAILY PRN (Reason: Constipation) Qty: 0 0RF hydroxyzine HCl 25 mg Tablet 25 mg PO Q6H PRN (Reason: Anxiety) Qty: 0 0RF methadone [Methadose] 10 mg/mL Concentrate 50 mg PO DAILY@0800 Qty: 0 0RF Patient Comments: 140mg home clinic dose last received 01/03/24. Last dose received 50mg 02/20/24 at [facility]. Rx Instructions: Partial Fill upon patient request. mirtazapine 7.5 mg Tablet 7.5 mg PO BEDTIME Qty: 0 0RF MAG-AL 200-200 mg/5 mL Suspension 30 ml PO Q6H PRN (Reason: Heartburn/Nausea) Qty: 0 0RF Discontinued furosemide 40 mg tablet 40 mg PO DAILY acetaminophen 325 mg tablet 325 mg PO BID carvedilol 12.5 mg tablet 12.5 mg PO BID valsartan 80 mg tablet 80 mg PO BID potassium chloride 10 mEq tablet extended release 10 meq PO DAILY spironolactone 25 mg tablet 25 mg PO DAILY trazodone 50 mg Tablet 50 mg PO BEDTIME MRX1 PRN (Reason: Insomnia) Qty: 0 0RF olanzapine 5 mg Tablet 5 mg PO TID PRN (Reason: agitation) Qty: 0 0RF Discharge Orders: Discharge Order (Routine); Ordered 02/25/24 Ordered By: Dian Roque Diet: Advance to usual diet Activity on Discharge: As tolerated Stand Alone Forms: Patient Portal Discharge page Print Language: Setswana Care Plan Goals: Good pain control/PT Stable blood pressure, take all medications as prescribed Discharged to short-term rehab for less than 30 days Health Concerns: Good blood pressure control Plan of Treatment: Gait training, strengthening, ADLs Continue anticoagulation Keep dressing clean, dry, intact, no showering or tub baths Follow up with Orthopedics in 2 weeks Assessment: As above
[2024-02-24 19:40] LABS: Glucose, Whole Blood 118 mg/dL (60-115)
[2024-02-24] MEDS: Mirtazapine 7.5 MG TABLET PO (20:46)
[2024-02-24] MEDS: hydrOXYzine HCL 25 MG TABLET PO (20:47)
[2024-02-24] MEDS: Melatonin 3 MG TABLET 6 MG PO (20:47)
[2024-02-24] MEDS: Amitriptyline HCl 25 MG TABLET 75 MG PO (20:47)
[2024-02-25 03:10] VITALS: BP 124/73; PULSE 81; RESP 14; TEMP 36.6; O2SAT 98
[2024-02-25 07:07] VITALS: BP 115/81; PULSE 97; RESP 18; TEMP 37.1; O2SAT 97
[2024-02-25] MEDS: carvediloL 6.25 MG TABLET PO (07:34)
[2024-02-25] MEDS: Apixaban 5 MG TABLET PO (07:35)
[2024-02-25] MEDS: oxyCODONE HCl Immed Release 5 MG TABLET PO ×2 (07:35→12:49)
[2024-02-25] MEDS: Acetaminophen 325 MG TABLET 650 MG PO (07:35)
[2024-02-25] MEDS: Tamsulosin HCL 0.4 MG CAPSULE PO (07:35)
[2024-02-25] MEDS: methADONE HCl 20 MG/2 ML ORAL.CONC 50 MG PO (07:35)
[2024-02-25] MEDS: 0.9 % Sodium Chloride Flush 3 ML SYRINGE IVFLUSH (07:36)
[2024-02-25 07:52] LABS: Glucose, Whole Blood 113 mg/dL (60-115)
[2024-02-25 11:16] LABS: Glucose, Whole Blood 160 mg/dL (60-115)
--- NOTE | 2024-02-25 11:26 | MHC.CM.PN ---
Patient medically cleared for dc to STR @ [facility]. Per [facility], patient is approved for guest dosing. Per [facility], they have insurance auth. BLS transport scheduled for 1pm. Patient, RN and aware.
[2024-02-25 11:38] VITALS: BP 113/67; PULSE 87; RESP 16; TEMP 36.6; O2SAT 97
== END 2024-02-25 13:30 | disposition skilled nursing facility (03) | DRG 308 ==
PROVIDERS: Orthopaedic Surgery; Admitting Provider Student in an Organized Health Care Education/Training Program; Visit Provider Hospitalist
PROC: 0QS736Z Reposition Left Upper Femur with Intramedullary Internal Fixation Device, Percutaneous Approach (ICD-10-PCS; principal; 2024-02-21 15:30)
DX: S72.145A Nondisplaced intertrochanteric fracture of left femur, initial encounter for closed fracture (principal); R45.851 Suicidal ideations; D64.9 Anemia, unspecified; F11.20 Opioid dependence, uncomplicated; E11.9 Type 2 diabetes mellitus without complications; F17.200 Nicotine dependence, unspecified, uncomplicated; I10 Essential (primary) hypertension; W19.XXXA Unspecified fall, initial encounter; N40.0 Benign prostatic hyperplasia without lower urinary tract symptoms; I95.1 Orthostatic hypotension; Z71.6 Tobacco abuse counseling; Z86.718 Personal history of other venous thrombosis and embolism; Z79.01 Long term (current) use of anticoagulants; Z79.899 Other long term (current) drug therapy
CPT/HCPCS: 36415; 70450; 80048; 80053; 82947; 85025; 85027; 85610; 97116; 97162; 97166; 97530; 97535; C1713; J0690; J1170; J2250; J2270; J2704; J2795; J3010; J7120; P9047

== ENCOUNTER → 2024-02-19 21:02 | Outpatient (BNV) | payer OTHER, SELFPAY | PROVIDERS: Admitting Provider Student in an Organized Health Care Education/Training Program | DX: S72.145A Nondisplaced intertrochanteric fracture of left femur, initial encounter for closed fracture (principal) | CPT/HCPCS: 27245; 99024; 99222; 99232 ==

== ENCOUNTER 2024-03-20 09:05 | Outpatient (REF) | payer OTHER, SELFPAY ==
--- NOTE | ~2024-03-20 | XR_ITS ---
EXAMINATION: XR HIP, LEFT CLINICAL INFORMATION: Status post intramedullary nail. COMPARISON: Left hip radiographs dated 02/19/2024. TECHNIQUE: AP view the hip and pelvis and crosstable lateral view of the hip. FINDINGS: Left femoral intramedullary nail with a dynamic hip screw and distal stabilization screw. No hardware fracture or perihardware lucency to suggest loosening or infection. Previously seen intratrochanteric fracture not identified on the current radiographs and reduced when compared to the radiograph dated 02/19/2024. No new fracture or dislocation. No concerning lytic or blastic osseous lesion. No evidence of femoral head avascular necrosis. No significant joint space narrowing or marginal osteophytes. XR/XR hip LT min 2V IMPRESSION: Left femoral ORIF without evidence of hardware complication. Previously seen intratrochanteric fracture not identified on the current radiographs and reduced when compared to the radiograph dated 02/19/2024. Electronically signed by: Cliff Hogan MD 04/15/2024 08:59 PM EDT
== END 2024-03-20 09:06 | disposition home or self-care (01) ==
LOC: HO.HOSX 09:05
PROVIDERS: PCP Internal Medicine
DX: M25.552 Pain in left hip (principal); S72.92XD Unspecified fracture of left femur, subsequent encounter for closed fracture with routine healing; Z98.890 Other specified postprocedural states
CPT/HCPCS: 73502

== ENCOUNTER 2024-03-23 08:57 | Outpatient (AMB) | payer OTHER, SELFPAY ==
--- NOTE | 2024-03-23 09:00 | A.OFFVIS_ITS ---
Intake Visit Reasons: PO - Left Hip IM Nail 02/21/24 Intake Note: Yohan a 53 year old male who presents today for a post operative left hip IMN on 02/21/24. Patient reports that he has pain with activities, such as walking. He is unable to verify his medication, stating unsure of the medication names and only knows the name of one medication, amitriptyline. Allergies No Known Allergies Allergy (Verified 03/23/24 09:04) HPI HPI PO - Left Hip IM Nail 02/21/24: Details: Patient presents to the office today s/p left hip IM Nail 02/21/[address] Bone. Patient reports mild pain, is not taking anything for pain management. He is not using any assistive devices. [facility] Medical History (Updated 02/27/24 @ 00:03 by Khadijah Bobby) Medical clearance for psychiatric admission Generalized anxiety disorder MDD (major depressive disorder) Opioid use disorder Mesenteric ischemia Portal vein thrombosis Surgical History Hx of appendectomy History of lumbar surgery Social History Household Members: None Housing: Homeless Do you presently have visiting nurse or other home services: No Comment: 1:1 sitter Patient Tobacco Use Status: Former Tobacco user Tobacco use type: Cigarette Second Hand Smoke Exposure: No service: No Sexual orientation: Straight/Heterosexual Physical Exam Const General: cooperative, healthy appearing and no acute distress Resp Effort & Inspection: normal respiratory effort and able to speak in complete sentences Cardio Rate: regular rate Peripheral pulses: Peripheral pulses 2+ throughout GI Palpation (GI): Soft to palpation Skin Lesions: no lesions Rashes: no rashes Extrem Other: Left hip incision sites are c/d/i. [place] intact. Able to perform full active flexion, extension, internal and external ROM. Able to dorsi/plantar flexion. Sensation intact. Pedal pulse intact. Assessment & Plan Assessment & Plan (1) Intertrochanteric fracture of left femur: Code(s): S72.142A - Displaced intertrochanteric fracture of left femur, initial encounter for closed fracture Category: Medical Qualifiers: Encounter type: initial encounter Fracture type: closed Fracture alignment: nondisplaced Qualified Code(s): S72.145A - Nondisplaced intertrochanteric fracture of left femur, initial encounter for closed fracture (2) Opioid use disorder: Code(s): F11.90 - Opioid use, unspecified, uncomplicated Category: Medical Plan Patient presents to the office today s/p left hip IM Nail 02/21/[address] Bone. Patient reports mild pain, is not taking anything for pain management. He is not using any assistive devices. While in the office today the patient had the bethany removed. Steri-strips applied. Discussed the roll of physical therapy but the patient has declined at this time. Activity to tolerance. I have sent a prescription to the pharmacy for Oxycodone 5mg q6hrs prn pain #28. Should the patient need additional refills we will follow a strict weaning process as usual post operative protocol. X-rays that were obtained on 03/20/24 were reviewed by me, Gardenia Abreu PA-C, and reveal intact orthopedic hardware with routine healing. The patient will followup in 4-6 weeks with repeat x-rays, sooner if needed. Medications: Changed From oxycodone Partial Fill upon patient request. 5 mg PO Q4H PRN 30 tabs 0RF Pain, Moderate(Pain Scale 4-6) To oxycodone Partial Fill upon patient request. 5 mg PO Q6H PRN 28 tabs 0RF Pain, Moderate(Pain Scale 4-6) 7 days Coding Level of Care Code Global (43523) Diagnoses Closed nondisplaced intertrochanteric fracture of left femur, initial encounter S72.145A Encounter type: initial encounter Fracture type: closed Fracture alignment: nondisplaced Opioid use disorder F11.90
== END 2024-03-23 10:08 | disposition home or self-care (01) ==
PROVIDERS: PCP Internal Medicine; Visit Provider Physician Assistant
DX: S72.145A Nondisplaced intertrochanteric fracture of left femur, initial encounter for closed fracture (principal); F11.90 Opioid use, unspecified, uncomplicated
CPT/HCPCS: 99024

== ENCOUNTER → 2024-03-23 08:57 | Outpatient (BNVA) | payer OTHER, SELFPAY | PROVIDERS: PCP Internal Medicine; Visit Provider Physician Assistant | DX: S72.142D Displaced intertrochanteric fracture of left femur, subsequent encounter for closed fracture with routine healing (principal); F11.90 Opioid use, unspecified, uncomplicated; X58.XXXD Exposure to other specified factors, subsequent encounter; Z98.890 Other specified postprocedural states | CPT/HCPCS: 99212 ==

== ENCOUNTER 2024-04-28 09:51 | Outpatient (AMB) | payer OTHER, SELFPAY ==
--- NOTE | 2024-04-28 09:58 | A.OFFVIS_ITS ---
Vital Signs 04/28/24 10:00 Height 6 ft Weight 166 lb BMI 22.5 Intake Visit Reasons: PO - Left Hip IM Nail 02/21/24 Intake Note: Yohan is a 53 year old male who presents today for a post operative appointment s/p left hip IMN 02/21/24 NE. Patient reports still having a lot of pain and having a hard time walking. No hx of PT. He also has concerns about his right wrist, he states that on 04/25/24 he woke up with his wrist not being able to move. Allergies No Known Allergies Allergy (Verified 04/28/24 10:04) HPI HPI PO - Left Hip IM Nail 02/21/24: Details: Yohan is a 53 year old male who presents today for a post operative appointment s/p left hip IMN 02/21/24 NE. Patient reports still having a lot of pain and having a hard time walking. He is not using any assistive devices to ambulate. He has not attended any physical therapy. He is accompanied by his significant other in the room, however upon entering she left the room abruptly. Of note, the patient presented to the office today with a complaint of not being able to move his right wrist. He states that he slept with his arm hanging off of the bed. Denies and illicit drug use or alcohol use. Reports smoking 1/2 ppd. [facility] Medical History (Updated 02/27/24 @ 00:03 by Khadijah Bobby) Medical clearance for psychiatric admission Generalized anxiety disorder MDD (major depressive disorder) Opioid use disorder Mesenteric ischemia Portal vein thrombosis Surgical History Hx of appendectomy History of lumbar surgery Social History Household Members: None Housing: Homeless Do you presently have visiting nurse or other home services: No Comment: 1:1 sitter Patient Tobacco Use Status: Former Tobacco user Tobacco use type: Cigarette Second Hand Smoke Exposure: No service: No Sexual orientation: Straight/Heterosexual Review of Systems Const All systems reviewed & are unremarkable except as noted in HPI and below Physical Exam Vital Signs: BMI result Body Mass Index 22.5 Const General: cooperative, healthy appearing and no acute distress Resp Effort & Inspection: normal respiratory effort and able to speak in complete sentences Cardio Rate: regular rate Peripheral pulses: Peripheral pulses 2+ throughout GI Palpation (GI): Soft to palpation Skin Lesions: no lesions Rashes: no rashes Extrem Other: Left hip incision sites are well approximated and healed. Able to perform full active flexion, extension, internal and external ROM. Able to dorsi/plantar flexion. Sensation intact. Pedal pulse intact. RUE: Radial nerve palsy, unable to perform wrist extension or thumbs up. Reports numbness and tingling in the hand. Compartments are soft. CApillary refill is brisk. He has small scabbing throughout bilateral forearms. Assessment & Plan Assessment & Plan (1) Intertrochanteric fracture of left femur: Code(s): S72.142A - Displaced intertrochanteric fracture of left femur, initial encounter for closed fracture Category: Medical Qualifiers: Encounter type: initial encounter Fracture type: closed Fracture alignment: nondisplaced Qualified Code(s): S72.145A - Nondisplaced intertrochanteric fracture of left femur, initial encounter for closed fracture Plan Yohan is a 53 year old male who presents today for a post operative appointment s/p left hip IMN 02/21/24 NE. Patient reports still having a lot of pain and having a hard time walking. He is not using any assistive devices to ambulate. He has not attended any physical therapy. He is accompanied by his significant other in the room, however upon entering she left the room abruptly. Of note, the patient presented to the office today with a complaint of not being able to move his right wrist. He states that he slept with his arm hanging off of the bed. Denies and illicit drug use or alcohol use. Reports smoking 1/2 ppd. I recommended that the patient attend out patient physical therapy. I have placed an order for this today. He repeatedly asked for a refill of pain medicine although, he is not due for refill until tomorrow. This will be his last refill. In regards to his right upper extremity radial nerve palsy, the patient will followup with Dr. Blair for further evaluation and treatment. He will followup in 6 weeks with repeat imaging for his hip, sooner if needed. Coding Level of Care Code Global (96610) Diagnoses Closed nondisplaced intertrochanteric fracture of left femur, initial encounter S72.145A Encounter type: initial encounter Fracture type: closed Fracture alignment: nondisplaced
[2024-04-28 10:00] VITALS: BMI 22.5
== END 2024-04-28 10:16 | disposition home or self-care (01) ==
PROVIDERS: PCP Internal Medicine; Visit Provider Physician Assistant
DX: S72.145A Nondisplaced intertrochanteric fracture of left femur, initial encounter for closed fracture (principal)
CPT/HCPCS: 99024

== ENCOUNTER → 2024-04-28 09:51 | Outpatient (BNVA) | payer OTHER, SELFPAY | PROVIDERS: PCP Internal Medicine; Visit Provider Physician Assistant | DX: S72.142D Displaced intertrochanteric fracture of left femur, subsequent encounter for closed fracture with routine healing (principal); F17.210 Nicotine dependence, cigarettes, uncomplicated; Z98.890 Other specified postprocedural states | CPT/HCPCS: 99212 ==

== ENCOUNTER 2024-05-07 22:04 | Emergency (ER) | payer OTHER, SELFPAY ==
--- NOTE | ~2024-05-07 | CT_ITS ---
EXAMINATION: CT HIP WITH CONTRAST, LEFT CLINICAL INFORMATION: Left hip pain/infection following surgery. Evaluate for fluid collection. COMPARISON: Most recent left hip radiographs dated 03/20/2024. TECHNIQUE: Contiguous axial CT images of the left hip were obtained following the IV administration of 85 mL Omnipaque 350 contrast. Multiplanar reformats were provided and reviewed. This CT examination was performed using dose optimization techniques as appropriate, variously including the following: *Automated exposure control. *Adjustment of mA and/or kV according to patient size (this includes techniques or standardized protocols for targeted exams where dose is matched to indication/reason for exam; i.e. extremities or head). *Use of iterative reconstruction technique. DLP: 335 mGy-cm FINDINGS: Redemonstration of a left femoral neck fracture in anatomic alignment with an intramedullary madie and dynamic hip screw. Distal stabilization screw. No hardware fracture. No perihardware lucency to suggest loosening or infection. Persistent fragmentation with new bone/callus formation along the posterosuperior aspect of the fracture line. There appears to be prominent osseous bridging along the fracture line. New evidence of avascular necrosis within the anterosuperior aspect of the femoral head with a linear lucency measuring 4.5 x 3.4 cm (AP x ML) in the subcortical region. There is a central, minimally depressed osseous fragment. Findings are consistent with avascular necrosis and cortical collapse. This is new when compared to the radiographs dated 03/20/2024. [id number] left hip joint space narrowing with small marginal osteophytes. Degenerative disc disease and facet arthropathy partially visualized within the lower lumbar spine. No soft tissue mass. No organized fluid collection or abscess formation. No enhancing soft tissue lesion. Small left hip joint effusion. The visualized muscles and tendons are grossly intact; however, evaluation is limited on CT examination. CT/CT hip LT w IV con IMPRESSION: 1. Redemonstration of a left femoral neck fracture in anatomic alignment with an intramedullary madie and dynamic hip screw. No evidence of hardware complication. Persistent fragmentation with new bone/callus formation along the posterosuperior aspect of the fracture line. There appears to be prominent osseous bridging along the fracture line. 2. 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 This is new when compared to the radiographs dated 03/20/2024. 3. [id number] left hip osteoarthritis. Small left hip joint effusion. Electronically signed by: Cliff Hogan MD 05/07/2024 11:02 PM EDT
[2024-05-07 22:09] VITALS: BP 132/74; PULSE 76; O2SAT 98
[2024-05-07 22:15] VITALS: BP 118/71; PULSE 95; RESP 18; TEMP 37.3; O2SAT 95; BMI 21.7
--- NOTE | 2024-05-07 22:18 | PC.NURSE ---
iv placed to R. wrist.
[2024-05-07] MEDS: Morphine Sulfate 4 MG/ML CARTRIDGE IVPUSH (22:37)
[2024-05-07] MEDS: iohexoL 350 MG/ML 100 ML INFUS..BTL 85 ML IV (22:40)
--- NOTE | 2024-05-07 22:42 | PC.NURSE ---
pt return from ct scan reports pain worsened to 03/14. pt medicated per oct. resting comfortably. call camacho within reach.
[2024-05-07 23:16] VITALS: RESP 15
[2024-05-07 23:52] VITALS: BP 133/66; PULSE 87; RESP 16; TEMP 36.6; O2SAT 97
[2024-05-08 01:14] LABS: COVID-19 Test Negative (Negative); IDNOW Serial# 08D9AD1C
--- NOTE | 2024-05-08 02:17 | ED_ITS ---
HPI - General Adult General Chief complaint: General Medical Stated complaint: L hip pain for a week Time Seen by Provider: 05/07/24 22:09 Source: patient and EMS Mode of arrival: EMS Limitations: no limitations History of Present Illness ED Provider: Dr. Ambar Clark HPI narrative: Patient comes to the emergency room via ambulance from [facility]. I accepted the transfer. On February of 2024 patient had a hip surgery done here at [facility] for a left hip fracture. Patient presented earlier today at [facility] complaining of left-sided hip pain. Patient states that since February, his hip has been hurting but just the last week the pain got much worse. At [facility], patient had an x-ray and an ultrasound done. The ultrasound of the left hip showed no focal fluid collection and the x-ray showed osteonecrosis and subchondral collapse no fracture. Since patient's orthopedic surgeons here, patient was sent to the ED. also it was noted that patient's white blood cell count is 21. Related Data Home Medications ?Medication ?Instructions ?Recorded ?Confirmed amitriptyline 75 mg tablet 75 mg PO BEDTIME 02/13/24 02/20/24 apixaban 5 mg tablet (Eliquis) 5 mg PO BID 02/13/24 02/20/24 dapagliflozin propanediol 10 mg 10 mg PO DAILY 02/13/24 02/20/24 tablet (Farxiga) loratadine 10 mg tablet 10 mg PO BEDTIME 02/13/24 02/20/24 tamsulosin 0.4 mg capsule 0.4 mg PO DAILY 02/13/24 02/20/24 Previous Rx's ?Medication ?Instructions ?Recorded aluminum-magnesium hydroxide 200 30 ml PO Q6H PRN Heartburn/Nausea 02/19/24 mg-200 mg/5 mL oral suspension #0 mL (MAG-AL) hydroxyzine HCl 25 mg tablet 25 mg PO Q6H PRN Anxiety #0 tabs 02/19/24 magnesium hydroxide 400 mg/5 mL 30 ml PO DAILY PRN Constipation #0 02/19/24 oral suspension (Milk of Magnesia) mL methadone 10 mg/mL oral 50 mg (5 mL) PO DAILY@0800 #0 mL 02/19/24 concentrate (Methadose) mirtazapine 7.5 mg tablet 7.5 mg PO BEDTIME #0 tabs 02/19/24 multivitamin (Daily-Nestor tablet) 1 tab PO DAILY #0 tabs 02/19/24 nicotine (polacrilex) 2 mg gum 4 mg buccal Q2H PRN Nicotine 02/19/24 Cravings #0 ea acetaminophen 325 mg tablet 650 mg (2 x 325 mg) PO Q6H PRN 02/24/24 Pain, Mild (Pain Scale 1-3), fever or headache #60 tabs carvedilol 6.25 mg tablet 6.25 mg PO BID #60 tabs 02/24/24 oxycodone 5 mg tablet 5 mg PO .QD PRN Pain, 04/29/24 Moderate(Pain Scale 4-6) 7 days #7 tabs Allergies Allergy/AdvReac Type Severity Reaction Status Date / Time No Known Allergies Allergy Verified 05/07/24 22:17 Review of Systems Review of Systems: Constitutional : No Weight loss, No Fever, No Chills, No Night Sweats, No Fatigue, No Malaise ENT/Mouth : No Hearing loss, No Ear Pain, No Nasal Congestion, No Sinus Pain, No Hoarseness, No sore throat, No Rhinorrhea, No Swallowing Difficulty Eyes: No Eye Pain, No Swelling, No Redness, No Foreign Body, No Discharge, No Vision Changes Cardiovascular : No Chest Pain, No SOB, No Dyspnea on Exertion, No Orthopnea, No Edema, No Palpitations Respiratory : No Cough, No Sputum, No Wheezing, No Smoke Exposure, No Dyspnea Gastrointestinal : No Nausea, No Vomiting, No Diarrhea, No Constipation, No abdominal Pain, No Hematochezia, No Melena Genitourinary : no irregular bleeding, No Dysuria, No Urinary Frequency, No Hematuria, No Urinary Incontinence, No Urgency, No Flank Pain, No Urinary Flow Changes, No Hesitancy Musculoskeletal : Complaining of acute on chronic left hip pain No Myalgias, No Joint Swelling Skin : No Skin Lesions, No rash Neuro : No Weakness, No Numbness, No Paresthesias, No Loss of Consciousness, No Dizziness, No Headache Psych : No Anxiety/Panic, No Depression, No SI/HI/AH/VH, No Social Issues, Heme/Lymph: No Bruising, No Bleeding,No Lymphadenopathy Endocrine : No Polyuria, No Polydipsia, No Temperature Intolerance PMFSH Past Medical History Medical History Medical clearance for psychiatric admission Generalized anxiety disorder MDD (major depressive disorder) Opioid use disorder Mesenteric ischemia Portal vein thrombosis Surgical History Hx of appendectomy History of lumbar surgery Social History Social History Household Members: None Housing: Homeless Do you presently have visiting nurse or other home services: No Comment: 1:1 sitter Patient Tobacco Use Status: Former Tobacco user Tobacco use type: Cigarette Second Hand Smoke Exposure: No Advance Directives: Yes Advance Directives Information Provided: No Advance Directives on File: No service: No Sexual orientation: Straight/Heterosexual Physical Exam ED Vital Signs: Vital Signs - 24 hr 05/07/24 22:15 05/07/24 23:16 05/07/24 23:52 Temperature 99.1 F 97.9 F Pulse Rate 95 87 Respiratory Rate 18 15 16 Blood Pressure 118/71 133/66 Pulse Oximetry 95 97 Oxygen Delivery Method Room Air Room Air BMI result Body Mass Index 21.7 Const Other: Appearance: Alert. Oriented X3. No acute distress. No fever Eyes: Pupils equal, round and reactive to light. ENT: Pharynx normal. Neck: Normal inspection. Neck supple. No lymph nodes noted. No crepitus CVS: Normal heart rate and rhythm. Pulses normal. Normal S1 and S2 Respiratory: No respiratory distress. Breath sounds normal. No Wheezing. No rales Abdomen: Soft and nontender. No rigidity. No distention. Skin: Skin warm and dry. Normal skin color. Normal skin turgor. Extremities: No lower extremity edema. Pain with any movement of the left hip. No redness or obvious swelling that would suggest septic joint Neuro: Oriented X 3. No motor deficit. No sensory deficit. Moving all extremities. No slurred speech. CN 2 through 12 grossly intact Psych: calm, cooperative, normal affect Course Course Course Narrative: Labs were done earlier today at [facility]. -hematology: White blood cell count 21.8, hemoglobin 12.4, hematocrit 41.6, platelets 516, ESR 43 -chemistry: Sodium 140, potassium 3.8, chloride 104, bicarb 29, BUN 9, creatinine 1.22, glucose 196, CRP 6.48 Medications Administered Discontinued Medications Generic Name Dose Route Start Last Admin Trade Name Aida PRN Reason Stop Dose Admin Iohexol 85 ml 05/07/24 22:39 05/07/24 22:40 Iohexol 350 Mg/Ml 100 Ml Infus..Btl IV 05/07/24 22:40 85 ml ONCE ONE Administration Morphine Sulfate 4 mg 05/07/24 22:21 05/07/24 22:37 Morphine Sulfate 4 Mg/Ml Cartridge IVPUSH 05/07/24 22:22 4 mg ONCE ONE Administration Protocol Medical Decision Making Medical Decision Making MDM Narrative: -here in the ED we did a CT scan showing no hardware fracture, no hardware lucency to suggest loosening or infection. No evidence of avascular necrosis within the anterior superior aspect of the femoral head. There is central minimally depressed osseous fragment. Findings consistent with a vascular necrosis and cortical collapse -I discussed the patient with Dr. Schreiber from Orthopedics and with [facility] on-call, patient can follow-up on an outpatient basis. No need for acute treatment or antibiotics or admission. Patient will follow-up with Dr. Bone -in the ED, we tried to help the patient get up and walk but patient is in too much pain. Patient is homeless an hour to go. Patient unable to walk -patient will need physical therapy and case management consult. -PT and case management consult pending -sign-out given to my colleague Dr. Coffman -patient not to be given IV pain medications, otherwise placement will be extremely difficult -physician observation started at 02:39 Differential Diagnosis Differential Diagnoses: The differential diagnosis associated with the presentation includes (Avascular necrosis of the left hip, new fracture, dislocation, septic joint) Lab Data Labs: Lab Results 05/08/24 Range/Units 00:54 COVID-19 (CEM) Negative (Negative) COVID-19 Clin Com See Note Independent Interpretation I performed an independent interpretation of an: CT Scan Radiology Impression Discussion of test interpretation with radiology: I have reviewed the radiologist's reading. Radiologist Impression: Redemonstration of a left femoral neck fracture in anatomic alignment with an intramedullary madie and dynamic hip screw. Distal stabilization screw. No hardware fracture. No perihardware lucency to suggest loosening or infection. Persistent fragmentation with new bone/callus formation along the posterosuperior aspect of the fracture line. There appears to be prominent osseous bridging along the fracture line. New evidence of avascular necrosis within the anterosuperior aspect of the femoral head with a linear lucency measuring 4.5 x 3.4 cm (AP x ML) in the subcortical region. There is a central, minimally depressed osseous fragment. Findings are consistent with avascular necrosis and cortical collapse. This is new when compared to the radiographs dated 03/20/2024. [id number] left hip joint space narrowing with small marginal osteophytes. Degenerative disc disease and facet arthropathy partially visualized within the lower lumbar spine. No soft tissue mass. No organized fluid collection or abscess formation. No enhancing soft tissue lesion. Small left hip joint effusion. The visualized muscles and tendons are grossly intact; however, evaluation is limited on CT examination. CT/CT hip LT w IV con IMPRESSION: 1. Redemonstration of a left femoral neck fracture in anatomic alignment with an intramedullary madie and dynamic hip screw. No evidence of hardware complication. Persistent fragmentation with new bone/callus formation along the posterosuperior aspect of the fracture line. There appears to be prominent osseous bridging along the fracture line. 2. 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 This is new when compared to the radiographs dated 03/20/2024. 3. Aovi-nb-[id number] left hip osteoarthritis. Small left hip joint effusion. Critical Care Time Critical Care Time Critical Care Time: Yes Total Critical Care Time: 45 Attestation: I have personally provided critical care time. Time includes review of lab data, radiology results, discussion with consultants, and monitoring for potential decompensation. Intervention performed as documented. Discharge Plan Discharge Clinical Impression: Avascular necrosis of hip, Homeless Patient Disposition: Still a Patient Prescriptions: No Action oxycodone 5 mg tablet 5 mg PO .QD PRN (Reason: Pain, Moderate(Pain Scale 4-6)) 7 Days Qty: 7 0RF Rx Instructions: Partial Fill upon patient request. amitriptyline 75 mg tablet 75 mg PO BEDTIME tamsulosin 0.4 mg capsule 0.4 mg PO DAILY loratadine 10 mg tablet 10 mg PO BEDTIME Eliquis 5 mg tablet 5 mg PO BID dapagliflozin propanediol [Farxiga] 10 mg tablet 10 mg PO DAILY multivitamin [Daily-Nestor] Tablet 1 tab PO DAILY Qty: 0 0RF nicotine (polacrilex) 2 mg Gum 4 mg buccal Q2H PRN (Reason: Nicotine Cravings) Qty: 0 0RF magnesium hydroxide [Milk of Magnesia] 400 mg/5 mL Suspension 30 ml PO DAILY PRN (Reason: Constipation) Qty: 0 0RF hydroxyzine HCl 25 mg Tablet 25 mg PO Q6H PRN (Reason: Anxiety) Qty: 0 0RF methadone [Methadose] 10 mg/mL Concentrate 50 mg PO DAILY@0800 Qty: 0 0RF Patient Comments: 140mg home clinic dose last received 01/03/24. Last dose received 50mg 02/20/24 at [facility]. Rx Instructions: Partial Fill upon patient request. mirtazapine 7.5 mg Tablet 7.5 mg PO BEDTIME Qty: 0 0RF MAG-AL 200-200 mg/5 mL Suspension 30 ml PO Q6H PRN (Reason: Heartburn/Nausea) Qty: 0 0RF acetaminophen 325 mg Tablet 650 mg PO Q6H PRN (Reason: Pain, Mild (Pain Scale 1-3), fever or headache) Qty: 60 0RF carvedilol 6.25 mg Tablet 6.25 mg PO BID Qty: 60 0RF Protocol: Hold for SBP/HR < HOLD for SBP < : 90 HOLD for HR < : 60 Print Language: Bulgarian
--- NOTE | 2024-05-08 02:21 | PC.NURSE ---
per MD plan for d/c home so attempt to get pt oob to ambulate. pt unable to fully extend torso when standing d/t pain, immediately sat back down. consulted with pt if willing to stay to meet with pt/cm and pt is in agreement. MD made aware.
[2024-05-08 03:28] VITALS: BP 141/83; PULSE 86; RESP 17; TEMP 36.9; O2SAT 97
--- NOTE | 2024-05-08 04:50 | PC.NURSE ---
MD made aware of pain level.
[2024-05-08] MEDS: oxyCODONE HCl Immed Release 5 MG TABLET PO ×4 (05:46→22:52)
[2024-05-08 06:44] VITALS: BP 140/86; PULSE 87; RESP 15; TEMP 36.8; O2SAT 96
[2024-05-08 08:53] VITALS: BP 140/86; PULSE 87; O2SAT 96
--- NOTE | 2024-05-08 08:54 | PC.NURSE ---
Patient with difficulty using right hand while eating breakfast. When asked why patient states x 1 week ago had tingling in his hand and has had trouble using it ever since. Denies falls or trauma, denies changes in vision or headaches. PA notified
[2024-05-08 10:05] LABS: MANUAL DIFF FLAG NO
[2024-05-08 10:08] LABS: Basophils Absolute Auto 0.1 X10*3/uL (0.0-0.2); Basophils Percent Auto 0.5 % (0-2); Eosinophils Absolute Auto 0.1 X10*3/uL (0.0-0.4); Eosinophils Percent Auto 1.1 % (0-4); Hematocrit 38.4 % (42.0-52.0); Hemoglobin 11.5 g/dl (14.0-18.0); Imm Gran Abs Auto 0.05 X10*3/uL (0.00-0.03); Imm Gran Pct Auto 0.4 % (0.0-0.4); Lymphocytes Absolute Auto 1.7 X10*3/uL (1.2-4.9); Lymphocytes Percent Auto 13.6 % (20-40); Mean Corpuscular HGB Conc 29.9 g/dl (31.0-36.0); Mean Corpuscular Hemoglobin 23.1 pg (27.0-33.0); Mean Corpuscular Volume 77.1 fL (80.0-98.0); Mean Platelet Volume 9.9 fL (9.4-12.4); Monocytes Absolute Auto 0.7 X10*3/uL (0.1-1.2); Monocytes Percent Auto 5.3 % (2-11); Neutrophils Absolute Auto 10.1 x10*3/uL (2.0-8.3); Neutrophils Percent Auto 79.1 % (45-73); Platelet Count 446 X10*3/uL (160-400); Red Blood Count 4.98 X10*6/uL (4.60-5.80); Red Cell Distribution Width 17.2 % (11.0-16.0); White Blood Count 12.8 X10*3/uL (4.8-10.8)
[2024-05-08 10:23] LABS: Alanine Aminotransferase 11 U/L (0-40); Albumin Level 3.1 g/dL (3.5-5.0); Alkaline Phosphatase 202 U/L (39-117); Anion Gap 10 (12-20); Aspartate Amino Transferase 10 U/L (5-37); Bilirubin Total 0.2 mg/dL (0.0-1.0); Blood Urea Nitrogen 8 mg/dL (9-16); Calcium 8.7 mg/dL (8.4-10.2); Carbon Dioxide 28 mmol/L (22-29); Chloride 105 mmol/L (96-108); Creatinine Clr Calc Pharmacy 118.5; Estimated Glomerular Filt Rate > 60; Glucose Random 106 mg/dL (60-115); Magnesium 1.9 mg/dL (1.6-2.6); Potassium 3.4 mmol/L (3.3-5.1); Sodium 140 mmol/L (135-145); Total Protein 6.3 g/dL (6.5-8.0)
[2024-05-08 10:45] LABS: Erythrocyte Sedimentation Rate 12 MM/HR (0-15)
--- NOTE | 2024-05-08 12:15 | MHC.CM.ED ---
Addendum entered by Kinsey Knapp 05/08/24 12:17: When a STR facility is secured a [facility] PASSR Level will be needed due to MAT. Original Note: Received case management consult overnight. Patient came to the ER due to hip pain. Work up did not indicate inpatient admission. Physical therapy eval completed. Short term rehab is recommended. Met with patient in regards to discharge planning. Patient is homeless and lives in his care. PCP verified. Copy of HCP obtained from [facility]. Patient receives methadone from [facility] in [place]. Patient has been to STR in [place] in the past. Patient aware referral will be broadcasted to see who has a bed that is contracted with his insurance and accepts patients with methadone. Patient verbalizes understanding. [facility] is reviewing and requested where patient will go after STR. Per patient, patient will return to living in his car. Continue to monitor for d/c needs.
[2024-05-08 12:17] VITALS: BP 150/87; PULSE 94; RESP 14; TEMP 37.1; O2SAT 96
--- NOTE | 2024-05-08 14:01 | PC.NURSE ---
Addendum entered by Marielos Sanchez RN 05/08/24 14:02: Received 70mg of methadone on 05/07/24 Original Note: Friend called stating patient needs methadone. Patient has not asked RN for methadone or reported that he is on it. Dose verified with Carol WELLER at [facility] , patient last dosed 05/07/24 at 12:26pm
--- NOTE | 2024-05-08 14:14 | HE.PHANOTE ---
Re Methadone Pt receives 70mg of methadone daily from [facility]. Last dose was 05/07/24.
--- NOTE | 2024-05-08 14:16 | PC.NURSE ---
Attempted to do med rec with patient- patient stating that he does not know what he takes and he is unsure of where he gets his meds from, maybe [facility] pharmacy. Pharmacy called and notified, stating will add him to med rec pharmacists list
--- NOTE | 2024-05-08 14:22 | ED.GENADULT ---
HPI - General Adult General Chief complaint: General Medical Stated complaint: L hip pain for a week Time Seen by Provider: 05/07/24 22:09 Source: patient and EMS Mode of arrival: EMS Limitations: no limitations Related Data Home Medications ?Medication ?Instructions ?Recorded ?Confirmed amitriptyline 75 mg tablet 75 mg PO BEDTIME 02/13/24 05/08/24 apixaban 5 mg tablet (Eliquis) 5 mg PO BID 02/13/24 05/08/24 dapagliflozin propanediol 10 mg 10 mg PO DAILY 02/13/24 05/08/24 tablet (Farxiga) loratadine 10 mg tablet 10 mg PO BEDTIME 02/13/24 05/08/24 tamsulosin 0.4 mg capsule 0.4 mg PO DAILY 02/13/24 05/08/24 clonazepam 1 mg tablet 1 mg PO BID PRN Anxiety 05/08/24 05/08/24 ferrous sulfate 325 mg (65 mg 325 mg PO DAILY 05/08/24 05/08/24 iron) tablet (FeroSul) folic acid 1 mg tablet 1 mg PO DAILY 05/08/24 05/08/24 furosemide 40 mg tablet 40 mg PO DAILY 05/08/24 05/08/24 hydroxyzine pamoate 50 mg capsule 100 mg PO BID 05/08/24 05/08/24 methadone 10 mg/mL oral 70 mg PO DAILY@0800 05/08/24 05/08/24 concentrate (Methadose) metoprolol succinate 50 mg 50 mg PO DAILY 05/08/24 05/08/24 tablet,extended release 24 hr oxycodone 5 mg tablet 5 mg PO Q8H PRN moderate pain 05/08/24 05/08/24 thiamine HCl (vitamin B1) 100 mg 100 mg PO DAILY 05/08/24 05/08/24 tablet (Vitamin B-1) trazodone 50 mg tablet 50 mg PO BEDTIME 05/08/24 05/08/24 valsartan 80 mg tablet 80 mg PO BID 05/08/24 05/08/24 venlafaxine 37.5 mg 37.5 mg PO BID 05/08/24 05/08/24 capsule,extended release 24 hr Previous Rx's ?Medication ?Instructions ?Recorded mirtazapine 7.5 mg tablet 7.5 mg PO BEDTIME #0 tabs 02/19/24 multivitamin (Daily-Nestor tablet) 1 tab PO DAILY #0 tabs 02/19/24 nicotine (polacrilex) 2 mg gum 4 mg buccal Q2H PRN Nicotine 02/19/24 Cravings #0 ea acetaminophen 325 mg tablet 650 mg (2 x 325 mg) PO Q6H PRN 02/24/24 Pain, Mild (Pain Scale 1-3), fever or headache #60 tabs carvedilol 6.25 mg tablet 6.25 mg PO BID #60 tabs 02/24/24 Allergies Allergy/AdvReac Type Severity Reaction Status Date / Time No Known Allergies Allergy Verified 05/07/24 22:17 [facility] Past Medical History Medical History Medical clearance for psychiatric admission Generalized anxiety disorder MDD (major depressive disorder) Opioid use disorder Mesenteric ischemia Portal vein thrombosis Surgical History Hx of appendectomy History of lumbar surgery Social History Social History Household Members: None Housing: Homeless Do you presently have visiting nurse or other home services: No Comment: 1:1 sitter Patient Tobacco Use Status: Former Tobacco user Tobacco use type: Cigarette Smoked in Last 30 Days: Yes Second Hand Smoke Exposure: No Advance Directives: Yes Advance Directives Information Provided: No Advance Directives on File: No service: No Sexual orientation: Straight/Heterosexual Physical Exam ED Vital Signs: Vital Signs - 24 hr 05/09/24 16:19 05/09/24 22:43 05/10/24 07:05 Temperature 98.7 F 98.6 F 98.6 F Pulse Rate 93 100 107 H Respiratory Rate 16 16 20 Blood Pressure 172/106 H 174/107 H 176/106 H Pulse Oximetry 96 96 97 Oxygen Delivery Method Room Air Room Air Room Air BMI result Body Mass Index 21.7 Course Reevaluation(s) Reevaluation #1: Patient was seen by Orthopedics Dr. Hill recommends follow-up with Dr. Pike outpatient. No signs of infected hip. 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 He does have a white count no left shift. Chemistry unremarkable. As stated previously CRP elevated 7.8, avascular necrosis can be addressed on an outpatient setting per Orthopedics. No need for clinical admission. Patient was offered rehab, however he is adamantly refusing. Plan patien to be DC as he is refusing rehab. 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 Plan discharge home with ortho follow-up. Educated patient on diagnosis and treatment plan, answered all question, patient verbalizes understanding. At this time patient will be discharged home, advised to return with new or worsening symptoms. Educated on worrisome signs and symptoms and when to return. At this time I feel comfortable discharge home. Time: 14:23 Reevaluation #2: Continue physician observation pending placement. Case management is involved in the patient's care. Medications were reconciled this morning. Will continue physician observation pending disposition Medications Administered Discontinued Medications Generic Name Dose Route Start Last Admin Trade Name Alejandroq PRN Reason Stop Dose Admin Acetaminophen 975 mg 05/09/24 06:00 05/09/24 06:30 Acetaminophen 325 Mg Tablet PO 05/09/24 06:01 975 mg ONCE ONE Administration Amitriptyline HCl 75 mg 05/10/24 21:00 05/10/24 20:24 Amitriptyline Hcl 25 Mg Tablet PO 75 mg BEDTIME TREV Administration Apixaban 5 mg 05/10/24 10:15 05/10/24 20:24 Apixaban 5 Mg Tablet PO 5 mg BID TREV Administration Carvedilol 6.25 mg 05/10/24 10:15 05/10/24 20:48 Carvedilol 6.25 Mg Tablet PO 6.25 mg BID TREV Administration Protocol Empagliflozin 10 mg 05/10/24 10:15 05/10/24 10:33 Empagliflozin 10 Mg Tablet PO 10 mg DAILY TREV Administration Ferrous Sulfate 324 mg 05/10/24 10:30 05/10/24 10:32 Ferrous Sulfate 324 Mg Tablet. PO 324 mg DAILY TREV Administration Folic Acid 1 mg 05/10/24 10:30 05/10/24 10:32 Folic Acid 1 Mg Tablet PO 1 mg DAILY TREV Administration Furosemide 40 mg 05/10/24 10:30 05/10/24 10:32 Furosemide 40 Mg Tablet PO 40 mg DAILY TREV Administration Protocol Hydroxyzine HCl 100 mg 05/10/24 10:30 05/10/24 20:25 Hydroxyzine Hcl 50 Mg Tablet PO 100 mg BID TREV Administration Iohexol 85 ml 05/07/24 22:39 05/07/24 22:40 Iohexol 350 Mg/Ml 100 Ml Infus..Btl IV 05/07/24 22:40 85 ml ONCE ONE Administration Loratadine 10 mg 05/10/24 21:00 05/10/24 20:24 Loratadine 10 Mg Tablet PO 10 mg BEDTIME TREV Administration Methadone HCl 70 mg 05/09/24 08:00 05/10/24 07:28 Methadone Hcl 20 Mg/2 Ml Oral.Conc PO 70 mg DAILY@0800 TREV Administration Methadone HCl 70 mg 05/08/24 15:12 05/08/24 15:15 Methadone Hcl 20 Mg/2 Ml Oral.Conc PO 05/08/24 15:13 70 mg ONCE ONE Administration Morphine Sulfate 4 mg 05/07/24 22:21 05/07/24 22:37 Morphine Sulfate 4 Mg/Ml Cartridge IVPUSH 05/07/24 22:22 4 mg ONCE ONE Administration Protocol Multivitamins/Vitamin C 1 tab 05/10/24 10:30 05/10/24 10:32 Multivitamin Tablet PO 1 tab DAILY TREV Administration Nicotine 21 mg 05/10/24 17:18 05/10/24 17:22 Nicotine 21 Mg Patch.Td24 TRANSDERMA 05/10/24 17:19 21 mg ONCE ONE Administration Oxycodone HCl 5 mg 05/08/24 04:47 05/10/24 07:28 Oxycodone Hcl Immed Release 5 Mg Tablet PO 5 mg Q6H PRN Administration Pain, Moderate(Pain Scale 4-6) Oxycodone HCl 5 mg 05/08/24 10:44 05/08/24 10:48 Oxycodone Hcl Immed Release 5 Mg Tablet PO 05/08/24 10:45 5 mg ONCE ONE Administration Oxycodone HCl 5 mg 05/10/24 09:42 05/10/24 10:49 Oxycodone Hcl Immed Release 5 Mg Tablet PO 5 mg Q8H PRN Administration moderate pain Tamsulosin HCl 0.4 mg 05/10/24 10:30 05/10/24 10:31 Tamsulosin Hcl 0.4 Mg Capsule PO 0.4 mg DAILY TREV Administration Thiamine HCl 100 mg 05/10/24 10:30 05/10/24 10:32 Thiamine Hcl 100 Mg Tablet PO 100 mg DAILY TREV Administration Trazodone HCl 50 mg 05/10/24 21:00 05/10/24 20:48 Trazodone Hcl 50 Mg Tablet PO 50 mg BEDTIME TREV Administration Valsartan 80 mg 05/10/24 10:30 05/10/24 20:25 Valsartan 80 Mg Tablet PO 80 mg BID TREV Administration Protocol Venlafaxine HCl 37.5 mg 05/10/24 10:30 05/10/24 20:25 Venlafaxine Hcl Er 37.5 Mg Cap.Er.24h PO 37.5 mg BID TREV Administration Medical Decision Making Lab Data 05/08/24 09:58 05/08/24 09:58 Labs: Lab Results 05/08/24 05/08/24 Range/Units 00:54 09:58 WBC 12.8 H (4.8-10.8) X10*3/uL RBC 4.98 D (4.60-5.80) X10*6/uL Hgb 11.5 L D (14.0-18.0) g/dl Hct 38.4 L D (42.0-52.0) % MCV 77.1 L (80.0-98.0) fL MCH 23.1 L (27.0-33.0) pg MCHC 29.9 L (31.0-36.0) g/dl RDW 17.2 H (11.0-16.0) % Plt Count 446 H (160-400) X10*3/uL MPV 9.9 (9.4-12.4) fL Immature Gran % (Auto) 0.4 (0.0-0.4) % Neut % (Auto) 79.1 H (45-73) % Lymph % (Auto) 13.6 L (20-40) % Rusk % (Auto) 5.3 (2-11) % Eos % (Auto) 1.1 (0-4) % Baso % (Auto) 0.5 (0-2) % Lymph # (Auto) 1.7 (1.2-4.9) X10*3/uL Rusk # (Auto) 0.7 (0.1-1.2) X10*3/uL Eos # (Auto) 0.1 (0.0-0.4) X10*3/uL Baso # (Auto) 0.1 (0.0-0.2) X10*3/uL Abs Immat Gran (auto) 0.05 H (0.00-0.03) X10*3/uL Absolute Neuts (auto) 10.1 H (2.0-8.3) x10*3/uL Absolute Nucleated RBC 0.000 (0.0-0.012) X10*3/uL Nucleated RBC % (auto) 0.0 (0.0-0.2) /100WBC ESR 12 (0-15) MM/HR Sodium 140 (135-145) mmol/L Potassium 3.4 (3.3-5.1) mmol/L Chloride 105 (96-108) mmol/L Carbon Dioxide 28 (22-29) mmol/L Anion Gap 10 L (12-20) BUN 8 L (9-16) mg/dL Creatinine 0.74 (0.5-1.4) mg/dL Estim Creat Clear Calc 118.5 Estimated GFR > 60 Random Glucose 106 (60-115) mg/dL Calcium 8.7 (8.4-10.2) mg/dL Magnesium 1.9 (1.6-2.6) mg/dL Total Bilirubin 0.2 (0.0-1.0) mg/dL AST 10 (5-37) U/L ALT 11 (0-40) U/L Alkaline Phosphatase 202 H (39-117) U/L C-Reactive Protein 7.80 H (< or = 0.50) mg/dL Total Protein 6.3 L (6.5-8.0) g/dL Albumin 3.1 L (3.5-5.0) g/dL COVID-19 (CEM) Negative (Negative) COVID-19 Clin Com See Note Discharge Plan Discharge Clinical Impression: Avascular necrosis of hip, Homeless Patient Disposition: Left Against Medical Advice Additional Instructions: You chose to leave against medical advice, you refused to sign the documentation. Take your medications as prescribed. Follow-up with your primary care provider this week. Return to the emergency department with new or worsening symptoms. Such as fevers, chills, chest pain, shortness of breath, nausea, vomiting, dizziness, headache, vision changes, lethargy In case of emergency call 911 Please follow-up with Dr. Pike Prescriptions: No Action methadone [Methadose] 10 mg/mL concentrate 70 mg PO DAILY@0800 Patient Comments: 140mg home clinic dose last received 01/03/24. [place] [facility] [place] Rx Instructions: Partial Fill upon patient request. furosemide 40 mg tablet 40 mg PO DAILY venlafaxine 37.5 mg capsule,extended release 24hr 37.5 mg PO BID trazodone 50 mg tablet 50 mg PO BEDTIME clonazepam 1 mg tablet 1 mg PO BID PRN (Reason: Anxiety) thiamine HCl (vitamin B1) [Vitamin B-1] 100 mg tablet 100 mg PO DAILY valsartan 80 mg tablet 80 mg PO BID ferrous sulfate [FeroSul] 325 mg (65 mg iron) tablet 325 mg PO DAILY folic acid 1 mg tablet 1 mg PO DAILY metoprolol succinate 50 mg tablet extended release 24 hr 50 mg PO DAILY hydroxyzine pamoate 50 mg capsule 100 mg PO BID oxycodone 5 mg tablet 5 mg PO Q8H PRN (Reason: moderate pain) amitriptyline 75 mg tablet 75 mg PO BEDTIME tamsulosin 0.4 mg capsule 0.4 mg PO DAILY loratadine 10 mg tablet 10 mg PO BEDTIME Eliquis 5 mg tablet 5 mg PO BID dapagliflozin propanediol [Farxiga] 10 mg tablet 10 mg PO DAILY multivitamin [Daily-Nestor] Tablet 1 tab PO DAILY Qty: 0 0RF nicotine (polacrilex) 2 mg Gum 4 mg buccal Q2H PRN (Reason: Nicotine Cravings) Qty: 0 0RF mirtazapine 7.5 mg Tablet 7.5 mg PO BEDTIME Qty: 0 0RF acetaminophen 325 mg Tablet 650 mg PO Q6H PRN (Reason: Pain, Mild (Pain Scale 1-3), fever or headache) Qty: 60 0RF carvedilol 6.25 mg Tablet 6.25 mg PO BID Qty: 60 0RF Protocol: Hold for SBP/HR < HOLD for SBP < : 90 HOLD for HR < : 60 [place] [facility] [place] [facility] [Provider Group] - 2 days [facility] [Outside] Nidia Carlisle DO [Primary Care Provider] - 2 days Stand Alone Forms: Against Medical Advice Discharge Date/Time: 05/11/24 02:46 Print Language: Turkish
--- NOTE | 2024-05-08 14:23 | MHC.CM.ED ---
Addendum entered by Kinsey Knapp 05/08/24 15:36: Attempt[facility] to reach [facility] in [place] at [phone]. Left voicemail requesting return telephone call. Attempted to call [facility] in [place] to arrange guest dosing via telephone at [phone]. Left voicemail requesting return telephone call. Addendum entered by Kinsey Knapp 05/08/24 15:28: Patient has decided to accept a bed at [facility]. [facility] is in the process of obtaining insurance auth. Guest methadone dosing will need to be arranged at [facility] in [place]. Patient will need a [facility], [place]) Level 2. T/W already submitted for this. Original Note: [facility], [facility] These options were discussed with patient. Patient requesting to stay in hospital.T/W explained patient did not qualify for acute hospital inpatient level of care at this time. Patient stated I'm not going that far. T/W explained patient would have to be d/c'd from ER. Patient aware and agreeable. Chelsea SILVA aware. Continue to monitor for d/c needs.
[2024-05-08] MEDS: methADONE HCl 20 MG/2 ML ORAL.CONC 70 MG PO (15:15)
--- NOTE | 2024-05-08 15:28 | PC.NURSE ---
In to room to discharge patient, patient stating he will now go to str, case management and PA aware
[2024-05-08 17:30] VITALS: BP 143/86; PULSE 93; RESP 14; TEMP 37.1; O2SAT 96
--- NOTE | 2024-05-08 18:08 | PHA.MEDREC ---
Addendum entered by Garrett Shelton [facility] 05/08/24 18:15: Med rec verified, unable to confirm if pt still takes remeron Original Note: Pharmacy Consult ? Medication Reconciliation Pharmacy has completed the medication reconciliation. Patient is a poor historian. He didn't know any of the medications he takes. Patient was just discharged from [facility] to come to [facility] today. couldn't obtain a medication list from [facility] with several attempts. Utilized claims to confirm most of med list.
[2024-05-08 19:36] VITALS: BP 161/92; PULSE 93; RESP 16; TEMP 37.2; O2SAT 96
--- NOTE | 2024-05-09 02:15 | PC.NURSE ---
Pt transitioned to a hospital bed for comfort and extended weekend stay
[2024-05-09 05:45] VITALS: BP 174/96; PULSE 89; RESP 17; TEMP 36.9; O2SAT 99
[2024-05-09] MEDS: oxyCODONE HCl Immed Release 5 MG TABLET PO ×3 (06:00→17:17)
[2024-05-09] MEDS: Acetaminophen 325 MG TABLET 975 MG PO (06:30)
--- NOTE | 2024-05-09 08:47 | MHC.EDTECH ---
Pt throw his breakfast tray on the floor, stating he does not want to eat.
[2024-05-09 09:01] VITALS: BP 171/96; PULSE 89; RESP 16; TEMP 37.1; O2SAT 97
[2024-05-09] MEDS: methADONE HCl 20 MG/2 ML ORAL.CONC 70 MG PO (09:06)
--- NOTE | 2024-05-09 11:01 | MHC.CM.PN ---
PER [facility], THEY WILL FOLLOW UP FRIDAY 05/11 FOR [facility] AUTH/ METHADONE GUEST DOSING CONFIRMATION. CM WILL CONTINUE TO FOLLOW FOR ANY CHANGE TO DC PLAN.
[2024-05-09 16:19] VITALS: BP 172/106; PULSE 93; RESP 16; TEMP 37.1; O2SAT 96
[2024-05-09 22:43] VITALS: BP 174/107; PULSE 100; RESP 16; TEMP 37; O2SAT 96
[2024-05-10] VITALS (7 sets, daily range): BP systolic 156–176; BP diastolic 101–113; PULSE 87–107; RESP 16–20; TEMP 36.7–37; O2SAT 97–98
--- NOTE | 2024-05-10 07:21 | PC.NURSE ---
This RN resumed care at 0700, pt was sitting on edge of bed, attempting to get up, pt was not safe when on feet d/t hip pain. Pt in agreement to take pain medication at this time. This RN brought breakfast tray into patient, provided hygiene care and safety education. Call camacho within reach at this time.
[2024-05-10] MEDS: methADONE HCl 20 MG/2 ML ORAL.CONC 70 MG PO (07:28)
[2024-05-10] MEDS: oxyCODONE HCl Immed Release 5 MG TABLET PO ×2 (07:28→10:49)
[2024-05-10] MEDS: Tamsulosin HCL 0.4 MG CAPSULE PO (10:31)
[2024-05-10] MEDS: Multivitamin TABLET 1 TAB PO (10:32)
[2024-05-10] MEDS: Valsartan 80 MG TABLET PO ×2 (10:32→20:25)
[2024-05-10] MEDS: Ferrous Sulfate 324 MG TABLET.DR PO (10:32)
[2024-05-10] MEDS: Thiamine HCL 100 MG TABLET PO (10:32)
[2024-05-10] MEDS: Folic Acid 1 MG TABLET PO (10:32)
[2024-05-10] MEDS: Furosemide 40 MG TABLET PO (10:32)
[2024-05-10] MEDS: Apixaban 5 MG TABLET PO ×2 (10:32→20:24)
[2024-05-10] MEDS: hydrOXYzine HCL 50 MG TABLET 100 MG PO ×2 (10:33→20:25)
[2024-05-10] MEDS: Venlafaxine HCl ER 37.5 MG CAP.ER.24H PO ×2 (10:33→20:25)
[2024-05-10] MEDS: carvediloL 6.25 MG TABLET PO ×2 (10:33→20:48)
[2024-05-10] MEDS: Empagliflozin 10 MG TABLET PO (10:33)
--- NOTE | 2024-05-10 10:49 | PC.NURSE ---
this nurse took over patient care from oscar at 9am, pt a&o to person/time, was unsure of place. rr equal/non labored, pt noted to be hypertensive for this am vitals- upon looking patients med req had been completed but medications not ordered, this nurse spoke with the provider on this morning who then ordered all the patients home medications, pt was medicated with home meds, pt also c/o 03/14 back/leg and hip pain- pt medicated for pain per order. additionally patient is refusing to keep hospital attire on, pt was told he is required to have hospital socks on which he reluctantly then put on. elopement tracker was put on patient, call camacho is within reach, will continue plan of care.
--- NOTE | 2024-05-10 12:58 | PC.NURSE ---
pt resting quietly on [facility]- pt med rec was completed, and pt was medicated per MAR
[2024-05-10] MEDS: Nicotine 21 MG PATCH.TD24 TRANSDERMA (17:22)
[2024-05-10] MEDS: Amitriptyline HCl 25 MG TABLET 75 MG PO (20:24)
[2024-05-10] MEDS: Loratadine 10 MG TABLET PO (20:24)
[2024-05-10] MEDS: traZODone HCL 50 MG TABLET PO (20:48)
--- NOTE | 2024-05-11 02:00 | PC.NURSE ---
Patient is alert and oriented x3, transported to overflow unit from the main ED. Patient has been refusing to get in his room stating I am not staying in this basement , patient attempted to throw his walker at the staff, unable to redirect patient. Security and Venessa, ED provider called to oveflow unit.
--- NOTE | 2024-05-11 02:05 | PC.NURSE ---
Venessa, ED provider at bedside, assessing patient.
--- NOTE | 2024-05-11 02:17 | PC.NURSE ---
Patient transferred to overflow unit from main ED. When patient arrived to overflow unit, he has has been refusing to get in his room stating I am not staying in this basement . Patient has been hostile with a staff, throwing a walker into the staff, walking into other patient's rooms, sitting on other patient's beds, screaming at the staff profanity. Security called multiple times to overflow unit, but patient continued hostile behavior. Patient also continued to request leaving ED despite knowing his limitations: back pain and difficulty ambulating on uneven surfaces. Venessa, ED provider called to overflow unit, verbal order received from Bessy to discharge patient against medical advice. Patient refused to sign leaving AMA form. Patient taken to main ED for removal of elopement tracker.
--- NOTE | 2024-05-11 08:16 | MHC.CM.ED ---
Patient left AMA over the weekend.
== END 2024-05-11 02:46 | disposition left against medical advice (07) ==
PROVIDERS: Physician Assistant; Emergency Provider Emergency Medicine; PCP Internal Medicine
DX: M25.552 Pain in left hip (principal); R26.2 Difficulty in walking, not elsewhere classified; Z79.899 Other long term (current) drug therapy; Z87.891 Personal history of nicotine dependence; Z59.00 Homelessness unspecified; Z11.52 Encounter for screening for COVID-19
CPT/HCPCS: 36415; 73701; 80053; 83735; 85025; 85652; 86140; 87635; 96374; 97162; 99285; J2270; Q9967

== ENCOUNTER 2024-06-08 07:46 | Outpatient (REF) | payer OTHER, SELFPAY | END 2024-06-08 07:47 | disposition home or self-care (01) | LOC: HO.HOSX 07:46 | PROVIDERS: Visit Provider Physician Assistant | DX: Z13.89 Encounter for screening for other disorder (principal) ==

== ENCOUNTER 2024-06-09 08:56 | Outpatient (REF) | payer OTHER, SELFPAY | END 2024-06-09 08:57 | disposition home or self-care (01) | LOC: HO.HOSX 08:56 | PROVIDERS: Visit Provider Physician Assistant | DX: Z13.89 Encounter for screening for other disorder (principal) ==

== ENCOUNTER 2024-06-27 11:57 | Emergency (ER) | payer OTHER, SELFPAY ==
--- NOTE | ~2024-06-27 | XR_ITS ---
EXAMINATION: XR HIP, LEFT CLINICAL INFORMATION: s/p replacement, pain COMPARISON: 03/20/2024 TECHNIQUE: Three views of the left hip. FINDINGS: Notable femoral head bone loss about the right hip with significant bone loss. The femoral head is essentially absent with secondary marked degeneration of the acetabulum. ORIF changes appears intact. No definite deformity of hardware failure. XR/XR hip LT w PEL1V IMPRESSION: Notable osteolysis about the right hip as above. No evidence of hardware failure. Diagnostic incision clinically potentially infection or AVN. Posttraumatic changes can also appear this way. Electronically signed by: Hong Martinez MD 06/27/2024 01:57 PM [facility]
--- NOTE | 2024-06-27 11:59 | ED_ITS ---
HPI - Extremity Injury (Lower) General Chief Complaint: Extremity Injury, Lower Stated Complaint: l hip pain replaced back in Mar Time Seen by Provider: 06/27/24 12:19 Source: patient Mode of arrival: ambulatory Limitations: no limitations History of Present Illness ED Provider: RENETTA QURESHI PA-C HPI Narrative: 54 year old male pmhx significant for HTN, opioid use disorder, MDD, s/p left hip IMN 02/21/[address] Bone presents to the ED today for evaluation acute on chronic left hip pain. Reports left hip pain progressively worsening since his surgery in February. He has been evaluated for this numerous times in ED and at outpatient ortho office. Has been advised to trial physical therapy however declines PT. Reports that today he was at a storage unit where he had to walk a length of approximately 50 feet when his left hip began to ache. Reports pain is unchanged from the past. Pain localized to lateral aspect of left hip. No radiation. Denies numbness/tingling/weakness of the LLE. No new injury or trauma. Denies fever/chills. Reports taking Motrin approximately 1 hour ago without improvement. He typically uses a walker to ambulate however was not using this today. He has a follow up appointment with ortho scheduled this coming Saturday (in 2 days). Related Data Home Medications ?Medication ?Instructions ?Recorded ?Confirmed amitriptyline 75 mg tablet 75 mg PO BEDTIME 02/13/24 05/08/24 apixaban 5 mg tablet (Eliquis) 5 mg PO BID 02/13/24 05/08/24 dapagliflozin propanediol 10 mg 10 mg PO DAILY 02/13/24 05/08/24 tablet (Farxiga) loratadine 10 mg tablet 10 mg PO BEDTIME 02/13/24 05/08/24 tamsulosin 0.4 mg capsule 0.4 mg PO DAILY 02/13/24 05/08/24 clonazepam 1 mg tablet 1 mg PO BID PRN Anxiety 05/08/24 05/08/24 ferrous sulfate 325 mg (65 mg 325 mg PO DAILY 05/08/24 05/08/24 iron) tablet (FeroSul) folic acid 1 mg tablet 1 mg PO DAILY 05/08/24 05/08/24 furosemide 40 mg tablet 40 mg PO DAILY 05/08/24 05/08/24 hydroxyzine pamoate 50 mg capsule 100 mg PO BID 05/08/24 05/08/24 methadone 10 mg/mL oral 70 mg PO DAILY@0800 05/08/24 05/08/24 concentrate (Methadose) metoprolol succinate 50 mg 50 mg PO DAILY 05/08/24 05/08/24 tablet,extended release 24 hr oxycodone 5 mg tablet 5 mg PO Q8H PRN moderate pain 05/08/24 05/08/24 thiamine HCl (vitamin B1) 100 mg 100 mg PO DAILY 05/08/24 05/08/24 tablet (Vitamin B-1) trazodone 50 mg tablet 50 mg PO BEDTIME 05/08/24 05/08/24 valsartan 80 mg tablet 80 mg PO BID 05/08/24 05/08/24 venlafaxine 37.5 mg 37.5 mg PO BID 05/08/24 05/08/24 capsule,extended release 24 hr Previous Rx's ?Medication ?Instructions ?Recorded mirtazapine 7.5 mg tablet 7.5 mg PO BEDTIME #0 tabs 02/19/24 multivitamin (Daily-Nestor tablet) 1 tab PO DAILY #0 tabs 02/19/24 nicotine (polacrilex) 2 mg gum 4 mg buccal Q2H PRN Nicotine 02/19/24 Cravings #0 ea acetaminophen 325 mg tablet 650 mg (2 x 325 mg) PO Q6H PRN 02/24/24 Pain, Mild (Pain Scale 1-3), fever or headache #60 tabs carvedilol 6.25 mg tablet 6.25 mg PO BID #60 tabs 02/24/24 oxycodone 5 mg tablet 5 mg PO BID PRN pain (scale score 06/27/24 4-6) #4 tabs Allergies Allergy/AdvReac Type Severity Reaction Status Date / Time No Known Allergies Allergy Verified 06/27/24 12:03 Review of Systems 2 Review of Systems: Constitutional: No fever, chills, fatigue, night sweats, weight changes ENT/Mouth: No ear pain, hearing loss, nasal congestion, sinus pain, rhinorrhea, sore throat Eyes: No eye pain, swelling, redness, vision changes, discharge Cardio: No chest pain, palpitations, AREVALO, orthopnea, peripheral edema Pulm: No SOB, cough, sputum, wheezing, dyspnea, hemoptysis GI: No nausea, vomiting, hematemesis, abdominal pain, diarrhea, constipation, hematochezia, melena : No irregular bleeding, dysuria, frequency, urgency, hesitancy, hematuria, flank pain, urinary flow changes, urinary incontinence or retention MSK: No back pain, neck pain, joint pain, myalgias, +left hip pain Skin: No lesions, rashes Neuro: No weakness, numbness, paresthesias, LOC, dizziness, headache Psych: No anxiety/panic, depression, SI/HI, AH/VH All other systems reviewed and are negative. [facility] Past Medical History Attestation statement: The following information was validated with the patient. Source: old records reviewed and nursing notes reviewed Medical History Medical clearance for psychiatric admission Generalized anxiety disorder MDD (major depressive disorder) Opioid use disorder Mesenteric ischemia Portal vein thrombosis Surgical History Hx of appendectomy History of lumbar surgery Social History Social History Household Members: None Housing: Homeless Do you presently have visiting nurse or other home services: No Comment: 1:1 sitter Patient Tobacco Use Status: Former Tobacco user Tobacco use type: Cigarette Second Hand Smoke Exposure: No Advance Directives: No Advance Directives Information Provided: No Do you have a plan to hurt others: No Plan service: No Sexual orientation: Straight/Heterosexual Physical Exam 2 Vital Signs: Vital Signs: Last Vital Signs Temp 98.1 F 06/27/24 15:54 Pulse 90 06/27/24 15:54 Resp 19 06/27/24 15:54 BP 160/95 H 06/27/24 15:54 Pulse Ox 97 06/27/24 15:54 O2 Del Method Room Air 06/27/24 15:54 BMI result Body Mass Index 21.7 Patient hypertensive, vitals otherwise WNL. Afebrile. General: Well appearing, in no acute distress. Skin: Warm, dry, intact. No rashes or lesions. Head: Normocephalic, atraumatic. EENT: Hearing is intact b/l. Conjunctiva clear. PERRLA. EOM intact. Moist mucous membranes.? Cardiac: Chest wall symmetric. RRR Lungs: Normal respiratory effort without accessory muscle use. Abdomen: Soft, non-tender, non-distended. No rebound tenderness or guarding. Positive BS x4. Back: No midline spinous or paraspinal tenderness. No step off deformity. Ext: Upper and lower extremities atraumatic, without tenderness, deformity, swelling or erythema. Full ROM intact to left hip with pain on extension, relieved with flexion. Neuro: AOx3. Normal speech. Strength 5/5 intact throughout. Sensation intact to light touch. NV intact distally. Ambulating with steady gait. Psych: Appropriate mood and affect. Responds appropriately to questions. Course Course Course Narrative: This is a Rapid Medical Exam performed in triage by Lolis Chou PA-C. Full HPI, ROS and PE to be performed by primary ED provider. 54 yo M with a past medical history of HTN, opiate use disorder, major depressive disorder, left hip replacement 02/21/[address] Bone presenting to the ED c/o continued Left hip pain since replacement in February. Takes ibuprofen w/o relief. denies falls or trauma. Denies starting PT like previously recommended on Ortho f/u in Apr. States has been using walker at home PE: in wheelchair, limited ROM 2/2 pain Plan: XR's Reevaluation(s) Reevaluation #1: CBC with slight leukocytosis to 11.8, improved from labs obtained on 05/08/2024. No left shift. Microcytic anemia, chronic when compared to priors. H&H around baseline. Above transfusion threshold. Chemistry without acute electrolyte abnormality requiring intervention. No ARUNA. Liver function around baseline. ESR WNL. CRP elevated however improved since labs on 05/08/2024. xr left hip/ pelvis showing osteolysis around the left hip, no evidence of hardware failure. Diagnostic incision clinically potential infection vs AVN although posttraumatic changes can also appear this way. > I discussed work up results with arely Varner. His physical exam is not concerning for infection at this time. He is lying comfortably in bed. Vitals are normal. He was medicated with Oxycodone in ED today with improvement. Plan to send him home with Tylenol/Motrin and oxy for breakthrough pain. He does have a follow up appointment on Saturday with arely. He will likely require physical therapy. Patient has remained stable throughout ED visit today. Discussed worrisome signs and symptoms and when to return to the ED. All questions answered at this time. Patient is agreeable with disposition and stable for discharge. Medications Administered Discontinued Medications Generic Name Dose Route Start Last Admin Trade Name Aida PRN Reason Stop Dose Admin Oxycodone HCl 5 mg 06/27/24 13:17 06/27/24 13:55 Oxycodone Hcl Immed Release 5 Mg Tablet PO 06/27/24 13:18 5 mg ONCE ONE Administration Medical Decision Making Medical Decision Making [facility] Narrative: 54 year old male pmhx significant for HTN, opioid use disorder, MDD, s/p left hip IMN 02/21/[address] Bone presents to the ED today for evaluation acute on chronic left hip pain. Hypertensive, vitals otherwise WNL. He is nontoxic appearing in no acute distress. Sitting on the exam bed comfortably. upper and lower extremities atraumatic, without tenderness, deformity, swelling or erythema. Full ROM intact to left hip with pain on extension, relieved with flexion. NV intact distally. Ambulating with steady gait. Differential diagnosis includes contusion, arthritis, AVN, hardware failure, fracture, dislocation, tendonitis. Unlikely septic joint. Plan for imaging, basic labs, pain control, re-evaluation. Differential Diagnosis Differential Diagnoses: The differential diagnosis associated with the presentation includes as above. Admission/Observation Not indicated. Lab Data [facility] Lab Attestation statement: I reviewed the patient's lab results. as above. 06/27/24 14:16 06/27/24 14:16 Labs: Lab Results 06/27/24 Range/Units 14:16 WBC 11.8 H (4.8-10.8) X10*3/uL RBC 4.71 (4.60-5.80) X10*6/uL Hgb 11.2 L (14.0-18.0) g/dl Hct 35.8 L (42.0-52.0) % MCV 76.0 L (80.0-98.0) fL MCH 23.8 L (27.0-33.0) pg MCHC 31.3 (31.0-36.0) g/dl RDW 16.7 H (11.0-16.0) % Plt Count 438 H (160-400) X10*3/uL MPV 9.3 L (9.4-12.4) fL Immature Gran % (Auto) 0.4 (0.0-0.4) % Neut % (Auto) 64.5 (45-73) % Lymph % (Auto) 24.6 (20-40) % Burleigh % (Auto) 7.5 (2-11) % Eos % (Auto) 2.2 (0-4) % Baso % (Auto) 0.8 (0-2) % Lymph # (Auto) 2.9 (1.2-4.9) X10*3/uL [place]leigh # (Auto) 0.9 (0.1-1.2) X10*3/uL Eos # (Auto) 0.3 (0.0-0.4) X10*3/uL Baso # (Auto) 0.1 (0.0-0.2) X10*3/uL Abs Immat Gran (auto) 0.05 H (0.00-0.03) X10*3/uL Absolute Neuts (auto) 7.6 (2.0-8.3) x10*3/uL Absolute Nucleated RBC 0.000 (0.0-0.012) X10*3/uL Nucleated RBC % (auto) 0.0 (0.0-0.2) /100WBC ESR 10 (0-15) MM/HR Sodium 139 (135-145) mmol/L Potassium 3.8 (3.3-5.1) mmol/L Chloride 101 (96-108) mmol/L Carbon Dioxide 27 (22-29) mmol/L Anion Gap 15 (12-20) BUN 14 (9-16) mg/dL Creatinine 0.85 (0.5-1.4) mg/dL Estim Creat Clear Calc 101.9 Estimated GFR > 60 Random Glucose 100 (60-115) mg/dL Calcium 9.0 (8.4-10.2) mg/dL Magnesium 1.9 (1.6-2.6) mg/dL Total Bilirubin 0.2 (0.0-1.0) mg/dL AST 24 (5-37) U/L ALT 12 (0-40) U/L Alkaline Phosphatase 161 H (39-117) U/L C-Reactive Protein 2.03 H (< or = 0.50) mg/dL Total Protein 6.3 L (6.5-8.0) g/dL Albumin 3.2 L (3.5-5.0) g/dL Independent Interpretation I performed an independent interpretation of an: Plain X-Ray Interpretation: xr left hip/ pelvis without acute fracture or misalignment of hardware Radiology Impression Discussion of test interpretation with radiology: I have reviewed the radiologist's reading. Radiologist Impression: EXAMINATION: XR HIP, LEFT CLINICAL INFORMATION: s/p replacement, pain COMPARISON: 03/20/2024 TECHNIQUE: Three views of the left hip. FINDINGS: Notable femoral head bone loss about the right hip with significant bone loss. The femoral head is essentially absent with secondary marked degeneration of the acetabulum. ORIF changes appears intact. No definite deformity of hardware failure. XR/XR hip LT w PEL1V IMPRESSION: Notable osteolysis about the right hip as above. No evidence of hardware failure. Diagnostic incision clinically potentially infection or AVN. Posttraumatic changes can also appear this way. Electronically signed by: Hong Martinez MD 06/27/2024 01:57 PM [facility] External Record Review External record reviewed: Inpatient record, Office record, Outpatient record, Prior outpatient labs, Prior outpatient radiology, Primary care record and Outside ED record Prescription Management I considered prescription management with: Pain Medication (oxycodone) Social Determinants Patient?s care significantly limited by Social Determinants of Health including: Other Social Determinant of Health Critical Care Time Critical Care Time Critical Care Time: No Discharge Plan Discharge Clinical Impression: Avascular necrosis of bone of left hip Patient Disposition: Home, Self-Care Instructions: Total Hip Replacement (DC) Additional Instructions: You were seen in the ED today for left hip pain. Your blood work is reassuring. Your x-ray shows findings unchanged from CT scan in the beginning of May. I recommend you take 600mg ibuprofen every 6 hours or Tylenol 650mg every 6 hours as needed for pain. If needed, you can alternate these medications so that you take one medication every 3 hours. For example, at noon take ibuprofen, then at 3pm take Tylenol, then at 6pm take ibuprofen. Oxycodone has been sent to your pharmacy for you to take as needed for break through pain. Keep your appointment with the orthopedic office for this Saturday. You will likely require physical therapy. Return to the ED with new or worsening symptoms. In the case of an emergency call 911. Prescriptions: New oxycodone 5 mg tablet 5 mg PO BID PRN (Reason: pain (scale score 4-6)) Qty: 4 0RF No Action methadone [Methadose] 10 mg/mL concentrate 70 mg PO DAILY@0800 Patient Comments: 140mg home clinic dose last received 01/03/24. Last dose received 50mg 02/20/24 at [facility] Rx Instructions: Partial Fill upon patient request. furosemide 40 mg tablet 40 mg PO DAILY venlafaxine 37.5 mg capsule,extended release 24hr 37.5 mg PO BID trazodone 50 mg tablet 50 mg PO BEDTIME clonazepam 1 mg tablet 1 mg PO BID PRN (Reason: Anxiety) thiamine HCl (vitamin B1) [Vitamin B-1] 100 mg tablet 100 mg PO DAILY valsartan 80 mg tablet 80 mg PO BID ferrous sulfate [FeroSul] 325 mg (65 mg iron) tablet 325 mg PO DAILY folic acid 1 mg tablet 1 mg PO DAILY metoprolol succinate 50 mg tablet extended release 24 hr 50 mg PO DAILY hydroxyzine pamoate 50 mg capsule 100 mg PO BID oxycodone 5 mg tablet 5 mg PO Q8H PRN (Reason: moderate pain) amitriptyline 75 mg tablet 75 mg PO BEDTIME tamsulosin 0.4 mg capsule 0.4 mg PO DAILY loratadine 10 mg tablet 10 mg PO BEDTIME Eliquis 5 mg tablet 5 mg PO BID dapagliflozin propanediol [Farxiga] 10 mg tablet 10 mg PO DAILY multivitamin [Daily-Nestor] Tablet 1 tab PO DAILY Qty: 0 0RF nicotine (polacrilex) 2 mg Gum 4 mg buccal Q2H PRN (Reason: Nicotine Cravings) Qty: 0 0RF mirtazapine 7.5 mg Tablet 7.5 mg PO BEDTIME Qty: 0 0RF acetaminophen 325 mg Tablet 650 mg PO Q6H PRN (Reason: Pain, Mild (Pain Scale 1-3), fever or headache) Qty: 60 0RF carvedilol 6.25 mg Tablet 6.25 mg PO BID Qty: 60 0RF Protocol: Hold for SBP/HR < HOLD for SBP < : 90 HOLD for HR < : 60 Referrals: [facility] [Provider Group] Interventions: ED Discharge Assessment Last Done: 06/27/24 15:54 Discharge Date/Time: 06/27/24 15:56 Print Language: Citizen [place]
[2024-06-27 12:00] VITALS: BP 162/91; PULSE 104; RESP 18; TEMP 36.7; O2SAT 96; BMI 21.7
[2024-06-27] MEDS: oxyCODONE HCl Immed Release 5 MG TABLET PO (13:55)
[2024-06-27 14:20] LABS: MANUAL DIFF FLAG NO
[2024-06-27 14:21] LABS: Basophils Absolute Auto 0.1 X10*3/uL (0.0-0.2); Basophils Percent Auto 0.8 % (0-2); Eosinophils Absolute Auto 0.3 X10*3/uL (0.0-0.4); Eosinophils Percent Auto 2.2 % (0-4); Hematocrit 35.8 % (42.0-52.0); Hemoglobin 11.2 g/dl (14.0-18.0); Imm Gran Abs Auto 0.05 X10*3/uL (0.00-0.03); Imm Gran Pct Auto 0.4 % (0.0-0.4); Lymphocytes Absolute Auto 2.9 X10*3/uL (1.2-4.9); Lymphocytes Percent Auto 24.6 % (20-40); Mean Corpuscular HGB Conc 31.3 g/dl (31.0-36.0); Mean Corpuscular Hemoglobin 23.8 pg (27.0-33.0); Mean Platelet Volume 9.3 fL (9.4-12.4); Monocytes Absolute Auto 0.9 X10*3/uL (0.1-1.2); Monocytes Percent Auto 7.5 % (2-11); Neutrophils Absolute Auto 7.6 x10*3/uL (2.0-8.3); Neutrophils Percent Auto 64.5 % (45-73); Platelet Count 438 X10*3/uL (160-400); Red Blood Count 4.71 X10*6/uL (4.60-5.80); Red Cell Distribution Width 16.7 % (11.0-16.0); White Blood Count 11.8 X10*3/uL (4.8-10.8)
[2024-06-27 14:38] LABS: Alanine Aminotransferase 12 U/L (0-40); Albumin Level 3.2 g/dL (3.5-5.0); Anion Gap 15 (12-20); Aspartate Amino Transferase 24 U/L (5-37); Bilirubin Total 0.2 mg/dL (0.0-1.0); Blood Urea Nitrogen 14 mg/dL (9-16); C Reactive Protein 2.03 mg/dL (< or = 0.50); Carbon Dioxide 27 mmol/L (22-29); Chloride 101 mmol/L (96-108); Creatinine Clr Calc Pharmacy 101.9; Estimated Glomerular Filt Rate > 60; Glucose Random 100 mg/dL (60-115); Magnesium 1.9 mg/dL (1.6-2.6); Potassium 3.8 mmol/L (3.3-5.1); Sodium 139 mmol/L (135-145); Total Protein 6.3 g/dL (6.5-8.0)
[2024-06-27 14:52] LABS: Alkaline Phosphatase 161 U/L (39-117)
[2024-06-27 14:58] LABS: Erythrocyte Sedimentation Rate 10 MM/HR (0-15)
[2024-06-27 15:46] VITALS: BP 160/95; PULSE 90; RESP 19; TEMP 36.7; O2SAT 97
[2024-06-27 15:54] VITALS: BP 160/95; PULSE 90; RESP 19; TEMP 36.7; O2SAT 97
== END 2024-06-27 15:56 | disposition home or self-care (01) ==
PROVIDERS: Physician Assistant Medical; Emergency Provider Emergency Medicine; PCP Internal Medicine
DX: M87.9 Osteonecrosis, unspecified (principal); M25.552 Pain in left hip; Z96.642 Presence of left artificial hip joint
CPT/HCPCS: 36415; 73502; 80053; 83735; 85025; 85652; 86140; 99283

== ENCOUNTER 2024-06-29 10:05 | Outpatient (AMB) | payer OTHER, SELFPAY ==
[2024-06-29 10:16] VITALS: BMI 21.7
--- NOTE | 2024-06-29 10:16 | A.OFFVIS_ITS ---
Vital Signs 06/29/24 10:16 Height 6 ft Weight 160 lb BMI 21.7 Intake Visit Reasons: OV - Left Hip IM Nail 02/21/24, Left hip pain, Right arm weakness Intake Note: Yohan is a 54 year old male who presents today for a follow up s/p Left Hip IM Nail 02/21/24. The patient states that over the last few weeks his left hip pain has gotten worse. He was seen in the emergency room and was given a prescription for oxycodone which gives him only mild relief. Patient states that 3-4 weeks ago he was ?not able to move my right arm? when I woke up. The patient questions whether or not he had a ?stroke?. He denies any slurring of his words or right lower extremity weakness. Since waking up that morning he has not been able to actively extend his right wrist. The patient is on Eliquis because of a history of portal vein thrombosis. Allergies No Known Allergies Allergy (Verified 06/29/24 10:16) Medication List - Last Reconciled 06/29/24 by Iftikhar Bone MD acetaminophen 650 mg (2 x 325 mg) PO Q6H PRN amitriptyline 75 mg PO BEDTIME apixaban (Eliquis) 5 mg PO BID carvedilol 6.25 mg See Protocol PO BID clonazepam 1 mg PO BID PRN dapagliflozin propanediol (Farxiga) 10 mg PO DAILY ferrous sulfate (FeroSul) 325 mg PO DAILY folic acid 1 mg PO DAILY furosemide 40 mg PO DAILY hydroxyzine pamoate 100 mg PO BID loratadine 10 mg PO BEDTIME methadone (Methadose) 70 mg PO DAILY@0800 metoprolol succinate ER 50 mg PO DAILY mirtazapine 7.5 mg PO BEDTIME multivitamin (Daily-Nestor tablet) 1 tab PO DAILY nicotine (polacrilex) 4 mg buccal Q2H PRN oxycodone 5 mg PO Q8H PRN oxycodone 5 mg PO BID PRN tamsulosin 0.4 mg PO DAILY thiamine HCl (vitamin B1) (Vitamin B-1) 100 mg PO DAILY trazodone 50 mg PO BEDTIME valsartan 80 mg PO BID venlafaxine ER 37.5 mg PO BID PFSH Medical History Medical clearance for psychiatric admission Generalized anxiety disorder MDD (major depressive disorder) Opioid use disorder Mesenteric ischemia Portal vein thrombosis Surgical History Hx of appendectomy History of lumbar surgery Social History Household Members: None Housing: Homeless Do you presently have visiting nurse or other home services: No Comment: 1:1 sitter Patient Tobacco Use Status: Former Tobacco user Tobacco use type: Cigarette Second Hand Smoke Exposure: No service: No Sexual orientation: Straight/Heterosexual Physical Exam Vital Signs: BMI result Body Mass Index 21.7 Extrem Other: Right wrist examination shows no active extension against gravity, normal sensation to light touch along his radial nerve distribution Left hip examination shows that the surgical incisions are well healed, no erythema, pain with range of motion Results Reviewed Results Reviewed: X-rays of the patient's left hip show that his left femoral head avascular necrosis has advanced significantly since his prior x-rays, no hardware loosening, wear within the acetabulum worse than previous x-rays Assessment & Plan Assessment & Plan (1) Stroke: Code(s): I63.9 - Cerebral infarction, unspecified Category: Medical (2) Pain of left hip: Code(s): M25.552 - Pain in left hip (3) Weakness of right upper extremity: Code(s): R29.898 - Other symptoms and signs involving the musculoskeletal system Plan Mr. Caruso presents with progressively worsening of his left hip pain due to avascular necrosis of his femoral head as well as degenerative changes involving his acetabulum. I had a lengthy discussion with the patient regarding the treatment options. At this point the patient appears to be failing continued non operative treatments. May be a candidate for left total hip replacement surgery. Thus, I will have him evaluated by my partner, Dr. Hill. I did refill the patient's prescription for oxycodone. The patient also has no active wrist extension on his right side possibly due to radial nerve palsy versus cerebrovascular accident. The patient is on Eliquis for a history of portal vein thrombosis. Thus, I do recommend that the patient get an MRI of his brain for further evaluation. I will contact his primary care office to see if this b rain MRI can be arranged. The patient will contact me prior to his follow-up appointment should his symptoms worsen in any way. Feel free to call me at any time should questions regarding his orthopedic management arise. I spent 20 minutes in reviewing the patient's records and imaging studies, seeing the patient and documenting in the medical record. Medications: New oxycodone Partial Fill upon patient request. 10 mg PO Q8H PRN 30 tabs 0RF pain 10 days Coding Level of Care Code Est Pt Level 3 (99133) Complex EM visit Add On G2211 Diagnoses Stroke I63.9 Pain of left hip M25.552 Weakness of right upper extremity R29.898
== END 2024-06-29 10:37 | disposition home or self-care (01) ==
PROVIDERS: PCP Internal Medicine; Visit Provider Orthopaedic Surgery
DX: I63.9 Cerebral infarction, unspecified (principal); M25.552 Pain in left hip; R29.898 Other symptoms and signs involving the musculoskeletal system
CPT/HCPCS: 99213; G2211

== ENCOUNTER → 2024-06-29 10:05 | Outpatient (BNVA) | payer OTHER, SELFPAY | PROVIDERS: PCP Internal Medicine; Visit Provider Orthopaedic Surgery | DX: M87.852 Other osteonecrosis, left femur (principal); Z79.01 Long term (current) use of anticoagulants; Z79.891 Long term (current) use of opiate analgesic | CPT/HCPCS: 99212 ==

== ENCOUNTER → 2024-09-03 12:10 | Outpatient (BNVA) | payer OTHER, SELFPAY | PROVIDERS: PCP Internal Medicine; Visit Provider Orthopaedic Surgery | DX: M16.52 Unilateral post-traumatic osteoarthritis, left hip (principal); F11.20 Opioid dependence, uncomplicated; F32.9 Major depressive disorder, single episode, unspecified; Z86.73 Personal history of transient ischemic attack (TIA), and cerebral infarction without residual deficits | CPT/HCPCS: 99212 ==

== ENCOUNTER 2024-10-22 09:16 | Outpatient (AMB) | payer OTHER, SELFPAY ==
--- NOTE | 2024-10-22 09:20 | A.OFFVIS_ITS ---
Vital Signs 10/22/24 09:22 Height 6 ft Weight 160 lb BMI 21.7 Intake Visit Reasons: OV-Left hip follow up 6 WKS Intake Note: Yohan is a 54 year old male who presents today for a follow up of his left hip pain s/p Left IMN 02/21/[address] Bone. At his last visit CRUZITO was discussed, medical conditions that need to be addressed prior to surgery. 1- substance abuse. He states that this is not occurring and has not been for the past 3 months. He has never done IV drugs. He states he will continue to use his opioids as prescribed. No further treatment recommended at this time. He is currently booked for a Left CRUZITO 12/08/2024 2- history of stroke/mesenteric ischemia/portal vein thrombosis that is not well elucidated and the patient is a poor historian. We will need medical clearance prior to any surgery. 3- nicotine abuse. He needs to have decreased his smoking drastically. We discussed this. Patches can help. Allergies No Known Allergies Allergy (Verified 06/29/24 10:16) HPI HPI OV-Left hip follow up 6 WKS: Details: Yohan is a 54 year old male who presents today for a follow up of his left hip pain s/p Left IMN 02/21/[address] Bone. At his last visit CRUZITO was discussed, medical conditions that need to be addressed prior to surgery. 1- substance abuse. He states that this is not occurring and has not been for the past 3 months. He has never done IV drugs. He states he will continue to use his opioids as prescribed. No further treatment recommended at this time. He is currently booked for a Left CRUZITO 12/08/2024 2- history of stroke/mesenteric ischemia/portal vein thrombosis that is not well elucidated and the patient is a poor historian. We will need medical clearance prior to any surgery. 3- nicotine abuse. He needs to have decreased his smoking drastically. We discussed this. Patches can help. [facility] Medical History (Updated 09/03/24 @ 15:31 by Neal Hill MD) Post-traumatic osteoarthritis of left hip Medical clearance for psychiatric admission Generalized anxiety disorder MDD (major depressive disorder) Opioid use disorder Mesenteric ischemia Portal vein thrombosis Surgical History Hx of appendectomy History of lumbar surgery Social History Household Members: None Housing: Homeless Do you presently have visiting nurse or other home services: No Comment: 1:1 sitter Patient Tobacco Use Status: Former Tobacco user Tobacco use type: Cigarette Second Hand Smoke Exposure: No service: No Sexual orientation: Straight/Heterosexual Physical Exam Vital Signs: BMI result Body Mass Index 21.7 Extrem Other: Severe gait antalgia. Severe pain with internal rotation left hip. Left hip is shortened and internally rotated Assessment & Plan Assessment & Plan (1) Post-traumatic osteoarthritis of left hip: Code(s): M16.52 - Unilateral post-traumatic osteoarthritis, left hip Category: Medical Plan: Yohan has been improving and is much better prepared to undergo upcoming surgery. We still need medical clearance regarding his stroke history. He will be drug tested but denies illicit drug use. THis is not an entirely elective case as he cannot live with protruding hardware in his hip so our threshold for surgery is lower than if this were OA in the absence of surgically implanted hardware. Having said that he still needs to try to stop smoking, which he states he has been. We will get labs and see him pre operatively again in the coming months. Coding Level of Care Code Est Pt Level 3 (46181) Diagnoses Post-traumatic osteoarthritis of left hip M16.52
[2024-10-22 09:22] VITALS: BMI 21.7
== END 2024-10-22 09:40 | disposition home or self-care (01) ==
LOC: HO.HOS 09:17
PROVIDERS: PCP Internal Medicine; Visit Provider Orthopaedic Surgery
DX: M16.52 Unilateral post-traumatic osteoarthritis, left hip (principal)
CPT/HCPCS: 99213

== ENCOUNTER → 2024-10-22 09:16 | Outpatient (BNVA) | payer OTHER, SELFPAY | PROVIDERS: PCP Internal Medicine; Visit Provider Orthopaedic Surgery | DX: M16.52 Unilateral post-traumatic osteoarthritis, left hip (principal); Z79.891 Long term (current) use of opiate analgesic | CPT/HCPCS: 99212 ==

== ENCOUNTER → 2024-11-03 09:10 | Outpatient (BNVA) | payer OTHER, SELFPAY | PROVIDERS: PCP Internal Medicine | DX: Z01.818 Encounter for other preprocedural examination (principal) ==

== ENCOUNTER 2025-01-18 09:40 | Emergency (ER) | payer OTHER, SELFPAY ==
[2025-01-18 10:08] VITALS: BP 188/117; PULSE 106; RESP 18; TEMP 36.4; O2SAT 96; BMI 23.6
--- NOTE | 2025-01-18 12:05 | ECG_ITS ---
Test Reason : HTN Blood Pressure : */* mmHG Vent. Rate : 87 BPM Atrial Rate : 87 BPM P-R Int : 162 ms QRS Dur : 90 ms QT Int : 388 ms P-R-T Axes : 76 42 65 degrees QTcB Int : 466 ms Normal sinus rhythm Biatrial enlargement Abnormal ECG No previous ECGs available Referred By: Lolis Chou Electronically Signed By: Tyrel Faustin
--- OUTSIDE RECORDS SUMMARY | 2025-01-18 12:08 | XMS_ITS | Clinical Summary ---
Author Organization [facility] Address [address] [place] [address] Phone Care Team Providers Care Adult [employer] In[employer] Name Role Phone Physician, No Pcp Primary Care Provider Unavaila ble Allergies No known active allergies Surgical History Surgery Date Site/Laterality Comments APPENDECTOMY PROCEDURE: CT APPENDECTOMY Medical History Medical History Date Comments Tobacco use disorder DX:Tobacco use disorder Backache, unspecified DX:Backach e, unspecified Family History Medical History Relation Name Comments Diabetes Other 1 Other: Other Other 2 Muscular Dystro py Relation Name Status Comments Other 1 Other 2 Other 3 Social History Tobacco Use Types Packs/Day Years Used Date Smoking Tobacco: Every Day Cigarettes Alcohol Use Standard Drinks/Week Comments Not Asked 0 (1 standard drink = 0.6 oz pur e alcohol) Sex and Gender Information Value Date Recorded Sex Assigned at Not on file Legal Sex Male 12:53 AM EST Gender Identity Not on file Sexual Orientation Not on file Obstetrics History Last Filed Vital Signs Vital Sign Reading Time Taken Comments Blood Pressure 160/108 07/20/2024 2:16 PM EST Pulse 95 07/20/2024 2:16 PM EST Temperature 36.4 ??C (97.5 ??F) 07/20/2024 2:16 PM ES T Respiratory Rate 16 07/20/2024 2:16 PM EST Oxygen Saturation 100% 07/20/2024 2:16 PM EST Inhaled Oxygen Concentration - - Weight 79.4 kg (175 lb) 07/20/2024 2:16 PM EST Height 182.9 cm (6') 07/20/2024 2:16 PM EST Body Mass Index 23.73 07/20/2024 2:16 PM EST Plan of Treatment Health Maintenance Due Date Last Done Comments Hepatitis B Vaccines (1 of 3 - 19+ 3-dose series) 1989 Pneumococcal Vaccine: 50+ Ye ars (1 of 2 - PCV) 1989 Pneumococcal Vaccine: Pediat rics (0 to 5 Years) and At-Risk Patients (6 to 64 Years) (1 of 2 - PCV) 1989 Zoster Vaccines (1 of 2) 2020 Cholesterol Screening (Lipid Panel) 07/08/2022 Colorectal Cancer Screening: Colonoscopy 07/08/2022 Depression Screening 07/08/2022 HIV Screening 07/08/2022 Hepatitis C Screening 07/08/2022 Social Influencers of Health Screening 07/08/2022 COVID-19 Vaccine ( - 2023-2 5 season) 2024 Hypertension/CHF/CAD Annual BMP Blood Test 07/20/2024 Influenza Vaccine (Season Ended) 2025 DTaP,Tdap,and Td Vaccines (2 - Td or Tdap) 05/13/2029 05/13/2019 HIB Vaccines Aged Out No longer eligi ble based on patient's age to complete this topic HPV Vaccines Aged Out No longer eligi ble based on patient's age to complete this topic Hepatitis A Vaccines Aged Out No long er eligible based on patient's age to complete this topic IPV Vaccines Aged Out No longer eligi ble based on patient's age to complete this topic MMR Vaccines Aged Out No longer eligi ble based on patient's age to complete this topic Meningococcal ACWY Vaccine Aged Out N o longer eligible based on patient's age to complete this topic Meningococcal B Vaccine Aged Out No l onger eligible based on patient's age to complete this topic RSV Immunization Patients Un juan ramon 20 months Aged Out No longer eligible b ased on patient's age to complete this topic Varicella Vaccines Aged Out No longer eligible based on patient's age to complete this topic Insurance [place] - [place] [facility] [employer] Advance Directives Documents on File Type Date Recorded Patient Group Therapist Expl anation Health Care Decision (hx) 05/07/2024 HE ALTH CARE PROXY Health Care Decision (hx) 05/07/2024 HE ALTH CARE PROXY Health Care Decision (hx) 05/07/2024 HE ALTH CARE PROXY Health Care Decision (hx) 05/07/2024 HE ALTH CARE PROXY 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
--- NOTE | 2025-01-18 12:28 | ED_ITS ---
HPI - Extremity Injury (Lower) General Chief Complaint: Extremity Injury, Lower Stated Complaint: l hip pain Time Seen by Provider: 01/18/25 11:44 Source: patient, RN notes reviewed and old records reviewed Mode of arrival: ambulatory History of Present Illness ED Provider: Lolis Chou PA-C HPI Narrative: 54-year-old male with a past medical history HTN, substance abuse, CVA/mesenteric ischemia/portal venous thrombosis, nicotine abuse, chronic left hip pain s/p left IMN (02/21/24) w/Dr. Bone presenting to the ED complaining of acute on chronic left hip pain radiating to left knee x months. States he is currently not prescribe any pain medication. Admits to medication noncompliance w/all of his medications s/p flushing them down the toilet after a doctor pissed him off at [facility] due to refusing to Rx him pain medication a few months ago. Denies headache, vision change or loss, nausea/vomiting, CP/SOB, numbness, tingling, weakness Related Data Home Medications ?Medication ?Instructions ?Recorded ?Confirmed amitriptyline 75 mg tablet 75 mg PO BEDTIME 02/13/24 11/13/24 apixaban 5 mg tablet (Eliquis) 5 mg PO BID 02/13/24 11/13/24 dapagliflozin propanediol 10 mg 10 mg PO DAILY 02/13/24 11/13/24 tablet (Farxiga) loratadine 10 mg tablet 10 mg PO BEDTIME 02/13/24 11/13/24 tamsulosin 0.4 mg capsule 0.4 mg PO BEDTIME 02/13/24 11/13/24 furosemide 40 mg tablet 40 mg PO DAILY 05/08/24 11/13/24 valsartan 80 mg tablet 80 mg PO BID 05/08/24 11/13/24 venlafaxine 37.5 mg 37.5 mg PO BID 05/08/24 11/13/24 capsule,extended release 24 hr clonazepam 1 mg tablet 1 mg PO BID 11/13/24 11/13/24 Previous Rx's ?Medication ?Instructions ?Recorded acetaminophen 325 mg tablet 650 mg (2 x 325 mg) PO Q6H PRN 02/24/24 Pain, Mild (Pain Scale 1-3), fever or headache #60 tabs carvedilol 6.25 mg tablet 6.25 mg PO BID #60 tabs 02/24/24 walker #1 ea 10/07/24 oxycodone 10 mg tablet 10 mg PO Q8H PRN pain 15 days #45 11/02/24 tabs Allergies Allergy/AdvReac Type Severity Reaction Status Date / Time codeine Allergy Intermediate Itching Verified 01/18/25 10:10 Review of Systems 2 Review of Systems: Yes all other systems are reviewed and are negative Constitutional: Constitutional: Reports as per [facility] Past Medical History Attestation statement: The following information was validated with the patient. Source: old records reviewed Medical History Numbness On anticoagulant therapy Encounter for pleural drainage tube placement Impaired fasting glucose Steatosis Dyslipidemia Anemia PVD (peripheral vascular disease) Hx of fracture of left hip Fracture of metacarpal of right hand, closed Hypomagnesemia Hypocalcemia Hyponatremia Seizure Pseudocyst of pancreas Splenic infarct Depression Insomnia Thyroid nodule Pulmonary nodule Multiple rib fractures Lumbar vertebral fracture Cellulitis of elbow Sepsis Pneumonia History of BPH Polysubstance use disorder Anxiety Back pain Chronic mesenteric ischemia Subclavian vein thrombosis, left DVT (deep venous thrombosis) Cardiac arrest Post-traumatic osteoarthritis of left hip Medical clearance for psychiatric admission Generalized anxiety disorder MDD (major depressive disorder) Opioid use disorder Mesenteric ischemia Portal vein thrombosis Surgical History H/O colonoscopy History of abdominal paracentesis History of total left hip arthroplasty History of thrombectomy Hx of lumbar discectomy History of open reduction and internal fixation (ORIF) procedure Hx of appendectomy History of lumbar surgery Social History Social History Household Members: None Housing: Homeless Are you a primary residential care facility manager to a significant other at home: No Do you presently have visiting nurse or other home services: No Comment: 1:1 sitter Patient Tobacco Use Status: Current everyday Tobacco user Tobacco use type: Cigarette Cigarettes Per Day: 5 Second Hand Smoke Exposure: No Advance Directives: Yes Advance Directives on File: Yes Advance Directives Date on File: 05/08/24 service: No Sexual orientation: Straight/Heterosexual Physical Exam 2 Vital Signs: Vital Signs: Last Vital Signs Temp 97.6 F 01/18/25 10:08 Pulse 106 H 01/18/25 10:08 Resp 18 01/18/25 10:08 BP 188/117 H 01/18/25 10:08 Pulse Ox 96 01/18/25 10:08 O2 Del Method Room Air 01/18/25 10:08 BMI result Body Mass Index 23.6 Const: General: cooperative, healthy appearing and no acute distress O rientation/consciousness: patient oriented x3 Limitations: no limitations HEENT: Head: Yes normal to inspection and Yes atraumatic Ears: hearing grossly normal bilaterally General nose exam: Normal external nose present Face and sinus: Yes normal facial exam Eyes: General: appearance normal, both eyes and all related structures EOM: EOMs intact bilaterally Neck: Neck: Yes normal visual inspection and Yes no meningeal signs Resp: Effort & Inspection: normal respiratory effort and no respiratory distress Cardio: Rate: regular rate GI: Inspection: Yes normal to inspection Palpation (GI): Soft to palpation, nontender, no guarding and not rigid : General: Yes no CVA tenderness Back/Spine/Pelvis: Other: No midline cervical/thoracic/lumbar spinous tenderness/step-off or deformity Back: no CVA tenderness Skin: Rashes: no rashes Wounds: no wounds Neuro: Other: Ambulates with limp and walker (baseline) General: patient oriented x3, tone normal, moves all extremities and no meningeal signs Cranial nerves: Yes CN's II-XII intact bilaterally Extrem: Other: Left hip without appreciable deformity, no erythema/ecchymosis or rash. +reproducible tenderness to palpation. Pain elicited with ROM. Neurovascularly intact distally. Course Course Course Narrative: -patient refused Flexeril and requesting Soma and oxycodone -patient also refused tramadol requesting Percocet > then proceeded to walk out of the emergency department. Patient DID take his home BP medication, however, we were unable to repeat vital signs prior to him walking out of the ED -1352--no leukocytosis. Troponin negative. Labs otherwise reassuring Medications Administered Discontinued Medications Generic Name Dose Route Start Last Admin Trade Name Freq PRN Reason Stop Dose Admin Cyclobenzaprine HCl 10 mg 01/18/25 12:06 01/18/25 13:19 Cyclobenzaprine Hcl 10 Mg Tablet PO 01/18/25 12:07 Not Given ONCE ONE Lidocaine HCl 1 appl 01/18/25 12:06 01/18/25 12:40 Lidocaine 4 % Cream Kit TOPICAL 01/18/25 12:07 1 appl ONCE ONE Administration Protocol Lisinopril 40 mg 01/18/25 12:05 01/18/25 12:40 Lisinopril 40 Mg Tablet PO 01/18/25 12:06 40 mg ONCE ONE Administration Protocol Metoprolol Succinate 50 mg 01/18/25 12:05 01/18/25 12:40 Metoprolol Succinate Er 50 Mg Tab.Er.24h PO 01/18/25 12:06 50 mg ONCE ONE Administration Protocol Tramadol HCl 50 mg 01/18/25 12:59 01/18/25 13:19 Tramadol Hcl 50 Mg Tablet PO 01/18/25 13:00 Not Given ONCE ONE Medical Decision Making Medical Decision Making MDM Narrative: 54-year-old male with a past medical history HTN, substance abuse, CVA/mesenteric ischemia/portal venous thrombosis, nicotine abuse, chronic left hip pain s/p left IMN (02/21/24) w/Dr. Bone - requiring revision due to protruding hardware, however delayed - presenting to the ED complaining of acute on chronic left hip pain radiating to left knee x months. Admits to medication noncompliance w/all of his medications s/p flushing them down the toilet after a doctor pissed him off at [facility] due to refusing to Rx him pain medication. On exam hypertensive 188/117, tachycardic, NAD/nontoxic appearing, nonfocal, physical exam as noted above. Concern for acute on chronic left hip pain. Concern for hypertensive urgency/emergency vs chronic hypertension tissue medication noncompliance. Rule out ARUNA/troponin leak. Lower suspicion for ICH. No evidence of septic joint/arthritis. Plan: EKG, labs, x-ray, pain control Please refer to course for remaining clinical decision making, interpretation of labs/imaging results, and discussions with consultants and/or family members. Differential Diagnosis Differential Diagnoses: The differential diagnosis associated with the presentation includes As above Admission/Observation Consideration of admission/observation: Escalation of care including admission/observation considered Lab Data [facility] Lab Attestation statement: I reviewed the patient's lab results. 01/18/25 12:40 01/18/25 12:40 Labs: Lab Results 01/18/25 Range/Units 12:40 WBC 10.7 (4.8-10.8) X10*3/uL RBC 5.12 (4.60-5.80) X10*6/uL Hgb 14.5 D (14.0-18.0) g/dl Hct 43.9 D (42.0-52.0) % MCV 85.7 (80.0-98.0) fL MCH 28.3 (27.0-33.0) pg MCHC 33.0 (31.0-36.0) g/dl RDW 13.7 (11.0-16.0) % Plt Count 246 D (160-400) X10*3/uL MPV 10.1 (9.4-12.4) fL Immature Gran % (Auto) 0.3 (0.0-0.4) % Neut % (Auto) 60.4 (45-73) % Lymph % (Auto) 31.8 (20-40) % [place] % (Auto) 5.9 (2-11) % Eos % (Auto) 1.0 (0-4) % Baso % (Auto) 0.6 (0-2) % Lymph # (Auto) 3.4 (1.2-4.9) X10*3/uL [place] # (Auto) 0.6 (0.1-1.2) X10*3/uL Eos # (Auto) 0.1 (0.0-0.4) X10*3/uL Baso # (Auto) 0.1 (0.0-0.2) X10*3/uL Abs Immat Gran (auto) 0.03 (0.00-0.03) X10*3/uL Absolute Neuts (auto) 6.5 (2.0-8.3) x10*3/uL Absolute Nucleated RBC 0.000 (0.0-0.012) X10*3/uL Nucleated RBC % (auto) 0.0 (0.0-0.2) /100WBC Sodium 141 (135-145) mmol/L Potassium 4.0 (3.3-5.1) mmol/L Chloride 107 (96-108) mmol/L Carbon Dioxide 25 (22-29) mmol/L Anion Gap 13 (12-20) BUN 13 (9-16) mg/dL Creatinine 0.96 (0.5-1.4) mg/dL Estim Creat Clear Calc 96.5 Estimated GFR > 60 Random Glucose 96 (60-115) mg/dL Calcium 9.3 (8.4-10.2) mg/dL Troponin I High Sens 3.0 (<3.5-35.0) ng/L Ethyl Alcohol < 10 mg/dL Independent Interpretation I performed an independent interpretation of an: EKG (My interpretation EKG normal sinus rhythm rate of 87. VT interval 162. No previous EKGs to compare. No STEMI ) and Plain X-Ray Radiology Impression Discussion of test interpretation with radiology: I have reviewed the radiologist's reading. External Record Review External record reviewed: Inpatient record, Office record, Outpatient record, Prior outpatient labs, Prior outpatient radiology, Primary care record and Outside ED record Tests considered The following testing was considered but not selected: As above Prescription Management I considered prescription management with: Pain Medication Chronic Conditions Patient?s care impacted by: Hypertension and Other Social Determinants Patient?s care significantly limited by Social Determinants of Health including: Alcoholism and drug addiction in family, Problems related to primary support group and Other Social Determinant of Health Discharge Plan Discharge Clinical Impression: Hypertension, Chronic left hip pain Patient Disposition: Left W/O Completing Treatment Prescriptions: No Action (DME) walker Misc See Rx Instructions .MEDSUPPLY Qty: 1 0RF Rx Instructions: Folding Front wheeled walker duration 99 days oxycodone 10 mg tablet 10 mg PO Q8H PRN (Reason: pain) 15 Days Qty: 45 0RF Rx Instructions: Partial Fill upon patient request. furosemide 40 mg tablet 40 mg PO DAILY venlafaxine 37.5 mg capsule,extended release 24hr 37.5 mg PO BID valsartan 80 mg tablet 80 mg PO BID clonazepam 1 mg tablet 1 mg PO BID amitriptyline 75 mg tablet 75 mg PO BEDTIME tamsulosin 0.4 mg capsule 0.4 mg PO BEDTIME loratadine 10 mg tablet 10 mg PO BEDTIME Eliquis 5 mg tablet 5 mg PO BID dapagliflozin propanediol [Farxiga] 10 mg tablet 10 mg PO DAILY acetaminophen 325 mg Tablet 650 mg PO Q6H PRN (Reason: Pain, Mild (Pain Scale 1-3), fever or headache) Qty: 60 0RF carvedilol 6.25 mg Tablet 6.25 mg PO BID Qty: 60 0RF Protocol: Hold for SBP/HR < HOLD for SBP < : 90 HOLD for HR < : 60
--- NOTE | 2025-01-18 12:29 | PC.NURSE ---
pt attempting to leave ER to go to his car without reason. educated pt that if he leaves emergency department he will be leaving AMA and have to start the process over if he chooses to return. pt unwilling to give reason for needing to go to car. informed pt that the provider has picked him up and would be over to evaluate him shortly.
[2025-01-18] MEDS: lisinopriL 40 MG TABLET PO (12:40)
[2025-01-18] MEDS: Lidocaine 4 % Cream KIT 1 APPL TOPICAL (12:40)
[2025-01-18] MEDS: Metoprolol Succinate ER 50 MG TAB.ER.24H PO (12:40)
[2025-01-18 12:44] LABS: MANUAL DIFF FLAG NO
[2025-01-18 12:46] LABS: Basophils Absolute Auto 0.1 X10*3/uL (0.0-0.2); Basophils Percent Auto 0.6 % (0-2); Eosinophils Absolute Auto 0.1 X10*3/uL (0.0-0.4); Hematocrit 43.9 % (42.0-52.0); Hemoglobin 14.5 g/dl (14.0-18.0); Imm Gran Abs Auto 0.03 X10*3/uL (0.00-0.03); Imm Gran Pct Auto 0.3 % (0.0-0.4); Lymphocytes Absolute Auto 3.4 X10*3/uL (1.2-4.9); Lymphocytes Percent Auto 31.8 % (20-40); Mean Corpuscular Hemoglobin 28.3 pg (27.0-33.0); Mean Corpuscular Volume 85.7 fL (80.0-98.0); Mean Platelet Volume 10.1 fL (9.4-12.4); Monocytes Absolute Auto 0.6 X10*3/uL (0.1-1.2); Monocytes Percent Auto 5.9 % (2-11); Neutrophils Absolute Auto 6.5 x10*3/uL (2.0-8.3); Neutrophils Percent Auto 60.4 % (45-73); Platelet Count 246 X10*3/uL (160-400); Red Blood Count 5.12 X10*6/uL (4.60-5.80); Red Cell Distribution Width 13.7 % (11.0-16.0); White Blood Count 10.7 X10*3/uL (4.8-10.8)
[2025-01-18 13:01] LABS: Anion Gap 13 (12-20); Blood Urea Nitrogen 13 mg/dL (9-16); Calcium 9.3 mg/dL (8.4-10.2); Carbon Dioxide 25 mmol/L (22-29); Chloride 107 mmol/L (96-108); Creatinine Clr Calc Pharmacy 96.5; Estimated Glomerular Filt Rate > 60; Ethanol < 10 mg/dL; Glucose Random 96 mg/dL (60-115); Sodium 141 mmol/L (135-145)
--- NOTE | 2025-01-18 13:20 | PC.NURSE ---
patient refused tramadol what's the issue here why can't you guys just give me a percocet .
--- NOTE | 2025-01-18 13:45 | PC.NURSE ---
patient was observed to be walking out of the unit with steady gait using own walker.
[2025-01-18 15:32] VITALS: BP 188/117; PULSE 106; RESP 18; TEMP 36.4; O2SAT 96
== END 2025-01-18 13:45 | disposition left against medical advice (07) ==
PROVIDERS: Physician Assistant; Emergency Provider Emergency Medicine Emergency Medical Services; PCP Internal Medicine
DX: G89.29 Other chronic pain (principal); M25.552 Pain in left hip; I10 Essential (primary) hypertension
CPT/HCPCS: 36415; 80048; 80307; 84484; 85025; 93005; 99283

== ENCOUNTER → 2025-01-18 12:05 | Outpatient (BNV) | payer OTHER, SELFPAY | PROVIDERS: Emergency Provider Emergency Medicine Emergency Medical Services; PCP Internal Medicine; Visit Provider Internal Medicine Cardiovascular Disease | DX: I51.7 Cardiomegaly (principal) | CPT/HCPCS: 93010 ==

== ENCOUNTER 2025-01-19 10:08 | Emergency (ER) | payer OTHER, SELFPAY ==
[2025-01-19 10:25] VITALS: BP 114/66; PULSE 112; RESP 16; TEMP 36.4; O2SAT 97; BMI 22.4
[2025-01-19 10:27] VITALS: BP 97/66; PULSE 110; RESP 16; O2SAT 96
--- NOTE | 2025-01-19 10:30 | PC.NURSE ---
Addendum entered by Leah Jacobs RN 01/19/25 10:31: Patient is a 54-year-old male with a past medical history HTN, substance abuse, CVA/mesenteric ischemia/portal venous thrombosis, nicotine abuse, chronic left hip pain s/p left IMN (02/21/24) w/Dr. Bone presenting to the ED complaining of acute on chronic left hip pain radiating to left knee x months. States he is currently not prescribe any pain medication. Admits to medication noncompliance w/all of his medications s/p flushing them down the toilet. Patient was seen yesterday for same complaint. Alert and oriented. Respirations even and non-labored. Abdomen soft, non-tender with positive bowel sounds. Patient states he was suppose to have hip surgery on 01/01 which did not happen. Original Note: Medical History Numbness On anticoagulant therapy Encounter for pleural drainage tube placement Impaired fasting glucose Steatosis Dyslipidemia Anemia PVD (peripheral vascular disease) Hx of fracture of left hip Fracture of metacarpal of right hand, closed Hypomagnesemia Hypocalcemia Hyponatremia Seizure Pseudocyst of pancreas Splenic infarct Depression Insomnia Thyroid nodule Pulmonary nodule Multiple rib fractures Lumbar vertebral fracture Cellulitis of elbow Sepsis Pneumonia History of BPH Polysubstance use disorder Anxiety Back pain Chronic mesenteric ischemia Subclavian vein thrombosis, left DVT (deep venous thrombosis) Cardiac arrest Post-traumatic osteoarthritis of left hip Medical clearance for psychiatric admission Generalized anxiety disorder MDD (major depressive disorder) Opioid use disorder Mesenteric ischemia Portal vein thrombosis
--- NOTE | 2025-01-19 10:45 | ED_ITS ---
HPI - General Adult General Chief complaint: General Medical Stated complaint: 05/14 Left Hip pain Time Seen by Provider: 01/19/25 10:44 Source: patient, RN notes reviewed and old records reviewed Mode of arrival: ambulatory Limitations: no limitations History of Present Illness ED Provider: Adam HPI narrative: Patient is a 54-year-old male with a past medical history HTN, substance abuse, CVA/mesenteric ischemia/portal venous thrombosis, nicotine abuse, chronic left hip pain s/p left IMN (02/21/24) w/Dr. Bone presenting to the ED complaining of acute on chronic left hip pain radiating to knee for months. Seen in this ED yesterday but walked out when he was not prescribed the specific medications that he was requesting-soma and oxycodone. Patient was offered Flexeril, Tramad ol which he declined. Denies any changes in symptoms since yesterday. States that he walked out so I wouldn't get arrested. Denies fevers, nausea/vomiting, chest pain, palpitations, dyspnea, numbness or tingling. MD complaint: left hip pain Onset (ago): month(s) Related Data Home Medications ?Medication ?Instructions ?Recorded ?Confirmed amitriptyline 75 mg tablet 75 mg PO BEDTIME 02/13/24 11/13/24 apixaban 5 mg tablet (Eliquis) 5 mg PO BID 02/13/24 11/13/24 dapagliflozin propanediol 10 mg 10 mg PO DAILY 02/13/24 11/13/24 tablet (Farxiga) loratadine 10 mg tablet 10 mg PO BEDTIME 02/13/24 11/13/24 tamsulosin 0.4 mg capsule 0.4 mg PO BEDTIME 02/13/24 11/13/24 furosemide 40 mg tablet 40 mg PO DAILY 05/08/24 11/13/24 valsartan 80 mg tablet 80 mg PO BID 05/08/24 11/13/24 venlafaxine 37.5 mg 37.5 mg PO BID 05/08/24 11/13/24 capsule,extended release 24 hr clonazepam 1 mg tablet 1 mg PO BID 11/13/24 11/13/24 Previous Rx's ?Medication ?Instructions ?Recorded acetaminophen 325 mg tablet 650 mg (2 x 325 mg) PO Q6H PRN 02/24/24 Pain, Mild (Pain Scale 1-3), fever or headache #60 tabs carvedilol 6.25 mg tablet 6.25 mg PO BID #60 tabs 02/24/24 walker #1 ea 10/07/24 oxycodone 10 mg tablet 10 mg PO Q8H PRN pain 15 days #45 11/02/24 tabs tramadol 50 mg tablet 50 mg PO Q8H PRN severe pain 01/19/25 (scale score 7-10) #9 tabs Allergies Allergy/AdvReac Type Severity Reaction Status Date / Time codeine Allergy Intermediate Itching Verified 01/19/25 10:26 Review of Systems Review of Systems: As per HPI Yes all other systems are reviewed and are negative Constitutional: Constitutional: Reports as per HPI PMFSH Past Medical History Medical History Numbness On anticoagulant therapy Encounter for pleural drainage tube placement Impaired fasting glucose Steatosis Dyslipidemia Anemia PVD (peripheral vascular disease) Hx of fracture of left hip Fracture of metacarpal of right hand, closed Hypomagnesemia Hypocalcemia Hyponatremia Seizure Pseudocyst of pancreas Splenic infarct Depression Insomnia Thyroid nodule Pulmonary nodule Multiple rib fractures Lumbar vertebral fracture Cellulitis of elbow Sepsis Pneumonia History of BPH Polysubstance use disorder Anxiety Back pain Chronic mesenteric ischemia Subclavian vein thrombosis, left DVT (deep venous thrombosis) Cardiac arrest Post-traumatic osteoarthritis of left hip Medical clearance for psychiatric admission Generalized anxiety disorder MDD (major depressive disorder) Opioid use disorder Mesenteric ischemia Portal vein thrombosis Surgical History H/O colonoscopy History of abdominal paracentesis History of total left hip arthroplasty History of thrombectomy Hx of lumbar discectomy History of open reduction and internal fixation (ORIF) procedure Hx of appendectomy History of lumbar surgery Social History Social History Household Members: None Housing: Homeless Are you a primary patient care representative to a significant other at home: No Do you presently have visiting nurse or other home services: No Comment: 1:1 sitter Patient Tobacco Use Status: Current everyday Tobacco user Tobacco use type: Cigarette Cigarettes Per Day: 5 Second Hand Smoke Exposure: No Advance Directives: Yes Advance Directives on File: Yes Advance Directives Date on File: 05/08/24 service: No Sexual orientation: Straight/Heterosexual Physical Exam ED Vital Signs: Vital Signs - 24 hr 01/19/25 10:25 01/19/25 10:27 Temperature 97.5 F Pulse Rate 112 H 110 H Respiratory Rate 16 16 Blood Pressure 114/66 97/66 Pulse Oximetry 97 96 Oxygen Delivery Method Room Air Room Air BMI result Body Mass Index 22.4 Vital signs have been reviewed and appear to be correct. Blood pressure normal. Heart rate mildly tachycardic. Respiratory rate normal. Temperature normal. Oxygen saturation normal. Const General: no acute distress Orientation/consciousness: oriented to person, oriented to place, oriented to time and patient oriented x3 Limitations: no limitations HENMT Head: Yes normocephalic and Yes atraumatic Ears: external ears normal General nose exam: Normal external nose present Face and sinus: Yes face symmetric Mouth: oropharynx normal and moist mucous membranes Throat: Yes uvula midline Eyes Pupils: Equal, round and reactive pupils present Neck Neck: Yes normal visual inspection and Yes supple Resp Effort & Inspection: normal respiratory effort and able to speak in complete sentences Auscultation: clear to auscultation bilaterally Cardio Rhythm: regular rhythm Heart sounds: S1 normal heart sound present and S2 normal heart sound present Back/Spine/Pelvis Thoracic/Lumbar Spine: thoracic and lumbar spine normal to inspection, thoraco- lumbar ROM normal, No thoracic spinal tenderness and No lumbar spinal tenderness Skin General skin exam: elasticity normal and turgor normal Neuro Other: ambulates with limp/walker at baseline General: oriented to person, oriented to place, oriented to time, patient oriented x3, moves all extremities, no focal motor deficits and CN's II-XI intact bilaterally Cranial nerves: Yes Equal, round and reactive pupils present Cognition (Neuro): normal cognition Extrem General: Yes full ROM, Yes no pedal edema and Yes no calf tenderness Left lower extremity: hip/thigh Details: normal to inspection, tenderness, normal ROM (pain with ROM) and other (no erythema, NVI distal); no ecchymosis, no deformity and no unusual warmth Psych Mental Status: mental status grossly normal Affect: normal affect Thought process: Normal thought process present Medical Decision Making Medical Decision Making MDM Narrative: Patient is a 54-year-old male with a past medical history HTN, substance abuse, CVA/mesenteric ischemia/portal venous thrombosis, nicotine abuse, chronic left hip pain s/p left IMN (02/21/24) w/Dr. Bone presenting to the ED complaining of acute on chronic left hip pain radiating to knee for months. On exam patient is awake, A+Ox3, VS WNL, afebrile, normal neurological exam without focal deficits, physical exam findings as above. Given reported symptoms and physical exam findings, initial differential includes but is not limited to chronic left hip pain. No evidence of septic joint/arthritis. Labs from yesterday unremarkable, do not feel repeating labs indicated at this time as patient has no evidence of septic joint/arthritis. Discussed with patient that he can be prescribed either Tramadol or Flexeril which he was offered and declined yesterday, but will not be receiving oxycodone or soma. Patient states he is willing to try Tramadol, will send prescription for 3 day supply. Will refer to pain management as this is a chronic issue. Return precautions discussed. Patient verbalized understanding of and agreement with plan. Differential Diagnosis Differential Diagnoses: The differential diagnosis associated with the presentation includes As per [facility] Admission/Observation Consideration of admission/observation: Escalation of care including admission/observation considered Patient would have been admitted to the hospital had their work up had any findings where hospital admission was appropriate and their clinical presentation warranted hospital admission. External Record Review External record reviewed: Inpatient record, Office record and Outpatient record Prescription Management I considered prescription management with: Pain Medication Discharge Plan Discharge Clinical Impression: Chronic left hip pain Patient Disposition: Home, Self-Care Instructions: Pain Management (ED), Chronic Pain (ED), Hip Pain (ED) Additional Instructions: You presented to the emergency department for chronic left hip pain. You are being prescribed Tramadol for severe pain. Take this as prescribed. Do not drink alcohol or use other drugs while taking this medication as it can cause excessive drowsiness. Follow up with your orthopedic surgeon and pain management. Return to the emergency department with fever, redness, warmth or any other new or concerning symptoms. Prescriptions: New tramadol 50 mg tablet 50 mg PO Q8H PRN (Reason: severe pain (scale score 7-10)) Qty: 9 0RF No Action (DME) walker Misc See Rx Instructions .MEDSUPPLY Qty: 1 0RF Rx Instructions: Folding Front wheeled walker duration 99 days oxycodone 10 mg tablet 10 mg PO Q8H PRN (Reason: pain) 15 Days Qty: 45 0RF Rx Instructions: Partial Fill upon patient request. furosemide 40 mg tablet 40 mg PO DAILY venlafaxine 37.5 mg capsule,extended release 24hr 37.5 mg PO BID valsartan 80 mg tablet 80 mg PO BID clonazepam 1 mg tablet 1 mg PO BID amitriptyline 75 mg tablet 75 mg PO BEDTIME tamsulosin 0.4 mg capsule 0.4 mg PO BEDTIME loratadine 10 mg tablet 10 mg PO BEDTIME Eliquis 5 mg tablet 5 mg PO BID dapagliflozin propanediol [Farxiga] 10 mg tablet 10 mg PO DAILY acetaminophen 325 mg Tablet 650 mg PO Q6H PRN (Reason: Pain, Mild (Pain Scale 1-3), fever or headache) Qty: 60 0RF carvedilol 6.25 mg Tablet 6.25 mg PO BID Qty: 60 0RF Protocol: Hold for SBP/HR < HOLD for SBP < : 90 HOLD for HR < : 60 Referrals: Griffin Bowman MD [Physician] - Print Language: Setswana
--- NOTE | 2025-01-19 12:07 | PC.NURSE ---
Patient left without receiving his discharge instructios as he was looking for a prescription for oxycodone.
--- OUTSIDE RECORDS SUMMARY | 2025-01-19 12:15 | XMS_ITS | Clinical Summary ---
Author Organization [facility] Address [address] [place] [address] Phone Care Team Providers Care Display Associate Name Role Phone Physician, No Pcp Primary Care Provider Unavaila ble Allergies No known active allergies Surgical History Surgery Date Site/Laterality Comments APPENDECTOMY PROCEDURE: [place] APPENDECTOMY Medical History Medical History Date Comments [...] complete this topic Insurance [place] - [place] [facility] [email or web address] PLAN Advance Directives Documents on File Type Date Recorded Patient Call Center Nurse Expl anation Health Care Decision (hx) 05/07/2024 [facility] C[facility]OXY Health Care Decision (hx) 05/07/2024 HE ALTH CARE PROXY Health Care Decision (hx) 05/07/2024 HE ALTH CARE PROXY Health Care Decision (hx) 05/07/2024 HE ALTH CARE PROXY Care Teams Display Associate Relationship Specialty Start Date End Date Physician, No Pcp PCP - General 07/20/24
== END 2025-01-19 12:09 | disposition home or self-care (01) ==
PROVIDERS: Emergency Provider Emergency Medicine; PCP Internal Medicine
DX: G89.29 Other chronic pain (principal); M25.552 Pain in left hip; I10 Essential (primary) hypertension
CPT/HCPCS: 99283; 99284

== ENCOUNTER 2025-01-28 10:34 | Outpatient (AMB) | payer OTHER, SELFPAY ==
[2025-01-28 10:44] VITALS: BP 180/94; PULSE 113; RESP 18; O2SAT 98; BMI 23.1
--- NOTE | 2025-01-28 10:44 | A.OFFVIS_ITS ---
Vital Signs 01/28/25 10:44 Height 6 ft Weight 170 lb BMI 23.1 BP 180/94 H Blood Pressure Location Lt brachial Position Left Lateral Respiration 18 Pulse 113 H Pulse Source Pulse Oximeter Pulse Oximetry (%) 98 Oxygen Delivery Method Room Air Intake Visit Reasons: LEFT HIP PAIN/ ED REFERRAL Customer Success Director Required: No Allergies codeine Allergy (Intermediate, Verified 01/28/25 10:41) Itching HPI Comments Details: Jose is Very unfortunate 54 years old gentleman who presents in my office with complains on pain in the left hip. About 1 year ago he broke his femoral neck. He was operated on the fracture by Dr. Gillette. He is a heavy smoker and he has history of IVDA abuse. Unfortunately the fracture did not heal and the head of the femur is resorbing. Patient came to my office today to request treatment with oxycodone. I explained to him that he has history of drug abuse we do not prescribe opioid medications. I recommended him to go back to methadone program. Patient also stated that because ?nobody wants to give me oxycodone, I became mad and I stopped all the medications they prescribed to me ?. I explained to the patient that this is conterproductive for his pain control because it potentially delays his surgery on his hip joint, it can result in repeated stroke, it can not put patient into grave danger. At that moment patient is to do up he stated that this visit was ?waste of his time ?and walk out of the office. [facility] Medical History Numbness On anticoagulant therapy Encounter for pleural drainage tube placement Impaired fasting glucose Steatosis Dyslipidemia Anemia PVD (peripheral vascular disease) Hx of fracture of left hip Fracture of metacarpal of right hand, closed Hypomagnesemia Hypocalcemia Hyponatremia Seizure Pseudocyst of pancreas Splenic infarct Depression Insomnia Thyroid nodule Pulmonary nodule Multiple rib fractures Lumbar vertebral fracture Cellulitis of elbow Sepsis Pneumonia History of BPH Polysubstance use disorder Anxiety Back pain Chronic mesenteric ischemia Subclavian vein thrombosis, left DVT (deep venous thrombosis) Cardiac arrest Post-traumatic osteoarthritis of left hip Medical clearance for psychiatric admission Generalized anxiety disorder MDD (major depressive disorder) Opioid use disorder Mesenteric ischemia Portal vein thrombosis Surgical History H/O colonoscopy History of abdominal paracentesis History of total left hip arthroplasty History of thrombectomy Hx of lumbar discectomy History of open reduction and internal fixation (ORIF) procedure Hx of appendectomy History of lumbar surgery Social History Household Members: None Housing: Homeless Are you a primary respiratory care faculty to a significant other at home: No Do you presently have visiting nurse or other home services: No Comment: 1:1 sitter Patient Tobacco Use Status: Current everyday Tobacco user Tobacco use type: Cigarette Cigarettes Per Day: 5 Second Hand Smoke Exposure: No Advance Directives Date on File: 05/08/24 service: No Sexual orientation: Straight/Heterosexual Review of Systems Const All systems reviewed & are unremarkable except as noted in HPI and below Physical Exam Vital Signs: Last Vital Signs Pulse 113 H 01/28/25 10:44 Resp 18 01/28/25 10:44 BP 180/94 H 01/28/25 10:44 Pulse Ox 98 01/28/25 10:44 Oxygen Delivery Method Room Air 01/28/25 10:44 BMI result Body Mass Index 23.1 Const General: no acute distress and well developed; No cooperative Nutritional Appearance: average body habitus Orientation/consciousness: patient oriented x3 Limitations: physical limitations and ambulation with cane Neck Neck: Yes normal visual inspection Chest Chest palpation & inspection: normal inspection of the chest Resp Effort & Inspection: normal respiratory effort, able to speak in complete sentences, normal respiratory pattern, no audible wheezes and no cough Cardio Jugular venous distension: no JVD GI Inspection: Yes normal to inspection Neuro General: patient oriented x3 Extrem Other: Severe gait antalgia. Severe pain with internal rotation left hip. Left hip is shortened and internally rotated. The anterior lateral surface of the thigh incisions are completely healed, no redness no swelling no pathological discharge. Assessment & Plan Assessment & Plan (1) MDD (major depressive disorder): Code(s): F32.9 - Major depressive disorder, single episode, unspecified Category: Medical (2) Opioid use disorder: Code(s): F11.90 - Opioid use, unspecified, uncomplicated Category: Medical (3) Post-traumatic osteoarthritis of left hip: Code(s): M16.52 - Unilateral post-traumatic osteoarthritis, left hip Category: Medical (4) Stroke: Code(s): I63.9 - Cerebral infarction, unspecified Category: Medical Plan The best way for this patient to get his pain under control is to go to methadone program at this time. Unfortunately in this office he will not be able to receive opioid medications. I believe oxycodone would be contraindicated in his case many other short-acting opioid medications while methadone with its NMDA inherent ability would be better to treat his pain and at the same time reduce craving for opioids. Unfortunately patient does not understand this he insists on oxycodone prescription. When I refused to prescribe him oxycodone he walked out of the room. Coding Level of Care Code New Pt Level 3 (68927) Diagnoses MDD (major depressive disorder) F32.9 Opioid use disorder F11.90 Post-traumatic osteoarthritis of left hip M16.52 Stroke I63.9
--- OUTSIDE RECORDS SUMMARY | 2025-01-28 12:22 | XMS_ITS | Clinical Summary ---
Author Organization [facility] Address [address] [place] [address] Phone Care Team Providers Care Manager Travel Name Role Phone Physician, No Pcp Primary Care Provider Unavaila ble Allergies No known active allergies Surgical History Surgery Date Site/Laterality Comments APPENDECTOMY PROCEDURE: [place] APPENDECTOMY Medical History Medical History Date Comments [...] 95 07/20/2024 2:16 PM EST Temperature 36.4 C (97.5 F) 07/20/2024 2:16 PM EST Respiratory Rate 16 07/20/2024 2:16 PM EST [...] complete this topic Insurance [place] - [place] [facility] Advance Directives Documents on File Type Date Recorded Patient Handkerchief Sample Clerk Expl anation Health Care Decision (hx) 05/07/2024 HE ALTH CARE PROXY Health Care Decision (hx) 05/07/2024 HE ALTH CARE PROXY Health Care Decision (hx) 05/07/2024 HE ALTH CARE PROXY Health Care Decision (hx) 05/07/2024 HE ALTH CARE PROXY Care Teams Manager Travel Relationship Specialty Start Date End Date Physician, No Pcp PCP - General 07/20/24
== END 2025-01-28 10:54 | disposition home or self-care (01) ==
LOC: HO.PMC 10:35
PROVIDERS: PCP Internal Medicine; Visit Provider Anesthesiology
DX: M16.52 Unilateral post-traumatic osteoarthritis, left hip (principal); Z79.891 Long term (current) use of opiate analgesic; F32.9 Major depressive disorder, single episode, unspecified; I63.9 Cerebral infarction, unspecified
CPT/HCPCS: 99203

== ENCOUNTER → 2025-01-28 10:34 | Outpatient (BNVA) | payer OTHER, SELFPAY | PROVIDERS: PCP Internal Medicine; Visit Provider Anesthesiology | DX: M16.52 Unilateral post-traumatic osteoarthritis, left hip (principal); F32.9 Major depressive disorder, single episode, unspecified; F11.90 Opioid use, unspecified, uncomplicated; I63.9 Cerebral infarction, unspecified | CPT/HCPCS: 99202 ==

== ENCOUNTER 2025-03-15 08:22 | Outpatient (REF) | payer OTHER, SELFPAY | END 2025-03-15 08:23 | disposition home or self-care (01) | LOC: HO.HOSX 08:22 | PROVIDERS: Visit Provider Orthopaedic Surgery | DX: Z13.89 Encounter for screening for other disorder (principal) ==